=== PATIENT | female | born 1935 ===

== ENCOUNTER 2018-09-20 09:26 | Inpatient (IN) ==
[2018-09-20] MEDS ORDERED: 0.9 % Sodium Chloride 500 ML IVC ONE (09:54)
[2018-09-20 11:00] LABS: Bilirubin,Urine Moderate (Negative); Blood,Urine Large (Negative); Clarity,Urine Cloudy (Clear); Color,Urine Yellow (Yellow); Glucose,Urine (UA) Normal (Normal); Ketones,Urine 15 mg/dL (Negative); Leukocyte Esterase,Urine Large (Negative); Nitrite,Urine Negative (Negative); Protein,Urine 30 mg/dL (Neg-Trace); Specific Gravity,Urine 1.013 (1.010-1.025); Urobilinogen,Urine Normal (Normal)
[2018-09-20 11:02] LABS: Bacteria,Urine None Seen per hpf (None-Few); Squamous Epithelial Cell,Urine Many per lpf (None-Few); WBC,Urine 30-50 per hpf (0-3)
[2018-09-20 11:21] LABS: Renal Epithelial Cells,Urine Many per hpf (None-Few); Transitional Epi Cells,Urine Moderate per hpf (None-Few)
[2018-09-20 11:21] LABS: Basophils % 0.2 %; Eosinophils % 0.1 %; Hematocrit 33.8 % (35.3-44.9); Hemoglobin 10.6 g/dL (11.5-15.4); Immature Granulocytes % 2.8 % (0-4); Lymphocytes # 0.6 K/mcL (0.6-4.6); Mean Corpuscular HGB Conc 31.4 g/dL (31.6-35.5); Mean Corpuscular Hemoglobin 26.2 pg (28.0-33.3); Mean Corpuscular Volume 83.5 fL (83.0-100.0); Mean Platelet Volume 10.6 fL (9.4-12.4); Monocytes # 0.9 K/mcL (0.0-1.3); Monocytes % 4.6 %; Neutrophils # 16.7 K/mcL (1.6-8.9); Platelet Count 442 K/mcL (140-400); Red Blood Count 4.05 M/mcL (3.82-4.97); Red Cell Distribution Width 14.4 % (11.5-14.5); Segmented Neutrophils % 89.3 %
[2018-09-20 11:22] LABS: RBC,Urine TNTC per hpf (0-3)
[2018-09-20 11:34] LABS: INR 1.3; Prothrombin Time 14.3 Seconds (9.4-12.1)
[2018-09-20 11:38] LABS: Albumin 3.7 g/dL (3.5-5.7); Albumin/Globulin Ratio 0.9 (1.1-2.2); Bilirubin,Direct 0.2 mg/dL (0.0-0.2); Bilirubin,Indirect 0.4 mg/dL (0.0-1.2); Bilirubin,Total 0.6 mg/dL (0.3-1.0); Calcium 9.7 mg/dL (8.6-10.3); Globulin 4.1 g/dL (2.4-3.5); Potassium 4.3 mEq/L (3.5-5.1); Total Protein 7.8 g/dL (6.4-8.9); Troponin I 0.08 ng/mL (< 0.04)
[2018-09-20] MEDS ORDERED: cefTRIAXone 1,000 MG in 0.9 % Sodium Chloride Mini Bag 100 ML IVPB ONE (11:47)
[2018-09-20] MEDS ORDERED: *HR* Enoxaparin 60 MG/0.6 ML SYRINGE SQ STA (11:47)
--- NOTE | 2018-09-20 11:51 | Emergency Department Note ---
Disposition Clinical Impression: Atrial fibrillation with RVR UTI (urinary tract infection) Qualifiers: Urinary tract infection type: acute cystitis Hematuria presence: with hematuria Qualified Code(s): N30.01 - Acute cystitis with hematuria Disposition: Admitted As Inpatient Condition: Good Referrals: Fernando Regan DO [Primary Care Provider] - Time of Disposition: 11:49 General Adult HPI - General Chief complaint: ED Dizziness Stated complaint: "dizzy", from [facility] Time Seen by Provider: 09/20/18 09:37 Source: patient Limitations: no limitations Nursing Notes Reviewed: Yes Vital Signs Reviewed: Yes - History of Present Illness HPI Narrative: 83-year-old female with past medical history of rectal cancer presents for chief complaint of lightheadedness and palpitations over the last couple days. She denies any remitting or exacerbating factors. She denies any history of similar symptoms. No inciting event. She denies any headache, confusion, chest pain, shortness of breath, GI or symptoms, rashes or edema. She denies any melena or hematochezia. No history of bleeding ulcer. Patient is not on any anticoagulants at home. Pain Scale: 8 - Related Data Home Medications Medication Instructions Recorded Confirmed Carvedilol 12.5 mg PO BID 04/20/15 09/07/18 Ascorbic Acid [Vitamin C] 500 mg PO DAILY 07/19/18 09/07/18 Cyanocobalamin (Vitamin B-12) 1,000 mcg PO DAILY 07/19/18 09/07/18 [Vitamin B-12] Ferrous Sulfate 325 mg PO DAILY 09/07/18 09/07/18 Furosemide [Lasix] 40 mg PO BID 09/07/18 09/07/18 HYDROcodone/Acet 5/325 mg [[place] 1 tab PO BID 09/07/18 09/07/18 5-325 mg] Lisinopril [Zestril] 20 mg PO DAILY 09/07/18 09/07/18 Multivit with Calcium,Iron,Min 1 tab PO DAILY 09/07/18 09/07/18 [One Daily Women's] Previous Rx's Medication Instructions Recorded HYDROcodone/Acet 5/325 mg [[place] 1 tab PO BID 30 Days #60 tablet 09/06/18 5-325 mg] Oxybutynin [Ditropan] 5 mg PO TID PRN #20 tablet 09/07/18 Allergies Allergy/AdvReac Type Severity Reaction Status Date / Time Penicillins [PCN] Allergy Intermediate Hives Verified 09/20/18 09:35 Amoxicillin Allergy Hives Verified 09/20/18 09:35 All systems ED: reviewed and negative except as stated. Constitutional: Denies: fever, chills Eyes: Denies: eye pain, eye discharge Cardiovascular: Reports: palpitations. Denies: chest pain Respiratory: Denies: cough, dyspnea Gastrointestinal: Denies: abdominal pain, vomiting Musculoskeletal: Denies: back pain, neck pain Integumentary: Denies: rash, abrasion Neurological: Denies: headache, numbness Psychiatric: Denies: anxiety, depression Endocrine: Denies: fatigue, heat or cold intolerance Hematological/Lymphatic: Denies: easy bleeding, easy bruising Past Medical History - Past Medical History Attestation: Yes The following information was validated with the patient. Source: patient Medical history: Reports: cancer, diabetes, hyperlipidemia, hypertension, malignancy, valvular heart disease Surgical history: Reports: heart valve replacement, hysterectomy, other Psychiatric history: Reports: no psych history - Social History Smoking Status: Never smoker Smokeless Tobacco Status: No Alcohol use: Reports: none Drug use: Reports: none Physical Exam - General Limitations: no limitations General appearance: alert, in no apparent distress - Head Head exam: atraumatic, normocephalic, normal inspection - Eye Eye exam: Present: normal appearance, PERRL, EOMI - ENT ENT exam: normal exam, normal oropharynx, mucous membranes moist - Neck Neck exam: Present: normal inspection, full ROM, trachea midline - Chest Chest inspection: Present: normal inspection, symmetric chest wall rise - Respiratory Respiratory exam: Present: normal lung sounds bilaterally - Cardiovascular Cardiovascular exam: Present: tachycardia, irregular rhythm - Abdominal Exam Abdominal exam: Present: soft, Non-Tender - Extremities Exam Extremities exam: Present: normal inspection, full ROM - Neurological Exam Neurological exam: Present: alert, CN II-XII intact - Psychiatric Psychiatric exam: Present: normal affect, normal mood - Skin Skin exam: Present: warm, dry, intact, normal color Course Course Narrative: Patient noted to be in atrial fibrillation with rapid rate. This is new onset for her. She was started on diltiazem 10 mg bolus followed by a drip at 5 with resolution of the RVR. Her heart rate improved from the 120s down to the 80s. Her symptoms have resolved as well. Patient with mild troponin elevation of 0. 08. She has no history of GI bleeding. Hemoglobin is stable. I gave patient a shot of Lovenox for anticoagulation. Patient admitted to medicine for further evaluation and management. Critical care time of 30 minutes exclusive of separately billable procedures was performed. EKG interpreted by me shows atrial fibrillation at 136 with normal axis. No ST elevation or depression. Nonspecific diffuse mild T-wave changes. Septal Q waves are present. Abnormal EKG. Vital Signs Temperature 98.0 F 09/20/18 09:35 Pulse Rate 127 09/20/18 09:35 Respiratory Rate 18 09/20/18 09:35 Blood Pressure 163/139 09/20/18 09:35 O2 Sat by Pulse Oximetry 95 09/20/18 09:35 Temperature 98.0 F 09/20/18 09:35 Pulse Rate 81 09/20/18 11:36 Respiratory Rate 16 09/20/18 11:36 Blood Pressure 120/56 09/20/18 11:36 O2 Sat by Pulse Oximetry 100 09/20/18 11:36 Oxygen Delivery Oxygen Delivery Room Air Medical Decision Making - Lab Data Result diagrams: 09/20/18 10:13 09/20/18 10:13 Lab Results 09/20/18 09/20/18 09/20/18 Range/Units 10:13 10:13 10:13 WBC 18.6 H (4.3-11.1) K/mcL RBC 4.05 (3.82-4.97) M/mcL Hgb 10.6 L (11.5-15.4) g/dL Hct 33.8 L (35.3-44.9) % MCV 83.5 (83.0-100.0) fL MCH 26.2 L (28.0-33.3) pg MCHC 31.4 L (31.6-35.5) g/dL RDW 14.4 (11.5-14.5) % Plt Count 442 H (140-400) K/mcL MPV 10.6 (9.4-12.4) fL Immature Gran % 2.8 (0-4) % Seg Neutrophils % 89.3 % Lymphocytes % 3.0 % Monocytes % 4.6 % Eosinophils % 0.1 % Basophils % 0.2 % Neutrophils # 16.7 H (1.6-8.9) K/mcL Lymphocytes # 0.6 (0.6-4.6) K/mcL Monocytes # 0.9 (0.0-1.3) K/mcL Eosinophils # 0.0 (0.0-0.6) K/mcL Basophils # 0.0 (0.0-0.2) K/mcL PT 14.3 H (9.4-12.1) Seconds INR 1.3 Sodium 123 L (136-145) mEq/L Potassium 4.3 (3.5-5.1) mEq/L Chloride 80 L (98-107) mEq/L Carbon Dioxide 25 (23-29) mEq/L BUN 93 H (8-23) mg/dL Creatinine 1.64 H (0.60-1.20) mg/dL Est GFR ( Amer) 36 L (> 60) Est GFR (Non-Af Amer) 30 L (> 60) BUN/Creatinine Ratio 57 H (6-26) Glucose 256 H (70-105) mg/dL Calculated Osmolality 293 (280-300) Calcium 9.7 (8.6-10.3) mg/dL Total Bilirubin 0.6 (0.3-1.0) mg/dL Direct Bilirubin 0.2 (0.0-0.2) mg/dL Indirect Bilirubin 0.4 (0.0-1.2) mg/dL AST 26 (13-39) Units/L ALT 31 (7-52) Units/L Alkaline Phosphatase 110 H (34-104) Units/L Troponin I 0.08 H* (< 0.04) ng/mL Serum Total Protein 7.8 (6.4-8.9) g/dL Albumin 3.7 (3.5-5.7) g/dL Globulin 4.1 H (2.4-3.5) g/dL Albumin/Globulin Ratio 0.9 L (1.1-2.2) Urine Color (Yellow) Urine Clarity (Clear) Urine pH (5.0-8.0) pH Units Ur Specific [place] (1.010-1.025) Urine Protein (Neg-Trace) mg/dL Urine Glucose (UA) (Normal) mg/dL Urine Ketones (Negative) mg/dL Urine Blood (Negative) Urine Nitrite (Negative) Urine Bilirubin (Negative) Urine Urobilinogen (Normal) mg/dL Ur Leukocyte Esterase (Negative) Urine Microscopic RBC (0-3) per hpf Urine Microscopic WBC (0-3) per hpf Ur Squamous Epith Cells (None-Few) per lpf Ur Transition Epith Cell (None-Few) per hpf Ur Renal Epithelial Cell (None-Few) per hpf Urine Bacteria (None-Few) per hpf Ur Culture Indicated? (NO) 09/20/18 Range/Units 10:50 WBC (4.3-11.1) K/mcL RBC (3.82-4.97) M/mcL Hgb (11.5-15.4) g/dL Hct (35.3-44.9) % MCV (83.0-100.0) fL MCH (28.0-33.3) pg MCHC (31.6-35.5) g/dL RDW (11.5-14.5) % Plt Count (140-400) K/mcL MPV (9.4-12.4) fL Immature Gran % (0-4) % Seg Neutrophils % % Lymphocytes % % Monocytes % % Eosinophils % % Basophils % % Neutrophils # (1.6-8.9) K/mcL Lymphocytes # (0.6-4.6) K/mcL Monocytes # (0.0-1.3) K/mcL Eosinophils # (0.0-0.6) K/mcL Basophils # (0.0-0.2) K/mcL PT (9.4-12.1) Seconds INR Sodium (136-145) mEq/L Potassium (3.5-5.1) mEq/L Chloride (98-107) mEq/L Carbon Dioxide (23-29) mEq/L BUN (8-23) mg/dL Creatinine (0.60-1.20) mg/dL Est GFR ( Amer) (> 60) Est GFR (Non-Af Amer) (> 60) BUN/Creatinine Ratio (6-26) Glucose (70-105) mg/dL Calculated Osmolality (280-300) Calcium (8.6-10.3) mg/dL Total Bilirubin (0.3-1.0) mg/dL Direct Bilirubin (0.0-0.2) mg/dL Indirect Bilirubin (0.0-1.2) mg/dL AST (13-39) Units/L ALT (7-52) Units/L Alkaline Phosphatase (34-104) Units/L Troponin I (< 0.04) ng/mL Serum Total Protein (6.4-8.9) g/dL Albumin (3.5-5.7) g/dL Globulin (2.4-3.5) g/dL Albumin/Globulin Ratio (1.1-2.2) Urine Color Yellow (Yellow) Urine Clarity Cloudy A (Clear) Urine pH 5.0 (5.0-8.0) pH Units Ur Specific [place] 1.013 (1.010-1.025) Urine Protein 30 H (Neg-Trace) mg/dL Urine Glucose (UA) Normal (Normal) mg/dL Urine Ketones 15 H (Negative) mg/dL Urine Blood Large H (Negative) Urine Nitrite Negative (Negative) Urine Bilirubin Moderate H (Negative) Urine Urobilinogen Normal (Normal) mg/dL Ur Leukocyte Esterase Large H (Negative) Urine Microscopic RBC TNTC H (0-3) per hpf Urine Microscopic WBC 30-50 H (0-3) per hpf Ur Squamous Epith Cells Many H (None-Few) per lpf Ur Transition Epith Cell Moderate H (None-Few) per hpf Ur Renal Epithelial Cell Many H (None-Few) per hpf Urine Bacteria None Seen (None-Few) per hpf Ur Culture Indicated? YES A (NO)
[2018-09-20 12:03] LABS: Thyroid Stimulating Hormone 4.725 mcIU/mL (0.340-5.600)
[2018-09-20] MEDS ORDERED: Naloxone 0.4 MG/ML INJ IVP PRN (17:05)
--- NOTE | 2018-09-20 17:10 | Internal Med History&Physical ---
<Joon Garcia - Last Filed: 09/20/18 18:05> Date of Encounter: 09/20/18 Time of Encounter: 17:21 Internal Medicine - H&P: HPI Chief complaint: Palpitations History of present illness: Ms. Flanagan is a 83 year old female with a PMH of CHF, T2 DM, HLD, HTN, aortic valve placement 2012, and rectal cancer status post ostomy in May 2014 who presented to [facility] ED on 09/20/18 with chief complaint of lightheadedness and palpitations. She states that the symptoms have been going on for the last few days. Denies having any exacerbating or relieving factors. No prior episodes. Denied headache, confusion, chest pain, or shortness of breath. No history of a trial fibrillation or anticoagulation. Upon arrival to the emergency department, patients vital signs were as follows: Temperature 98.0, pulse 127, respiratory rate 18, blood pressure 163/139, O2 sa turation 95. EKG demonstrated atrial fibrillation at 136 bpm. Normal axis, no ST elevation or depression. Nonspecific diffuse mild T-wave changes, septal Q waves. Patient was admitted to the hospitalist service for further management of atrial fibrillation with rapid ventricular response. She was initially given a bolus of diltiazem, 10 mg followed by a drip at a rate of 5. Patient was given a shot of Lovenox for anticoagulation. Patient was seen and examined at bedside; states that her symptoms have improved since she arrived. Still feels an intermittent fluttering in her chest, but d enies chest pain or shortness of breath. Also states that she feels intermittently dizzy at times. States that she has a low appetite. Reports a family history of colon cancer in her sister. No further complaints. Past Med Surg Social Fam HX - Past Medical History Medical history: cancer, diabetes, hyperlipidemia, hypertension, malignancy, valvular heart disease Additional medical history: rectal cancer Psychiatric history: no psych history - Past Surgical History Surgical History: heart valve replacement, hysterectomy, other Additional surgical history: open heart surgery apr 27, 2011. aortic valve replacement - Social History Smoking Status: Never smoker Smokeless Tobacco Status: No Alcohol use: none Drug use: none Internal Medicine - H&P: Meds Carvedilol 12.5 mg PO BID 04/20/15 [History] Ascorbic Acid [Vitamin C] 500 mg PO DAILY 07/19/18 [History] Cyanocobalamin (Vitamin B-12) [Vitamin B-12] 1,000 mcg PO DAILY 07/19/18 [History] HYDROcodone/Acet 5/325 mg [[place] 5-325 mg] 1 tab PO BID 30 Days #60 tablet 09/06/18 [Rx] Ferrous Sulfate 325 mg PO DAILY 09/07/18 [History] Furosemide [Lasix] 40 mg PO BID 09/07/18 [History] HYDROcodone/Acet 5/325 mg [[place] 5-325 mg] 1 tab PO BID 09/07/18 [History] Lisinopril [Zestril] 20 mg PO DAILY 09/07/18 [History] Multivit with Calcium,Iron,Min [One Daily Women's] 1 tab PO DAILY 09/07/18 [History] Oxybutynin [Ditropan] 5 mg PO TID PRN #20 tablet 09/07/18 [Rx] Allergy/AdvReac Type Severity Reaction Status Date / Time Penicillins [PCN] Allergy Intermediate Hives Verified 09/20/18 09:35 Amoxicillin Allergy Hives Verified 09/20/18 09:35 All Systems PM: A 10-system review of systems was performed and is negative for pertinent findings except as documented above in the HPI. - Constitutional Vitals: Temp Pulse Resp BP Pulse Ox 97.5 F L 95 16 144/98 99 09/20/18 17:03 09/20/18 17:03 09/20/18 17:03 09/20/18 17:03 09/20/18 17:03 Exam: General: A&O X3, conversant, thin, no acute distress Head: atraumatic, normocephalic Eye: PERRL, EOMI, conjuntiva pink, sclera anicteric Neck: Supple, trachea midline; No lymphadenopathy Respiratory: Diminished breath sounds bilaterally; No accessory muscle use, wheezes, rales, or rhonchi Cardiovascular: Tachycardic, irregular, systolic murmur; no murmurs, rubs, gallops Abdomen: Soft, nontender Extremities: warm, radial pulses palpable and symmetrical Psychiatric: Normal affect, normal mood Skin: Dry, intact Internal Med - H&P Results - Labs CBC & Chem 7: 09/20/18 10:13 09/20/18 10:13 Labs: Short CBC 09/20/18 Range/Units 10:13 WBC 18.6 H (4.3-11.1) K/mcL Hgb 10.6 L (11.5-15.4) g/dL Hct 33.8 L (35.3-44.9) % Plt Count 442 H (140-400) K/mcL Neutrophils # 16.7 H (1.6-8.9) K/mcL BMP 09/20/18 10:13 Sodium 123 L Potassium 4.3 Chloride 80 L Carbon Dioxide 25 BUN 93 H Creatinine 1.64 H Glucose 256 H Calcium 9.7 Cardiac Enzymes 09/20/18 Range/Units 10:13 Troponin I 0.08 H* (< 0.04) ng/mL Liver Function 09/20/18 Range/Units 10:13 Total Bilirubin 0.6 (0.3-1.0) mg/dL Direct Bilirubin 0.2 (0.0-0.2) mg/dL AST 26 (13-39) Units/L ALT 31 (7-52) Units/L Alkaline Phosphatase 110 H (34-104) Units/L Albumin 3.7 (3.5-5.7) g/dL Urine 09/20/18 Range/Units 10:50 Urine Color Yellow (Yellow) Urine Clarity Cloudy A (Clear) Urine pH 5.0 (5.0-8.0) pH Units Ur Specific [place] 1.013 (1.010-1.025) Urine Protein 30 H (Neg-Trace) mg/dL Urine Glucose (UA) Normal (Normal) mg/dL - Assessment and Plan (1) Atrial fibrillation with RVR Current Visit: Yes Status: Acute Assessment and plan: - Presented with lightheadedness, palpitations - EKG performed in the ER demonstrated atrial fibrillation with rapid ventricular response; rate was 136 bpm - Patient has no known prior history of atrial fibrillation - In the emergency department, patient was given a 10 mg bolus of Cardizem, and then started on a drip Plan: - Will obtain echocardiogram - Continuous telemetry - Trend troponins 3 - Therapeutic Lovenox for anticoagulation - Obtain magnesium level with a.m. labs - Obtain chest x-ray (2) Acute kidney injury Current Visit: Yes Status: Acute Assessment and plan: - Laboratory analysis demonstrated an elevated creatinine at 1.64 - Is elevated from baseline; no documented history of chronic kidney disease - Etiology is likely prerenal due to poor oral intake Plan: - Gentle IV fluid hydration at 75 mL per hour with normal saline - Repeat a.m. labs (3) Hyponatremia Current Visit: Yes Status: Acute Assessment and plan: - Laboratory analysis demonstrated a low sodium level at 123 - Etiology is likely poor oral intake - Patient admits to some fatigue, but is alert and oriented and demonstrates no signs of confusion Plan: - Will start gentle IV fluid hydration at 75 mL per hour - Repeat sodium level in 4 hours - Nutrition consult- (4) Sepsis Current Visit: Yes Status: Acute Assessment and plan: - Met 2 out of 4 SIRS criteria on presentation with an elevated white count 18.6 and tachycardia - Possible infection source is urine; urinalysis demonstrated possible UTI - Received empiric Rocephin in the emergency department - Will order chest x-ray, blood cultures 2, and lactate Qualifiers: Qualified Code(s): A41.9 - Sepsis, unspecified organism (5) UTI (urinary tract infection) Current Visit: Yes Status: Acute Assessment and plan: - Urinalysis on arrival was suggestive of urinary tract infection - Patient received a one-time dose of Rocephin in the emergency department Plan: - Rocephin 1 g IV every 24 hours - Blood and urine cultures are pending; tailor antibiotic therapy accordingly Qualifiers: Urinary tract infection type: acute cystitis Hematuria presence: with hematuria Qualified Code(s): N30.01 - Acute cystitis with hematuria (6) Elevated troponin Current Visit: Yes Status: Acute Assessment and plan: - Labs demonstrated elevated troponin level - Likely secondary to demand ischemia - Will trend troponins 3 - Time Spent With Patient Total time spent is greater than 50% in coordination of care (as documented) at patient's floor/unit and/or counseling patient: <Pascual Ferro - Last Filed: 09/20/18 23:04> Date of Encounter: 09/20/18 Internal Medicine - H&P: HPI History of present illness: Ms. Flanagan is a 83 year old female All Systems PM: A 10-system review of systems was performed and is negative for pertinent findings except as documented above in the HPI. - Constitutional Vitals: Temp Pulse Resp BP Pulse Ox 97.8 F 81 16 131/46 97 09/20/18 19:17 09/20/18 19:17 09/20/18 19:17 09/20/18 19:17 09/20/18 19:17 Internal Med - H&P Results - Labs CBC & Chem 7: 09/20/18 10:13 09/20/18 10:13 Labs: Short CBC 09/20/18 Range/Units 10:13 WBC 18.6 H (4.3-11.1) K/mcL Hgb 10.6 L (11.5-15.4) g/dL Hct 33.8 L (35.3-44.9) % Plt Count 442 H (140-400) K/mcL Neutrophils # 16.7 H (1.6-8.9) K/mcL BMP 09/20/18 10:13 Sodium 123 L Potassium 4.3 Chloride 80 L Carbon Dioxide 25 BUN 93 H Creatinine 1.64 H Glucose 256 H Calcium 9.7 Cardiac Enzymes 09/20/18 09/20/18 Range/Units 10:13 18:58 Troponin I 0.08 H* 0.05 H* (< 0.04) ng/mL Liver Function 09/20/18 Range/Units 10:13 Total Bilirubin 0.6 (0.3-1.0) mg/dL Direct Bilirubin 0.2 (0.0-0.2) mg/dL AST 26 (13-39) Units/L ALT 31 (7-52) Units/L Alkaline Phosphatase 110 H (34-104) Units/L Albumin 3.7 (3.5-5.7) g/dL Urine 09/20/18 Range/Units 10:50 Urine Color Yellow (Yellow) Urine Clarity Cloudy A (Clear) Urine pH 5.0 (5.0-8.0) pH Units Ur Specific [place] 1.013 (1.010-1.025) Urine Protein 30 H (Neg-Trace) mg/dL Urine Glucose (UA) Normal (Normal) mg/dL - Impressions ITS Impressions Chest X-Ray 09/20/18 17:56 IMPRESSION: Minimal left basilar atelectasis versus scarring. No significant vascular congestion or edema. D/ / Brent Christian / Brent Christian Interpreting Provider: Brent Christian - Time Spent With Patient Total time spent is greater than 50% in coordination of care (as documented) at patient's floor/unit and/or counseling patient: - Attending Attestation I examined this patient and my medical decision-making was reviewed with the Resident Physician. I agree with the documented findings, disposition and treatment plan as described except to the extent set forth below.
[2018-09-20] MEDS ORDERED: 0.9 % Sodium Chloride w KCl 20 MEQ/1,000 ML MLS IVC SCH (17:15)
[2018-09-20] MEDS ORDERED: 0.9 % Sodium Chloride w KCl 20 MEQ/1,000 ML MLS IVC ONE (17:41)
[2018-09-20] MEDS: 0.9 % Sodium Chloride 1,000 ML ONE (18:56)
[2018-09-20] MEDS ORDERED: 0.9 % Sodium Chloride 1,000 ML IVC SCH ×2 (20:00→20:30)
[2018-09-20] MEDS ORDERED: Dextrose Gel 15 GM/37.5 ML TUBE PO PRN ×2 (20:15)
[2018-09-20] MEDS ORDERED: *HR* Dextrose 50 % in Water (Syg) 50 ML SYRINGE IVP PRN (20:15)
[2018-09-20] MEDS ORDERED: D5% in Water 1,000 ML IVC PRN (20:15)
[2018-09-21 02:46] LABS: Basophils % 0.1 %; Eosinophils % 0.1 %; Hematocrit 28.4 % (35.3-44.9); Immature Granulocytes % 1.3 % (0-4); Lymphocytes # 0.9 K/mcL (0.6-4.6); Lymphocytes % 6.1 %; Mean Corpuscular HGB Conc 31.7 g/dL (31.6-35.5); Mean Corpuscular Hemoglobin 26.2 pg (28.0-33.3); Mean Corpuscular Volume 82.8 fL (83.0-100.0); Mean Platelet Volume 10.4 fL (9.4-12.4); Monocytes % 7.2 %; Neutrophils # 11.9 K/mcL (1.6-8.9); Platelet Count 363 K/mcL (140-400); Red Blood Count 3.43 M/mcL (3.82-4.97); Red Cell Distribution Width 14.4 % (11.5-14.5); Segmented Neutrophils % 85.2 %
[2018-09-21 02:57] LABS: INR 1.2; Prothrombin Time 13.9 Seconds (9.4-12.1)
[2018-09-21 02:59] LABS: Albumin 3.1 g/dL (3.5-5.7); Albumin/Globulin Ratio 0.9 (1.1-2.2); Bilirubin,Total 0.4 mg/dL (0.3-1.0); Calcium 8.8 mg/dL (8.6-10.3); Globulin 3.5 g/dL (2.4-3.5); Magnesium 1.5 mg/dL (1.6-2.6); Potassium 3.6 mEq/L (3.5-5.1); Total Protein 6.6 g/dL (6.4-8.9)
[2018-09-21] MEDS ORDERED: Acetaminophen IV 1,000 MG/100 ML INFUS..BTL IVPB ONE (03:19)
[2018-09-21] MEDS: 0.9 % Sodium Chloride 1,000 ML IVC SCH ×2 (03:45→08:16)
[2018-09-21] MEDS ORDERED: *HR* Enoxaparin 60 MG/0.6 ML SYRINGE SQ SCH (06:00)
[2018-09-21] MEDS: cefTRIAXone 1,000 MG in Water for inj. (sterile) 20 ML 10 ML IVP SCH (07:58)
--- NOTE | 2018-09-21 08:05 | Electrocardiograph Report ---
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
--- NOTE | 2018-09-21 08:22 | Internal Med Progress Note ---
<Fadia Joya - Last Filed: 09/21/18 15:08> Hospitalist Progress Note - Encounter Date of Encounter: 09/21/18 - Exam Vitals: Temp Pulse Resp BP Pulse Ox 98.5 F 88 16 137/51 96 09/21/18 11:04 09/21/18 11:04 09/21/18 11:04 09/21/18 11:04 09/21/18 11:04 - Time Spent with Patient Total time spent is greater than 50% in coordination of care (as documented) at patient's floor/unit and/or counseling patient: Internal Medicine: Result - Labs CBC & Chem 7: 09/21/18 01:33 09/21/18 13:35 Labs: Short CBC 09/21/18 Range/Units 01:33 WBC 14.0 H (4.3-11.1) K/mcL Hgb 9.0 L D (11.5-15.4) g/dL Hct 28.4 L (35.3-44.9) % Plt Count 363 (140-400) K/mcL Neutrophils # 11.9 H (1.6-8.9) K/mcL BMP 09/21/18 09/21/18 09/21/18 01:33 01:33 10:32 Sodium 129 L 129 L 129 L Potassium 3.6 Chloride 88 L Carbon Dioxide 28 BUN 76 H Creatinine 1.16 Glucose 152 H Calcium 8.8 09/21/18 13:35 Sodium 131 L Potassium Chloride Carbon Dioxide BUN Creatinine Glucose Calcium Cardiac Enzymes 09/20/18 09/21/18 09/21/18 Range/Units 18:58 01:33 10:32 Troponin I 0.05 H* 0.05 H* 0.04 H* (< 0.04) ng/mL Liver Function 09/21/18 Range/Units 01:33 Total Bilirubin 0.4 (0.3-1.0) mg/dL AST 18 (13-39) Units/L ALT 20 (7-52) Units/L Alkaline Phosphatase 81 (34-104) Units/L Albumin 3.1 L (3.5-5.7) g/dL - ABG Interpretation ABG results: PT/INR, D-dimer PT 13.9 Seconds (9.4-12.1) H 09/21/18 01:33 - Impressions Impressions Chest X-Ray 09/20/18 17:56 IMPRESSION: Minimal left basilar atelectasis versus scarring. No significant vascular congestion or edema. D/ / Brent Christian / Brent Christian Interpreting Provider: Brent Christian Consult Discharge Plan - Plan Referrals: Fernando Regan DO [Primary Care Provider] - - Attending Attestation I examined this patient and my medical decision-making was reviewed with the Resident Physician Dr Garcia. I agree with the documented findings, disposition and treatment plan as described except to the extent set forth below. Ms Flanagan is admitted with afb rvr and hyponatremia awake, pleasant, overall feeling better, no further palpitations, denies any presyncope, syncope, cp or sob. She denies bladder pain, dysuria, cva pain,. + nausea, no emesis, fevers or chills. Denies any confusion, fatigue or focal weakness. gen- alert, awake,appears stated age eyes- pupils equal round cv- reg rate and irreg/irreg rhythm, normal s1,s2, no murmurs appreciated, no le edema, radial pulse 2+ and irreg lungs- ctabl, no wheezing, rhonchi or crackles, normal resp effort abd- soft, non tender, non distended, + bs neuro- AAOx3, CN grossly intact Afib with RVR, now rate controlled afib chadsvasc 7 suspect was 2/2 UTI, ischemic work up pending and thus far neg -cont cardizem gtt, replete lytes to keep at goal, treat uti, lovenox for AC and will d/w pt family plan for full aC on dc -echo pending Trop elevation, mild, downtredning, suspect demand 2/2 afib rvr- cont to monitor for sxs, echo pending Hypomagnesemia- IV mag today and repeat level in am UTI- rocephin, following ucx AUBREE resolved with ivfs Hyponatremia- suspected hypovolemic- correcting at goal rate in first 224 hrs, can stop ivfs and cont to monitor technically met sepsis criteria on admit- possible uti though ucx neg, and suspect VS changes were rlated to afib rvr- sepsis resolved -bl cxs ngtd chronic anemia- stable at baseline, fu outpt as will likely dc on AC, d/w family as above further diagnoses and plan as noted by resident <Joon Garcia - Last Filed: 09/21/18 17:09> Hospitalist Progress Note - Encounter Date of Encounter: 09/21/18 Time of Encounter: 07:44 - Subjective Interval History: Patient was seen and examined at bedside; states that she is feeling better today. She reports an improved appetite. Yesterday, and was able to eat most of her breakfast without difficulty. Her rate is currently well-controlled on Cardizem drip. She denies having palpitations, fever, chills, chest pain, diaphoresis, shortness of breath, dizziness, lightheadedness, or visual disturbances. Also denies suprapubic pain, dysuria, or flank pain. She is resting comfortably in bed and has no complaints at this time. Echocardiogram is ordered and is currently pending. We are continuing to treat for UTI. She is getting therapeutic Lovenox for anticoagulation. - Exam Vitals: Temp Pulse Resp BP Pulse Ox 97.6 F 74 15 138/52 95 09/21/18 06:43 09/21/18 06:43 09/21/18 06:43 09/21/18 06:43 09/21/18 06:43 Exam: General: A&O X3, conversant, thin, no acute distress Head: atraumatic, normocephalic Eye: PERRL, EOMI, conjuntiva pink, sclera anicteric Neck: Supple, trachea midline; No lymphadenopathy Respiratory: Diminished breath sounds bilaterally; No accessory muscle use, wheezes, rales, or rhonchi Cardiovascular: irregular rhythm, s1/s2; no murmurs, rubs, gallops Abdomen: Soft, nontender Extremities: warm, radial pulses palpable and symmetrical Psychiatric: Normal affect, normal mood Skin: Dry, intact - Assessment and Plan (1) Atrial fibrillation with RVR Current Visit: Yes Status: Acute Assessment and Plan: - Presented with lightheadedness, palpitations - EKG performed in the ER demonstrated atrial fibrillation with rapid ventricular response; rate was 136 bpm - Patient has no known prior history of atrial fibrillation - In the emergency department, patient was given a 10 mg bolus of Cardizem, and then started on a drip - Today, patient is rate controlled - [id number] score is 7 - No previous history of atrial fibrillation is documented - Ischemic workup thus far has been negative; troponins adynamic - Possibly secondary to urinary tract infection Plan: - Continue Cardizem drip - Echocardiogram pending - Therapeutic Lovenox for anticoagulation (2) Acute kidney injury Current Visit: Yes Status: Acute Assessment and Plan: - Resolved - Laboratory analysis demonstrated an elevated creatinine at 1.64 - Is elevated from baseline; no documented history of chronic kidney disease - Etiology likely prerenal due to poor oral intake - Will repeat AM labs (3) Hyponatremia Current Visit: Yes Status: Acute Assessment and Plan: - Laboratory analysis demonstrated a low sodium level at 123 - Etiology is likely poor oral intake - Patient admits to some fatigue, but is alert and oriented and demonstrates no signs of confusion - Initially started on normal saline at 75 mL per hour - Repeat sodium was 129; IV fluids have been discontinued - Repeat a.m. labs (4) Sepsis Current Visit: Yes Status: Acute Assessment and Plan: - Resolved - Met 2 out of 4 SIRS criteria on presentation with an elevated white count 18.6 and tachycardia - Possible infection source is urine; urinalysis demonstrated possible UTI - Received empiric Rocephin in the emergency department - CXR negative - White count has decreased to 14.0 Plan: - Continue Rocephin for urinary tract infection - Follow blood and urine cultures; tailor antibiotic therapy appropriately (5) UTI (urinary tract infection) Current Visit: Yes Status: Acute Assessment and Plan: - Urinalysis on arrival was suggestive of urinary tract infection - Patient received a one-time dose of Rocephin in the emergency department Plan: - Rocephin 1 g IV every 24 hours - Blood and urine cultures are pending; tailor antibiotic therapy accordingly (6) Elevated troponin Current Visit: Yes Status: Acute Assessment and Plan: - Labs demonstrated elevated troponin level - Likely secondary to demand ischemia - Troponins so far have been adynamic - Echocardiogram is pending (7) Hypomagnesemia Current Visit: Yes Status: Acute Assessment and Plan: - Replacement ordered - Time Spent with Patient Total time spent is greater than 50% in coordination of care (as documented) at patient's floor/unit and/or counseling patient: Internal Medicine: Result - Labs CBC & Chem 7: 09/21/18 01:33 09/21/18 15:58 Labs: Short CBC 09/20/18 09/21/18 Range/Units 10:13 01:33 WBC 18.6 H 14.0 H (4.3-11.1) K/mcL Hgb 10.6 L 9.0 L D (11.5-15.4) g/dL Hct 33.8 L 28.4 L (35.3-44.9) % Plt Count 442 H 363 (140-400) K/mcL Neutrophils # 16.7 H 11.9 H (1.6-8.9) K/mcL BMP 09/20/18 09/21/18 09/21/18 10:13 01:33 01:33 Sodium 123 L 129 L 129 L Potassium 4.3 3.6 Chloride 80 L 88 L Carbon Dioxide 25 28 BUN 93 H 76 H Creatinine 1.64 H 1.16 Glucose 256 H 152 H Calcium 9.7 8.8 Cardiac Enzymes 09/20/18 09/20/18 09/21/18 Range/Units 10:13 18:58 01:33 Troponin I 0.08 H* 0.05 H* 0.05 H* (< 0.04) ng/mL Liver Function 09/20/18 09/21/18 Range/Units 10:13 01:33 Total Bilirubin 0.6 0.4 (0.3-1.0) mg/dL Direct Bilirubin 0.2 (0.0-0.2) mg/dL AST 26 18 (13-39) Units/L ALT 31 20 (7-52) Units/L Alkaline Phosphatase 110 H 81 (34-104) Units/L Albumin 3.7 3.1 L (3.5-5.7) g/dL Urine 09/20/18 Range/Units 10:50 Urine Color Yellow (Yellow) Urine Clarity Cloudy A (Clear) Urine pH 5.0 (5.0-8.0) pH Units Ur Specific [place] 1.013 (1.010-1.025) Urine Protein 30 H (Neg-Trace) mg/dL Urine Glucose (UA) Normal (Normal) mg/dL - ABG Interpretation ABG results: PT/INR, D-dimer PT 13.9 Seconds (9.4-12.1) H 09/21/18 01:33 - Impressions Impressions Chest X-Ray 09/20/18 17:56 IMPRESSION: Minimal left basilar atelectasis versus scarring. No significant vascular congestion or edema. D/ / Brent Christian / Brent Christian Interpreting Provider: Brent Christian <Joon Garcia - Last Filed: 09/21/18 17:09> (4) Sepsis Qualifiers: Qualified Code(s): A41.9 - Sepsis, unspecified organism (5) UTI (urinary tract infection) Qualifiers: Urinary tract infection type: acute cystitis Hematuria presence: with hematuria Qualified Code(s): N30.01 - Acute cystitis with hematuria
[2018-09-21] MEDS ORDERED: *HR* Dextrose 50 % in Water (Syg) 50 ML SYRINGE IVP PRN (08:31)
[2018-09-21] MEDS ORDERED: D5% in Water 1,000 ML IVC PRN (08:31)
[2018-09-21] MEDS ORDERED: Dextrose Gel 15 GM/37.5 ML TUBE PO PRN ×2 (08:31)
[2018-09-21] MEDS ORDERED: Potassium Chloride Elixir 20 MEQ/15 ML UDC PO ONE (10:56)
[2018-09-21] MEDS: Insulin LISPRO 300 UNITS/3 ML VIAL SQ SCH ×2 (12:25→17:35)
[2018-09-21] MEDS: Ondansetron 4 MG/2 ML VIAL IVP PRN ×2 (13:28→17:35)
[2018-09-21] MEDS: Pantoprazole 40 MG VIAL IVP SCH (18:24)
[2018-09-21] MEDS: Acetaminophen 325 MG TABLET PO PRN (19:59)
[2018-09-21] MEDS ORDERED: Ondansetron 4 MG/2 ML VIAL IVP ONE (22:29)
[2018-09-21] MEDS: traMADol 50 MG TABLET PO PRN (22:40)
[2018-09-22 01:08] LABS: Red Blood Count 3.17 M/mcL (3.82-4.97)
[2018-09-22 01:09] LABS: Basophils % 0.2 %; Eosinophils % 0.2 %; Hematocrit 26.7 % (35.3-44.9); Hemoglobin 8.6 g/dL (11.5-15.4); Immature Granulocytes % 0.9 % (0-4); Lymphocytes # 0.9 K/mcL (0.6-4.6); Lymphocytes % 5.7 %; Mean Corpuscular HGB Conc 32.2 g/dL (31.6-35.5); Mean Corpuscular Hemoglobin 27.1 pg (28.0-33.3); Mean Corpuscular Volume 84.2 fL (83.0-100.0); Monocytes # 1.1 K/mcL (0.0-1.3); Monocytes % 6.8 %; Neutrophils # 14.1 K/mcL (1.6-8.9); Platelet Count 312 K/mcL (140-400); Red Cell Distribution Width 14.4 % (11.5-14.5); Segmented Neutrophils % 86.2 %
[2018-09-22 01:28] LABS: BUN/Creatinine Ratio 50 (6-26); Blood Urea Nitrogen 48 mg/dL (8-23); Calcium 8.8 mg/dL (8.6-10.3); Carbon Dioxide 27 mEq/L (23-29); Chloride 94 mEq/L (98-107); Glucose 110 mg/dL (70-105); Osmolality,Calculated 285 (280-300); Sodium 131 mEq/L (136-145); eGFR For Non-African Americans 56 (> 60)
[2018-09-22] MEDS ORDERED: 0.9 % Sodium Chloride 1,000 ML ONE (03:13)
[2018-09-22] MEDS: traMADol 50 MG TABLET PO PRN (03:16)
[2018-09-22] MEDS: 0.9 % Sodium Chloride 1,000 ML ONE (03:18)
[2018-09-22] MEDS: *HR* Enoxaparin 60 MG/0.6 ML SYRINGE SQ SCH (05:15)
[2018-09-22] MEDS: Pantoprazole 40 MG VIAL IVP SCH (05:15)
[2018-09-22] MEDS: Insulin LISPRO 300 UNITS/3 ML VIAL SQ SCH ×3 (08:12→18:27)
[2018-09-22] MEDS: cefTRIAXone 1,000 MG in Water for inj. (sterile) 20 ML 10 ML IVP SCH (08:12)
--- NOTE | 2018-09-22 09:28 | Electrocardiograph Report ---
[address] [place], [place] [address] Test Date: 2018-09-22 Pat Name: Patricia Flanagan Department: 112 Room: 2A14 Gender: F [employer] In[employer]: RAMESH : 1935 Requested By: Fadia Joya Order Number: [id number] Reading MD: Jeramy Gutierrez Measurements Intervals [place] Rate: 86 P: UT: 0 QRS: -9 QRSD: 86 T: 116 QT: 368 QTc: 412 Interpretive Statements Sinus rhythm with frequent PACs Septal infarction, age undetermined Electronically Signed On 09-22-2018 9:27:11 EDT by Jeramy Gutierrez
--- NOTE | 2018-09-22 13:52 | Internal Med Progress Note ---
<Fadia Joya - Last Filed: 09/22/18 14:54> Hospitalist Progress Note - Encounter Date of Encounter: 09/22/18 - Exam Vitals: Temp Pulse Resp BP Pulse Ox 97.6 F 89 16 124/41 94 09/22/18 11:09 09/22/18 11:09 09/22/18 11:09 09/22/18 11:09 09/22/18 11:09 - Time Spent with Patient Total time spent is greater than 50% in coordination of care (as documented) at patient's floor/unit and/or counseling patient: Internal Medicine: Result - Labs CBC & Chem 7: 09/22/18 00:54 09/22/18 00:54 Labs: Short CBC 09/22/18 Range/Units 00:54 WBC 16.4 H (4.3-11.1) K/mcL Hgb 8.6 L (11.5-15.4) g/dL Hct 26.7 L (35.3-44.9) % Plt Count 312 (140-400) K/mcL Neutrophils # 14.1 H (1.6-8.9) K/mcL BMP 09/21/18 09/21/18 09/22/18 15:58 19:55 00:54 Sodium 132 L 132 L 131 L Potassium 4.0 Chloride 94 L Carbon Dioxide 27 BUN 48 H Creatinine 0.96 Glucose 110 H Calcium 8.8 - ABG Interpretation ABG results: PT/INR, D-dimer PT 13.9 Seconds (9.4-12.1) H 09/21/18 01:33 Consult Discharge Plan - Plan Referrals: Fernando Regan DO [Primary Care Provider] - - Attending Attestation I examined this patient and my medical decision-making was reviewed with the Resident Physician Dr Garcia. I agree with the documented findings, disposition and treatment plan as described except to the extent set forth below. Ms Flanagan is admitted with afb rvr and hyponatremia awake,had emesis this morning, notes that this has been present for months and this is her baseline nausea and emesis in the morning. She denies abd pain, current nausea. She has small amount clear watery emesis with phlegm, parkinson colored without blood or coffee ground appearance at the bedside. She deneis cp, pressure, palpitations today. no presyncope. Discussed full AC on discharge, her history of anemia, risk of stroke, and she is feeling like she would only want aspirin at discharge. She wants to defer decision to her son Carlota and provided me with number. gen- alert, awake,appears stated age cv- reg rate and irreg/irreg rhythm, normal s1,s2, no murmurs appreciated, no le edema, radial pulse 2+ and irreg lungs- ctabl, no wheezing, rhonchi or crackles, normal resp effort abd- soft, non tender, non distended, + bs, ostomy bag with soft brown stool neuro- AAOx3, CN grossly intact Afib with RVR, now rate controlled afib chadsvasc 7 infection ruled out, ischemic cardiac work up is started and thus far suggestive of demand likely related to RVR with improved EKG and adynamic trops now rate controlled -cardizem gtt transition to oral cardizem, lovenox for AC but will discuss with her son -echo pending Trop elevation, mild, adynami, suspect demand 2/2 afib rvr EKG on admit did show ischemic changes with TWI I, II, avl and ST dep in v4-v6, some of those changes new since 2014 Repeat EKG 09/22 now rate controlled afib and ST depressions resolved and TWI improved/resolved when compared to prior and 2014 ekg - cont to monitor for sxs, echo pending Hypomagnesemia- resolved with iv repletion ruled out UTI on cx- however, given her history of urologic procedures, new onset afib- will complete abx course risk v benefit of not treating Hyponatremia- suspected hypovolemic- correcting appropriately, improved oral intake, stopped ivfs and cont to monitor technically met sepsis criteria on admit- possible uti though ucx neg, and suspect VS changes were related to afib rvr- sepsis resolved -bl cxs ngtd chronic anemia, etiology unknown- stable at baseline, fu outpt Chronic nausea/emesis- per pt this is at baseline and she has seen outpt provider further diagnoses and plan as noted by resident <Joon Garcia - Last Filed: 09/22/18 16:37> Hospitalist Progress Note - Encounter Date of Encounter: 09/22/18 Time of Encounter: 07:50 - Subjective Interval History: Patient was seen and examined at bedside. She states that she is feeling well today. She has gained a lot of her strength back, and has an improved appetite. She was able to eat most of her breakfast this morning. Her sodium has improved to 131. Overnight, her heart rate was noted to be 118-140. The Cardizem drip rate was increased to 7.5. It was later decreased back down to 5 this morning. Patients heart rate has been stable since. She will be transitioned off the Cardizem drip to oral Cardizem. The possibility of long- term anticoagulation was discussed with the patient given her [id number] score of 7. She states that she would like to discuss with her son the options available. She has no complaints at this time. - Exam Vitals: Temp Pulse Resp BP Pulse Ox 97.6 F 89 16 124/41 94 09/22/18 11:09 09/22/18 11:09 09/22/18 11:09 09/22/18 11:09 09/22/18 11:09 Exam: General: A&O X3, conversant, thin, no acute distress Head: atraumatic, normocephalic Eye: PERRL, EOMI, conjuntiva pink, sclera anicteric Neck: Supple, trachea midline; No lymphadenopathy Respiratory: Diminished breath sounds bilaterally; No accessory muscle use, wheezes, rales, or rhonchi Cardiovascular: irregular rhythm, s1/s2; no murmurs, rubs, gallops Abdomen: Soft, nontender Extremities: warm, radial pulses palpable and symmetrical Psychiatric: Normal affect, normal mood Skin: Dry, intact - Assessment and Plan (1) Atrial fibrillation with RVR Current Visit: Yes Status: Acute Assessment and Plan: - Presented with lightheadedness, palpitations - EKG performed in the ER demonstrated atrial fibrillation with rapid ventricular response; rate was 136 bpm - Patient has no known prior history of atrial fibrillation - In the emergency department, patient was given a 10 mg bolus of Cardizem, and then started on a drip - Today, patient is rate controlled - [id number] score is 7 - No previous history of atrial fibrillation is documented - Ischemic workup thus far has been negative; troponins adynamic Plan: - Cardizem drip discontinued; transitioned to oral Cardizem - Therapeutic Lovenox for anticoagulation - Patient wants to discuss with her son the options for long-term anticoagulation - Echocardiogram pending (2) Hyponatremia Current Visit: Yes Status: Acute Assessment and Plan: - Laboratory analysis demonstrated an initial low sodium level of 123 - Etiology is likely poor oral intake - Initially started on normal saline at 75 mL per hour; discontinued after sodium increased - Sodium today is 131 - Encourage PO intake, repeat AM labs (3) Sepsis Current Visit: Yes Status: Acute Assessment and Plan: - Resolved - Met 2 out of 4 SIRS criteria on presentation with an elevated white count 18.6 and tachycardia - Possible infection source is urine; urinalysis demonstrated possible UTI - Received empiric Rocephin in the emergency department - CXR and Urine CX negative Plan: - Continue Rocephin; benefits of continuation of antibiotic therapy outweighs risks, given leukocytosis and new onset A. fib with RVR in the setting of previous urologic procedures and leukocyte esterase seen on initial urinalysis (4) UTI (urinary tract infection) Current Visit: Yes Status: Acute Assessment and Plan: - Urinalysis on arrival was suggestive of urinary tract infection - Patient received a one-time dose of Rocephin in the emergency department Plan: - Continue antibiotics for full course; although urine culture negative, patient has history of urologic procedures in new-onset A. fib - Rocephin 1 g IV every 24 hours (Day 3) (5) Elevated troponin Current Visit: Yes Status: Acute Assessment and Plan: - Labs demonstrated elevated troponin level - Likely secondary to demand ischemia - Troponins so far have been adynamic - Echocardiogram is pending (6) Chronic nausea Current Visit: Yes Status: Acute Assessment and Plan: - Patient reports that she has had nausea and vomiting every morning since her urologic procedure - We will continue to monitor labs - Time Spent with Patient Total time spent is greater than 50% in coordination of care (as documented) at patient's floor/unit and/or counseling patient: Internal Medicine: Result - Labs CBC & Chem 7: 09/22/18 00:54 09/22/18 00:54 Labs: Short CBC 09/22/18 Range/Units 00:54 WBC 16.4 H (4.3-11.1) K/mcL Hgb 8.6 L (11.5-15.4) g/dL Hct 26.7 L (35.3-44.9) % Plt Count 312 (140-400) K/mcL Neutrophils # 14.1 H (1.6-8.9) K/mcL BMP 09/21/18 09/21/18 09/21/18 13:35 15:58 19:55 Sodium 131 L 132 L 132 L Potassium Chloride Carbon Dioxide BUN Creatinine Glucose Calcium 09/22/18 00:54 Sodium 131 L Potassium 4.0 Chloride 94 L Carbon Dioxide 27 BUN 48 H Creatinine 0.96 Glucose 110 H Calcium 8.8 - ABG Interpretation ABG results: PT/INR, D-dimer PT 13.9 Seconds (9.4-12.1) H 09/21/18 01:33 <Joon Garcia - Last Filed: 09/22/18 16:37> (3) Sepsis Qualifiers: Qualified Code(s): A41.9 - Sepsis, unspecified organism (4) UTI (urinary tract infection) Qualifiers: Urinary tract infection type: acute cystitis Hematuria presence: with hematuria Qualified Code(s): N30.01 - Acute cystitis with hematuria
[2018-09-22] MEDS ORDERED: Perflutren Lipid Microsphere 1.3 ML in 0.9 % Sodium Chloride 8.7 ML IVP ONE (17:14)
[2018-09-22] MEDS: Ondansetron 4 MG/2 ML VIAL IVP PRN (18:27)
[2018-09-22] MEDS ORDERED: *HR* Promethazine 25 MG/ML VIAL IVP ONE (21:49)
[2018-09-22] MEDS ORDERED: Acetaminophen IV 500 MG/50 ML INFUS..BTL IVPB ONE (21:50)
[2018-09-23] MEDS: traMADol 50 MG TABLET PO PRN ×3 (03:15→21:01)
[2018-09-23] MEDS ORDERED: OXYCODONE Oral CONC 10 MG/0.5 ML ORAL.SYG SL ONE (03:40)
[2018-09-23 04:52] LABS: Basophils % 0.1 %; Eosinophils % 0.3 %; Hematocrit 28.6 % (35.3-44.9); Hemoglobin 8.8 g/dL (11.5-15.4); Immature Granulocytes % 1.4 % (0-4); Lymphocytes # 1.1 K/mcL (0.6-4.6); Lymphocytes % 7.2 %; Mean Corpuscular HGB Conc 30.8 g/dL (31.6-35.5); Mean Corpuscular Hemoglobin 26.6 pg (28.0-33.3); Mean Corpuscular Volume 86.4 fL (83.0-100.0); Mean Platelet Volume 10.3 fL (9.4-12.4); Monocytes # 1.1 K/mcL (0.0-1.3); Monocytes % 7.1 %; Neutrophils # 12.9 K/mcL (1.6-8.9); Platelet Count 334 K/mcL (140-400); Red Blood Count 3.31 M/mcL (3.82-4.97); Red Cell Distribution Width 14.3 % (11.5-14.5); Segmented Neutrophils % 83.9 %
[2018-09-23 05:09] LABS: % Iron Saturation 9 % (15-50); BUN/Creatinine Ratio 32 (6-26); Blood Urea Nitrogen 28 mg/dL (8-23); Calcium 9.1 mg/dL (8.6-10.3); Carbon Dioxide 27 mEq/L (23-29); Chloride 95 mEq/L (98-107); Glucose 121 mg/dL (70-105); Iron 20 mcg/dL (50-170); Osmolality,Calculated 281 (280-300); Potassium 3.7 mEq/L (3.5-5.1); Sodium 132 mEq/L (136-145); Transferrin 152 mg/dL (203-362); eGFR For Non-African Americans > 60 (> 60)
[2018-09-23] MEDS: *HR* Enoxaparin 60 MG/0.6 ML SYRINGE SQ SCH (06:03)
[2018-09-23] MEDS: Acetaminophen 325 MG TABLET PO PRN ×2 (07:51→17:26)
[2018-09-23] MEDS: Insulin LISPRO 300 UNITS/3 ML VIAL SQ SCH ×3 (07:52→17:26)
--- NOTE | 2018-09-23 07:52 | Internal Med Progress Note ---
<Fadia Joya - Last Filed: 09/23/18 14:54> Hospitalist Progress Note - Encounter Date of Encounter: 09/23/18 - Exam Vitals: Temp Pulse Resp BP Pulse Ox 98.0 F 102 16 103/55 97 09/23/18 11:03 09/23/18 11:03 09/23/18 11:03 09/23/18 11:03 09/23/18 11:03 - Time Spent with Patient Total time spent is greater than 50% in coordination of care (as documented) at patient's floor/unit and/or counseling patient: Internal Medicine: Result - Labs CBC & Chem 7: 09/23/18 04:10 09/23/18 04:10 Labs: Short CBC 09/23/18 Range/Units 04:10 WBC 15.3 H (4.3-11.1) K/mcL Hgb 8.8 L (11.5-15.4) g/dL Hct 28.6 L (35.3-44.9) % Plt Count 334 (140-400) K/mcL Neutrophils # 12.9 H (1.6-8.9) K/mcL BMP 09/23/18 04:10 Sodium 132 L Potassium 3.7 Chloride 95 L Carbon Dioxide 27 BUN 28 H Creatinine 0.87 Glucose 121 H Calcium 9.1 - ABG Interpretation ABG results: PT/INR, D-dimer PT 13.9 Seconds (9.4-12.1) H 09/21/18 01:33 - Impressions Impressions Echocardiogram 09/22/18 07:44 Impressions: LVEF 45-50%. Mild global left ventricular systolic dysfunction. Mild left ventricular diastolic dysfunction. Normal right ventricular structure and function. Mildly dilated left atrium. 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 Mild mitral regurgitation. Mild tricuspid regurgitation. No pulmonary hypertension. Left Ventricular Wall Motion: Rest Echo Findings The apex, apical inferior, mid inferior, basal inferior, apical anterior, mid anterior, basal anterior, apical septal, mid inferior septal, basal inferior septal, apical lateral, mid anterior lateral, basal anterior lateral, mid anterior septal, mid inferior lateral, basal anterior septal and basal inferior lateral navarro were hypokinetic. Findings: Study Quality * Technically adequate exam. ECG Findings * Sinus rhythm with PACs. * Sinus rhythm with PVCs. Left Ventricle * LVEF 45-50%. * Normal LV chamber size and wall thickness. * Mild global left ventricular systolic dysfunction. * Mild left ventricular diastolic dysfunction. * Definity echo contrast was not used. Right Ventricle * Normal right ventricular structure and function. Left Atrium * Mildly dilated left atrium. Right Atrium * Normal right atrial size. Interatrial Septum * Interatrial septum not well evaluated. * No evidence of PFO by color Doppler. 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 Mitral Valve * Moderate mitral annular calcification * Moderately calcified mitral valve leaflets. * Mild mitral regurgitation. * No mitral stenosis. Tricuspid Valve * Normal tricuspid valve structure. * No tricuspid stenosis. * Mild tricuspid regurgitation. * Estimated RVSP is 25 mmHg. * Estimated RA pressure is 3 mmHg. * No pulmonary hypertension. Pulmonic Valve * Pulmonic valve is not well visualized. * No pulmonic stenosis. * No pulmonic regurgitation. Aorta * Aortic root not well visualized. Pericardium * The pericardium appears normal. IVC * The IVC is not dilated. * > 50% respiratory change Consult Discharge Plan - Plan Referrals: Fernando Regan DO [Primary Care Provider] - 10/06/18 9:30 am (Please arrive about 15-30mins early to update your patient profile since you have not been there in about 3 years. Thank you!) - Attending Attestation I examined this patient and my medical decision-making was reviewed with the Resident Physician Dr Garcia. I agree with the documented findings, disposition and treatment plan as described except to the extent set forth below. Ms Flanagan is admitted with afb rvr and hyponatremia awake,working with pt, pleasant. no nausea or emesis today. improved energy. no abd pain or bladder pain. no palpitations HR elevated overnight and almost required cardizem gtt to be resumed. HR normal at this time gen- alert, awake,appears stated age cv- reg rate and irreg/irreg rhythm, normal s1,s2, no murmurs appreciated, lungs- ctabl, no wheezing, rhonchi or crackles, normal resp effort on room air abd- soft, non tender, non distended neuro- AAOx3, CN grossly intact Afib with RVR, now rate controlled afib chadsvasc 7 but after discussion between team/pt/son pt has decided for only ASA due to chronic anemia and fall risk infection ruled out, ischemic cardiac work up is started and thus far suggestive of demand likely related to RVR with improved EKG and adynamic trops now rate controlled -cardizem gtt transition to oral cardizem, increase PO dose today, dc therapeutic lovenox and begin ASA daily as per family given risk v benefit of full anticoagulation -echo reviewed and no prior for comparison- EF 45-50%, mild global LV systolic dysfunction, Mild LV DD, 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 -will consult cards for further eval and treatment/work up recs -previously followed with dr Jerome in [place] but she and son requesting to transition to [place] [facility] care due to transportation constraints on travelling to [place] Trop elevation, mild, adynamic suspect demand 2/2 afib rvr EKG on admit did show ischemic changes with TWI I, II, avl and ST dep in v4-v6, some of those changes new since 2014 Repeat EKG 09/22 now rate controlled afib and ST depressions resolved and TWI improved/resolved when compared to prior and 2014 ekg -will fu cards recs ruled out UTI on cx- however, given her history of urologic procedures, new onset afib- will complete abx course (rocephin day 4) risk v benefit of not treating Acute on Chronic Hyponatremia- suspected hypovolemic- correcting appropriately, improved oral intake, stable off ivfs and near her baseline technically met sepsis criteria on admit- possible uti though ucx neg, and suspect VS changes were related to afib rvr- sepsis resolved -bl cxs ngtd chronic anemia, etiology unknown, CROW- stable at baseline, begin iron PO daily + colace to avoid constipation Chronic intermittent nausea/emesis- per pt this is at baseline and she has seen outpt provider, prn anti emetic Moderate Non Severe Protein Calorie Malnutrition related to cancer process (chronic) as evidenced by weight loss 13% over 6 months, moderate muscle and fat wasting, consuming < 75% estimated requirements. BMI 24.4 -Pt is on nutritional supplements further diagnoses and plan as noted by resident dispo plan- rec is to snf, SW working with pt and family to arrange <Joon Garcia - Last Filed: 09/23/18 16:31> Hospitalist Progress Note - Encounter Date of Encounter: 09/23/18 Time of Encounter: 07:55 - Subjective Interval History: Was seen and examined at bedside this morning. She states that she is feeling much better today than she was yesterday. She states that most of her strength has come back. She has a better appetite and was able to eat her breakfast without difficulty. Her heart rate did increase overnight despite being on oral Cardizem. Cardiology is consulted for further recommendations for rate control. She also stated that she does not want to be on long-term anticoagulation, and would prefer to just take aspirin. She has no complaints at this time. - Exam Vitals: Temp Pulse Resp BP Pulse Ox 97.8 F 105 16 125/66 97 09/23/18 07:15 09/23/18 07:15 09/23/18 07:15 09/23/18 07:15 09/23/18 07:15 Exam: General: A&O X3, conversant, thin, no acute distress Head: atraumatic, normocephalic Eye: PERRL, EOMI, conjuntiva pink, sclera anicteric Neck: Supple, trachea midline; No lymphadenopathy Respiratory: Diminished breath sounds bilaterally; No accessory muscle use, wheezes, rales, or rhonchi Cardiovascular: irregular rhythm, s1/s2; no murmurs, rubs, gallops Abdomen: Soft, nontender Extremities: warm, radial pulses palpable and symmetrical Psychiatric: Normal affect, normal mood Skin: Dry, intact - Assessment and Plan (1) Atrial fibrillation with RVR Current Visit: Yes Status: Acute Assessment and Plan: - Presented with lightheadedness, palpitations - EKG performed in the ER demonstrated atrial fibrillation with rapid ventricular response; rate was 136 bpm - Patient has no known prior history of atrial fibrillation - In the emergency department, patient was given a 10 mg bolus of Cardizem, and then started on a drip - Today, patient is rate controlled - [id number] score is 7 - No previous history of atrial fibrillation is documented - Ischemic workup thus far has been negative; troponins adynamic Plan: - Continue PO Cardizem - ASA 81 mg daily - Cardiology consulted for recommendations on rate control (2) Anemia Current Visit: Yes Status: Acute Assessment and Plan: - Chronic - Patient has low iron on laboratory analysis - Started ferrous sulfate daily, as well as Colace to avoid constipation (3) HFrEF (heart failure with reduced ejection fraction) Current Visit: Yes Status: Acute Assessment and Plan: - TTE 09/22: EF 45%, mild global systolic dysfunction, mild LV diastolic dysfunction, 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, mild regurgitation, mildly dilated left atrium (4) Hyponatremia Current Visit: Yes Status: Acute Assessment and Plan: - Laboratory analysis demonstrated an initial low sodium level of 123 - Etiology is likely poor oral intake - Initially started on normal saline at 75 mL per hour; discontinued after sodium increased - Sodium today is 132 - Encourage PO intake, repeat AM labs (5) Sepsis Current Visit: Yes Status: Acute Assessment and Plan: - Resolved - Met 2 out of 4 SIRS criteria on presentation with an elevated white count 18.6 and tachycardia - Possible infection source is urine; urinalysis demonstrated possible UTI - Received empiric Rocephin in the emergency department - CXR negative - White count today is 25.3, down from 16.1 - Urine CX negative Plan: - Continue Rocephin, day 4 (6) UTI (urinary tract infection) Current Visit: Yes Status: Acute Assessment and Plan: - Urinalysis on arrival was suggestive of urinary tract infection - Patient received a one-time dose of Rocephin in the emergency department Plan: - Continue antibiotics for full course; although urine culture negative, patient has history of urologic procedures in new-onset A. fib - Rocephin 1 g IV every 24 hours (Day 4) (7) Elevated troponin Current Visit: Yes Status: Acute Assessment and Plan: - Labs demonstrated elevated troponin level - Likely secondary to demand ischemia - Troponins so far have been adynamic - Echocardiogram is pending (8) Chronic nausea Current Visit: Yes Status: Acute Assessment and Plan: - Patient reports that she has had nausea and vomiting every morning since her urologic procedure - We will continue to monitor labs - Time Spent with Patient Total time spent is greater than 50% in coordination of care (as documented) at patient's floor/unit and/or counseling patient: Internal Medicine: Result - Labs CBC & Chem 7: 09/23/18 04:10 09/23/18 04:10 Labs: Short CBC 09/23/18 Range/Units 04:10 WBC 15.3 H (4.3-11.1) K/mcL Hgb 8.8 L (11.5-15.4) g/dL Hct 28.6 L (35.3-44.9) % Plt Count 334 (140-400) K/mcL Neutrophils # 12.9 H (1.6-8.9) K/mcL BMP 09/23/18 04:10 Sodium 132 L Potassium 3.7 Chloride 95 L Carbon Dioxide 27 BUN 28 H Creatinine 0.87 Glucose 121 H Calcium 9.1 - ABG Interpretation ABG results: PT/INR, D-dimer PT 13.9 Seconds (9.4-12.1) H 09/21/18 01:33 - Impressions Impressions Echocardiogram 09/22/18 07:44 Impressions: LVEF 45-50%. Mild global left ventricular systolic dysfunction. Mild left ventricular diastolic dysfunction. Normal right ventricular structure and function. Mildly dilated left atrium. 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 Mild mitral regurgitation. Mild tricuspid regurgitation. No pulmonary hypertension. Left Ventricular Wall Motion: Rest Echo Findings The apex, apical inferior, mid inferior, basal inferior, apical anterior, mid anterior, basal anterior, apical septal, mid inferior septal, basal inferior septal, apical lateral, mid anterior lateral, basal anterior lateral, mid anterior septal, mid inferior lateral, basal anterior septal and basal inferior lateral navarro were hypokinetic. Findings: Study Quality * Technically adequate exam. ECG Findings * Sinus rhythm with PACs. * Sinus rhythm with PVCs. Left Ventricle * LVEF 45-50%. * Normal LV chamber size and wall thickness. * Mild global left ventricular systolic dysfunction. * Mild left ventricular diastolic dysfunction. * Definity echo contrast was not used. Right Ventricle * Normal right ventricular structure and function. Left Atrium * Mildly dilated left atrium. Right Atrium * Normal right atrial size. Interatrial Septum * Interatrial septum not well evaluated. * No evidence of PFO by color Doppler. 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 Mitral Valve * Moderate mitral annular calcification * Moderately calcified mitral valve leaflets. * Mild mitral regurgitation. * No mitral stenosis. Tricuspid Valve * Normal tricuspid valve structure. * No tricuspid stenosis. * Mild tricuspid regurgitation. * Estimated RVSP is 25 mmHg. * Estimated RA pressure is 3 mmHg. * No pulmonary hypertension. Pulmonic Valve * Pulmonic valve is not well visualized. * No pulmonic stenosis. * No pulmonic regurgitation. Aorta * Aortic root not well visualized. Pericardium * The pericardium appears normal. IVC * The IVC is not dilated. * > 50% respiratory change <Joon Garcia - Last Filed: 09/23/18 16:31> (5) Sepsis Qualifiers: Qualified Code(s): A41.9 - Sepsis, unspecified organism (6) UTI (urinary tract infection) Qualifiers: Urinary tract infection type: acute cystitis Hematuria presence: with hematuria Qualified Code(s): N30.01 - Acute cystitis with hematuria
[2018-09-23] MEDS: cefTRIAXone 1,000 MG in Water for inj. (sterile) 20 ML 10 ML IVP SCH (07:54)
--- NOTE | 2018-09-23 14:51 | Cardiology Consult Note ---
Date of Encounter: 09/23/18 Time of Encounter: 14:47 Assessment and Plan (1) Atrial fibrillation with RVR Current Visit: Yes Status: Acute Presented with lightheadedness and palpitations, found to be in A-Fib RVR rate 130s, new diagnosis. Started on cardizem gtt, now on PO 60mg QID. 12 hr tele AVG HR 97. Transition to Cardizem CD 240mg daily. TTE 09/22/18: LVEF 45-50%. Mild global left ventricular systolic dysfunction. Mild LVDD. Normal RV structure and function. Mildly dilated LA. 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 Mild MR. Mild TR. No phtn. [id number] (Age, HTN, Female). High CVA risk. R/B/A to AC discussed. Pt declines AC. She is aware she is increased CVA risk. Recommend 81mg ASA daily, which she is agreeable to. Will check tele in AM to see if rate controlled. Can increase CCB as BP will tolerate for optimal HR control. (2) Aortic stenosis Current Visit: Yes Status: Acute Hx of AVR. TTE Bioprosthetic aortic valve with moderate to severe stenosis (mean gradient 31 mmHg). Pt is DNRCCA-DNI. She is not interested in further cardiac intervention or procedures. Qualifiers: Cardiac valve disease etiology: etiology unspecified Qualified Code(s): I35.0 - Nonrheumatic aortic (valve) stenosis Discussion w patient/family: The assessment and plan as outlined above was discussed with the patient and/or family members who expressed understanding and agreement. All questions were answered. Thank you for involving us in the care of your patient. Please call with any questions. I will discuss all the above with Dr. Castaneda and make changes as necessary. History of Present Illness Consult date: 09/23/18 Consult reason: A-Fib RVR Chief complaint: palpitations History of present illness: Ms. Flanagan is a 83 year old female with a PMH of CHF, T2 DM, HLD, HTN, aortic valve placement 2012, and rectal cancer status post ostomy in May 2014 who presented to [facility] ED on 09/20/18 with chief complaint of lightheadedness and palpitations. She states that the symptoms have been going on for the last few days. Denies having any exacerbating or relieving factors. No prior episodes. Denied headache, confusion, chest pain, or shortness of breath. No history of atrial fibrillation. HR was 130s on presentation, started on cardizem gtt, now on PO. HR 90s-110s. Cardiology consulted for further recs. TTE 09/22/18: LVEF 45-50%. Mild global left ventricular systolic dysfunction. Mild left ventricular diastolic dysfunction. Normal right ventricular structure and function. Mildly dilated left atrium. 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 Mild mitral regurgitation. Mild tricuspid regurgitation. No pulmonary hypertension. Past Med Surg Social Fam HX - Past Medical History Medical history: cancer, diabetes, hyperlipidemia, hypertension, malignancy, valvular heart disease Additional medical history: rectal cancer Psychiatric history: no psych history - Past Surgical History Surgical History: heart valve replacement, hysterectomy, other Additional surgical history: open heart surgery apr 27, 2011. aortic valve replacement - Social History Smoking Status: Never smoker Smokeless Tobacco Status: No Alcohol use: none Drug use: none Medications and Allergies Carvedilol 12.5 mg PO BID 04/20/15 [History] Ascorbic Acid [Vitamin C] 500 mg PO DAILY 07/19/18 [History] Cyanocobalamin (Vitamin B-12) [Vitamin B-12] 1,000 mcg PO DAILY 07/19/18 [History] HYDROcodone/Acet 5/325 mg [[place] 5-325 mg] 1 tab PO BID 30 Days #60 tablet 09/06/18 [Rx] Ferrous Sulfate 325 mg PO DAILY 09/07/18 [History] Furosemide [Lasix] 40 mg PO BID 09/07/18 [History] Lisinopril [Zestril] 20 mg PO DAILY 09/07/18 [History] Multivit with Calcium,Iron,Min [One Daily Women's] 1 tab PO DAILY 09/07/18 [History] Oxybutynin [Ditropan] 5 mg PO TID PRN #20 tablet 09/07/18 [Rx] Potassium Chloride [Klor-Con 10] 10 meq PO BID 09/21/18 [History] Allergy/AdvReac Type Severity Reaction Status Date / Time Penicillins [PCN] Allergy Intermediate Hives Verified 09/20/18 09:35 Amoxicillin Allergy Hives Verified 09/20/18 09:35 All Systems Review: The remainder of the systems were reviewed and are negative - Cardiovascular Cardiovascular: as per HPI, lightheadedness, palpitations Physical Examination Vital Signs, Last 4 Hours Temp Pulse Resp BP Pulse Ox 09/23/18 11:03 98.0 F 102 16 103/55 97 Vital Signs Temp Pulse Resp BP Pulse Ox 09/23/18 11:03 98.0 F 102 16 103/55 97 09/23/18 07:15 97.8 F 105 16 125/66 97 09/23/18 04:08 98.3 F 112 16 128/73 98 09/22/18 21:41 96 09/22/18 20:10 99.1 F 93 16 130/53 96 09/22/18 16:14 98.0 F 94 16 125/59 95 Intake and Output 09/22/18 09/23/18 09/23/18 23:59 07:59 15:59 Intake Total 170 / 1694 Balance 170 / 1694 Intake: IV Fluids 50 / 1174 Ofirmev 1,000 mg/100 ml 500 mg 50 / 50 In 50 ml @ 200 mls/hr IVPB ONCE ONE Rx#:[id number] Oral 120 / 520 Other: Meal Dinner Percent of Meal Consumed 90% # Urine Diapers 1 1 Weight 55.7 kg Blood Glucose* 122 113 125 Patient Weight 09/23/18 23:59 Weight 55.7 kg General: Conversant, No Apparent Distress HEENT: Atraumatic, Normocephaly, Mucus Membranes Moist Neck: Normal carotid pulses Cardiac: Other (irregularly irregular rhythm, 2/6 murmur) Lungs: Normal Breath Sounds, No Wheeze, Rales, Rhonchi Neuro: Alert and responsive, No focal deficits noted Abdomen: Soft, Non-Tender Skin: No rashes noted on visualized skin Musculoskeletal: No Chest Wall Tenderness Extremities: No Clubbing, No Cyanosis, No Edema, Normal Pulses Results 09/23/18 04:10 09/23/18 04:10 Lab Results 09/23/18 09/23/18 04:10 04:10 WBC 15.3 H Hgb 8.8 L Hct 28.6 L Plt Count 334 Sodium 132 L Potassium 3.7 Chloride 95 L Carbon Dioxide 27 BUN 28 H Creatinine 0.87 Glucose 121 H Calcium 9.1 Short CBC 05/31/19 Range/Units 04:10 WBC 15.3 H (4.3-11.1) K/mcL Hgb 8.8 L (11.5-15.4) g/dL Hct 28.6 L (35.3-44.9) % Plt Count 334 (140-400) K/mcL Neutrophils # 12.9 H (1.6-8.9) K/mcL BMP 09/23/18 Range/Units 04:10 Sodium 132 L (136-145) mEq/L Potassium 3.7 (3.5-5.1) mEq/L Chloride 95 L (98-107) mEq/L Carbon Dioxide 27 (23-29) mEq/L BUN 28 H (8-23) mg/dL Creatinine 0.87 (0.60-1.20) mg/dL Glucose 121 H (70-105) mg/dL Calcium 9.1 (8.6-10.3) mg/dL Impressions Echocardiogram 09/22/18 07:44 Impressions: LVEF 45-50%. Mild global left ventricular systolic dysfunction. Mild left ventricular diastolic dysfunction. Normal right ventricular structure and function. Mildly dilated left atrium. 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 Mild mitral regurgitation. Mild tricuspid regurgitation. No pulmonary hypertension. Left Ventricular Wall Motion: Rest Echo Findings The apex, apical inferior, mid inferior, basal inferior, apical anterior, mid anterior, basal anterior, apical septal, mid inferior septal, basal inferior septal, apical lateral, mid anterior lateral, basal anterior lateral, mid anterior septal, mid inferior lateral, basal anterior septal and basal inferior lateral navarro were hypokinetic. Findings: Study Quality * Technically adequate exam. ECG Findings * Sinus rhythm with PACs. * Sinus rhythm with PVCs. Left Ventricle * LVEF 45-50%. * Normal LV chamber size and wall thickness. * Mild global left ventricular systolic dysfunction. * Mild left ventricular diastolic dysfunction. * Definity echo contrast was not used. Right Ventricle * Normal right ventricular structure and function. Left Atrium * Mildly dilated left atrium. Right Atrium * Normal right atrial size. Interatrial Septum * Interatrial septum not well evaluated. * No evidence of PFO by color Doppler. 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 Mitral Valve * Moderate mitral annular calcification * Moderately calcified mitral valve leaflets. * Mild mitral regurgitation. * No mitral stenosis. Tricuspid Valve * Normal tricuspid valve structure. * No tricuspid stenosis. * Mild tricuspid regurgitation. * Estimated RVSP is 25 mmHg. * Estimated RA pressure is 3 mmHg. * No pulmonary hypertension. Pulmonic Valve * Pulmonic valve is not well visualized. * No pulmonic stenosis. * No pulmonic regurgitation. Aorta * Aortic root not well visualized. Pericardium * The pericardium appears normal. IVC * The IVC is not dilated. * > 50% respiratory change Active Medications Acetaminophen (Tylenol) 650 mg PO Q6H PRN PRN Reason: Fever Stop: 03/23/19 09:01 Last Admin: 09/23/18 07:51 Dose: 650 mg Documented by: Aspirin (Aspirin Ec) 81 mg PO DAILY [facility] Stop: 03/26/19 09:01 Dextrose/Water (Dextrose 50% (Syg)) 25 ml IVP AD PRN PRN Reason: Hypoglycemia Stop: 03/23/19 08:32 Diltiazem HCl (Cardizem) 60 mg PO QID [facility] Stop: 03/25/19 13:01 Last Admin: 09/23/18 13:28 Dose: 60 mg Documented by: Docusate Sodium (Colace) 100 mg PO BID PRN; Protocol PRN Reason: Constipation Stop: 03/23/19 09:01 Last Admin: 09/21/18 13:39 Dose: 100 mg Documented by: Enoxaparin Sodium (Lovenox) 40 mg SQ 0600 [facility]; Protocol Stop: 03/26/19 06:01 Glucagon (Glucagen) 1 mg IM ONCE PRN PRN Reason: Hypoglycemia Stop: 03/23/19 08:32 Glucose (Gluctose) 15 gm PO ONCE PRN PRN Reason: Hypoglycemia Stop: 03/23/19 08:32 Glucose (Gluctose) 30 gm PO ONCE PRN PRN Reason: Hypoglycemia Stop: 03/23/19 08:32 Ceftriaxone Sodium 1,000 mg/ (Sterile Water) 10 mls @ 600 mls/hr IVP DAILY [facility] Stop: 03/23/19 09:01 Last Admin: 09/23/18 07:54 Dose: 600 mls/hr Documented by: Dextrose (Dextrose 5%) 1,000 mls @ 100 mls/hr IVC .Q10H PRN PRN Reason: HYPOGLYCEMIA Stop: 03/23/19 08:32 Insulin Human Lispro (Humalog) 0 units SQ TIDAC [facility]; Protocol Stop: 03/23/19 11:31 Last Admin: 09/23/18 11:45 Dose: Not Given Documented by: Naloxone HCl (Narcan) 0.4 mg IVP Q2MPRN PRN PRN Reason: SEE COMMENTS Stop: 03/22/19 17:06 Omeprazole (Prilosec) 40 mg PO DAILY@0730 [facility]; Protocol Stop: 03/25/19 07:31 Last Admin: 09/23/18 07:51 Dose: 40 mg Documented by: Ondansetron HCl (Zofran) 4 mg IVP Q8HR PRN; Protocol PRN Reason: Nausea And Vomiting Stop: 03/23/19 12:55 Last Admin: 09/22/18 18:27 Dose: 4 mg Documented by: Tramadol HCl (Ultram) 50 mg PO TID PRN PRN Reason: Pain Stop: 03/23/19 22:30 Last Admin: 09/23/18 13:29 Dose: 50 mg Documented by: - Imaging and Cardiology Echo: report reviewed - EKG Interpretation EKG results cardiology: other (12 hr tele AVG HR 97, A-Fib) Consult Discharge Plan - Plan Referrals: Fernando Regan DO [Primary Care Provider] - 10/06/18 9:30 am (Please arrive about 15-30mins early to update your patient profile since you have not been there in about 3 years. Thank you!)
[2018-09-23] MEDS: Diltiazem CD (24hr) 240 MG CAPSULE PO SCH (17:26)
[2018-09-23] MEDS ORDERED: *HR* Enoxaparin 60 MG/0.6 ML SYRINGE SQ SCH (18:00)
[2018-09-23] MEDS: Ondansetron 4 MG/2 ML VIAL IVP PRN (21:01)
[2018-09-24] MEDS: Acetaminophen 325 MG TABLET PO PRN (05:37)
[2018-09-24] MEDS ORDERED: *HR* Enoxaparin 40 MG/0.4 ML SYRINGE SQ SCH (06:00)
--- NOTE | 2018-09-24 07:00 | Event Note ---
Date of Encounter: 09/24/18 Time of Encounter: 06:57 - Cardiology Event Note Cardiac telemetry reviewed. Pt has now converted to SR-sinus arrhythmia. Avg HR 89 bpm. No significant bradycardia seen. HR now 60. Continue cardizem and asa as tolerated. Out pt f/u will be coordinated with [facility]. Please call with questions or changes. Cardiology will sign off.
[2018-09-24] MEDS: Diltiazem CD (24hr) 240 MG CAPSULE PO SCH (08:10)
[2018-09-24] MEDS: traMADol 50 MG TABLET PO PRN (08:10)
[2018-09-24] MEDS: cefTRIAXone 1,000 MG in Water for inj. (sterile) 20 ML 10 ML IVP SCH (08:11)
[2018-09-24] MEDS: Ondansetron 4 MG/2 ML VIAL IVP PRN ×2 (08:11→16:57)
[2018-09-24] MEDS: Aspirin Enteric Coated 81 MG Tablet PO SCH (08:11)
[2018-09-24] MEDS: Insulin LISPRO 300 UNITS/3 ML VIAL SQ SCH ×3 (08:16→16:57)
[2018-09-24 08:58] LABS: Basophils % 0.3 %; Eosinophils % 0.1 %; Hematocrit 27.4 % (35.3-44.9); Hemoglobin 8.4 g/dL (11.5-15.4); Immature Granulocytes % 1.2 % (0-4); Mean Corpuscular HGB Conc 30.7 g/dL (31.6-35.5); Mean Corpuscular Hemoglobin 26.9 pg (28.0-33.3); Mean Corpuscular Volume 87.8 fL (83.0-100.0); Mean Platelet Volume 10.5 fL (9.4-12.4); Monocytes % 7.1 %; Neutrophils # 12.4 K/mcL (1.6-8.9); Platelet Count 312 K/mcL (140-400); Red Blood Count 3.12 M/mcL (3.82-4.97); Red Cell Distribution Width 14.8 % (11.5-14.5); Segmented Neutrophils % 84.3 %
[2018-09-24 09:01] LABS: BUN/Creatinine Ratio 31 (6-26); Blood Urea Nitrogen 30 mg/dL (8-23); Calcium 9.2 mg/dL (8.6-10.3); Carbon Dioxide 26 mEq/L (23-29); Chloride 93 mEq/L (98-107); Glucose 99 mg/dL (70-105); Osmolality,Calculated 276 (280-300); Potassium 3.8 mEq/L (3.5-5.1); Sodium 130 mEq/L (136-145); eGFR For Non-African Americans 56 (> 60)
[2018-09-24] MEDS ORDERED: 0.9 % Sodium Chloride 500 ML IVC SCH (09:15)
--- NOTE | 2018-09-24 09:55 | Oncology Inp Consult Note ---
Date of Encounter: 09/24/18 Time of Encounter: 09:00 Assessment and Plan (1) Rectal cancer Status: Chronic Assessment and plan: Status post brief course of radiation, chemotherapy with progressive metastatic disease in CT imaging and pain due to lymphadenopathy, on palliative Xeloda. She did not tolerate any aggressive treatments previously. Xeloda is on hold due to cardiac workup, atrial fibrillation rapid ventricular rate. Echocardiogram showed normal ejection fraction. She is status post while replacement in the past bioprosthetic. Since hospitalization patient has shown improvement is to be discharged with outpatient medications per cardiology recommendations. We will follow her in clinic was discharged from the hospital to decide on outpatient chemotherapy regimen. We will wait on CT scan reimaging studies due to renal insufficiency, hospitalization medications. Abdominal pain has been under control she will continue her outpatient regimen. She denies any bleeding from her fungating rectal tumor. She is status post stent placement for right hydronephrosis. Discussed care with patient yesterday and hospitalist. Outpatient follow-up to be scheduled. - Data of Consult Requesting Physician: Fadia Joya Primary Care Provider: Lars Regan, - Consult Narrative Reason for consult: colon cancer History of present illness: 83-year-old female with medical history significant for congestive heart failure, DM, hyperlipidemia, hypertension, aortic valve replacement in 2012 bioprosthetic valve, status post hysterectomy, who was diagnosed in April 2014 when she underwent a colonoscopy due to bleeding that showed ulcerated friable stenosis in the distal rectum, pathology showed adenocarcinoma staging scans showed significant lymphadenopathy. She underwent a dilution/ostomy for obstructive symptoms in May 2014. She pursued her initial chemotherapy at [facility] that FOLFOX was dose reduced underwent treatment from July 2014 to January 2015. She was then sent to [place] for chemoradiation therapy she started Xeloda with radiation therapy which was stopped after 4 weeks due to toxicity. She was then started on capecitabine in May 2015, at a later date she started receiving Avastin with Xeloda. Patient is seen 07/12 as she has difficulty traveling to [place]. She was offered Xeloda single agent, which she had taken 2 cycles, was to be seen in the clinic reported extreme weakness heart rate at 150 hypotensive was referred to the ER. White blood cell count was elevated she had stent placed recently for hydronephrosis with suspicion of infection. She was noted to be in A. fib rapid ventricular rate, stabilized and started Cardizem, cardiology consulted. Her Xeloda is on hold. Oncology is seeing patient in house due to missed appointment in the clinic. Seen in patient on 09/23/18 Past Med Surg Social Fam HX - Past Medical History Medical history: cancer, diabetes, hyperlipidemia, hypertension, malignancy, valvular heart disease Additional medical history: rectal cancer Psychiatric history: no psych history - Past Surgical History Surgical History: heart valve replacement, hysterectomy, other Additional surgical history: open heart surgery apr 27, 2011. aortic valve replacement - Social History Smoking Status: Never smoker Smokeless Tobacco Status: No Alcohol use: none Drug use: none Medications and Allergies Carvedilol 12.5 mg PO BID 04/20/15 [History] Ascorbic Acid [Vitamin C] 500 mg PO DAILY 07/19/18 [History] Cyanocobalamin (Vitamin B-12) [Vitamin B-12] 1,000 mcg PO DAILY 07/19/18 [History] HYDROcodone/Acet 5/325 mg [[place] 5-325 mg] 1 tab PO BID 30 Days #60 tablet 09/06/18 [Rx] Ferrous Sulfate 325 mg PO DAILY 09/07/18 [History] Furosemide [Lasix] 40 mg PO BID 09/07/18 [History] Lisinopril [Zestril] 20 mg PO DAILY 09/07/18 [History] Multivit with Calcium,Iron,Min [One Daily Women's] 1 tab PO DAILY 09/07/18 [History] Oxybutynin [Ditropan] 5 mg PO TID PRN #20 tablet 09/07/18 [Rx] Potassium Chloride [Klor-Con 10] 10 meq PO BID 09/21/18 [History] Allergy/AdvReac Type Severity Reaction Status Date / Time Penicillins [PCN] Allergy Intermediate Hives Verified 09/20/18 09:35 Amoxicillin Allergy Hives Verified 09/20/18 09:35 Constitutional: Present: fatigue Additional comments: now improving Additional comments: denies mucositis symptoms Additional comments: denies chest pain, palpitations Additional comments: denies SOB at rest or cough Additional comments: abd pain under control with narcotics. Additional comments: s/p stent, no bleeding Additional comments: denies heacahes or dizziness Oncology - Exam - Constitutional General appearance: no acute distress, thin - Head Head exam: Present: atraumatic, normal inspection - Eye Eye exam: Present: sclera anicteric - ENT ENT exam: Present: mucous membranes moist - Neck Neck exam: Present: full ROM Additional comments: no palpable lumps - Respiratory Respiratory exam: Present: CTAB - Cardiovascular Cardiovascular exam: Present: +S1, +S2 - GI/Abdominal GI/Abdominal exam: Present: normal bowel sounds, soft Additional comments: non tender - Extremities Exam Extremities exam: Present: normal inspection Additional comments: no edema - Neurological Exam Neurological exam: Present: alert, CN II-XII intact, oriented X3, no focal deficits - Psychiatric Psychiatric exam: Present: normal affect Consult Discharge Plan - Plan Referrals: Fernando Regan DO [Primary Care Provider] - 10/06/18 9:30 am (Please arrive about 15-30mins early to update your patient profile since you have not been there in about 3 years. Thank you!) Inpatient Charges Provider: Dr. Mara Lauren Consult - Inpatient: [id number]
--- NOTE | 2018-09-24 13:56 | Internal Med Progress Note ---
Hospitalist Progress Note - Encounter Date of Encounter: 09/24/18 Time of Encounter: 09:00 - Subjective Interval History: awake, pleasant, no abd pain, nauseated this morning so skipped breakfast but will eat lungh. no confusion or fatigue. agreeable to rehab. denes cp, pressure, palpitations or presyncope - Exam Vitals: Temp Pulse Resp BP Pulse Ox 98.1 F 88 16 126/56 98 09/24/18 11:05 09/24/18 11:05 09/24/18 11:05 09/24/18 11:05 09/24/18 11:05 Exam: gen- alert, awake,appears stated age cv- reg rate and reg rhythm, normal s1,s2, + SM (correction to prior exams) , no le edema lungs- ctabl, no wheezing, normal resp effort on room air abd- soft, non tender, non distended, no stool in ostomy as it has been changed neuro- AAOx3, CN grossly intact - Assessment and Plan (1) Atrial fibrillation with RVR Current Visit: Yes Status: Acute (2) Chronic hyponatremia Current Visit: Yes Status: Acute (3) Chronic anemia Current Visit: Yes Status: Chronic (4) Protein-calorie malnutrition, moderate Current Visit: Yes Status: Chronic (5) Chronic nausea Current Visit: Yes Status: Chronic (6) Elevated troponin Current Visit: Yes Status: Acute (7) UTI (urinary tract infection) Current Visit: No Status: Ruled-out - Summary of Assessment and Plan Summary of Assessment and Plan: Afib with RVR, now SR with sinus arrhythmia chadvasc indicating AC required but discussion between team/pt/son pt has decided for only ASA due to chronic anemia and fall risk infection ruled out, ischemic cardiac work up is started and thus far suggestive of demand likely related to RVR with improved EKG and adynamic trops -cardizem gtt transition to oral cardizem, cont 240 mg daily -ASA daily as per family given risk v benefit of full anticoagulation -echo reviewed and no prior for comparison- EF 45-50%, mild global LV systolic dysfunction, Mild LV DD, 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 -cards following-- she declined work up/intervention for stenosis of her bioprosthetic valve -previously followed with dr Jerome in [place] but she and son requesting to transition to [facility] care due to transportation constraints on travelling to [place] -cards will fu outpt and stable from cardiac standpoint at this time Trop elevation, mild, adynamic suspect demand 2/2 afib rvr EKG on admit did show ischemic changes with TWI I, II, avl and ST dep in v4-v6, some of those changes new since 2014 Repeat EKG 09/22 rate controlled afib and ST depressions resolved and TWI improved/resolved when compared to prior and 2014 ekg -fu cards outpt ruled out UTI on cx- however, given her history of urologic procedures, new onset afib- completed abx course risk v benefit of not treating Acute on Chronic Hyponatremia- suspected hypovolemic- corrected at appropriate rate, now slight down trend, gentle IVF for 500 cc today and will repeat na, currently 130 without any deficits cognitively, baseline appears 129-135 technically met sepsis criteria on admit- possible uti though ucx neg, and suspect VS changes were related to afib rvr- sepsis resolved -bl cxs ngtd chronic anemia,2/2 rectal cancer, CROW- stable at baseline, begin iron PO daily + colace to avoid constipation -oncolongy appt outpt missed, consutled to see here and give recs re her chemo--will cont to hold and hold on dc as rec by Dr Ledesma, she will see outpt Chronic intermittent nausea/emesis 2/2 rectal cancer and chemo- per pt this is at baseline , prn anti emetic Moderate Non Severe Protein Calorie Malnutrition related to cancer process ( chronic) as evidenced by weight loss 13% over 6 months, moderate muscle and fat wasting, consuming < 75% estimated requirements. BMI 24.4 -Pt is on nutritional supplements dispo will be to snf likely tomorrow pending HR controlled on oral cardizem today - Time Spent with Patient Total time spent is greater than 50% in coordination of care (as documented) at patient's floor/unit and/or counseling patient: Internal Medicine: Result - Labs CBC & Chem 7: 09/24/18 07:34 09/24/18 07:34 Labs: Short CBC 09/24/18 Range/Units 07:34 WBC 14.7 H (4.3-11.1) K/mcL Hgb 8.4 L (11.5-15.4) g/dL Hct 27.4 L (35.3-44.9) % Plt Count 312 (140-400) K/mcL Neutrophils # 12.4 H (1.6-8.9) K/mcL BMP 09/24/18 07:34 Sodium 130 L Potassium 3.8 Chloride 93 L Carbon Dioxide 26 BUN 30 H Creatinine 0.96 Glucose 99 Calcium 9.2 - ABG Interpretation ABG results: PT/INR, D-dimer PT 13.9 Seconds (9.4-12.1) H 09/21/18 01:33 Consult Discharge Plan - Plan Referrals: Feranndo Regan DO [Primary Care Provider] - 10/06/18 9:30 am (Please arrive about 15-30mins early to update your patient profile since you have not been there in about 3 years. Thank you!) (7) UTI (urinary tract infection) Qualifiers: Urinary tract infection type: acute cystitis Hematuria presence: with hematuria Qualified Code(s): N30.01 - Acute cystitis with hematuria
[2018-09-24] MEDS ORDERED: *HR* Promethazine 25 MG/ML VIAL IVP ONE (17:02)
[2018-09-25] MEDS: *HR* Enoxaparin 30 MG/0.3 ML SYRINGE SQ SCH (06:23)
[2018-09-25 07:35] LABS: BUN/Creatinine Ratio 31 (6-26); Blood Urea Nitrogen 26 mg/dL (8-23); Calcium 9.1 mg/dL (8.6-10.3); Carbon Dioxide 23 mEq/L (23-29); Chloride 94 mEq/L (98-107); Glucose 103 mg/dL (70-105); Osmolality,Calculated 279 (280-300); Potassium 3.6 mEq/L (3.5-5.1); Sodium 132 mEq/L (136-145); eGFR For Non-African Americans > 60 (> 60)
--- NOTE | 2018-09-25 08:06 | Discharge Summary ---
- NOTES TO OUTPATIENT PROVIDER Notes to Outpatient Provider: Follow-up with cardiology in the outpatient setting in 1-2 weeks. Follow-up with oncology in the outpatient setting within the next few weeks. Orders not resulted at time of discharge: Pending orders 09/20/18 17:44 Culture,Blood [BC] Stat 09/22/18 07:42 EKG [ECG 12 lead ECG] [ECG] Routine Date of Encounter: 09/25/18 Time of Encounter: 08:01 - Discharge Diagnosis (1) Atrial fibrillation with RVR Priority: Primary Status: Acute (2) Anemia Priority: Secondary Status: Acute (3) HFrEF (heart failure with reduced ejection fraction) Priority: Secondary Status: Acute (4) Hyponatremia Status: Acute (5) Sepsis Priority: Secondary Status: Acute Qualifiers: Qualified Code(s): A41.9 - Sepsis, unspecified organism (6) UTI (urinary tract infection) Priority: Secondary Status: Ruled-out Qualifiers: Urinary tract infection type: acute cystitis Hematuria presence: with hematuria Qualified Code(s): N30.01 - Acute cystitis with hematuria (7) Elevated troponin Priority: Secondary Status: Acute (8) Chronic nausea Priority: Secondary Status: Chronic Hospital course: Ms. Flanagan is a 83 year old female with a PMH of CHF, T2 DM, HLD, HTN, aortic valve placement 2012, and rectal cancer status post ostomy in May 2014 who presented to [facility] ED on 09/20/18 with chief complaint of lightheadedness and palpitations. She states that the symptoms have been going on for the last few days. Denies having any exacerbating or relieving factors. No prior episodes. Denied headache, confusion, chest pain, or shortness of breath. No history of atrial fibrillation or anticoagulation. Upon arrival to the emergency department, patients vital signs were as follows: Temperature 98.0, pulse 127, respiratory rate 18, blood pressure 163/139, O2 saturation 95. EKG demonstrated atrial fibrillation at 136 bpm. Normal axis, no ST elevation or depression. Nonspecific diffuse mild T-wave changes, septal Q waves. Patient was admitted to the hospitalist service for further management of atrial fibrillation with rapid ventricular response. She was initially given a bolus of diltiazem, 10 mg followed by a drip at a rate of 5. Patient was given a shot of Lovenox for anticoagulation. Her initial troponin was elevated at 0.08. This was trended, and was adynamic. Her urinalysis was suggestive of a UTI. Patient was admitted for atrial fibrillation with rapid ventricular response, possible UTI, and hyponatremia. She was started on Rocephin. She was on a Cardizem drip at a rate of 5, was given 75 mL per hour of normal saline to increase her sodium level. As her sodium began to improve, patients strength and appetite began to improve as well. On her first day of hospitalization, patient reported a poor appetite, but in the days after, she stated that she was feeling better and was able to eat more of her meals. Her urine culture showed no growth. Decision was made to complete antibiotic course given her history of urologic procedures. Patient was eventually weaned off the Cardizem drip and was switched to oral Cardizem. The possibility of anticoagulation was discussed at length with the patient. After speaking with her son, she stated that she only wanted aspirin for anticoagulation, given the risk versus benefit of full anticoagulation given her fall risk. 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 Cardiology was consulted for further recommendations regarding rate control, and for patient establishment with [place] [facility]. She is instructed to follow-up in the outpatient setting with cardiology. Will also follow up with oncology for her rectal cancer. She will be sent home on Cardizem CD 240 mg by mouth daily, as well as ASA 81 mg daily for anticoagulation. She has been accepted at [facility]. - Time Spent with Patient Total time spent providing and/or coordinating discharge services: - Discharge Medications Prescriptions: New Aspirin Enteric Coated [Aspirin EC] 81 mg PO DAILY #30 tablet. Diltiazeatif CD (24hr) [Cardizem CD] 240 mg PO DAILY #30 cap.er.24h Docusate [Colace] 100 mg PO DAILY #30 capsule Continued Carvedilol 12.5 mg PO BID Cyanocobalamin (Vitamin B-12) [Vitamin B-12] 1,000 mcg PO DAILY Ascorbic Acid [Vitamin C] 500 mg PO DAILY Oxybutynin [Ditropan] 5 mg PO TID PRN #20 tablet PRN Reason: bladder/stent irritation Furosemide [Lasix] 40 mg PO BID Lisinopril [Zestril] 20 mg PO DAILY Multivit with Calcium,Iron,Min [One Daily Women's] 1 tab PO DAILY Potassium Chloride [Klor-Con 10] 10 meq PO BID Ferrous Sulfate 325 mg PO DAILY #30 tablet HYDROcodone/Acet 5/325 mg [[place] 5-325 mg] 1 tab PO BID 30 Days #60 tablet Home Medications: Carvedilol 12.5 mg PO BID 04/20/15 [History] Ascorbic Acid [Vitamin C] 500 mg PO DAILY 07/19/18 [History] Cyanocobalamin (Vitamin B-12) [Vitamin B-12] 1,000 mcg PO DAILY 07/19/18 [History] Furosemide [Lasix] 40 mg PO BID 09/07/18 [History] Lisinopril [Zestril] 20 mg PO DAILY 09/07/18 [History] Multivit with Calcium,Iron,Min [One Daily Women's] 1 tab PO DAILY 09/07/18 [History] Oxybutynin [Ditropan] 5 mg PO TID PRN #20 tablet 09/07/18 [Rx] Potassium Chloride [Klor-Con 10] 10 meq PO BID 09/21/18 [History] Aspirin Enteric Coated [Aspirin EC] 81 mg PO DAILY #30 tablet. 09/25/18 [Rx] Diltiazem CD (24hr) [Cardizem CD] 240 mg PO DAILY #30 cap.er.24h 09/25/18 [Rx] Docusate [Colace] 100 mg PO DAILY #30 capsule 09/25/18 [Rx] Ferrous Sulfate 325 mg PO DAILY #30 tablet 09/25/18 [Rx] HYDROcodone/Acet 5/325 mg [[place] 5-325 mg] 1 tab PO BID 30 Days #60 tablet 09/25/18 [Rx] Allergies/Adverse Reactions: Allergy/AdvReac Type Severity Reaction Status Date / Time Penicillins [PCN] Allergy Intermediate Hives Verified 09/20/18 09:35 Amoxicillin Allergy Hives Verified 09/20/18 09:35 Date of admission: 09/20/18 17:00 Primary care physician: Lars Regan DO Consults: 09/20/18 18:11 Consult to Nutrition [CONS] Routine Comment: Consulting Provider: NUTRITION Reason for Dietary Consult: PO Supplementation 09/22/18 15:13 Consult to Occupational Therapy [CONS] Routine Comment: Evaluate, develop and implement POC Reason for Consult: assess mobility needs Does patient have active BEDREST order?: No Is patient medically & hemodynamically stable?: Yes Patient assessed for mobility or mobilized this visit?: Yes Consult to Physical Therapy [CONS] Routine Comment: Evaluate, develop and implement POC Reason for Consult: assess mobility needs Does patient have active BEDREST order?: No Is patient medically & hemodynamically stable?: Yes Patient assessed for mobility or mobilized this visit?: Yes 09/23/18 08:41 Consult to Bookstore Clerk [CONS] Routine Reason for SW Consult: dispo planning, son parker thinkning she will need rehab, pt/ot pending 09/23/18 13:56 Consult to Cardiology [CONS] Routine Comment: Consulting Provider: Cardiology [facility] Reason for Consult: Recommendations on rate control in the setting of new onset A. fib with RVR; patient wishes to establish with [facility] Call Completed: Yes 09/24/18 10:57 Consult to Oncology [CONS] Routine Consulting Provider: [facility] [place] Reason for Consult: Dr Ledesma, pt missed outpt cancer appt, recs for cont of chemo agent upon dc to snf Call Completed: Yes Discharging clinician: Joon Garcia Anticipated date of discharge: 09/25/18 - Constitutional Vitals: Temp Pulse Resp BP Pulse Ox 98.2 F 108 18 131/59 96 09/25/18 06:45 09/25/18 06:45 09/25/18 06:45 09/25/18 06:45 09/25/18 06:45 Exam: General: A&O X3, conversant, thin, no acute distress Head: atraumatic, normocephalic Eye: PERRL, EOMI, conjuntiva pink, sclera anicteric Neck: Supple, trachea midline; No lymphadenopathy Respiratory: Diminished breath sounds bilaterally; No accessory muscle use, wheezes, rales, or rhonchi Cardiovascular: irregular rhythm, s1/s2; no murmurs, rubs, gallops Abdomen: Soft, nontender Extremities: warm, radial pulses palpable and symmetrical Psychiatric: Normal affect, normal mood Skin: Dry, intact - Patient Status Disposition: Transfer Other Condition: Good Overall status at discharge: patient is progressing back to baseline - Discharge Instructions Follow Up With: Fernando Regan DO [Primary Care Provider] - 10/06/18 9:30 am (Please arrive about 15-30mins early to update your patient profile since you have not been there in about 3 years. Thank you!) - Diet and Activity Activity: increase activity as tolerated Diet: low salt diet
--- NOTE | 2018-09-25 08:09 | Physician Discharge Referral ---
ExtendedCare Referral Info Provider in Charge after Transfer: PCP Institutional Level of Care: Skilled - Diagnosis (1) Atrial fibrillation with RVR Priority: Primary Status: Acute (2) Anemia Priority: Secondary Status: Acute (3) HFrEF (heart failure with reduced ejection fraction) Priority: Secondary Status: Acute (4) Hyponatremia Priority: Secondary Status: Acute (5) Sepsis Priority: Secondary Status: Acute (6) UTI (urinary tract infection) Priority: Secondary Status: Ruled-out (7) Elevated troponin Priority: Secondary Status: Acute (8) Chronic nausea Priority: Secondary Status: Chronic - Transfer Medications Prescriptions: Aspirin Enteric Coated [Aspirin EC] 81 mg PO DAILY #30 tablet.dr Inmantiazem CD (24hr) [Cardizem CD] 240 mg PO DAILY #30 cap.er.24h Docusate [Colace] 100 mg PO DAILY #30 capsule Ferrous Sulfate 325 mg PO DAILY #30 tablet HYDROcodone/Acet 5/325 mg [[place] 5-325 mg] 1 tab PO BID 30 Days #60 tablet Home Medications: Carvedilol 12.5 mg PO BID 04/20/15 [History] Ascorbic Acid [Vitamin C] 500 mg PO DAILY 07/19/18 [History] Cyanocobalamin (Vitamin B-12) [Vitamin B-12] 1,000 mcg PO DAILY 07/19/18 [History] Furosemide [Lasix] 40 mg PO BID 09/07/18 [History] Lisinopril [Zestril] 20 mg PO DAILY 09/07/18 [History] Multivit with Calcium,Iron,Min [One Daily Women's] 1 tab PO DAILY 09/07/18 [History] Oxybutynin [Ditropan] 5 mg PO TID PRN #20 tablet 09/07/18 [Rx] Potassium Chloride [Klor-Con 10] 10 meq PO BID 09/21/18 [History] Aspirin Enteric Coated [Aspirin EC] 81 mg PO DAILY #30 tablet. 09/25/18 [Rx] Diltiazem CD (24hr) [Cardizem CD] 240 mg PO DAILY #30 cap.er.24h 09/25/18 [Rx] Docusate [Colace] 100 mg PO DAILY #30 capsule 09/25/18 [Rx] Ferrous Sulfate 325 mg PO DAILY #30 tablet 09/25/18 [Rx] HYDROcodone/Acet 5/325 mg [[place] 5-325 mg] 1 tab PO BID 30 Days #60 tablet 09/25/18 [Rx] Allergies/Adverse Reactions: Allergy/AdvReac Type Severity Reaction Status Date / Time Penicillins [PCN] Allergy Intermediate Hives Verified 09/20/18 09:35 Amoxicillin Allergy Hives Verified 09/20/18 09:35 - Respiratory Orders Smoking Cessation: Smoking cessation has been advised. For more information, call the [place] Tobacco Quit Line at 5-476-LFPHNOW. CERTIFICATION: I certify that the transfer of the above named patient to an Extended Care Facility is necessary for the continuing treatment of the diagnosis listed. The above information is true and accurate reflection of patient's current condition. Confidential - Redisclosure prohibited without a patient's written consent.
--- NOTE | 2018-09-25 08:24 | Oncology Inp Progress Note ---
Date of Encounter: 09/25/18 Time of Encounter: 08:00 (1) Rectal cancer Current Visit: No Status: Chronic Assessment and plan: Status post brief course of radiation, chemotherapy with progressive metastatic disease in CT imaging and pain due to lymphadenopathy, on palliative Xeloda. She did not tolerate any aggressive treatments previously. Xeloda is on hold due to cardiac workup, atrial fibrillation rapid ventricular rate. Echocardiogram showed normal ejection fraction. She is status post while replacement in the past bioprosthetic. VSS No labs to review Rx to resume after out patient follow up in clinic from [facility] (hold till then) Oncology: Subj Interval history: Patient is resting comfortably in bed she denies any complaints. - Constitutional General appearance: no acute distress - Head Head exam: Present: atraumatic, normal inspection - Eye Eye exam: Present: sclera anicteric - ENT ENT exam: Present: mucous membranes moist - Respiratory Respiratory exam: Present: CTAB - Cardiovascular Cardiovascular exam: Present: +S1, +S2 - GI/Abdominal GI/Abdominal exam: Present: normal bowel sounds, soft - Extremities Exam Additional comments: mild edema - Neurological Exam Neurological exam: Present: altered, CN II-XII intact, oriented X3 Oncology: Obj Data - Labs CBC & Chem 7: 09/24/18 07:34 09/25/18 07:02 Consult Discharge Plan - Plan Referrals: Fernando Regan DO [Primary Care Provider] - 10/06/18 9:30 am (Please arrive about 15-30mins early to update your patient profile since you have not been there in about 3 years. Thank you!) Prescriptions: Aspirin Enteric Coated [Aspirin EC] 81 mg PO DAILY #30 tablet.dr Jessy TOLEDO (24hr) [Cardizem CD] 240 mg PO DAILY #30 cap.er.24h Docusate [Colace] 100 mg PO DAILY #30 capsule Ferrous Sulfate 325 mg PO DAILY #30 tablet HYDROcodone/Acet 5/325 mg [[place] 5-325 mg] 1 tab PO BID 30 Days #60 tablet Inpatient Charges Provider: Dr. Mara Lauren Follow up - Inpatient: [id number]
[2018-09-25] MEDS: Ondansetron 4 MG/2 ML VIAL IVP PRN ×2 (08:46→16:26)
[2018-09-25] MEDS: traMADol 50 MG TABLET PO PRN (08:47)
[2018-09-25] MEDS: Diltiazem CD (24hr) 240 MG CAPSULE PO SCH (08:48)
[2018-09-25] MEDS: Aspirin Enteric Coated 81 MG Tablet PO SCH (08:48)
[2018-09-25] MEDS: Insulin LISPRO 300 UNITS/3 ML VIAL SQ SCH ×3 (08:48→16:01)
[2018-09-25] MEDS ORDERED: Diltiazem SR (12hr) 60 MG CAPSULE PO ONE (11:10)
--- NOTE | 2018-09-25 12:14 | Internal Med Progress Note ---
<Joon Garcia - Last Filed: 09/25/18 15:15> Hospitalist Progress Note - Encounter Date of Encounter: 09/25/18 Time of Encounter: 07:55 - Subjective Interval History: Patient seen and examined at bedside; she reports an improvement in her strength and appetite. This morning, patient developed an episode of rapid heart rate at 180 bpm, and became dizzy with palpitations upon standing up out of bed. During interview, patient denies having any shortness of breath, chest pain, or palpitations. She has been placed on 240 mg Cardizem CD. We will increase this to 300 mg. She has no complaints today. Likely discharge tomorrow to SNF if she remains rate controlled on her increased dose of oral Cardizem. - Exam Vitals: Temp Pulse Resp BP Pulse Ox 98.1 F 95 16 133/68 98 09/25/18 11:45 09/25/18 11:45 09/25/18 11:45 09/25/18 11:45 09/25/18 11:45 Exam: General: A&O X3, conversant, thin, no acute distress Head: atraumatic, normocephalic Eye: PERRL, EOMI, conjuntiva pink, sclera anicteric Neck: Supple, trachea midline; No lymphadenopathy Respiratory: Diminished breath sounds bilaterally; No accessory muscle use, wheezes, rales, or rhonchi Cardiovascular: irregular rhythm, s1/s2; no murmurs, rubs, gallops Abdomen: Soft, nontender Extremities: warm, radial pulses palpable and symmetrical Psychiatric: Normal affect, normal mood Skin: Dry, intact - Assessment and Plan (1) Atrial fibrillation with RVR Current Visit: Yes Status: Acute Assessment and Plan: - Initially presented to [facility] on 09/20 with lightheadedness, palpitations - EKG demonstrated atrial fibrillation with RVR with a rate of 136 bpm - Patient has no prior history of atrial fibrillation - Ischemic workup thus far has been negative; troponins adynamic - [id number] score is 7; anticoagulation was discussed with patient; she stated that she did not want any anticoagulation except for ASA - Was given a 10 mg bolus of Cardizem, and then started on a drip at a rate of 5 - Was successfully weaned off of Cardizem drip and transitioned to oral - Cardiology was consulted for recommendations on rate control; she was placed on Cardizem CD 240 mg PO daily - Early this morning, patient has an elevated HR around 180 bpm, and became dizzy and lightheaded upon standing Plan: - PO Cardizem increased to 300 mg PO daily due to inadequate rate control on 240mg - Continuous telemetry - Continue ASA 81 mg daily for anticoagulation - She will need close follow up with cardiology in the outpatient setting (2) Anemia Current Visit: Yes Status: Acute Assessment and Plan: - Chronic - Patient has low iron on laboratory analysis - Started ferrous sulfate daily, as well as Colace to avoid constipation (3) HFrEF (heart failure with reduced ejection fraction) Current Visit: Yes Status: Acute Assessment and Plan: - TTE 09/22: EF 45%, mild global systolic dysfunction, mild LV diastolic dysfunction, 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, mild regurgitation, mildly dilated left atrium (4) Hyponatremia Current Visit: Yes Status: Acute Assessment and Plan: - Laboratory analysis demonstrated an initial low sodium level of 123 - Etiology is likely poor oral intake - Initially started on normal saline at 75 mL per hour; discontinued after sodium increased - Encourage PO intake, repeat AM labs (5) Sepsis Current Visit: Yes Status: Acute Assessment and Plan: - Resolved - Met 2 out of 4 SIRS criteria on presentation with an elevated white count 18.6 and tachycardia - Possible infection source is urine; urinalysis demonstrated possible UTI - Received empiric Rocephin in the emergency department - CXR negative - White count today is 25.3, down from 16.1 - Urine CX negative - Completed a 5 day course of Rocephin (6) UTI (urinary tract infection) Current Visit: No Status: Ruled-out Assessment and Plan: - Urinalysis on arrival was suggestive of urinary tract infection - Patient received a one-time dose of Rocephin in the emergency department Plan: - Continue antibiotics for full course; although urine culture negative, patient has history of urologic procedures in new-onset A. fib - Completed a 5 day course of Rocephin (7) Elevated troponin Current Visit: Yes Status: Acute Assessment and Plan: - Labs demonstrated elevated troponin level - Likely secondary to demand ischemia - Troponins so far have been adynamic (8) Chronic nausea Current Visit: Yes Status: Chronic Assessment and Plan: - Patient reports that she has had nausea and vomiting every morning since her urologic procedure - We will continue to monitor labs - Time Spent with Patient Total time spent is greater than 50% in coordination of care (as documented) at patient's floor/unit and/or counseling patient: Internal Medicine: Result - Labs CBC & Chem 7: 09/24/18 07:34 09/25/18 07:02 Labs: BMP 09/24/18 09/25/18 15:11 07:02 Sodium 131 L 132 L Potassium 3.6 Chloride 94 L Carbon Dioxide 23 BUN 26 H Creatinine 0.85 Glucose 103 Calcium 9.1 - ABG Interpretation ABG results: PT/INR, D-dimer PT 13.9 Seconds (9.4-12.1) H 09/21/18 01:33 Consult Discharge Plan - Plan Referrals: Fernando Regan DO [Primary Care Provider] - 10/06/18 9:30 am (Please arrive about 15-30mins early to update your patient profile since you have not been there in about 3 years. Thank you!) Prescriptions: Aspirin Enteric Coated [Aspirin EC] 81 mg PO DAILY #30 tablet.[address] Jessy TOLEDO (24hr) [Cardizem CD] 240 mg PO DAILY #30 cap.er.24h Docusate [Colace] 100 mg PO DAILY #30 capsule Ferrous Sulfate 325 mg PO DAILY #30 tablet HYDROcodone/Acet 5/325 mg [[place] 5-325 mg] 1 tab PO BID 30 Days #60 tablet <Fadia Joya - Last Filed: 09/25/18 15:26> Hospitalist Progress Note - Encounter Date of Encounter: 09/25/18 - Exam Vitals: Temp Pulse Resp BP Pulse Ox 98.1 F 95 16 133/68 98 09/25/18 11:45 09/25/18 11:45 09/25/18 11:45 09/25/18 11:45 09/25/18 11:45 - Assessment and Plan (1) Atrial fibrillation with RVR Current Visit: Yes Status: Acute (2) Chronic hyponatremia Current Visit: Yes Status: Acute (3) Chronic anemia Current Visit: Yes Status: Chronic (4) Protein-calorie malnutrition, moderate Current Visit: Yes Status: Chronic (5) Chronic nausea Current Visit: Yes Status: Chronic (6) Elevated troponin Current Visit: Yes Status: Acute - Time Spent with Patient Total time spent is greater than 50% in coordination of care (as documented) at patient's floor/unit and/or counseling patient: Internal Medicine: Result - Labs CBC & Chem 7: 09/24/18 07:34 09/25/18 07:02 Labs: BMP 09/24/18 09/25/18 15:11 07:02 Sodium 131 L 132 L Potassium 3.6 Chloride 94 L Carbon Dioxide 23 BUN 26 H Creatinine 0.85 Glucose 103 Calcium 9.1 - ABG Interpretation ABG results: PT/INR, D-dimer PT 13.9 Seconds (9.4-12.1) H 09/21/18 01:33 - Attending Attestation I examined this patient and my medical decision-making was reviewed with the Resident Physician Dr Garcia. I agree with the documented findings, disposition and treatment plan as described except to the extent set forth below. Ms Flanagan is admitted for afib rvr and hyponatremia awake, no nausea or emsis this morning. HR increased to 130-180 with getting up to chair eating this morning and she was lightheaded and dizzy. Again back in afib rvr. AM med given. she is resting in bed currently and without sxs. gen- alert, awake,appears stated age cv- tachy rate and irreg/irrreg rhythm, normal s1,s2, + SM no le edema lungs- ctabl, no wheezing, normal resp effort on room air abd- soft, non tender, non distended neuro- AAOx3, CN grossly intact Afib with RVR chadvasc indicating AC required but discussion between team/pt/son pt has decided for only ASA due to chronic anemia and fall risk infection ruled out, ischemic cardiac work up suggestive of demand related to RVR echo EF 45-50%, mild global LV systolic dysfunction, Mild LV DD, 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 -increase PO cardizem to 300 mg CD daily -ASA -cards following-- she declined work up/intervention for stenosis of her bioprosthetic valve -previously followed with dr Jerome in [place] but she and son requesting to transition to [place] [facility] care due to transportation constraints on travelling to [place] -cards will fu outpt -holding milo ebb with initiation of CCB changes and holding home acei while monitoring BP with new med, add back as able, holding lasix for same reason + hyponatremia below with hypovolemia Trop elevation, mild, adynamic 2/2 afib rvr EKG on admit did show ischemic changes with TWI I, II, avl and ST dep in v4-v6 Repeat EKG 09/22 rate controlled afib and ST depressions resolved and TWI improved/resolved when compared to prior and 2014 ekg -fu cards outpt ruled out UTI on cx- however, given her history of urologic procedures, new onset afib completed abx course Acute on Chronic Hyponatremia- suspected hypovolemic- corrected at appropriate rate, without any deficits cognitively, baseline appears 129-135 technically met sepsis criteria on admit- possible uti though ucx neg, and suspect VS changes were related to afib rvr- sepsis resolved -bl cxs ngtd chronic anemia,2/2 rectal cancer, CROW- stable at baseline, iron PO daily + colace to avoid constipation -oncolongy appt outpt missed, consulted to see here and give recs re her chemo--will cont to hold and hold on dc as rec by Dr Ledesma, she will see outpt Chronic intermittent nausea/emesis 2/2 rectal cancer and chemo- per pt this is at baseline , prn anti emetic Moderate Non Severe Protein Calorie Malnutrition related to cancer process (chronic) as evidenced by weight loss 13% over 6 months, moderate muscle and fat wasting, consuming < 75% estimated requirements. BMI 24.4 -Pt is on nutritional supplements dispo will be to snf likely tomorrow pending HR controlled on oral cardizem today further diagnoses and plan as noted by resident <Joon Garcia - Last Filed: 09/25/18 15:15> (5) Sepsis Qualifiers: Qualified Code(s): A41.9 - Sepsis, unspecified organism (6) UTI (urinary tract infection) Qualifiers: Urinary tract infection type: acute cystitis Hematuria presence: with hematuria Qualified Code(s): N30.01 - Acute cystitis with hematuria
[2018-09-25 21:43] LABS: BUN/Creatinine Ratio 26 (6-26); Blood Urea Nitrogen 23 mg/dL (8-23); Carbon Dioxide 23 mEq/L (23-29); Chloride 94 mEq/L (98-107); Glucose 132 mg/dL (70-105); Magnesium 1.9 mg/dL (1.6-2.6); Osmolality,Calculated 276 (280-300); Potassium 4.1 mEq/L (3.5-5.1); Sodium 130 mEq/L (136-145); eGFR For Non-African Americans > 60 (> 60)
[2018-09-26] MEDS: Ondansetron 4 MG/2 ML VIAL IVP PRN ×2 (05:08→17:19)
[2018-09-26] MEDS: *HR* Enoxaparin 30 MG/0.3 ML SYRINGE SQ SCH (05:13)
[2018-09-26] MEDS: Insulin LISPRO 300 UNITS/3 ML VIAL SQ SCH ×2 (08:06→12:13)
[2018-09-26] MEDS: Ascorbic Acid 500 MG TABLET PO SCH (08:06)
[2018-09-26] MEDS: Multivit/Ca/Min/Fe/FA 1 TAB TABLET PO SCH (08:06)
[2018-09-26] MEDS: Aspirin Enteric Coated 81 MG Tablet PO SCH (08:06)
[2018-09-26] MEDS: traMADol 50 MG TABLET PO PRN (08:06)
[2018-09-26] MEDS: Diltiazem CD (24hr) 300 MG CAPSULE PO SCH (08:06)
[2018-09-26] MEDS: Cyanocobalamin (B-12) 1,000 MCG TABLET PO SCH (08:06)
--- NOTE | 2018-09-26 08:06 | Internal Med Progress Note ---
<Fadia Joya - Last Filed: 09/26/18 12:54> Hospitalist Progress Note - Encounter Date of Encounter: 09/26/18 - Exam Vitals: Temp Pulse Resp BP Pulse Ox 97.7 F 70 14 155/71 97 09/26/18 10:30 09/26/18 10:30 09/26/18 10:30 09/26/18 10:30 09/26/18 10:30 - Assessment and Plan (1) Atrial fibrillation with RVR Current Visit: Yes Status: Acute (2) Chronic hyponatremia Current Visit: Yes Status: Acute (3) Chronic anemia Current Visit: Yes Status: Chronic (4) Protein-calorie malnutrition, moderate Current Visit: Yes Status: Chronic (5) Chronic nausea Current Visit: Yes Status: Chronic (6) Elevated troponin Current Visit: Yes Status: Acute - Time Spent with Patient Total time spent is greater than 50% in coordination of care (as documented) at patient's floor/unit and/or counseling patient: Internal Medicine: Result - Labs CBC & Chem 7: 09/26/18 09:43 09/26/18 09:43 Labs: Short CBC 09/26/18 Range/Units 09:43 WBC 13.9 H (4.3-11.1) K/mcL Hgb 8.7 L (11.5-15.4) g/dL Hct 28.8 L (35.3-44.9) % Plt Count 301 (140-400) K/mcL Neutrophils # 12.1 H (1.6-8.9) K/mcL BMP 09/25/18 09/26/18 21:05 09:43 Sodium 130 L 130 L Potassium 4.1 4.3 Chloride 94 L 95 L Carbon Dioxide 23 23 BUN 23 24 H Creatinine 0.87 0.84 Glucose 132 H 146 H Calcium 9.0 9.0 - ABG Interpretation ABG results: PT/INR, D-dimer PT 13.9 Seconds (9.4-12.1) H 09/21/18 01:33 Consult Discharge Plan - Plan Referrals: Fernando Regan DO [Primary Care Provider] - 10/06/18 9:30 am (Please arrive about 15-30mins early to update your patient profile since you have not been there in about 3 years. Thank you!) Prescriptions: Aspirin Enteric Coated [Aspirin EC] 81 mg PO DAILY #30 tablet. Diltiazem CD (24hr) [Cardizem CD] 240 mg PO DAILY #30 cap.er.24h Docusate [Colace] 100 mg PO DAILY #30 capsule Ferrous Sulfate 325 mg PO DAILY #30 tablet HYDROcodone/Acet 5/325 mg [[place] 5-325 mg] 1 tab PO BID 30 Days #60 tablet - Attending Attestation I examined this patient and my medical decision-making was reviewed with the Resident Physician Dr Bellamy. I agree with the documented findings, disposition and treatment plan as described except to the extent set forth below. Ms Flanagan is admitted for afib rvr and hyponatremia awake, no palpitations, lightheadeness of dizziness. some nausea this morning and skipped breakfast last night, though not documented in her chart, she had what appeared to be possible run of VT on tele. Night [employer] checked electrolytes and ekg. Pt was asx. My team and I have discussed with cards today. 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 - PO cardizem to 300 mg CD daily, -ASA -with HR elevation with exertion will add BB BID as per Dr Vick -we also discussed with Dr Vick about ?NSVT on tele and he will review, however pt doesn't want any invasive procedures and therefore will not pursue ischemic work up if this is VT -cards following-- she declined work up/intervention for stenosis of her bioprosthetic valve -previously followed with dr Jerome in [place] but she and son requesting to transition to [facility] care due to transportation constraints on travelling to [place] -holding home acei while monitoring BP with new meds, add back as able, holding lasix for same reason + hyponatremia below with hypovolemia Trop elevation, mild, adynamic 2/2 afib rvr EKG on admit did show ischemic changes with TWI I, II, avl and ST dep in v4-v6 Repeat EKG 09/22 rate controlled afib and ST depressions resolved and TWI improved/resolved when compared to prior and 2014 ekg -fu cards outpt ruled out UTI on cx- however, given her history of urologic procedures, new onset afib completed abx course Acute on Chronic Hyponatremia- suspected hypovolemic- corrected at appropriate rate, without any deficits cognitively, baseline appears 129-135 technically met sepsis criteria on admit- possible uti though ucx neg, and suspect VS changes were related to afib rvr- sepsis resolved -bl cxs ngtd chronic anemia,2/2 rectal cancer, CROW- stable at baseline, iron PO daily + colace to avoid constipation -oncolongy appt outpt missed, consulted to see here and give recs re her chemo--will cont to hold and hold on dc as rec by Dr Ledesma, she will see outpt Chronic intermittent nausea/emesis 2/2 rectal cancer and chemo- per pt this is at baseline , prn anti emetic Moderate Non Severe Protein Calorie Malnutrition related to cancer process (chronic) as evidenced by weight loss 13% over 6 months, moderate muscle and fa t wasting, consuming < 75% estimated requirements. BMI 24.4 -Pt is on nutritional supplements dispo will be to snf hopefully tomorrow pending HR controlled on new meds today further diagnoses and plan as noted by resident <Nel Bellamy - Last Filed: 09/26/18 22:23> Hospitalist Progress Note - Encounter Date of Encounter: 09/26/18 Time of Encounter: 08:06 - Subjective Interval History: Seen and examined this morning at bedside. Pt resting in bed, appears comfortable in no acute distress. Reports slept well throughout the night. Denies fevers, chills, shortness of breath, chest pain, abdominal pain. Patient reported to have episode of ventricular tachycardia yesterday, patient states this occurred when she sat up in the bed and she felt short of breath, states she felt her heart racing. No chest pain, heart racing, shortness of breath since this episode occurred. Patient reiterated her wishes regarding CODE STATUS, would like to remain [id number]. - Exam Vitals: Temp Pulse Resp BP Pulse Ox 98.6 F 100 13 115/57 95 09/26/18 06:45 09/26/18 06:45 09/26/18 06:45 09/26/18 06:45 09/26/18 06:45 Exam: General: A&O X3, conversant, thin, no acute distress Head: atraumatic, normocephalic Eye: PERRL, EOMI, conjuntiva pink, sclera anicteric Neck: Supple, trachea midline; No lymphadenopathy Respiratory: CTAB; No accessory muscle use, wheezes, rales, or rhonchi Cardiovascular: RRR, s1/s2; no murmurs, rubs, gallops Abdomen: Soft, nontender, colostomy noted Extremities: warm, radial pulses palpable and symmetrical Psychiatric: Normal affect, normal mood Skin: warm, Dry, intact - Assessment and Plan (1) Atrial fibrillation with RVR Current Visit: Yes Status: Acute Assessment and Plan: - Initially presented to [facility] on 09/20 with lightheadedness, palpitations - EKG demonstrated atrial fibrillation with RVR with a rate of 136 bpm - Patient has no prior history of atrial fibrillation - Ischemic workup thus far has been negative; troponins adynamic - [id number] score is 7; anticoagulation was discussed with patient; she stated that she did not want any anticoagulation except for ASA - Was given a 10 mg bolus of Cardizem, and then started on a drip at a rate of 5 - Cardiology was consulted for recommendations on rate control; she was placed on Cardizem CD 240 mg PO daily - on 09/25, patient had an elevated HR around 180 bpm, and became dizzy and lightheaded upon standing - Patient reportedly went into [facility] overnight, however no EKG or documentation to confirm this. This was discussed with cardioloy, who recommends addition of metoprolol 25 mg BID Plan: - PO Cardizem increased to 300 mg PO daily, metoprolol 25 mg BID - Continuous telemetry - Continue ASA 81 mg daily for anticoagulation - She will need close follow up with cardiology in the outpatient setting (2) Elevated troponin Current Visit: Yes Status: Acute Assessment and Plan: - Likely secondary to demand ischemia - Troponins so far have been adynamic (3) Aortic stenosis Current Visit: Yes Status: Chronic Assessment and Plan: - Patient does not want any intervention - Demonstrated on echo - Cardiology following- (4) HFrEF (heart failure with reduced ejection fraction) Current Visit: Yes Status: Chronic Assessment and Plan: - TTE 09/22: EF 45%, mild global systolic dysfunction, mild LV diastolic dysfunction, 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 130 today - Encourage PO intake, repeat AM labs (6) Chronic anemia Current Visit: Yes Status: Chronic Assessment and Plan: Iron deficiency on evaluation hgb stable at 8.7 Continue iron supplementation will monitor on iron and give colace (7) UTI (urinary tract infection) Current Visit: No Status: Resolved Assessment and Plan: - Urinalysis on arrival was suggestive of urinary tract infection - Patient received a one-time dose of Rocephin in the emergency department Plan: - Continue antibiotics for full course; although urine culture negative, patient has history of urologic procedures in [facility] - Completed a 5 day course of Rocephin (8) Chronic nausea Current Visit: Yes Status: Chronic Assessment and Plan: - Patient reports that she has had nausea and vomiting every morning since her urologic procedure - We will continue to monitor labs - Time Spent with Patient Total time spent is greater than 50% in coordination of care (as documented) at patient's floor/unit and/or counseling patient: Internal Medicine: Result - Labs CBC & Chem 7: 09/26/18 09:43 09/26/18 09:43 Labs: BMP 09/25/18 21:05 Sodium 130 L Potassium 4.1 Chloride 94 L Carbon Dioxide 23 BUN 23 Creatinine 0.87 Glucose 132 H Calcium 9.0 - ABG Interpretation ABG results: PT/INR, D-dimer PT 13.9 Seconds (9.4-12.1) H 09/21/18 01:33 <Nel Bellamy - Last Filed: 09/26/18 22:23> (3) Aortic stenosis Qualifiers: Cardiac valve disease etiology: etiology unspecified Qualified Code(s): I35.0 - Nonrheumatic aortic (valve) stenosis (4) HFrEF (heart failure with reduced ejection fraction) Qualifiers: Heart failure chronicity: chronic Qualified Code(s): I50.22 - Chronic systolic (congestive) heart failure (7) UTI (urinary tract infection) Qualifiers: Urinary tract infection type: acute cystitis Hematuria presence: with hematuria Qualified Code(s): N30.01 - Acute cystitis with hematuria
--- NOTE | 2018-09-26 09:06 | Electrocardiograph Report ---
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
[2018-09-26 10:10] LABS: Basophils % 0.2 %; Eosinophils % 0.2 %; Hematocrit 28.8 % (35.3-44.9); Hemoglobin 8.7 g/dL (11.5-15.4); Immature Granulocytes % 1.4 % (0-4); Lymphocytes # 0.6 K/mcL (0.6-4.6); Lymphocytes % 4.4 %; Mean Corpuscular HGB Conc 30.2 g/dL (31.6-35.5); Mean Corpuscular Hemoglobin 26.2 pg (28.0-33.3); Mean Corpuscular Volume 86.7 fL (83.0-100.0); Mean Platelet Volume 9.5 fL (9.4-12.4); Monocytes % 7.1 %; Neutrophils # 12.1 K/mcL (1.6-8.9); Platelet Count 301 K/mcL (140-400); Red Blood Count 3.32 M/mcL (3.82-4.97); Red Cell Distribution Width 15.1 % (11.5-14.5); Segmented Neutrophils % 86.7 %
[2018-09-26 10:24] LABS: BUN/Creatinine Ratio 29 (6-26); Blood Urea Nitrogen 24 mg/dL (8-23); Carbon Dioxide 23 mEq/L (23-29); Chloride 95 mEq/L (98-107); Glucose 146 mg/dL (70-105); Magnesium 1.7 mg/dL (1.6-2.6); Osmolality,Calculated 277 (280-300); Potassium 4.3 mEq/L (3.5-5.1); Sodium 130 mEq/L (136-145); eGFR For Non-African Americans > 60 (> 60)
[2018-09-26] MEDS ORDERED: Ondansetron 4 MG/2 ML VIAL IVP ONE (20:40)
[2018-09-27] MEDS: Ondansetron 4 MG/2 ML VIAL IVP PRN (03:30)
[2018-09-27 05:40] LABS: Basophils % 0.1 %; Eosinophils % 0.1 %; Hematocrit 27.5 % (35.3-44.9); Hemoglobin 8.5 g/dL (11.5-15.4); Immature Granulocytes % 1.5 % (0-4); Lymphocytes # 0.8 K/mcL (0.6-4.6); Lymphocytes % 5.6 %; Mean Corpuscular HGB Conc 30.9 g/dL (31.6-35.5); Mean Corpuscular Hemoglobin 26.5 pg (28.0-33.3); Mean Corpuscular Volume 85.7 fL (83.0-100.0); Mean Platelet Volume 9.4 fL (9.4-12.4); Monocytes # 1.1 K/mcL (0.0-1.3); Neutrophils # 11.4 K/mcL (1.6-8.9); Platelet Count 330 K/mcL (140-400); Red Blood Count 3.21 M/mcL (3.82-4.97); Segmented Neutrophils % 84.7 %
[2018-09-27] MEDS ORDERED: *HR* Enoxaparin 40 MG/0.4 ML SYRINGE SQ SCH (06:00)
[2018-09-27 06:01] LABS: BUN/Creatinine Ratio 34 (6-26); Blood Urea Nitrogen 29 mg/dL (8-23); Calcium 8.8 mg/dL (8.6-10.3); Carbon Dioxide 26 mEq/L (23-29); Chloride 94 mEq/L (98-107); Glucose 118 mg/dL (70-105); Magnesium 2.1 mg/dL (1.6-2.6); Osmolality,Calculated 275 (280-300); Potassium 4.4 mEq/L (3.5-5.1); Sodium 129 mEq/L (136-145); eGFR For Non-African Americans > 60 (> 60)
[2018-09-27] MEDS: Insulin LISPRO 300 UNITS/3 ML VIAL SQ SCH ×2 (08:05→08:06)
[2018-09-27] MEDS: Aspirin Enteric Coated 81 MG Tablet PO SCH (08:15)
[2018-09-27] MEDS: Ascorbic Acid 500 MG TABLET PO SCH (08:15)
[2018-09-27] MEDS: Diltiazem CD (24hr) 300 MG CAPSULE PO SCH (08:15)
[2018-09-27] MEDS: Cyanocobalamin (B-12) 1,000 MCG TABLET PO SCH (08:15)
[2018-09-27] MEDS: Multivit/Ca/Min/Fe/FA 1 TAB TABLET PO SCH (08:15)
--- NOTE | 2018-09-27 08:23 | Discharge Summary ---
<Fadia Joya - Last Filed: 09/27/18 10:11> Orders not resulted at time of discharge: Pending orders 09/22/18 07:42 EKG [ECG 12 lead ECG] [ECG] Routine 09/27/18 09:22 EKG [ECG 12 lead ECG] [ECG] Stat Date of Encounter: 09/27/18 - Discharge Diagnosis (1) Atrial fibrillation with RVR Status: Resolved (2) Chronic hyponatremia Status: Chronic (3) Chronic anemia Status: Chronic (4) Protein-calorie malnutrition, moderate Status: Chronic (5) Chronic nausea Status: Chronic (6) Elevated troponin Status: Acute Hospital course: Ms. Flanagan is a 83 year old female - Time Spent with Patient Total time spent providing and/or coordinating discharge services: Time spent: Greater than 30 minutes (40 min) - Discharge Medications Prescriptions: New Aspirin Enteric Coated [Aspirin EC] 81 mg PO DAILY #30 tablet. Docusate [Colace] 100 mg PO DAILY #30 capsule Diltiazem CD (24hr) [Cardizem CD] 300 mg PO DAILY cap.er.24h Metoprolol [Lopressor] 25 mg PO BID tablet Omeprazole [PriLOSEC] 40 mg PO DAILY@0730 capsule. Acetaminophen [Tylenol] 650 mg PO Q6H PRN tablet PRN Reason: Fever Ondansetron ODT [Zofran ODT] 4 mg SL Q8HR PRN #1 tab.rapdis PRN Reason: Nausea And Vomiting Continued Cyanocobalamin (Vitamin B-12) [Vitamin B-12] 1,000 mcg PO DAILY Ascorbic Acid [Vitamin C] 500 mg PO DAILY Oxybutynin [Ditropan] 5 mg PO TID PRN #20 tablet PRN Reason: bladder/stent irritation Multivit with Calcium,Iron,Min [One Daily Women's] 1 tab PO DAILY Ferrous Sulfate 325 mg PO DAILY #30 tablet Discontinued Carvedilol 12.5 mg PO BID HYDROcodone/Acet 5/325 mg [[place] 5-325 mg] 1 tab PO BID 30 Days #60 tablet Furosemide [Lasix] 40 mg PO BID Lisinopril [Zestril] 20 mg PO DAILY Potassium Chloride [Klor-Con 10] 10 meq PO BID Home Medications: Ascorbic Acid [Vitamin C] 500 mg PO DAILY 07/19/18 [History] Cyanocobalamin (Vitamin B-12) [Vitamin B-12] 1,000 mcg PO DAILY 07/19/18 [History] Multivit with Calcium,Iron,Min [One Daily Women's] 1 tab PO DAILY 09/07/18 [History] Oxybutynin [Ditropan] 5 mg PO TID PRN #20 tablet 09/07/18 [Rx] Aspirin Enteric Coated [Aspirin EC] 81 mg PO DAILY #30 tablet. 09/25/18 [Rx] Docusate [Colace] 100 mg PO DAILY #30 capsule 09/25/18 [Rx] Ferrous Sulfate 325 mg PO DAILY #30 tablet 09/25/18 [Rx] Acetaminophen [Tylenol] 650 mg PO Q6H PRN tablet 09/27/18 [Rx] Diltiazem CD (24hr) [Cardizem CD] 300 mg PO DAILY cap.er.24h 09/27/18 [Rx] Metoprolol [Lopressor] 25 mg PO BID tablet 09/27/18 [Rx] Omeprazole [PriLOSEC] 40 mg PO DAILY@0730 capsule. 09/27/18 [Rx] Ondansetron ODT [Zofran ODT] 4 mg SL Q8HR PRN #1 tab.rapdis 09/27/18 [Rx] Allergies/Adverse Reactions: Allergy/AdvReac Type Severity Reaction Status Date / Time Penicillins [PCN] Allergy Intermediate Hives Verified 09/20/18 09:35 Amoxicillin Allergy Hives Verified 09/20/18 09:35 Date of admission: 09/20/18 17:00 Primary care physician: Lars Regan DO Consults: 09/20/18 18:11 Consult to Nutrition [CONS] Routine Comment: Consulting Provider: NUTRITION Reason for Dietary Consult: PO Supplementation 09/22/18 15:13 Consult to Occupational Therapy [CONS] Routine Comment: Evaluate, develop and implement POC Reason for Consult: assess mobility needs Does patient have active BEDREST order?: No Is patient medically & hemodynamically stable?: Yes Patient assessed for mobility or mobilized this visit?: Yes Consult to Physical Therapy [CONS] Routine Comment: Evaluate, develop and implement POC Reason for Consult: assess mobility needs Does patient have active BEDREST order?: No Is patient medically & hemodynamically stable?: Yes Patient assessed for mobility or mobilized this visit?: Yes 09/23/18 08:41 Consult to Guide Travel [CONS] Routine Reason for SW Consult: dispo planning, son parker thinkning she will need rehab, pt/ot pending 09/23/18 13:56 Consult to Cardiology [CONS] Routine Comment: Consulting Provider: Cardiology [facility] Reason for Consult: Recommendations on rate control in the setting of new onset A. fib with RVR; patient wishes to establish with [facility] Call Completed: Yes 09/24/18 10:57 Consult to Oncology [CONS] Routine Consulting Provider: [facility] Reason for Consult: Dr Ledesma, pt missed outpt cancer appt, recs for cont of chemo agent upon dc to snf Call Completed: Yes - Constitutional Vitals: Temp Pulse Resp BP Pulse Ox 97.9 F 83 16 154/66 100 09/27/18 09:45 09/27/18 09:45 09/27/18 09:45 09/27/18 09:45 09/27/18 09:45 - Patient Status Disposition: Transfer SNF Condition: Good Functional capacity at discharge: uses cane/walker Overall status at discharge: patient is progressing back to baseline - Discharge Instructions Follow Up With: Mckinley Castaneda MD [Partnered Physician] - Fernando Regan DO [Primary Care Provider] - 10/06/18 9:30 am (Please arrive about 15-30mins early to update your patient profile since you have not been there in about 3 years. Thank you!) Elmira Lauren MD [Partnered Physician] - 09/30/18 9:30 am (Please follow up as schedule...) Additional Instructions: - Continue taking Cardizem and metoprolol. Follow-up with cardiology outpatient -Follow-up with hematology/oncology outpatient -Continue with PT/OT - Diet and Activity Activity: as per physical therapy, increase activity as tolerated Diet: advance to your usual diet, low fat, low cholesterol, low salt diet - Attending Attestation I examined this patient and my medical decision-making was reviewed with the Resident Physician Dr Watkins. I agree with the documented findings, disposition and treatment plan as described except to the extent set forth below. Ms Flanagan is admitted for afib rvr and hyponatremia awake, no palpitations,presyncope or chest pain. She is tired and generally weak. no fevers, chills, abd pain. no nausea or emesis this morning discussed plan to dc to rehab and she is agreeable and eager to get started on rehab HR has been in 70s average with med adjustments yesterday gen- alert, awake,appears stated age cv- reg rate and reg hythm, normal s1,s2, + SM no le edema lungs- ctabl, normal resp effort on room air abd- soft, non tender, non distended neuro- AAOx3 Afib with RVR, now NSR chadvasc indicating AC required but discussion between team/pt/son pt has decided for only ASA due to chronic anemia and fall risk infection ruled out, ischemic cardiac work up suggestive of demand related to RVR echo EF 45-50%, mild global LV systolic dysfunction, Mild LV DD, 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 - PO cardizem to 300 mg CD daily, + BB BID +ASA -we also discussed with Dr Vick about ?NSVT on tele, however pt doesn't want any invasive procedures and therefore will not pursue ischemic work up if this is VT, meds as above - she declined work up/intervention for stenosis of her bioprosthetic valve -previously followed with dr Jerome in [place] but she and son requesting to transition to [facility] care due to transportation constraints on travelling to [place] -held home acei with med adjustments, may be added back outpt, holding lasix for same reason + hyponatremia below with hypovolemia, may be added back outpt as needed, no fluid overload this admit Trop elevation, mild, adynamic 2/2 afib rvr EKG on admit did show ischemic changes with TWI I, II, avl and ST dep in v4-v6 Repeat EKG 09/22 rate controlled afib and ST depressions resolved and TWI improved/resolved when compared to prior and 2014 ekg -fu cards outpt ruled out UTI on cx- however, given her history of urologic procedures, new onset afib completed abx course Acute on Chronic Hyponatremia- suspected hypovolemic- corrected at appropriate rate, without any deficits cognitively, baseline appears 129-135 at baseline on dc technically met sepsis criteria on admit- possible uti though ucx neg, and suspect VS changes were related to afib rvr- sepsis resolved -bl cxs neg chronic anemia,2/2 rectal cancer, CROW- stable at baseline, iron PO daily + colace to avoid constipation -oncology saw her here and will cont to hold and hold on dc as rec by Dr Ledesma, she will see outpt Chronic intermittent nausea/emesis 2/2 rectal cancer and chemo- per pt this is at baseline , prn anti emetic Moderate Non Severe Protein Calorie Malnutrition related to cancer process (chronic) as evidenced by weight loss 13% over 6 months, moderate muscle and fat wasting, consuming < 75% estimated requirements. BMI 24.4 -Pt is on nutritional supplements dispo will be to snf today time spent on dc 40 min further diagnoses and plan as noted by resident <Amy Watkins - Last Filed: 09/27/18 16:54> - NOTES TO OUTPATIENT PROVIDER Notes to Outpatient Provider: -Admitted for atrial fibrillation with RVR. Started on Cardizem 300mg and metoprolol 25 b.i.d. -TTE 09/22/18: LVEF 45-50%. Mild global left ventricular systolic dysfunction. Mild LVDD. Normal RV structure and function. Mildly dilated LA. 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 Mild MR. Mild TR. No phtn. 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 -Not on anticoagulation due to patient preference of aspirin 81 mg only. -lisinopril and Lasix were held and may be continued at your discretion outpatient. - hematology/oncology consulted due to patients rectal cancer. They are holding Xeloda until seen outpatient. -Discharged to the skilled nursing. PT/OT Orders not resulted at time of discharge: Pending orders 09/22/18 07:42 EKG [ECG 12 lead ECG] [ECG] Routine Date of Encounter: 09/27/18 Time of Encounter: 08:22 - Discharge Diagnosis (1) Atrial fibrillation with RVR Priority: Primary Status: Resolved (2) Elevated troponin Priority: Secondary Status: Acute (3) Chronic nausea Priority: Secondary Status: Chronic (4) Chronic hyponatremia Priority: Secondary Status: Chronic (5) Chronic anemia Priority: Secondary Status: Chronic (6) Protein-calorie malnutrition, moderate Priority: Secondary Status: Chronic Hospital course: Ms. Flanagan is a 83 year old female with a PMH of CHF, T2 DM, HLD, HTN, aortic valve placement 2012, and rectal cancer status post ostomy in May 2014 who presented to [facility] ED on 09/20/18 with chief complaint of lightheadedness and palpitations. Heart rate was in the 130s on initial presentation and she was started on a Cardizem drip. EKG demonstrated atrial fibrillation with RVR. TTE 09/22/18: LVEF 45-50%. Mild global left ventricular systolic dysfunction. Mild LVDD. Normal RV structure and function. Mildly dilated LA. 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 Mild MR. Mild TR. No phtn. 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 While in patient she was started on Cardizem 300mg and metoprolol 25 b.i.d and tolerated the medications well. Hematology/oncology consulted due to patients rectal cancer. They are holding Xeloda until seen outpatient. Cardiology spoke with patient and family about anticoagulation for atrial fibrillation however they declined and preferred aspirin 81 mg only. Home lisinopril and Lasix were held and are to be resumed at the discretion of the patient's primary care physician outpatient. Upon discharge the patient denied chest pain, palpitations, fever, chills. She had no side effects from the new medications were tolerating them well. She was discharged to a nursing facility for continued care. She was arranged follow-ups with cardiology, hematology/oncology, and PCP. Discharge discussed with: patient, nurse - Time Spent with Patient Total time spent providing and/or coordinating discharge services: Time spent: Greater than 30 minutes Date of admission: 09/20/18 17:00 Primary care physician: Lars Regan, Consults: 09/20/18 18:11 Consult to Nutrition [CONS] Routine Comment: Consulting Provider: NUTRITION Reason for Dietary Consult: PO Supplementation 09/22/18 15:13 Consult to Occupational Therapy [CONS] Routine Comment: Evaluate, develop and implement POC Reason for Consult: assess mobility needs Does patient have active BEDREST order?: No Is patient medically & hemodynamically stable?: Yes Patient assessed for mobility or mobilized this visit?: Yes Consult to Physical Therapy [CONS] Routine Comment: Evaluate, develop and implement POC Reason for Consult: assess mobility needs Does patient have active BEDREST order?: No Is patient medically & hemodynamically stable?: Yes Patient assessed for mobility or mobilized this visit?: Yes 09/23/18 08:41 Consult to Guide Travel [CONS] Routine Reason for SW Consult: dispo planning, son parker thinkning she will need rehab, pt/ot pending 09/23/18 13:56 Consult to Cardiology [CONS] Routine Comment: Consulting Provider: Cardiology [facility] Reason for Consult: Recommendations on rate control in the setting of new onset A. fib with RVR; patient wishes to establish with [facility] Call Completed: Yes 09/24/18 10:57 Consult to Oncology [CONS] Routine Consulting Provider: [facility] Reason for Consult: Dr Ledesma, pt missed outpt cancer appt, recs for cont of chemo agent upon dc to snf Call Completed: Yes Discharging clinician: Fadia Joya Anticipated date of discharge: 09/27/18 - Constitutional Vitals: Temp Pulse Resp BP Pulse Ox 99.0 F 93 16 148/57 97 09/27/18 06:46 09/27/18 06:46 09/27/18 06:46 09/27/18 06:46 09/27/18 06:46 Exam: Gen.: Vitals noted. No acute distress HEENT: oropharynx clear, Normocephalic, atraumatic Cardiac: RRR, systolic murmur, +S1/S2 Pulmonary: CTA bilaterally, no wheezes, rales or rhonchi, equal chest expansion Abdomen: soft, nontender, Bowel sounds noted, no guarding MSK: no joint swelling noted Extremities: no BLE edema, nontender calf Neuro: moves all extremities, no focal deficits Psych: Appropriate mood and behavior - Patient Status Functional capacity at discharge: uses cane/walker Overall status at discharge: patient is progressing back to baseline - Diet and Activity Activity: as per physical therapy, increase activity as tolerated Diet: advance to your usual diet, low fat, low cholesterol, low salt diet
--- NOTE | 2018-09-27 10:02 | Physician Discharge Referral ---
ExtendedCare Referral Info Provider in Charge after Transfer: PCP - Diagnosis (1) Atrial fibrillation with RVR Priority: Primary Status: Resolved (2) Chronic hyponatremia Priority: Secondary Status: Chronic (3) Chronic anemia Priority: Secondary Status: Chronic (4) Protein-calorie malnutrition, moderate Priority: Secondary Status: Chronic (5) Chronic nausea Priority: Secondary Status: Chronic (6) Elevated troponin Priority: Secondary Status: Acute - Transfer Medications Prescriptions: Aspirin Enteric Coated [Aspirin EC] 81 mg PO DAILY #30 tablet. Docusate [Colace] 100 mg PO DAILY #30 capsule Ferrous Sulfate 325 mg PO DAILY #30 tablet Ondansetron ODT [Zofran ODT] 4 mg SL Q8HR PRN #1 tab.rapdis PRN Reason: Nausea And Vomiting Home Medications: Ascorbic Acid [Vitamin C] 500 mg PO DAILY 07/19/18 [History] Cyanocobalamin (Vitamin B-12) [Vitamin B-12] 1,000 mcg PO DAILY 07/19/18 [History] Multivit with Calcium,Iron,Min [One Daily Women's] 1 tab PO DAILY 09/07/18 [History] Oxybutynin [Ditropan] 5 mg PO TID PRN #20 tablet 09/07/18 [Rx] Aspirin Enteric Coated [Aspirin EC] 81 mg PO DAILY #30 tablet. 09/25/18 [Rx] Docusate [Colace] 100 mg PO DAILY #30 capsule 09/25/18 [Rx] Ferrous Sulfate 325 mg PO DAILY #30 tablet 09/25/18 [Rx] Acetaminophen [Tylenol] 650 mg PO Q6H PRN tablet 09/27/18 [Rx] Diltiazem CD (24hr) [Cardizem CD] 300 mg PO DAILY cap.er.24h 09/27/18 [Rx] Metoprolol [Lopressor] 25 mg PO BID tablet 09/27/18 [Rx] Omeprazole [PriLOSEC] 40 mg PO DAILY@0730 capsule. 09/27/18 [Rx] Ondansetron ODT [Zofran ODT] 4 mg SL Q8HR PRN #1 tab.rapdis 09/27/18 [Rx] Allergies/Adverse Reactions: Allergy/AdvReac Type Severity Reaction Status Date / Time Penicillins [PCN] Allergy Intermediate Hives Verified 09/20/18 09:35 Amoxicillin Allergy Hives Verified 09/20/18 09:35 - Respiratory Orders None Smoking Cessation: Smoking cessation has been advised. For more information, call the [place] Tobacco Quit Line at 5-613-TCHW-NOW. - Ancillary Orders May use pressure relief devices daily prn - Advance Directives Code Status: DNR-Arrest/Don't Intubate - Mobility Orders Ambulate - Rehabiliation Orders Rehab Potential: Good Rehab Orders: Sternal Precautions, ROM Exercises, Evaluation for Physical Therapy, Evaluation for Occupational Therapy - Treatments Skin tear care topically daily PRN per policy - Diet Orders Regular, No Added Salt (ADARSH), Cardiac CERTIFICATION: I certify that the transfer of the above named patient to an Extended Care Facility is necessary for the continuing treatment of the diagnosis listed. The above information is true and accurate reflection of patient's current condition. Confidential - Redisclosure prohibited without a patient's written consent.
[2018-09-27 11:34] VITALS: BP 119/55
== END 2018-09-27 11:50 | DRG 872 ==
LOC: EMEROOARM 09:26 → 2ANU 09:26 → SUATTDRO 17:00
PROVIDERS: ADMIT Internal Medicine Nephrology; ATTEND Internal Medicine

== ENCOUNTER 2018-09-29 14:52 | Inpatient (IN) ==
--- NOTE | 2018-09-29 15:03 | Emergency Department Note ---
Disposition Clinical Impression: Small bowel obstruction, Chronic anemia Aortic stenosis Qualifiers: Cardiac valve disease etiology: etiology unspecified Qualified Code(s): I35.0 - Nonrheumatic aortic (valve) stenosis Disposition: Admitted As Inpatient Condition: Serious Referrals: Fernando Regan DO [Primary Care Provider] - Forms: ED Satisfaction Letter Time of Disposition: 17:55 Nausea/Vomiting/Diarrhea HPI - General Chief complaint: ED Nausea/Vomiting/Diarrhea Stated complaint: nausea, vomitting Time Seen by Provider: 09/29/18 14:58 Source: patient, EMS Mode of arrival: EMS Limitations: no limitations Nursing Notes Reviewed: Yes Vital Signs Reviewed: Yes - History of Present Illness HPI Narrative: 83-year-old female with history of CHF, atrial fibrillation on no anticoagulation arrives for a nursing facility complaining of nausea, vomiting and abdominal pain. Patient states this started a few days ago and progressively worsened today. The patient states that she has a history of colostomy and rectal cancer. She states overall she does pretty well with her colostomy. The patient states that over the past day she has been unable to keep anything down secondary to continued vomiting. She was administered 4 mg of by mouth/sublingual Zofran just prior to EMS arrival at nursing facility in which she lives. She had no further vomiting but she still feels very nauseated. The patient also states that her abdomen is distended compared to normal. She does have some distention to her abdomen on evaluation as well as palpable tenderness that is diffuse and temp any that is noted. The patient has no blood in her colostomy. There is still some stool but it is very loose appearing. Patient denies any other complaints include chest pain, difficulty breathing, focalized weakness, fevers. - Related Data Home Medications Medication Instructions Recorded Confirmed Ascorbic Acid [Vitamin C] 500 mg PO DAILY 07/19/18 09/21/18 Cyanocobalamin (Vitamin B-12) 1,000 mcg PO DAILY 07/19/18 09/21/18 [Vitamin B-12] Multivit with Calcium,Iron,Min 1 tab PO DAILY 09/07/18 09/21/18 [One Daily Women's] Previous Rx's Medication Instructions Recorded Oxybutynin [Ditropan] 5 mg PO TID PRN #20 tablet 09/07/18 Aspirin Enteric Coated [Aspirin EC] 81 mg PO DAILY #30 tablet. 09/25/18 Docusate [Colace] 100 mg PO DAILY #30 capsule 09/25/18 Ferrous Sulfate 325 mg PO DAILY #30 tablet 09/25/18 Acetaminophen [Tylenol] 650 mg PO Q6H PRN tablet 09/27/18 Diltiazem CD (24hr) [Cardizem CD] 300 mg PO DAILY cap.er.24h 09/27/18 Metoprolol [Lopressor] 25 mg PO BID tablet 09/27/18 Omeprazole [PriLOSEC] 40 mg PO DAILY@0730 capsule. 09/27/18 Ondansetron ODT [Zofran ODT] 4 mg SL Q8HR PRN #1 tab.rapdis 09/27/18 Allergies Allergy/AdvReac Type Severity Reaction Status Date / Time Penicillins [PCN] Allergy Intermediate Hives Verified 09/20/18 09:35 Amoxicillin Allergy Hives Verified 09/20/18 09:35 All systems ED: reviewed and negative except as stated. Constitutional: Denies: fever, chills, weakness ENT ED: Denies: dysphagia Cardiovascular: Denies: chest pain Respiratory: Denies: dyspnea Gastrointestinal: Reports: abdominal pain, nausea, vomiting, diarrhea. Denies: constipation, hematemesis, melena, hematochezia Genitourinary: Denies: urgency, dysuria Musculoskeletal: Denies: back pain Integumentary: Denies: rash Neurological: Denies: headache Past Medical History - Past Medical History Attestation: Yes The following information was validated with the patient. Source: patient, old records reviewed Medical history: Reports: cancer, diabetes, hyperlipidemia, hypertension, malignancy, valvular heart disease Surgical history: Reports: heart valve replacement, hysterectomy, other Psychiatric history: Reports: no psych history - Social History Smoking Status: Never smoker Smokeless Tobacco Status: No Alcohol use: Reports: none Drug use: Reports: none Physical Exam - General Limitations: no limitations General appearance: alert, in no apparent distress - Head Head exam: atraumatic, normocephalic, normal inspection - Eye Eye exam: Present: normal appearance, PERRL, EOMI - ENT ENT exam: normal exam, normal oropharynx, mucous membranes dry - Neck Neck exam: Present: normal inspection, full ROM, trachea midline - Chest Chest inspection: Present: normal inspection, symmetric chest wall rise - Respiratory Respiratory exam: Present: normal lung sounds bilaterally - Cardiovascular Cardiovascular exam: Present: regular rate, normal rhythm, normal heart sounds - Abdominal Exam Abdominal exam: Present: soft, tenderness (diffuse), distention, other (Colosto my). Absent: guarding, rebound, rigidity - Extremities Exam Extremities exam: Present: normal inspection, full ROM, normal capillary refill. Absent: tenderness, pedal edema - Neurological Exam Neurological exam: Present: alert, oriented X3 - Skin Skin exam: Present: warm, dry, intact, normal color Course Vital Signs Temperature 97.4 F L 09/29/18 14:57 Pulse Rate 94 09/29/18 14:57 Respiratory Rate 16 09/29/18 14:57 Blood Pressure 121/68 09/29/18 14:57 O2 Sat by Pulse Oximetry 100 09/29/18 14:57 Temperature 97.4 F L 09/29/18 14:57 Pulse Rate 97 09/29/18 17:24 Respiratory Rate 18 09/29/18 17:24 Blood Pressure 130/42 09/29/18 17:24 O2 Sat by Pulse Oximetry 100 09/29/18 17:24 Oxygen Delivery Oxygen Delivery Room Air Nausea/Vomiting/Diarrhea - MDM Narrative Medical decision making narrative: Patient's workup in the emergency department demonstrates findings consistent with a small bowel obstruction. Patient has a small hernia surrounding her colostomy bag as well. This appears to be stable on evaluation. The patient had an NG tube that was placed secondary to the patient's vomiting. Patient was found to have chronic anemia on lab work. Patient case was discussed with on- call surgery who will see the patient evaluation. No further recommendations noted. Patient was accepted to the hospitalist for admission by Dr. Vicente. - Lab Data Lab results reviewed: Yes I reviewed the patient's lab results. Result diagrams: 09/29/18 16:12 09/29/18 16:12 Lab Results 09/29/18 09/29/18 09/29/18 Range/Units 16:12 16:12 17:06 WBC 11.0 (4.3-11.1) K/mcL RBC 3.66 L (3.82-4.97) M/mcL Hgb 9.8 L (11.5-15.4) g/dL Hct 31.2 L (35.3-44.9) % MCV 85.2 (83.0-100.0) fL MCH 26.8 L (28.0-33.3) pg MCHC 31.4 L (31.6-35.5) g/dL RDW 15.7 H (11.5-14.5) % Plt Count 341 (140-400) K/mcL MPV 9.5 (9.4-12.4) fL Immature Gran % 0.7 (0-4) % Seg Neutrophils % 82.4 % Lymphocytes % 8.5 % Monocytes % 8.0 % Eosinophils % 0.2 % Basophils % 0.2 % Neutrophils # 9.1 H (1.6-8.9) K/mcL Lymphocytes # 0.9 (0.6-4.6) K/mcL Monocytes # 0.9 (0.0-1.3) K/mcL Eosinophils # 0.0 (0.0-0.6) K/mcL Basophils # 0.0 (0.0-0.2) K/mcL Sodium 130 L (136-145) mEq/L Potassium 4.3 (3.5-5.1) mEq/L Chloride 93 L (98-107) mEq/L Carbon Dioxide 28 (23-29) mEq/L BUN 41 H (8-23) mg/dL Creatinine 0.90 (0.60-1.20) mg/dL Est GFR ( Amer) > 60 (> 60) Est GFR (Non-Af Amer) 60 (> 60) BUN/Creatinine Ratio 46 H (6-26) Glucose 111 H (70-105) mg/dL Calculated Osmolality 281 (280-300) Lactic Acid 0.9 (0.5-2.2) mmol/L Calcium 9.3 (8.6-10.3) mg/dL Total Bilirubin 0.3 (0.3-1.0) mg/dL Direct Bilirubin 0.1 (0.0-0.2) mg/dL Indirect Bilirubin 0.2 (0.0-1.2) mg/dL AST 14 (13-39) Units/L ALT 9 (7-52) Units/L Alkaline Phosphatase 106 H (34-104) Units/L Troponin I 0.03 (< 0.04) ng/mL Serum Total Protein 6.7 (6.4-8.9) g/dL Albumin 3.1 L (3.5-5.7) g/dL Globulin 3.6 H (2.4-3.5) g/dL Albumin/Globulin Ratio 0.9 L (1.1-2.2) - Radiology Data Radiology results reviewed: Yes I reviewed the patient's radiology results. Patient's workup in the emergency department demonstrates findings consistent with a small bowel obstruction. The patient has had minimal output out of her colostomy and clinical exam is consistent with this. Given the patient's vomiting and air-fluid levels noted within the abdomen and pelvis, we started an NG tube. The patient lab work demonstrates a anemia but this appears better than previously seen. Kidney function within normal limits. Lactic acid is currently pending. I spoke with on-call surgery who agreed with evaluation and will see the patient in consultation. No further recommendations noted at this time. The patient will be admitted to the hospitalist service for further workup and care. - EKG Data EKG attestation: Yes I reviewed and interpreted this EKG. EKG results narrative: Heart rate 97 beats for minute. Normal sinus rhythm. No ST elevation but mild ST depression noted in 2, aVF, V6. EKG overall similar including the mild ST depression noted from EKG on 09/25/2018. No other acute changes noted.
[2018-09-29] MEDS ORDERED: 0.9 % Sodium Chloride 500 ML IVC ONE (15:13)
--- NOTE | 2018-09-29 15:30 | Emergency Department Note ---
Disposition Clinical Impression: Small bowel obstruction, Chronic anemia Aortic stenosis Qualifiers: Cardiac valve disease etiology: etiology unspecified Qualified Code(s): I35.0 - Nonrheumatic aortic (valve) stenosis Disposition: Admitted As Inpatient Condition: Serious Time of Disposition: 06:30 Nausea/Vomiting/Diarrhea HPI - General Chief complaint: ED Nausea/Vomiting/Diarrhea Stated complaint: nausea, vomitting Time Seen by Provider: 09/29/18 14:58 Source: patient, EMS Mode of arrival: EMS Limitations: no limitations - History of Present Illness HPI Narrative: 83 year old female reports to the ER today from her group home with complaints of abdominal pain, nausea, and vomiting for the past few days. She has a PMHx of A-fib, rectal cancer, DM, aortic stenosis, CHF, hyperlipidemia, and GERD. She has been having brown vomitus for the past few days with three episodes today. She states her pain is diffuse throughout her abdomen it has a stabbing quality to it and currently a 10/10 on the pain scale. She states nothing has really made the pain better but any movement makes it worse. She has a positive ROS for abd pain, nausea, vomiting, Gerd, Chest pain. She denies fever, chills, N[place]IL[place], hematuria, melena, hematochezia or rigors. - Related Data Home Medications Medication Instructions Recorded Confirmed Ascorbic Acid [Vitamin C] 500 mg PO DAILY 07/19/18 09/21/18 Cyanocobalamin (Vitamin B-12) 1,000 mcg PO DAILY 07/19/18 09/29/18 [Vitamin B-12] Multivit with Calcium,Iron,Min 1 tab PO DAILY 09/07/18 09/29/18 [One Daily Women's] HYDROcodone/Acet 5/325 mg 1 PO BID 09/29/18 Previous Rx's Medication Instructions Recorded Oxybutynin [Ditropan] 5 mg PO TID PRN #20 tablet 09/07/18 Aspirin Enteric Coated [Aspirin EC] 81 mg PO DAILY #30 tablet. 09/25/18 Docusate [Colace] 100 mg PO DAILY #30 capsule 09/25/18 Ferrous Sulfate 325 mg PO DAILY #30 tablet 09/25/18 Acetaminophen [Tylenol] 650 mg PO Q6H PRN tablet 09/27/18 Diltiazem CD (24hr) [Cardizem CD] 300 mg PO DAILY cap.er.24h 09/27/18 Metoprolol [Lopressor] 25 mg PO BID tablet 09/27/18 Omeprazole [PriLOSEC] 40 mg PO DAILY@0730 capsule. 09/27/18 Ondansetron ODT [Zofran ODT] 4 mg SL Q8HR PRN #1 tab.rapdis 09/27/18 Allergies Allergy/AdvReac Type Severity Reaction Status Date / Time Penicillins [PCN] Allergy Intermediate Hives Verified 09/20/18 09:35 Amoxicillin Allergy Hives Verified 09/20/18 09:35 Constitutional: Denies: fever, chills, weakness ENT ED: Denies: dysphagia Cardiovascular: Denies: chest pain Respiratory: Denies: dyspnea Gastrointestinal: Reports: abdominal pain, nausea, vomiting, diarrhea. Denies: constipation, hematemesis, melena, hematochezia Genitourinary: Denies: urgency, dysuria, hematuria Musculoskeletal: Denies: back pain Integumentary: Denies: rash Neurological: Denies: headache Past Medical History - Past Medical History Medical history: Reports: cancer, diabetes, hyperlipidemia, hypertension, malignancy, valvular heart disease Surgical history: Reports: heart valve replacement, hysterectomy, other Psychiatric history: Reports: no psych history - Social History Smoking Status: Never smoker Smokeless Tobacco Status: No Alcohol use: Reports: none Drug use: Reports: none Physical Exam - General Limitations: no limitations General appearance: alert, in no apparent distress - ENT ENT exam: mucous membranes dry - Respiratory Respiratory exam: Present: normal lung sounds bilaterally - Abdominal Exam Abdominal exam: Present: tenderness, distention, guarding, other (colostomy bag in place) Course Vital Signs Temperature 97.4 F L 09/29/18 14:57 Pulse Rate 94 09/29/18 14:57 Respiratory Rate 16 09/29/18 14:57 Blood Pressure 121/68 09/29/18 14:57 O2 Sat by Pulse Oximetry 100 09/29/18 14:57 Temperature 97.4 F L 09/29/18 14:57 Pulse Rate 97 09/29/18 17:24 Respiratory Rate 18 09/29/18 17:24 Blood Pressure 130/42 09/29/18 17:24 O2 Sat by Pulse Oximetry 100 09/29/18 17:24 Oxygen Delivery Oxygen Delivery Room Air Nausea/Vomiting/Diarrhea - Lab Data Result diagrams: 09/29/18 16:12 09/29/18 16:12 Lab Results 09/29/18 09/29/18 09/29/18 Range/Units 16:12 16:12 17:06 WBC 11.0 (4.3-11.1) K/mcL RBC 3.66 L (3.82-4.97) M/mcL Hgb 9.8 L (11.5-15.4) g/dL Hct 31.2 L (35.3-44.9) % MCV 85.2 (83.0-100.0) fL MCH 26.8 L (28.0-33.3) pg MCHC 31.4 L (31.6-35.5) g/dL RDW 15.7 H (11.5-14.5) % Plt Count 341 (140-400) K/mcL MPV 9.5 (9.4-12.4) fL Immature Gran % 0.7 (0-4) % Seg Neutrophils % 82.4 % Lymphocytes % 8.5 % Monocytes % 8.0 % Eosinophils % 0.2 % Basophils % 0.2 % Neutrophils # 9.1 H (1.6-8.9) K/mcL Lymphocytes # 0.9 (0.6-4.6) K/mcL Monocytes # 0.9 (0.0-1.3) K/mcL Eosinophils # 0.0 (0.0-0.6) K/mcL Basophils # 0.0 (0.0-0.2) K/mcL Sodium 130 L (136-145) mEq/L Potassium 4.3 (3.5-5.1) mEq/L Chloride 93 L (98-107) mEq/L Carbon Dioxide 28 (23-29) mEq/L BUN 41 H (8-23) mg/dL Creatinine 0.90 (0.60-1.20) mg/dL Est GFR ( Amer) > 60 (> 60) Est GFR (Non-Af Amer) 60 (> 60) BUN/Creatinine Ratio 46 H (6-26) Glucose 111 H (70-105) mg/dL Calculated Osmolality 281 (280-300) Lactic Acid 0.9 (0.5-2.2) mmol/L Calcium 9.3 (8.6-10.3) mg/dL Total Bilirubin 0.3 (0.3-1.0) mg/dL Direct Bilirubin 0.1 (0.0-0.2) mg/dL Indirect Bilirubin 0.2 (0.0-1.2) mg/dL AST 14 (13-39) Units/L ALT 9 (7-52) Units/L Alkaline Phosphatase 106 H (34-104) Units/L Troponin I 0.03 (< 0.04) ng/mL Serum Total Protein 6.7 (6.4-8.9) g/dL Albumin 3.1 L (3.5-5.7) g/dL Globulin 3.6 H (2.4-3.5) g/dL Albumin/Globulin Ratio 0.9 L (1.1-2.2) Attestation Statement - Attestation Attestation: The history, physical exam, and medical decision making was performed by the medical student either while I was physically present and actively involved or I personally re-performed the exam and medical decision making. I have verified the accuracy of the medical student's documentation with regards to the history, physical exam findings, and medical decision making.
--- NOTE | 2018-09-29 16:22 | Emergency Department Note ---
Disposition Clinical Impression: Small bowel obstruction, Chronic anemia Aortic stenosis Qualifiers: Cardiac valve disease etiology: etiology unspecified Qualified Code(s): I35.0 - Nonrheumatic aortic (valve) stenosis Disposition: Admitted As Inpatient Condition: Serious Referrals: Fernando Regan DO [Primary Care Provider] - Forms: ED Satisfaction Letter Time of Disposition: 18:04 General Adult HPI - General Chief complaint: ED Nausea/Vomiting/Diarrhea Stated complaint: nausea, vomitting Time Seen by Provider: 09/29/18 14:58 Source: patient, EMS Mode of arrival: EMS Limitations: no limitations - History of Present Illness Pain Scale: 10 - Related Data Home Medications Medication Instructions Recorded Confirmed Ascorbic Acid [Vitamin C] 500 mg PO DAILY 07/19/18 09/21/18 Cyanocobalamin (Vitamin B-12) 1,000 mcg PO DAILY 07/19/18 09/21/18 [Vitamin B-12] Multivit with Calcium,Iron,Min 1 tab PO DAILY 09/07/18 09/21/18 [One Daily Women's] Previous Rx's Medication Instructions Recorded Oxybutynin [Ditropan] 5 mg PO TID PRN #20 tablet 09/07/18 Aspirin Enteric Coated [Aspirin EC] 81 mg PO DAILY #30 tablet. 09/25/18 Docusate [Colace] 100 mg PO DAILY #30 capsule 09/25/18 Ferrous Sulfate 325 mg PO DAILY #30 tablet 09/25/18 Acetaminophen [Tylenol] 650 mg PO Q6H PRN tablet 09/27/18 Diltiazem CD (24hr) [Cardizem CD] 300 mg PO DAILY cap.er.24h 09/27/18 Metoprolol [Lopressor] 25 mg PO BID tablet 09/27/18 Omeprazole [PriLOSEC] 40 mg PO DAILY@0730 capsule. 09/27/18 Ondansetron ODT [Zofran ODT] 4 mg SL Q8HR PRN #1 tab.rapdis 09/27/18 Allergies Allergy/AdvReac Type Severity Reaction Status Date / Time Penicillins [PCN] Allergy Intermediate Hives Verified 09/20/18 09:35 Amoxicillin Allergy Hives Verified 09/20/18 09:35 Constitutional: Denies: fever, chills, weakness ENT ED: Denies: dysphagia Cardiovascular: Denies: chest pain Respiratory: Denies: dyspnea Gastrointestinal: Reports: abdominal pain, nausea, vomiting, diarrhea. Denies: constipation, hematemesis, melena, hematochezia Genitourinary: Denies: urgency, dysuria, hematuria Musculoskeletal: Denies: back pain Integumentary: Denies: rash Neurological: Denies: headache Past Medical History - Past Medical History Medical history: Reports: cancer, diabetes, hyperlipidemia, hypertension, malignancy, valvular heart disease Surgical history: Reports: heart valve replacement, hysterectomy, other Psychiatric history: Reports: no psych history - Social History Smoking Status: Never smoker Smokeless Tobacco Status: No Alcohol use: Reports: none Drug use: Reports: none Physical Exam - General Limitations: no limitations General appearance: alert, in no apparent distress Course Vital Signs Temperature 97.4 F L 09/29/18 14:57 Pulse Rate 94 09/29/18 14:57 Respiratory Rate 16 09/29/18 14:57 Blood Pressure 121/68 09/29/18 14:57 O2 Sat by Pulse Oximetry 100 09/29/18 14:57 Temperature 97.4 F L 09/29/18 14:57 Pulse Rate 97 09/29/18 17:24 Respiratory Rate 18 09/29/18 17:24 Blood Pressure 130/42 09/29/18 17:24 O2 Sat by Pulse Oximetry 100 09/29/18 17:24 Oxygen Delivery Oxygen Delivery Room Air Medical Decision Making - Lab Data Result diagrams: 09/29/18 16:12 09/29/18 16:12 Lab Results 09/29/18 09/29/18 09/29/18 Range/Units 16:12 16:12 17:06 WBC 11.0 (4.3-11.1) K/mcL RBC 3.66 L (3.82-4.97) M/mcL Hgb 9.8 L (11.5-15.4) g/dL Hct 31.2 L (35.3-44.9) % MCV 85.2 (83.0-100.0) fL MCH 26.8 L (28.0-33.3) pg MCHC 31.4 L (31.6-35.5) g/dL RDW 15.7 H (11.5-14.5) % Plt Count 341 (140-400) K/mcL MPV 9.5 (9.4-12.4) fL Immature Gran % 0.7 (0-4) % Seg Neutrophils % 82.4 % Lymphocytes % 8.5 % Monocytes % 8.0 % Eosinophils % 0.2 % Basophils % 0.2 % Neutrophils # 9.1 H (1.6-8.9) K/mcL Lymphocytes # 0.9 (0.6-4.6) K/mcL Monocytes # 0.9 (0.0-1.3) K/mcL Eosinophils # 0.0 (0.0-0.6) K/mcL Basophils # 0.0 (0.0-0.2) K/mcL Sodium 130 L (136-145) mEq/L Potassium 4.3 (3.5-5.1) mEq/L Chloride 93 L (98-107) mEq/L Carbon Dioxide 28 (23-29) mEq/L BUN 41 H (8-23) mg/dL Creatinine 0.90 (0.60-1.20) mg/dL Est GFR ( Amer) > 60 (> 60) Est GFR (Non-Af Amer) 60 (> 60) BUN/Creatinine Ratio 46 H (6-26) Glucose 111 H (70-105) mg/dL Calculated Osmolality 281 (280-300) Lactic Acid 0.9 (0.5-2.2) mmol/L Calcium 9.3 (8.6-10.3) mg/dL Total Bilirubin 0.3 (0.3-1.0) mg/dL Direct Bilirubin 0.1 (0.0-0.2) mg/dL Indirect Bilirubin 0.2 (0.0-1.2) mg/dL AST 14 (13-39) Units/L ALT 9 (7-52) Units/L Alkaline Phosphatase 106 H (34-104) Units/L Troponin I 0.03 (< 0.04) ng/mL Serum Total Protein 6.7 (6.4-8.9) g/dL Albumin 3.1 L (3.5-5.7) g/dL Globulin 3.6 H (2.4-3.5) g/dL Albumin/Globulin Ratio 0.9 L (1.1-2.2) Attestation Statement - Attestation Attestation: I examined this patient and my medical decision-making was reviewed with the Resident Physician. I agree with the documented findings, disposition and treatment plan as described except to the extent set forth below. Patient presents to the ED from [facility] with a chief complaint of vomiting and abdominal pain. Increasing over the past 3 days. No fever. She is now having decreased output from her colostomy. Patient has a history of a diverting colostomy secondary to rectal cancer. On examination she is in no distress but appears uncomfortable. She is a distended abdomen with high-pitched bowel sounds present in all 4 quadrants. Plan. Labs and CT. CT scan shows a bowel obstruction. Placing NG tube. Basic labs pending. Admission with surgical consultation. Labs reviewed. Admitted to medicine. EKG reviewed with the resident. Unchanged from prior.
[2018-09-29 16:28] LABS: Basophils % 0.2 %; Eosinophils % 0.2 %; Hematocrit 31.2 % (35.3-44.9); Hemoglobin 9.8 g/dL (11.5-15.4); Immature Granulocytes % 0.7 % (0-4); Lymphocytes # 0.9 K/mcL (0.6-4.6); Lymphocytes % 8.5 %; Mean Corpuscular HGB Conc 31.4 g/dL (31.6-35.5); Mean Corpuscular Hemoglobin 26.8 pg (28.0-33.3); Mean Corpuscular Volume 85.2 fL (83.0-100.0); Mean Platelet Volume 9.5 fL (9.4-12.4); Monocytes # 0.9 K/mcL (0.0-1.3); Neutrophils # 9.1 K/mcL (1.6-8.9); Platelet Count 341 K/mcL (140-400); Red Blood Count 3.66 M/mcL (3.82-4.97); Red Cell Distribution Width 15.7 % (11.5-14.5); Segmented Neutrophils % 82.4 %
[2018-09-29 16:50] LABS: Alanine Aminotransferase 9 Units/L (7-52); Albumin 3.1 g/dL (3.5-5.7); Albumin/Globulin Ratio 0.9 (1.1-2.2); Alkaline Phosphatase 106 Units/L (34-104); Aspartate Amino Transferase 14 Units/L (13-39); Bilirubin,Direct 0.1 mg/dL (0.0-0.2); Bilirubin,Indirect 0.2 mg/dL (0.0-1.2); Bilirubin,Total 0.3 mg/dL (0.3-1.0); Blood Urea Nitrogen 41 mg/dL (8-23); Calcium 9.3 mg/dL (8.6-10.3); Carbon Dioxide 28 mEq/L (23-29); Chloride 93 mEq/L (98-107); Globulin 3.6 g/dL (2.4-3.5); Glucose 111 mg/dL (70-105); Osmolality,Calculated 281 (280-300); Potassium 4.3 mEq/L (3.5-5.1); Sodium 130 mEq/L (136-145); Total Protein 6.7 g/dL (6.4-8.9); Troponin I 0.03 ng/mL (< 0.04)
[2018-09-29 16:51] LABS: BUN/Creatinine Ratio 46 (6-26); eGFR For African Americans > 60 (> 60); eGFR For Non-African Americans 60 (> 60)
[2018-09-29] MEDS ORDERED: *HR* Morphine 2 MG/ML SYRINGE IVP ONE (17:08)
[2018-09-29 18:44] LABS: Bilirubin,Urine Small (Negative); Blood,Urine Trace (Negative); Clarity,Urine Cloudy (Clear); Color,Urine Yellow (Yellow); Glucose,Urine (UA) Normal (Normal); Ketones,Urine Trace mg/dL (Negative); Leukocyte Esterase,Urine Large (Negative); Nitrite,Urine Negative (Negative); Protein,Urine 30 mg/dL (Neg-Trace); Specific Gravity,Urine 1.018 (1.010-1.025); Urobilinogen,Urine Normal (Normal)
[2018-09-29 18:46] LABS: Bacteria,Urine None Seen per hpf (None-Few); RBC,Urine 0-3 per hpf (0-3); Squamous Epithelial Cell,Urine Many per lpf (None-Few); WBC,Urine 30-50 per hpf (0-3)
[2018-09-29 18:57] LABS: Amorphous Sediment,Urine Moderate (Few); Hyaline Casts,Urine None Seen per lpf (None-Few)
[2018-09-29] MEDS ORDERED: Naloxone 0.4 MG/ML INJ IVP PRN (19:34)
--- NOTE | 2018-09-29 20:56 | Internal Med History&Physical ---
Date of Encounter: 09/29/18 Time of Encounter: 20:31 Internal Medicine - H&P: HPI Chief complaint: Nausea/vomiting History of present illness: Ms. Flanagan is a 83 year old female with a PMH of CHF, T2 DM, HLD, HTN, aortic valve placement 2012, and rectal cancer status post ostomy in May 2014 who presented to [facility] ED with a chief complaint of vomiting and abdominal pain. Patient was recently admitted and discharged 2 days ago for management of new onset atrial fibrillation with rapid ventricular response and discharged on beta neha and aspirin after declining anticoagulation. Now returns with 3 day history of nausea vomiting and abdominal pain associated with brown emesis which became progressively worse today. Abdominal pain is diffuse and characterized as stabbing, 10 out of 10 in intensity. Patient states that she was not able to keep anything down for longer than 10 minutes without vomiting it back up. On arrival patient was clinically stable from a vital standpoint. Laboratory workup was notable for chronic anemia and hyponatremia. CT scan of her abdomen shows evidence of small bowel obstruction. Patient had NG tube placed in the ED. Case was discussed with surgery who will consult. Past Med Surg Social Fam HX - Past Medical History Medical history: cancer, diabetes, hyperlipidemia, hypertension, malignancy, valvular heart disease Additional medical history: rectal cancer Psychiatric history: no psych history - Past Surgical History Surgical History: heart valve replacement, hysterectomy, other Additional surgical history: open heart surgery apr 27, 2011. aortic valve replacement. kidney stents - Social History Smoking Status: Never smoker Smokeless Tobacco Status: No Alcohol use: none Drug use: none Internal Medicine - H&P: Meds Cyanocobalamin (Vitamin B-12) [Vitamin B-12] 1,000 mcg PO DAILY 07/19/18 [History] Aspirin Enteric Coated [Aspirin EC] 81 mg PO DAILY #30 tablet. 09/25/18 [Rx] Docusate [Colace] 100 mg PO DAILY #30 capsule 09/25/18 [Rx] Ferrous Sulfate 325 mg PO DAILY #30 tablet 09/25/18 [Rx] Diltiazem CD (24hr) [Cardizem CD] 300 mg PO DAILY cap.er.24h 09/27/18 [Rx] Metoprolol [Lopressor] 25 mg PO BID tablet 09/27/18 [Rx] Ondansetron ODT [Zofran ODT] 4 mg SL Q8HR PRN #1 tab.rapdis 09/27/18 [Rx] HYDROcodone/Acet 5/325 mg [Woody 5-325 mg] 1 tab PO BID 09/29/18 [History] Acetaminophen [Tylenol] 650 mg PO Q6HR PRN 09/30/18 [History] Multivitamin [One Daily Essential] 1 tab PO DAILY 09/30/18 [History] Omeprazole [PriLOSEC] 40 mg PO DAILY 09/30/18 [History] Oxybutynin Chloride [Ditropan Xl] 5 mg PO Q8H PRN 09/30/18 [History] Allergy/AdvReac Type Severity Reaction Status Date / Time Penicillins [PCN] Allergy Intermediate Hives Verified 09/30/18 09:04 Amoxicillin Allergy Hives Verified 09/30/18 09:04 All Systems PM: A 10-system review of systems was performed and is negative for pertinent find ings except as documented above in the HPI. - Constitutional Constitutional: no chills, no fever(s), no night sweats - EENT Eyes: no change in vision, no discharge, no pain, no photophobia Ears: no ear discharge, no ear pain, no tinnitus Nose, mouth and throat: no dysphagia, no nasal discharge, no neck pain, no sore throat - Cardiovascular Cardiovascular ROS IM: no chest pain, no diaphoresis, no dyspnea, no lightheadedness, no palpitations, no syncope - Respiratory Respiratory: no cough, no dyspnea, no wheezing, no excessive phlegm production - Gastrointestinal Gastrointestinal: no abdominal pain, no diarrhea, no hematemesis, no hematochezia, no melena, no nausea, no vomiting - Genitourinary Genitourinary: no change in urinary stream, no dysuria, no flank pain, no hematuria - Musculoskeletal Musculoskeletal ROS IM: no numbness, no tingling - Integumentary Integumentary IM: no rash, no unusual bruising - Neurological Neurological ROS: no confusion, no convulsions, no focal weakness, no numbness, no tingling, no tremor(s) - Hematologic/Lymphatic Hematologic/Lymphatic: no easy bruising - Constitutional Vitals: Temp Pulse Resp BP Pulse Ox 97.8 F 100 16 136/64 98 09/29/18 20:22 09/29/18 20:22 09/29/18 20:22 09/29/18 20:22 09/29/18 20:22 Exam: General: Alert and oriented 3 lying in bed in no acute distress Skin:Normal color, no rash, no lesions. HEENT:EOM, pupils equal, round and reactive. Cardiovascular:Normal S1 & S2, 3/6 systolic murmur appreciated. Lungs:Normal breath sounds, no wheezes or crackles. Abdomen:Soft, mildly distended with hypoactive bowel sounds. No rebound or or guarding noted. Extremities:No deformity, no edema or tenderness, no joint swelling or clubbing. Neurological:Normal cognition and motor skills. Pulses:Carotid and radial pulses normal +2. Rest of the physical exam is non contributory Internal Med - H&P Results - Labs CBC & Chem 7: 09/30/18 06:01 09/30/18 06:01 Labs: Short CBC 09/29/18 Range/Units 16:12 WBC 11.0 (4.3-11.1) K/mcL Hgb 9.8 L (11.5-15.4) g/dL Hct 31.2 L (35.3-44.9) % Plt Count 341 (140-400) K/mcL Neutrophils # 9.1 H (1.6-8.9) K/mcL BMP 09/29/18 16:12 Sodium 130 L Potassium 4.3 Chloride 93 L Carbon Dioxide 28 BUN 41 H Creatinine 0.90 Glucose 111 H Calcium 9.3 Cardiac Enzymes 09/29/18 Range/Units 16:12 Troponin I 0.03 (< 0.04) ng/mL Liver Function 09/29/18 Range/Units 16:12 Total Bilirubin 0.3 (0.3-1.0) mg/dL Direct Bilirubin 0.1 (0.0-0.2) mg/dL AST 14 (13-39) Units/L ALT 9 (7-52) Units/L Alkaline Phosphatase 106 H (34-104) Units/L Albumin 3.1 L (3.5-5.7) g/dL Urine 09/29/18 Range/Units 18:05 Urine Color Yellow (Yellow) Urine Clarity Cloudy A (Clear) Urine pH 5.0 (5.0-8.0) pH Units Ur Specific [place] 1.018 (1.010-1.025) Urine Protein 30 H (Neg-Trace) mg/dL Urine Glucose (UA) Normal (Normal) mg/dL - Impressions ITS Impressions Abdomen/Pelvis CT 09/29/18 14:59 IMPRESSION: 1. New trace right and mild left pleural effusions with associated atelectasis. 2. Status post partial colonic resection. In the left paramedian upper pelvis there is a distal small bowel obstruction with no evidence of perforation or abscess. 3. Left lower quadrant ileostomy site with a small peristomal hernia containing the anterior wall of a dilated jejunal loop and mesenteric fat. 4. Significant progressive retroperitoneal abdominal and pelvic lymphadenopathy consistent with progressive metastatic disease with retroperitoneal fibrosis which may relate to post treatment changes. 5. Right ureteral stent in appropriate position with mild hydronephrosis. The left kidney demonstrates no hydronephrosis. 6. Cholelithiasis. 7. The uterus is present though the history stated a prior hysterectomy. This demonstrates heterogeneous appearance of the endometrial canal with fluid and a gas present, underlying neoplasm or possible post radiation endometritis. 8. Progressive rectal bed/presacral amorphous soft tissue density, metastatic disease cannot be excluded. D/ / 09/29/2018 16:15:51 Cristian Sommer MD / deidre Interpreting Provider: Cristian Sommer MD Chest X-Ray 09/29/18 14:59 IMPRESSION: Stable chest examination. No definite acute process. D/ / Shayna Rodriguez MD / Shayna Rodriguez MD Interpreting Provider: Shayna Rodriguez MD - Assessment and Plan (1) Small bowel obstruction Current Visit: Yes Status: Acute Assessment and plan: She presented with 2-3 day history of nausea, vomiting and abdominal pain with i nability to keep food down in the setting of metastatic rectal cancer status post ostomy currently receiving chemotherapy and radiation therapy. CT scan of the abdomen demonstrated distal small bowel obstruction in the left paramedian upper pelvis with no evidence of perforation or abscess. NG tube placed in the ED. Currently draining bilious fluid. -Continue supportive IV fluids -Continue suctioning via NG tube -Antiemetics as needed -Pain control as needed -Consult placed to surgery (2) Abdominal pain Current Visit: No Status: Acute Assessment and plan: Abdominal pain and mild distention likely secondary to SBO. -Toradol for pain as needed Qualifiers: Abdominal location: generalized Qualified Code(s): R10.84 - Generalized abdominal pain (3) Chronic anemia Current Visit: Yes Status: Chronic Assessment and plan: Chronic normocytic anemia. Hemoglobin 9.8 which appears to be at baseline. We will monitor. (4) Hyponatremia Current Visit: No Status: Acute Assessment and plan: Chronic hyponatremia. Sodium 130 which appears to be stable. We will continue IV fluids and monitor. (5) Rectal cancer Current Visit: No Status: Chronic Assessment and plan: History of rectal cancer with metastasis currently on a chemotherapy and radiation therapy. Patient's Xeloda was held during last admission the setting of patient's atrial fibrillation. Consider consulting oncology to discuss management moving forward. Consider palliative care consult. (6) Atrial fibrillation with RVR Current Visit: No Status: Resolved Assessment and plan: History of recent new onset atrial fibrillation. Patient currently on aspirin after refusing anticoagulation. EKG currently shows normal sinus rhythm. We will continue with aspirin and rate control with beta neha and Cardizem IV. (7) DVT prophylaxis Current Visit: Yes Status: Acute Assessment and plan: Subcutaneous heparin - Time Spent With Patient Total time spent is greater than 50% in coordination of care (as documented) at patient's floor/unit and/or counseling patient:
[2018-09-29] MEDS: *HR* Heparin 5,000 UNIT/ML VIAL SQ SCH (22:18)
[2018-09-29] MEDS: Ketorolac 15 MG/ML VIAL IVP PRN (22:18)
[2018-09-29] MEDS: 0.9 % Sodium Chloride 1,000 ML IVC SCH (22:18)
[2018-09-30] MEDS ORDERED: *HR* Metoprolol 5 MG/5 ML VIAL IVP ONE (04:53)
[2018-09-30] MEDS: *HR* Metoprolol 5 MG/5 ML VIAL IVP SCH ×4 (04:57→17:17)
[2018-09-30] MEDS: *HR* Heparin 5,000 UNIT/ML VIAL SQ SCH ×2 (05:55→16:24)
[2018-09-30 06:56] LABS: Basophils % 0.2 %; Eosinophils % 0.2 %; Hemoglobin 9.2 g/dL (11.5-15.4); Immature Granulocytes % 0.6 % (0-4); Lymphocytes # 0.7 K/mcL (0.6-4.6); Mean Corpuscular HGB Conc 30.7 g/dL (31.6-35.5); Mean Corpuscular Hemoglobin 26.7 pg (28.0-33.3); Mean Corpuscular Volume 87.2 fL (83.0-100.0); Mean Platelet Volume 9.6 fL (9.4-12.4); Monocytes # 0.7 K/mcL (0.0-1.3); Neutrophils # 8.2 K/mcL (1.6-8.9); Platelet Count 358 K/mcL (140-400); Red Blood Count 3.44 M/mcL (3.82-4.97); Red Cell Distribution Width 15.8 % (11.5-14.5); White Blood Count 9.6 K/mcL (4.3-11.1)
[2018-09-30 07:04] LABS: INR 1.1; Prothrombin Time 12.4 Seconds (9.4-12.1)
[2018-09-30 07:06] LABS: Activated Partial Thrombo Time 38.7 Seconds (26.0-36.0)
[2018-09-30 07:13] LABS: Alanine Aminotransferase 9 Units/L (7-52); Albumin 2.9 g/dL (3.5-5.7); Albumin/Globulin Ratio 0.8 (1.1-2.2); Alkaline Phosphatase 101 Units/L (34-104); Aspartate Amino Transferase 15 Units/L (13-39); BUN/Creatinine Ratio 47 (6-26); Bilirubin,Total 0.3 mg/dL (0.3-1.0); Blood Urea Nitrogen 41 mg/dL (8-23); Calcium 9.1 mg/dL (8.6-10.3); Carbon Dioxide 25 mEq/L (23-29); Chloride 95 mEq/L (98-107); Globulin 3.7 g/dL (2.4-3.5); Glucose 84 mg/dL (70-105); Magnesium 1.8 mg/dL (1.6-2.6); Osmolality,Calculated 283 (280-300); Potassium 4.1 mEq/L (3.5-5.1); Sodium 132 mEq/L (136-145); Total Protein 6.6 g/dL (6.4-8.9); eGFR For African Americans > 60 (> 60); eGFR For Non-African Americans > 60 (> 60)
--- NOTE | 2018-09-30 09:44 | Electrocardiograph Report ---
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
--- NOTE | 2018-09-30 11:45 | Internal Med Progress Note ---
Hospitalist Progress Note - Encounter Date of Encounter: 09/30/18 Time of Encounter: 11:45 - Subjective Interval History: Ms Flanagan is currently admitted for acute SBO. She has NG tube. She remains moderate to high risk due to potential for worsening clinical status. Ms Flanagan is unhappy about being here. She says she has been having vomiting and does not feel it was worse yesterday. She is hungry and wants to eat. She is afraid of having no nutrition. No fever or chills. No CP or SOB. - Exam Vitals: Temp Pulse Resp BP Pulse Ox 97.5 F L 101 20 151/56 97 09/30/18 08:00 09/30/18 08:00 09/30/18 08:00 09/30/18 08:00 09/30/18 08:00 Exam: General: Alert and oriented. Moderate distress. Skin: Normal color, no rash, H: Normocephalic. EENT: EOMI, Mucus membranes moist. Cardiovascular: Normal S1 & S2, no murmurs Pulse not tachy currently Lungs: Normal breath sounds, decreased Abdomen: Faint bowel sounds. No tenderness. Extremities: No deformity, no edema Neurological: Normal cognition and motor skills. Pulses: radial pulses normal +2. Rest of the physical exam is non contributory - Assessment and Plan (1) Small bowel obstruction Current Visit: Yes Status: Acute Assessment and Plan: She presented with 2-3 day history of nausea, vomiting and abdominal pain with inability to keep food down in the setting of metastatic rectal cancer status post ostomy currently receiving chemotherapy and radiation therapy. CT scan of the abdomen demonstrated distal small bowel obstruction in the left paramedian upper pelvis with no evidence of perforation or abscess. -Continue supportive IV fluids and NG tube. -Continue suctioning via NG tube -Antiemetics and pain control. - Appreciate surgical input. (2) Rectal cancer Current Visit: No Status: Chronic Assessment and Plan: History of rectal cancer with metastasis currently on a chemotherapy and radiation therapy. (3) Abdominal pain Current Visit: No Status: Acute Assessment and Plan: Abdominal pain and mild distention likely secondary to SBO. -Toradol for pain as needed (4) Hyponatremia Current Visit: No Status: Acute Assessment and Plan: Chronic hyponatremia. Slightly better today with hydration. (5) Anemia Current Visit: No Status: Chronic Assessment and Plan: Pt with hx of anemia Chronic disease/ cancer (6) Diabetes mellitus Current Visit: No Status: Chronic Assessment and Plan: Blood sugar controlled at this time. (7) HTN (hypertension) Current Visit: No Status: Chronic Assessment and Plan: Controlled at this time. (8) Atrial fibrillation Current Visit: Yes Status: Chronic Assessment and Plan: Rate controlled currently. - Time Spent with Patient Total time spent is greater than 50% in coordination of care (as documented) at patient's floor/unit and/or counseling patient: Internal Medicine: Result - Labs CBC & Chem 7: 09/30/18 06:01 09/30/18 06:01 Labs: Short CBC 09/29/18 09/30/18 Range/Units 16:12 06:01 WBC 11.0 9.6 (4.3-11.1) K/mcL Hgb 9.8 L 9.2 L (11.5-15.4) g/dL Hct 31.2 L 30.0 L (35.3-44.9) % Plt Count 341 358 (140-400) K/mcL Neutrophils # 9.1 H 8.2 (1.6-8.9) K/mcL BMP 09/29/18 09/30/18 16:12 06:01 Sodium 130 L 132 L Potassium 4.3 4.1 Chloride 93 L 95 L Carbon Dioxide 28 25 BUN 41 H 41 H Creatinine 0.90 0.87 Glucose 111 H 84 Calcium 9.3 9.1 Cardiac Enzymes 09/29/18 Range/Units 16:12 Troponin I 0.03 (< 0.04) ng/mL Liver Function 09/29/18 09/30/18 Range/Units 16:12 06:01 Total Bilirubin 0.3 0.3 (0.3-1.0) mg/dL Direct Bilirubin 0.1 (0.0-0.2) mg/dL AST 14 15 (13-39) Units/L ALT 9 9 (7-52) Units/L Alkaline Phosphatase 106 H 101 (34-104) Units/L Albumin 3.1 L 2.9 L (3.5-5.7) g/dL Urine 09/29/18 Range/Units 18:05 Urine Color Yellow (Yellow) Urine Clarity Cloudy A (Clear) Urine pH 5.0 (5.0-8.0) pH Units Ur Specific [place] 1.018 (1.010-1.025) Urine Protein 30 H (Neg-Trace) mg/dL Urine Glucose (UA) Normal (Normal) mg/dL - ABG Interpretation ABG results: PT/INR, D-dimer PT 12.4 Seconds (9.4-12.1) H 09/30/18 06:01 - Impressions Impressions Abdomen/Pelvis CT 09/29/18 14:59 IMPRESSION: 1. New trace right and mild left pleural effusions with associated atelectasis. 2. Status post partial colonic resection. In the left paramedian upper pelvis there is a distal small bowel obstruction with no evidence of perforation or abscess. 3. Left lower quadrant ileostomy site with a small peristomal hernia containing the anterior wall of a dilated jejunal loop and mesenteric fat. 4. Significant progressive retroperitoneal abdominal and pelvic lymphadenopathy consistent with progressive metastatic disease with retroperitoneal fibrosis which may relate to post treatment changes. 5. Right ureteral stent in appropriate position with mild hydronephrosis. The left kidney demonstrates no hydronephrosis. 6. Cholelithiasis. 7. The uterus is present though the history stated a prior hysterectomy. This demonstrates heterogeneous appearance of the endometrial canal with fluid and a gas present, underlying neoplasm or possible post radiation endometritis. 8. Progressive rectal bed/presacral amorphous soft tissue density, metastatic disease cannot be excluded. D/ / 09/29/2018 16:15:51 Cristian Sommer MD / deidre Interpreting Provider: Cristian Sommer MD Chest X-Ray 09/29/18 14:59 IMPRESSION: Stable chest examination. No definite acute process. 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
--- NOTE | 2018-09-30 11:47 | AcuteCare Surgery Consult Note ---
<Reina Jacobs P - Last Filed: 09/30/18 14:38> Date of Encounter: 09/30/18 Time of Encounter: 11:00 Assessment and Plan (1) Small bowel obstruction Current Visit: Yes Status: Acute * 83 year old female with medical history of CHF, afib, hyperlipidemia, aortic valve placement, rectal cancer status post ostomy in 2014 admitted for [facility] ed vomiting and abdominal pain ,Patient has had worsening abdominal pain with vomiting, so she was consulted us for suspected small bowel obstruction. * CT abdomen and pelvis showed :Status post partial colonic resection,a distal small bowel obstruction with no evidence of perforation or abscess, ileostomy site with a small peristomal hernia containing the anterior wall of a dilated jejunal loop and mesenteric fat and progressive retroperitoneal abdominal and pelvic lymphadenopathy consistent with progressive metastatic disease with retroperitoneal fibrosis . * The patient was evaluated by Dr. Harman this morning. * Patient has slightly distended abdomen, mild to moderate diffuse abdominal p ain, * Patient was hemodynamically stable. * Recent labs : White cell count 9.6, hemoglobin 9.2, hematocrit 30, sodium 132, potassium 4.1, BUN 21, creatinine 0.87 Plan : * No surgical intervention needed right now. * Continue pain management, NG tube decompression * Iv hydration * Trend labs * Management of electrolyte imbalance * We will again evaluate tomorrow History of Present Illness Consult date: 09/30/18 Reason for consult: abdominal pain History of present illness: She is 83 years old female with past surgical history of rectal cancer ( surgery 2015 ) with Left lower quadrant ileostomy and past medical history of CHF, A. fib, diabetes, hyperlipidemia, aortic valve, replacement presented to emergency for worsening abdominal pain nausea and vomiting. She was consulted surgical team for suspected small bowel obstruction. Her CT abdomen and pelvis showed: post partial colonic resection ,distal small bowel obstruction with no evidence of perforation or abscess and Left lower quadrant ileostomy site with a small peristomal hernia containing the anterior wall of a dilated jejunal loop and mesenteric fat. Patient was evaluated by Dr. Harman this morning. Patient was lying comfortably on the bed, she has had mild abdominal distention and mild diffuse abdominal pain. She was on NG tube decompression. Her vitals were stable. No acute surgical intervention needed for now. We have advised continue NG tube, IV hydration, treatment of electrolyte imbalance. We will review again tomorrow. Past Med Surg Social Fam HX - Past Medical History Medical history: cancer, diabetes, hyperlipidemia, hypertension, malignancy, valvular heart disease Additional medical history: rectal cancer Psychiatric history: no psych history - Past Surgical History Surgical History: heart valve replacement, hysterectomy, other Additional surgical history: open heart surgery apr 27, 2011. aortic valve replacement. kidney stents - Social History Smoking Status: Never smoker Smokeless Tobacco Status: No Alcohol use: none Drug use: none Medications and Allergies Cyanocobalamin (Vitamin B-12) [Vitamin B-12] 1,000 mcg PO DAILY 07/19/18 [H istory] Aspirin Enteric Coated [Aspirin EC] 81 mg PO DAILY #30 tablet.dr 09/25/18 [Rx] Docusate [Colace] 100 mg PO DAILY #30 capsule 09/25/18 [Rx] Ferrous Sulfate 325 mg PO DAILY #30 tablet 09/25/18 [Rx] Diltiazem CD (24hr) [Cardizem CD] 300 mg PO DAILY cap.er.24h 09/27/18 [Rx] Metoprolol [Lopressor] 25 mg PO BID tablet 09/27/18 [Rx] Ondansetron ODT [Zofran ODT] 4 mg SL Q8HR PRN #1 tab.rapdis 09/27/18 [Rx] HYDROcodone/Acet 5/325 mg [Dickens 5-325 mg] 1 tab PO BID 09/29/18 [History] Acetaminophen [Tylenol] 650 mg PO Q6HR PRN 09/30/18 [History] Multivitamin [One Daily Essential] 1 tab PO DAILY 09/30/18 [History] Omeprazole [PriLOSEC] 40 mg PO DAILY 09/30/18 [History] Oxybutynin Chloride [Ditropan Xl] 5 mg PO Q8H PRN 09/30/18 [History] Allergy/AdvReac Type Severity Reaction Status Date / Time Penicillins [PCN] Allergy Intermediate Hives Verified 09/30/18 09:04 Amoxicillin Allergy Hives Verified 09/30/18 09:04 Review of Systems All systems PM: The remainder of the systems were reviewed and are negative - Constitutional anorexia, malaise, weakness, weight loss - EENT Nose, mouth and throat: dry mouth, no dizziness, no lip swelling, no neck mass, no odynophagia - Cardiovascular lightheadedness, palpitations, pedal edema, no chest pain - Respiratory dyspnea - Gastrointestinal abdominal pain, cramping, nausea, vomiting - Genitourinary Genitourinary: no hematuria - Integumentary no bleeding lesions, no lesions, no swelling - Psychiatric anxiety, no depression - Hematologic/Lymphatic no easy bleeding, no lymphadenopathy - Allergic/Immunologic no tongue swelling, no uticaria, no wheezing General Surgery Exam Initial Vital Signs Temp Pulse Resp BP Pulse Ox 97.4 F L 94 16 121/68 100 09/29/18 14:57 09/29/18 14:57 09/29/18 14:57 09/29/18 14:57 09/29/18 14:57 - General physical appearance no distress, chronically ill - Eyes PERRL, normal ocular movement - ENT normal mucosa - Neck trachea midline, no lymphadectomy - Respiratory normal expansion, normal respiratory effort - Cardiovascular Cardiovascular exam: Present: RRR, regular rhythm, no murmurs/rubs/gallops - Abdomen Abdomen general surgery: Present: soft, distended, tender - Neurologic Present: CN 2-12 grossly intact, normal coordination, normal sensation - Musculoskeletal Present: normal gait - Psychiatric Psychiatric general surgery: Present: A&Ox3, oriented to person, oriented to place Exam Initial Vital Signs Temp Pulse Resp BP Pulse Ox 97.4 F L 94 16 121/68 100 09/29/18 14:57 09/29/18 14:57 09/29/18 14:57 09/29/18 14:57 09/29/18 14:57 - Neck trachea midline, no lymphadectomy - Respiratory normal respiratory effort, clear to percussion, clear to auscultation - Abdomen Abdomen: soft ( Colostomy bag , functioning ostomy.), tender - Neurologic CN 2-12 grossly intact, normal coordination, normal sensation - Musculoskeletal normal gait - Psychiatric oriented to person, oriented to place Results - Labs 09/30/18 06:01 09/30/18 06:01 Abnormal lab results RBC 3.44 M/mcL (3.82-4.97) L 09/30/18 06:01 Hgb 9.2 g/dL (11.5-15.4) L 09/30/18 06:01 Hct 30.0 % (35.3-44.9) L 09/30/18 06:01 MCH 26.7 pg (28.0-33.3) L 09/30/18 06:01 MCHC 30.7 g/dL (31.6-35.5) L 09/30/18 06:01 RDW 15.8 % (11.5-14.5) H 09/30/18 06:01 9.1 K/mcL (1.6-8.9) H 09/29/18 16:12 PT 12.4 Seconds (9.4-12.1) H 09/30/18 06:01 APTT 38.7 Seconds (26.0-36.0) H 09/30/18 06:01 Sodium 132 mEq/L (136-145) L 09/30/18 06:01 Chloride 95 mEq/L (98-107) L 09/30/18 06:01 BUN 41 mg/dL (8-23) H 09/30/18 06:01 47 (6-26) H 09/30/18 06:01 Glucose 111 mg/dL (70-105) H 09/29/18 16:12 106 Units/L (34-104) H 09/29/18 16:12 2.9 g/dL (3.5-5.7) L 09/30/18 06:01 3.7 g/dL (2.4-3.5) H 09/30/18 06:01 0.8 (1.1-2.2) L 09/30/18 06:01 Cloudy (Clear) A 09/29/18 18:05 30 mg/dL (Neg-Trace) H 09/29/18 18:05 Trace mg/dL (Negative) H 09/29/18 18:05 Trace (Negative) H 09/29/18 18:05 Small (Negative) H 09/29/18 18:05 Ur Leukocyte Esterase Large (Negative) H 09/29/18 18:05 30-50 per hpf (0-3) H 09/29/18 18:05 Ur Squamous Epith Cells Many per lpf (None-Few) H 09/29/18 18:05 Amorphous Sediment Moderate (Few) H 09/29/18 18:05 Ur Culture Indicated? YES (NO) A 09/29/18 18:05 Diabetes panel 09/29/18 09/30/18 Range/Units 16:12 06:01 Sodium 130 L 132 L (136-145) mEq/L Potassium 4.3 4.1 (3.5-5.1) mEq/L Chloride 93 L 95 L (98-107) mEq/L Carbon Dioxide 28 25 (23-29) mEq/L BUN 41 H 41 H (8-23) mg/dL Creatinine 0.90 0.87 (0.60-1.20) mg/dL Glucose 111 H 84 (70-105) mg/dL Calcium 9.3 9.1 (8.6-10.3) mg/dL AST 14 15 (13-39) Units/L ALT 9 9 (7-52) Units/L Alkaline Phosphatase 106 H 101 (34-104) Units/L Albumin 3.1 L 2.9 L (3.5-5.7) g/dL Calcium panel 09/29/18 09/30/18 Range/Units 16:12 06:01 Calcium 9.3 9.1 (8.6-10.3) mg/dL Albumin 3.1 L 2.9 L (3.5-5.7) g/dL Pituitary panel 09/29/18 09/30/18 Range/Units 16:12 06:01 Sodium 130 L 132 L (136-145) mEq/L Potassium 4.3 4.1 (3.5-5.1) mEq/L Chloride 93 L 95 L (98-107) mEq/L Carbon Dioxide 28 25 (23-29) mEq/L BUN 41 H 41 H (8-23) mg/dL Creatinine 0.90 0.87 (0.60-1.20) mg/dL Glucose 111 H 84 (70-105) mg/dL Calcium 9.3 9.1 (8.6-10.3) mg/dL Adrenal panel 09/29/18 09/30/18 Range/Units 16:12 06:01 Sodium 130 L 132 L (136-145) mEq/L Potassium 4.3 4.1 (3.5-5.1) mEq/L Chloride 93 L 95 L (98-107) mEq/L Carbon Dioxide 28 25 (23-29) mEq/L BUN 41 H 41 H (8-23) mg/dL Creatinine 0.90 0.87 (0.60-1.20) mg/dL Glucose 111 H 84 (70-105) mg/dL Calcium 9.3 9.1 (8.6-10.3) mg/dL Total Bilirubin 0.3 0.3 (0.3-1.0) mg/dL AST 14 15 (13-39) Units/L ALT 9 9 (7-52) Units/L Alkaline Phosphatase 106 H 101 (34-104) Units/L Albumin 3.1 L 2.9 L (3.5-5.7) g/dL All other labs normal. Consult Discharge Plan - Plan Referrals: Fernando Regan DO [Primary Care Provider] - <Avelino Harman - Last Filed: 09/30/18 14:53> Date of Encounter: 09/30/18 Review of Systems All systems PM: The remainder of the systems were reviewed and are negative General Surgery Exam Initial Vital Signs Temp Pulse Resp BP Pulse Ox 97.4 F L 94 16 121/68 100 09/29/18 14:57 09/29/18 14:57 09/29/18 14:57 09/29/18 14:57 09/29/18 14:57 Exam Initial Vital Signs Temp Pulse Resp BP Pulse Ox 97.4 F L 94 16 121/68 100 09/29/18 14:57 09/29/18 14:57 09/29/18 14:57 09/29/18 14:57 09/29/18 14:57 Results - Labs 09/30/18 06:01 09/30/18 06:01 Abnormal lab results RBC 3.44 M/mcL (3.82-4.97) L 09/30/18 06:01 Hgb 9.2 g/dL (11.5-15.4) L 09/30/18 06:01 Hct 30.0 % (35.3-44.9) L 09/30/18 06:01 MCH 26.7 pg (28.0-33.3) L 09/30/18 06:01 MCHC 30.7 g/dL (31.6-35.5) L 09/30/18 06:01 RDW 15.8 % (11.5-14.5) H 09/30/18 06:01 9.1 K/mcL (1.6-8.9) H 09/29/18 16:12 PT 12.4 Seconds (9.4-12.1) H 09/30/18 06:01 APTT 38.7 Seconds (26.0-36.0) H 09/30/18 06:01 Sodium 132 mEq/L (136-145) L 09/30/18 06:01 Chloride 95 mEq/L (98-107) L 09/30/18 06:01 BUN 41 mg/dL (8-23) H 09/30/18 06:01 47 (6-26) H 09/30/18 06:01 Glucose 111 mg/dL (70-105) H 09/29/18 16:12 106 Units/L (34-104) H 09/29/18 16:12 2.9 g/dL (3.5-5.7) L 09/30/18 06:01 3.7 g/dL (2.4-3.5) H 09/30/18 06:01 0.8 (1.1-2.2) L 09/30/18 06:01 Cloudy (Clear) A 09/29/18 18:05 30 mg/dL (Neg-Trace) H 09/29/18 18:05 Trace mg/dL (Negative) H 09/29/18 18:05 Trace (Negative) H 09/29/18 18:05 Small (Negative) H 09/29/18 18:05 Ur Leukocyte Esterase Large (Negative) H 09/29/18 18:05 30-50 per hpf (0-3) H 09/29/18 18:05 Ur Squamous Epith Cells Many per lpf (None-Few) H 09/29/18 18:05 Amorphous Sediment Moderate (Few) H 09/29/18 18:05 Ur Culture Indicated? YES (NO) A 09/29/18 18:05 Diabetes panel 09/29/18 09/30/18 Range/Units 16:12 06:01 Sodium 130 L 132 L (136-145) mEq/L Potassium 4.3 4.1 (3.5-5.1) mEq/L Chloride 93 L 95 L (98-107) mEq/L Carbon Dioxide 28 25 (23-29) mEq/L BUN 41 H 41 H (8-23) mg/dL Creatinine 0.90 0.87 (0.60-1.20) mg/dL Glucose 111 H 84 (70-105) mg/dL Calcium 9.3 9.1 (8.6-10.3) mg/dL AST 14 15 (13-39) Units/L ALT 9 9 (7-52) Units/L Alkaline Phosphatase 106 H 101 (34-104) Units/L Albumin 3.1 L 2.9 L (3.5-5.7) g/dL Calcium panel 09/29/18 09/30/18 Range/Units 16:12 06:01 Calcium 9.3 9.1 (8.6-10.3) mg/dL Albumin 3.1 L 2.9 L (3.5-5.7) g/dL Pituitary panel 09/29/18 09/30/18 Range/Units 16:12 06:01 Sodium 130 L 132 L (136-145) mEq/L Potassium 4.3 4.1 (3.5-5.1) mEq/L Chloride 93 L 95 L (98-107) mEq/L Carbon Dioxide 28 25 (23-29) mEq/L BUN 41 H 41 H (8-23) mg/dL Creatinine 0.90 0.87 (0.60-1.20) mg/dL Glucose 111 H 84 (70-105) mg/dL Calcium 9.3 9.1 (8.6-10.3) mg/dL Adrenal panel 09/29/18 09/30/18 Range/Units 16:12 06:01 Sodium 130 L 132 L (136-145) mEq/L Potassium 4.3 4.1 (3.5-5.1) mEq/L Chloride 93 L 95 L (98-107) mEq/L Carbon Dioxide 28 25 (23-29) mEq/L BUN 41 H 41 H (8-23) mg/dL Creatinine 0.90 0.87 (0.60-1.20) mg/dL Glucose 111 H 84 (70-105) mg/dL Calcium 9.3 9.1 (8.6-10.3) mg/dL Total Bilirubin 0.3 0.3 (0.3-1.0) mg/dL AST 14 15 (13-39) Units/L ALT 9 9 (7-52) Units/L Alkaline Phosphatase 106 H 101 (34-104) Units/L Albumin 3.1 L 2.9 L (3.5-5.7) g/dL All other labs normal. - Attending Attestation MucosaI have personally seen and examined the patient. I have reviewed pertinent labs, imaging, progress notes, including this one. I have discussed the plan in thorough detail with the resident and nurse practitioner. I agree with the above assessment and plan and wish to add the following... consider transfer to her surgeon vs palliative care consult; no acute surgery
[2018-09-30] MEDS: 0.9 % Sodium Chloride 1,000 ML IVC SCH (12:04)
[2018-09-30] MEDS: Ketorolac 15 MG/ML VIAL IVP PRN (18:24)
[2018-09-30] MEDS ORDERED: Fluconazole 200 MG/100 ML 200 MG/100 ML BAG IVPB ONE (19:04)
[2018-09-30] MEDS ORDERED: *HR* Metoprolol 5 MG/5 ML VIAL IVP SCH (21:37)
[2018-10-01] MEDS: *HR* Metoprolol 5 MG/5 ML VIAL IVP SCH ×5 (00:37→23:47)
[2018-10-01 02:20] LABS: Hematocrit 27.8 % (35.3-44.9); Hemoglobin 8.5 g/dL (11.5-15.4); Mean Corpuscular HGB Conc 30.6 g/dL (31.6-35.5); Mean Corpuscular Hemoglobin 26.7 pg (28.0-33.3); Mean Corpuscular Volume 87.4 fL (83.0-100.0); Mean Platelet Volume 9.3 fL (9.4-12.4); Platelet Count 342 K/mcL (140-400); Red Blood Count 3.18 M/mcL (3.82-4.97); Red Cell Distribution Width 15.8 % (11.5-14.5); White Blood Count 10.3 K/mcL (4.3-11.1)
[2018-10-01 02:39] LABS: BUN/Creatinine Ratio 42 (6-26); Blood Urea Nitrogen 32 mg/dL (8-23); Calcium 8.7 mg/dL (8.6-10.3); Carbon Dioxide 18 mEq/L (23-29); Chloride 102 mEq/L (98-107); Glucose 69 mg/dL (70-105); Magnesium 1.8 mg/dL (1.6-2.6); Osmolality,Calculated 285 (280-300); Potassium 4.2 mEq/L (3.5-5.1); Sodium 135 mEq/L (136-145); eGFR For African Americans > 60 (> 60); eGFR For Non-African Americans > 60 (> 60)
[2018-10-01] MEDS: *HR* Heparin 5,000 UNIT/ML VIAL SQ SCH ×3 (06:27→21:43)
--- NOTE | 2018-10-01 09:49 | Internal Med Progress Note ---
Hospitalist Progress Note - Encounter Date of Encounter: 10/01/18 Time of Encounter: 09:49 - Subjective Interval History: Ms Flanagan is currently admitted for acute SBO. She remains moderate to high risk due to potential for worsening clinical status. Ms Flanagan is still having NG output. No fever or chills. Has some output in her ostomy. Feels her abdomen is "less hard." No CP or SOB. Has been up some in room. - Exam Vitals: Temp Pulse Resp BP Pulse Ox 97.6 F 103 14 116/53 98 10/01/18 06:33 10/01/18 06:33 10/01/18 06:33 10/01/18 06:33 10/01/18 06:33 Exam: General: Alert and oriented. Comfortable at this time. Lying flat in bed. Skin: Normal color, H: Normocephalic. EENT: EOMI, Mucus membranes moist. Cardiovascular: Normal S1 & S2, irregular. Not tachycardic at this time. Lungs: Normal breath sounds, no wheezes or crackles. Abdomen: Soft, Did not hear bowel sounds. Nontender. Some liquid stool in ostomy bag. Continued NG drainage. Extremities: No deformity, no edema or tenderness, no joint swelling or clubbing. Neurological: Normal cognition and motor skills. Pulses: radial pulses normal +2. Rest of the physical exam is non contributory - Assessment and Plan (1) SBO (small bowel obstruction) Current Visit: Yes Status: Acute Assessment and Plan: NG in place. Appreciate surgery input. (2) Rectal cancer Current Visit: No Status: Chronic Assessment and Plan: Rectal cancer s/p resection. No acute issues. (3) Abdominal pain Current Visit: No Status: Acute Assessment and Plan: Overall seems to be improving. Following. (4) Hyponatremia Current Visit: No Status: Acute (5) Small bowel obstruction Current Visit: Yes Status: Acute (6) Atrial fibrillation Current Visit: Yes Status: Chronic Assessment and Plan: Rate controlled currently. On IV Metoprolol scheduled. (7) Anemia Current Visit: No Status: Chronic Assessment and Plan: H/H lower today. Recheck tomorrow. May need further work up if lower. (8) Diabetes mellitus Current Visit: No Status: Chronic Assessment and Plan: Monitoring blood sugars. (9) Protein-calorie malnutrition, moderate Current Visit: No Status: Suspected Assessment and Plan: Chronic issue (10) HTN (hypertension) Current Visit: No Status: Chronic Assessment and Plan: Controlled at this time. (11) HFrEF (heart failure with reduced ejection fraction) Current Visit: No Status: Chronic Assessment and Plan: Not in acute exacerbation at this time. - Time Spent with Patient Total time spent is greater than 50% in coordination of care (as documented) at patient's floor/unit and/or counseling patient: Internal Medicine: Result - Labs CBC & Chem 7: 10/01/18 01:53 10/01/18 01:53 Labs: Short CBC 10/01/18 Range/Units 01:53 WBC 10.3 (4.3-11.1) K/mcL Hgb 8.5 L (11.5-15.4) g/dL Hct 27.8 L (35.3-44.9) % Plt Count 342 (140-400) K/mcL BMP 10/01/18 01:53 Sodium 135 L Potassium 4.2 Chloride 102 Carbon Dioxide 18 L BUN 32 H Creatinine 0.76 Glucose 69 L Calcium 8.7 - ABG Interpretation ABG results: PT/INR, D-dimer PT 12.4 Seconds (9.4-12.1) H 09/30/18 06:01 Consult Discharge Plan - Plan Referrals: Fernando Regan DO [Primary Care Provider] - (3) Abdominal pain Qualifiers: Abdominal location: generalized Qualified Code(s): R10.84 - Generalized abdominal pain (6) Atrial fibrillation Qualifiers: Atrial fibrillation type: persistent Qualified Code(s): I48.1 - Persistent atrial fibrillation (7) Anemia Qualifiers: Anemia type: other cause Other causes of anemia: chronic disease, other Qualified Code(s): D63.8 - Anemia in other chronic diseases classified elsewhere (8) Diabetes mellitus Qualifiers: Diabetes mellitus type: type 2 Diabetes mellitus terminal makeup operator insulin use: without terminal makeup operator use Diabetes mellitus complication status: without complication Qualified Code(s): E11.9 - Type 2 diabetes mellitus without complications (10) HTN (hypertension) Qualifiers: Hypertension type: essential hypertension Qualified Code(s): I10 - Essential (primary) hypertension (11) HFrEF (heart failure with reduced ejection fraction) Qualifiers: Heart failure chronicity: chronic Qualified Code(s): I50.22 - Chronic systolic (congestive) heart failure
[2018-10-01] MEDS: D5% in Lactated Ringers 1,000 ML IVC SCH (10:31)
[2018-10-01] MEDS: Pantoprazole 40 MG VIAL IVP SCH ×2 (10:32→18:30)
--- NOTE | 2018-10-01 17:46 | Event Note ---
Date of Encounter: 10/01/18 Time of Encounter: 17:45 patient seen and examined; no obstruction on exam; having bowel function; recommend outpt follow up with oncology; general surgery will sign off; please call with new questions or concerns
[2018-10-01] MEDS: Ondansetron 4 MG/2 ML VIAL IVP PRN (21:43)
[2018-10-02] MEDS ORDERED: Dextrose Gel 15 GM/37.5 ML TUBE PO PRN ×2 (05:13)
[2018-10-02] MEDS ORDERED: *HR* Dextrose 50 % in Water (Syg) 50 ML SYRINGE IVP PRN (05:13)
[2018-10-02] MEDS ORDERED: D5% in Water 1,000 ML IVC PRN (05:13)
[2018-10-02] MEDS: D5% in Lactated Ringers 1,000 ML IVC SCH (05:25)
[2018-10-02 05:32] LABS: Hematocrit 27.6 % (35.3-44.9); Hemoglobin 8.4 g/dL (11.5-15.4); Mean Corpuscular HGB Conc 30.4 g/dL (31.6-35.5); Mean Corpuscular Hemoglobin 26.6 pg (28.0-33.3); Mean Corpuscular Volume 87.3 fL (83.0-100.0); Mean Platelet Volume 9.7 fL (9.4-12.4); Platelet Count 336 K/mcL (140-400); Red Blood Count 3.16 M/mcL (3.82-4.97); Red Cell Distribution Width 16.1 % (11.5-14.5); White Blood Count 10.5 K/mcL (4.3-11.1)
[2018-10-02] MEDS: Pantoprazole 40 MG VIAL IVP SCH ×2 (05:32→17:28)
[2018-10-02] MEDS: *HR* Heparin 5,000 UNIT/ML VIAL SQ SCH ×3 (05:33→20:40)
[2018-10-02] MEDS: 0.9 % Sodium Chloride 1,000 ML IVC SCH ×2 (05:33→20:39)
[2018-10-02] MEDS: *HR* Metoprolol 5 MG/5 ML VIAL IVP SCH ×4 (05:33→23:27)
[2018-10-02] MEDS ORDERED: Insulin LISPRO 300 UNITS/3 ML VIAL SQ SCH (06:00)
[2018-10-02 06:20] LABS: BUN/Creatinine Ratio 34 (6-26); Blood Urea Nitrogen 26 mg/dL (8-23); Calcium 9.1 mg/dL (8.6-10.3); Carbon Dioxide 22 mEq/L (23-29); Chloride 106 mEq/L (98-107); Glucose 213 mg/dL (70-105); Osmolality,Calculated 301 (280-300); Potassium 3.8 mEq/L (3.5-5.1); Sodium 140 mEq/L (136-145); eGFR For African Americans > 60 (> 60); eGFR For Non-African Americans > 60 (> 60)
[2018-10-02] MEDS: Ketorolac 15 MG/ML VIAL IVP PRN ×2 (08:29→20:39)
--- NOTE | 2018-10-02 11:22 | Internal Med Progress Note ---
Hospitalist Progress Note - Encounter Date of Encounter: 10/02/18 Time of Encounter: 11:21 - Subjective Interval History: Ms Flanagan is currently admitted for acute SBO. She remains moderate to high risk due to potential for worsening clinical status. Ms Flanagan is feeling OK. She is hungry. Surgery signed off yesterday. She denies pain at this time. She is having ostomy output. No fever or chills. - Exam Vitals: Temp Pulse Resp BP Pulse Ox 97.5 F L 115 14 144/65 99 10/02/18 10:53 10/02/18 10:53 10/02/18 10:53 10/02/18 10:53 10/02/18 10:53 Exam: General: Alert and oriented. Comfortable at this time. Skin: Normal color, No rash H: Normocephalic. EENT: EOMI, Mucus membranes moist. Cardiovascular: Normal S1 & S2, irregular. Not tachycardic Lungs: Normal breath sounds, no wheezes or crackles. Abdomen: Soft, bowel sounds present. Liquid stool in bag. Extremities: No deformity, Neurological: Normal cognition and motor skills. Pulses: radial pulses normal +2. Rest of the physical exam is non contributory - Assessment and Plan (1) SBO (small bowel obstruction) Current Visit: Yes Status: Acute Assessment and Plan: No obstruction per surgery. Liquid in ostomy bag. Will clamp NG and try clear liquids. If tolerate will remove NG tube. (2) Rectal cancer Current Visit: No Status: Chronic Assessment and Plan: Rectal cancer s/p resection. No acute issues. (3) Abdominal pain Current Visit: No Status: Acute Assessment and Plan: Overall seems to be improving. Following. (4) Hyponatremia Current Visit: No Status: Acute Assessment and Plan: Improved today. Recheck in AM. (5) Atrial fibrillation Current Visit: Yes Status: Chronic Assessment and Plan: Rate controlled currently. On IV Metoprolol scheduled. She is having no acute issues at this time. (6) Anemia Current Visit: No Status: Chronic Assessment and Plan: H/H lower stable at this time. Recheck in AM. (7) Diabetes mellitus Current Visit: No Status: Chronic Assessment and Plan: Monitoring blood sugars. Appears controlled. (8) Protein-calorie malnutrition, moderate Current Visit: No Status: Suspected Assessment and Plan: Chronic issue (9) HTN (hypertension) Current Visit: No Status: Chronic Assessment and Plan: Controlled at this time. (10) HFrEF (heart failure with reduced ejection fraction) Current Visit: No Status: Chronic Assessment and Plan: Not in acute exacerbation at this time. - Time Spent with Patient Total time spent is greater than 50% in coordination of care (as documented) at patient's floor/unit and/or counseling patient: Internal Medicine: Result - Labs CBC & Chem 7: 10/02/18 04:27 10/02/18 04:27 Labs: Short CBC 10/02/18 Range/Units 04:27 WBC 10.5 (4.3-11.1) K/mcL Hgb 8.4 L (11.5-15.4) g/dL Hct 27.6 L (35.3-44.9) % Plt Count 336 (140-400) K/mcL BMP 10/02/18 04:27 Sodium 140 Potassium 3.8 Chloride 106 Carbon Dioxide 22 L BUN 26 H Creatinine 0.77 Glucose 213 H Calcium 9.1 - ABG Interpretation ABG results: PT/INR, D-dimer PT 12.4 Seconds (9.4-12.1) H 09/30/18 06:01 Consult Discharge Plan - Plan Referrals: Fernando Regan DO [Primary Care Provider] - (3) Abdominal pain Qualifiers: Abdominal location: generalized Qualified Code(s): R10.84 - Generalized abdominal pain (5) Atrial fibrillation Qualifiers: Atrial fibrillation type: persistent Qualified Code(s): I48.1 - Persistent atrial fibrillation (6) Anemia Qualifiers: Anemia type: other cause Other causes of anemia: chronic disease, other Qualified Code(s): D63.8 - Anemia in other chronic diseases classified elsewhere (7) Diabetes mellitus Qualifiers: Diabetes mellitus type: type 2 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
[2018-10-02] MEDS: Insulin LISPRO 300 UNITS/3 ML VIAL SQ SCH ×2 (16:49→20:43)
[2018-10-02] MEDS: Ondansetron 4 MG/2 ML VIAL IVP PRN (23:30)
[2018-10-03] MEDS: Ketorolac 15 MG/ML VIAL IVP PRN (02:56)
[2018-10-03] MEDS: *HR* Promethazine 25 MG/ML VIAL IVP PRN ×2 (03:18→21:46)
[2018-10-03 04:08] LABS: Hematocrit 28.7 % (35.3-44.9); Hemoglobin 8.8 g/dL (11.5-15.4); Mean Corpuscular HGB Conc 30.7 g/dL (31.6-35.5); Mean Corpuscular Hemoglobin 26.7 pg (28.0-33.3); Mean Corpuscular Volume 87.2 fL (83.0-100.0); Mean Platelet Volume 9.4 fL (9.4-12.4); Platelet Count 298 K/mcL (140-400); Red Blood Count 3.29 M/mcL (3.82-4.97); Red Cell Distribution Width 15.9 % (11.5-14.5); White Blood Count 11.5 K/mcL (4.3-11.1)
[2018-10-03 04:29] LABS: BUN/Creatinine Ratio 25 (6-26); Blood Urea Nitrogen 23 mg/dL (8-23); Calcium 8.5 mg/dL (8.6-10.3); Carbon Dioxide 22 mEq/L (23-29); Chloride 105 mEq/L (98-107); Glucose 174 mg/dL (70-105); Osmolality,Calculated 292 (280-300); Potassium 3.8 mEq/L (3.5-5.1); Sodium 137 mEq/L (136-145); eGFR For African Americans > 60 (> 60); eGFR For Non-African Americans 59 (> 60)
[2018-10-03] MEDS: *HR* Heparin 5,000 UNIT/ML VIAL SQ SCH ×3 (05:57→21:46)
[2018-10-03] MEDS: *HR* Metoprolol 5 MG/5 ML VIAL IVP SCH (05:58)
[2018-10-03] MEDS: Pantoprazole 40 MG VIAL IVP SCH (05:58)
[2018-10-03] MEDS: Insulin LISPRO 300 UNITS/3 ML VIAL SQ SCH ×4 (08:44→21:46)
[2018-10-03] MEDS: 0.9 % Sodium Chloride 1,000 ML IVC SCH (10:22)
--- NOTE | 2018-10-03 10:46 | Internal Med Progress Note ---
Hospitalist Progress Note - Encounter Date of Encounter: 10/03/18 Time of Encounter: 10:20 - Subjective Interval History: Ms Flanagan is currently admitted for acute SBO. She remains moderate to high risk due to potential for worsening clinical status. Ms Flanagan is tolerating clear liquid diet. No fever or chills. No CP or SOB. Has output in ostomy. - Exam Vitals: Temp Pulse Resp BP Pulse Ox 97.9 F 100 18 104/61 100 10/03/18 07:47 10/03/18 07:47 10/03/18 07:47 10/03/18 09:30 10/03/18 07:47 Exam: General: Alert and oriented. Comfortable at this time. Interactive. Skin: Normal color, No rash H: Normocephalic. EENT: EOMI, Mucus membranes moist. Cardiovascular: Normal S1 & S2, irregular. Not tachycardic now. Lungs: Normal breath sounds, no wheezes or crackles. Abdomen: Soft, bowel sounds present. Liquid stool in bag. Nontender. Extremities: No deformity, No edema Neurological: Normal cognition and motor skills. Pulses: radial pulses normal +2. Rest of the physical exam is non contributory - Assessment and Plan (1) SBO (small bowel obstruction) Current Visit: Yes Status: Acute Assessment and Plan: No obstruction per surgery. Liquid in ostomy bag. Has tolerated clear liquid diet with NG out. Will advance diet to full liquid and then to soft. If tolerates anticipate d/c tomorrow. (2) Rectal cancer Current Visit: No Status: Chronic Assessment and Plan: Rectal cancer s/p resection. No acute issues. (3) Abdominal pain Current Visit: No Status: Acute Assessment and Plan: Resolving. (4) Hyponatremia Current Visit: No Status: Resolved Assessment and Plan: Resolved. (5) Atrial fibrillation Current Visit: Yes Status: Chronic Assessment and Plan: Became more tachycardic last night and cardizem drip started. Will start PO med and stop drip today. (6) Anemia Current Visit: No Status: Chronic Assessment and Plan: H/H stable (7) Diabetes mellitus Current Visit: No Status: Chronic Assessment and Plan: Monitoring blood sugars. Appears controlled. (8) Protein-calorie malnutrition, moderate Current Visit: No Status: Suspected Assessment and Plan: Chronic issue (9) HTN (hypertension) Current Visit: No Status: Chronic Assessment and Plan: BP controlled (10) HFrEF (heart failure with reduced ejection fraction) Current Visit: No Status: Chronic Assessment and Plan: Not in acute exacerbation at this time. - Time Spent with Patient Total time spent is greater than 50% in coordination of care (as documented) at patient's floor/unit and/or counseling patient: Internal Medicine: Result - Labs CBC & Chem 7: 10/03/18 03:17 10/03/18 03:17 Labs: Short CBC 10/03/18 Range/Units 03:17 WBC 11.5 H (4.3-11.1) K/mcL Hgb 8.8 L (11.5-15.4) g/dL Hct 28.7 L (35.3-44.9) % Plt Count 298 (140-400) K/mcL BMP 10/03/18 03:17 Sodium 137 Potassium 3.8 Chloride 105 Carbon Dioxide 22 L BUN 23 Creatinine 0.91 Glucose 174 H Calcium 8.5 L - ABG Interpretation ABG results: PT/INR, D-dimer PT 12.4 Seconds (9.4-12.1) H 09/30/18 06:01 Consult Discharge Plan - Plan Referrals: Fernando Regan DO [Primary Care Provider] - (3) Abdominal pain Qualifiers: Abdominal location: generalized Qualified Code(s): R10.84 - Generalized abdominal pain (5) Atrial fibrillation Qualifiers: Atrial fibrillation type: persistent Qualified Code(s): I48.1 - Persistent atrial fibrillation (6) Anemia Qualifiers: Anemia type: other cause Other causes of anemia: chronic disease, other Qualified Code(s): D63.8 - Anemia in other chronic diseases classified elsewhere (7) Diabetes mellitus Qualifiers: Diabetes mellitus type: type 2 Diabetes mellitus correction insulin use: without terminal worker use Diabetes mellitus complication status: without complication Qualified Code(s): E11.9 - Type 2 diabetes mellitus without complications (9) HTN (hypertension) Qualifiers: Hypertension type: essential hypertension Qualified Code(s): I10 - Essential (primary) hypertension (10) HFrEF (heart failure with reduced ejection fraction) Qualifiers: Heart failure chronicity: chronic Qualified Code(s): I50.22 - Chronic systolic (congestive) heart failure
[2018-10-03] MEDS: Diltiazem CD (24hr) 300 MG CAPSULE PO SCH (12:27)
[2018-10-03] MEDS: Aspirin Enteric Coated 81 MG Tablet PO SCH (12:27)
--- NOTE | 2018-10-03 20:48 | Electrocardiograph Report ---
[address] [place] [address] Test Date: 2018-10-01 Pat Name: Patricia Acety Department: 115 Room: 3A Gender: F C Consultant: : 1935 Requested By: Tien Crockett Order Number: [id number] Reading MD: Danielle Foster Measurements Intervals [place] Rate: 129 P: KS: 0 QRS: 5 QRSD: 89 T: 98 QT: 298 QTc: 374 Interpretive Statements ATRIAL FIBRILLATION WITH RAPID VENTRICULAR RESPONSE SEPTAL MYOCARDIAL INFARCTION, OF INDETERMINATE AGE Electronically Signed On 10-03-2018 20:47:16 EDT by Danielle Foster
--- NOTE | 2018-10-03 21:53 | Electrocardiograph Report ---
[address] [place], [place] [address] Test Date: 2018-10-03 Pat Name: Patricia Detty Department: 115 Room: 3A62 Gender: F Prepress Supervisor: : 1935 Requested By: Scar Ling Order Number: [id number] Reading MD: Danielle Foster Measurements Intervals [place] Rate: 144 P: -27 NV: 142 QRS: 11 QRSD: 84 T: 179 QT: 286 QTc: 369 Interpretive Statements Probable atrial flutter with mostly 2:1 AV block ANTEROSEPTAL MYOCARDIAL INFARCTION, PROBABLY OLD Electronically Signed On 10-03-2018 21:51:41 EDT by Danielle Foster
[2018-10-04] MEDS: *HR* Heparin 5,000 UNIT/ML VIAL SQ SCH ×3 (06:06→22:43)
[2018-10-04 08:00] LABS: Hematocrit 26.4 % (35.3-44.9); Hemoglobin 8.3 g/dL (11.5-15.4); Mean Corpuscular HGB Conc 31.4 g/dL (31.6-35.5); Mean Corpuscular Hemoglobin 26.9 pg (28.0-33.3); Mean Corpuscular Volume 85.7 fL (83.0-100.0); Mean Platelet Volume 10.1 fL (9.4-12.4); Platelet Count 245 K/mcL (140-400); Red Blood Count 3.08 M/mcL (3.82-4.97); Red Cell Distribution Width 16.3 % (11.5-14.5); White Blood Count 15.9 K/mcL (4.3-11.1)
[2018-10-04 08:13] LABS: BUN/Creatinine Ratio 28 (6-26); Blood Urea Nitrogen 21 mg/dL (8-23); Calcium 8.2 mg/dL (8.6-10.3); Carbon Dioxide 21 mEq/L (23-29); Chloride 106 mEq/L (98-107); Glucose 140 mg/dL (70-105); Osmolality,Calculated 285 (280-300); Potassium 4.3 mEq/L (3.5-5.1); Sodium 135 mEq/L (136-145); eGFR For African Americans > 60 (> 60); eGFR For Non-African Americans > 60 (> 60)
[2018-10-04] MEDS: Insulin LISPRO 300 UNITS/3 ML VIAL SQ SCH ×4 (08:48→22:43)
[2018-10-04] MEDS: Diltiazem CD (24hr) 300 MG CAPSULE PO SCH (08:49)
[2018-10-04] MEDS: Aspirin Enteric Coated 81 MG Tablet PO SCH (08:49)
[2018-10-04] MEDS ORDERED: Isovue-370 500 ML BOTTLE IVP ONE (08:56)
--- NOTE | 2018-10-04 08:58 | Internal Med Progress Note ---
Hospitalist Progress Note - Encounter Date of Encounter: 10/04/18 Time of Encounter: 10:00 - Subjective Interval History: Ms Flanagan is currently admitted for SBO. She remains moderate to high risk due to potential for worsening clinical status. Ms Flanagan had a lot of nausea and emesis last evening. Denies pain. Still with some output in ostomy. Repeat CT shows continued obstruction. - Exam Vitals: Temp Pulse Resp BP Pulse Ox 98.6 F 102 14 131/54 97 10/04/18 07:47 10/04/18 07:47 10/04/18 07:47 10/04/18 07:47 10/04/18 08:00 Exam: General: Alert and oriented. Comfortable at this time. Skin: Normal color, No rash H: Normocephalic. EENT: EOMI, Mucus membranes moist. Cardiovascular: Normal S1 & S2, irregular. Not tachy now. Lungs: Normal breath sounds, no wheezes or crackles. Abdomen: Soft, More distended. Diffuse tenderness without rebound. Extremities: No deformity, No edema Neurological: Normal cognition and motor skills. Pulses: radial pulses normal +2. Rest of the physical exam is non contributory - Assessment and Plan (1) SBO (small bowel obstruction) Current Visit: Yes Status: Acute Assessment and Plan: Pt had recurrent symptoms last night. Repeat CT today shows partial SBO. Discussed with surgery - will eval again but doubt there is anything to be done. Palliative care consulted as well. Tolerates clear liquids. Pain control. (2) Rectal cancer Current Visit: No Status: Chronic Assessment and Plan: Rectal cancer s/p resection. (3) Abdominal pain Current Visit: No Status: Acute Assessment and Plan: At this time her pain appears controlled. (4) Atrial fibrillation Current Visit: Yes Status: Chronic (5) Anemia Current Visit: No Status: Chronic Assessment and Plan: H/H decreased but stable. (6) Diabetes mellitus Current Visit: No Status: Chronic Assessment and Plan: BS controlled at this time. (7) Protein-calorie malnutrition, moderate Current Visit: No Status: Suspected Assessment and Plan: Chronic issue (8) HTN (hypertension) Current Visit: No Status: Chronic Assessment and Plan: BP controlled (9) HFrEF (heart failure with reduced ejection fraction) Current Visit: No Status: Chronic Assessment and Plan: Not in acute exacerbation at this time. - Time Spent with Patient Total time spent is greater than 50% in coordination of care (as documented) at patient's floor/unit and/or counseling patient: Internal Medicine: Result - Labs CBC & Chem 7: 10/04/18 07:45 10/04/18 07:45 Labs: Short CBC 10/04/18 Range/Units 07:45 WBC 15.9 H (4.3-11.1) K/mcL Hgb 8.3 L (11.5-15.4) g/dL Hct 26.4 L (35.3-44.9) % Plt Count 245 (140-400) K/mcL BMP 10/04/18 07:45 Sodium 135 L Potassium 4.3 Chloride 106 Carbon Dioxide 21 L BUN 21 Creatinine 0.74 Glucose 140 H Calcium 8.2 L - ABG Interpretation ABG results: PT/INR, D-dimer PT 12.4 Seconds (9.4-12.1) H 09/30/18 06:01 Consult Discharge Plan - Plan Referrals: Fernando Regan DO [Primary Care Provider] - (3) Abdominal pain Qualifiers: Abdominal location: generalized Qualified Code(s): R10.84 - Generalized abdominal pain (4) Atrial fibrillation Qualifiers: Atrial fibrillation type: persistent Qualified Code(s): I48.1 - Persistent atrial fibrillation (5) Anemia Qualifiers: Anemia type: other cause Other causes of anemia: chronic disease, neoplastic Qualified Code(s): D63.0 - Anemia in neoplastic disease (6) Diabetes mellitus Qualifiers: Diabetes mellitus type: type 2 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
--- NOTE | 2018-10-04 17:00 | Palliative - Consult Note ---
Date of Encounter: 10/04/18 Time of Encounter: 03:00 - Assessment and Plan (1) Goals of care, counseling/discussion Current Visit: Yes Status: Acute Assessment and plan: 40 minutes conversation wit patient, discussed current medical condition in details, trajectory of illness, overall poor prognosis and goals of care. Patient had many questions about disease progression and possible further treatment. All questions were answered. However she remains aware that she is physically very debilitated, and does not want any further oncology treatment. Patient stated that she was living alone before this episode, but had noticed that she was becoming too weak to take care of herself. There is no medicaid in place. Patient has one son Bharathi Jerome that helps with all decisions. Patient attempted to call Bharathi jannette I was at the bedside, no answers. Patient was leaning toward comfort measures and hospice, however would like Bharathi to weight in the decision. 15 additional minutes for code satus discussion, patient stated "I want no one pouncing on my chest and no breathing machines. Patient has an appropriate state form scanned in the chart. Order placed for DNRCCA and DNI. Palliative care will continue to follow tomorrow for further goals of care discussion and plan of care. (2) Palliative care encounter Current Visit: Yes Status: Acute (3) SBO (small bowel obstruction) Current Visit: Yes Status: Acute Assessment and plan: surgery reconsulted. Patient tolerating clear liquids. (4) Abdominal pain Current Visit: No Status: Acute Assessment and plan: Patient was on [place] at home for pain. Now receiving Ketorolac prn. will start Oxycodone 5 mg SL q4hr prn for severe pain. Qualifiers: Abdominal location: generalized Qualified Code(s): R10.84 - Generalized abdominal pain Palliative-CN HPI - Data of Consult Patient: new to practice Consult date: 10/04/18 Requesting Physician: Tien Crockett DO Primary Care Provider: Lars Regan DO - Consult Narrative Palliative Care/Comfort Measures: Palliative care Reason for consult: goals of care History of present illness: Ms. Flanagan is a 83 year old female who presented on 09/29/18 with complaint of nausea, vomiting, abdominal pain. She has a past medical history of rectal cancer status post left lower quadrant ileostomy, status post chemotherapy and radiation, atrial fibrillation, CHF, diabetes, hyperlipidemia, aortic valve replacement in 2012. In the ER, CT scan was performed which showed distal small bowel obstruction, retro-peritoneal abdominal and pelvic lymphadenopathy, cholelithiasis, heterogeneous appearance of the endometrial canal and a progressive rectal bed, presacral amorphous soft tissue density. The patient was evaluated by surgical team by Dr. Harman who recommended conservative management with continuation of NG tube, IV hydration and electrolyte imbalance repletion. Patient was able to tolerate liquids, ng tube was removed, and patient was having output to colostomy. The patient states that she ate a regular diet last night and became nauseous and had vomiting. CT scan was repeated this morning which revealed a high-grade partial small bowel obstruction, and mild to moderate right hydronephrosis despite presence of the right ureteral stent. Met with patient at the bedside, she was feeling sore, but somewhat better if she lays still. She was AAO x3, able to comprehend her medical condition and provide insight. Se is tolerating clear liquid po, denies nausea at tis time. denies chest pain, SOB. CC: Tien Crockett, DO - Time Spent with Patient Time: Total time spent is greater than 50% in coordination of care (as documented) at patient's floor/unit and/or counseling patient: Time with patient: 60 minutes Past Med Surg Social Fam HX - Past Medical History Medical history: cancer, diabetes, hyperlipidemia, hypertension, malignancy, valvular heart disease Additional medical history: rectal cancer Psychiatric history: no psych history - Past Surgical History Surgical History: heart valve replacement, hysterectomy, other Additional surgical history: open heart surgery apr 27, 2011. aortic valve re placement. kidney stents - Social History Smoking Status: Never smoker Smokeless Tobacco Status: No Alcohol use: none Drug use: none Medications and Allergies Cyanocobalamin (Vitamin B-12) [Vitamin B-12] 1,000 mcg PO DAILY 07/19/18 [History] Aspirin Enteric Coated [Aspirin EC] 81 mg PO DAILY #30 tablet. 09/25/18 [Rx] Docusate [Colace] 100 mg PO DAILY #30 capsule 09/25/18 [Rx] Ferrous Sulfate 325 mg PO DAILY #30 tablet 09/25/18 [Rx] Diltiazem CD (24hr) [Cardizem CD] 300 mg PO DAILY cap.er.24h 09/27/18 [Rx] Metoprolol [Lopressor] 25 mg PO BID tablet 09/27/18 [Rx] Ondansetron ODT [Zofran ODT] 4 mg SL Q8HR PRN #1 tab.rapdis 09/27/18 [Rx] HYDROcodone/Acet 5/325 mg [[place] 5-325 mg] 1 tab PO BID 09/29/18 [History] Acetaminophen [Tylenol] 650 mg PO Q6HR PRN 09/30/18 [History] Multivitamin [One Daily Essential] 1 tab PO DAILY 09/30/18 [History] Omeprazole [PriLOSEC] 40 mg PO DAILY 09/30/18 [History] Oxybutynin Chloride [Ditropan Xl] 5 mg PO Q8H PRN 09/30/18 [History] Allergy/AdvReac Type Severity Reaction Status Date / Time Penicillins [PCN] Allergy Intermediate Hives Verified 09/30/18 09:04 Amoxicillin Allergy Hives Verified 09/30/18 09:04 - Constitutional Constitutional ROS PAL: decreased appetite, malaise - EENT Ears, nose, mouth, throat: dry mouth Additional comments: negative - Cardiovascular Cardiovascular ROS: no chest pain, no edema, no leg edema - Respiratory Respiratory: no cough, no dyspnea - Gastrointestinal Gastrointestinal: abdominal pain, bloating, change in bowel habits - Genitourinary Palliative ROS female: no dysuria - Musculoskeletal Musculoskeletal ROS IM: arthralgias, muscle weakness - Integumentary ROS Integumentary: dry skin - Neurological Neurological ROS: weakness Palliative Care-Exam - Constitutional Vitals: Temp Pulse Resp BP Pulse Ox 98.3 F 88 14 149/68 95 10/04/18 14:43 10/04/18 14:43 10/04/18 14:43 10/04/18 14:43 10/04/18 14:43 Exam: General: Alert and oriented. Comfortable at this time. Skin: Normal color, No rash H: Normocephalic. EENT: EOMI, Mucus membranes moist. Cardiovascular: Normal S1 & S2, irregular. Not tachy now. Lungs: Normal breath sounds, no wheezes or crackles. Abdomen: Soft, More distended. Diffuse tenderness without rebound. Extremities: No deformity, No edema Neurological: Normal cognition and motor skills. Pulses: radial pulses normal +2. Internal Medicine - CN: Reslt - Labs CBC & Chem 7: 10/04/18 07:45 10/04/18 07:45 Labs: Short CBC 10/04/18 Range/Units 07:45 WBC 15.9 H (4.3-11.1) K/mcL Hgb 8.3 L (11.5-15.4) g/dL Hct 26.4 L (35.3-44.9) % Plt Count 245 (140-400) K/mcL BMP 10/04/18 07:45 Sodium 135 L Potassium 4.3 Chloride 106 Carbon Dioxide 21 L BUN 21 Creatinine 0.74 Glucose 140 H Calcium 8.2 L - ABG Interpretation ABG results: PT/INR, D-dimer PT 12.4 Seconds (9.4-12.1) H 09/30/18 06:01 - Impressions Impressions Abdomen/Pelvis CT 10/04/18 08:56 IMPRESSION: 1. High-grade partial small bowel obstruction with the transition in the deep pelvis. 2. Heterogeneous necrotic mass in the central pelvis in the typical location of the uterus. The differential diagnosis includes post radiation treatment changes to the uterus versus is malignancy; correlate with surgical history. 3. New and worsening retrocrural and retroperitoneal adenopathy concerning for eliot metastases. 4. New [id number] right hydronephrosis despite the presence of a right ureteral stent. 5. Small bilateral pleural effusions. D/ / Bon Long MD / Bon Long MD Interpreting Provider: Bon Long MD Consult Discharge Plan - Plan Referrals: Fernando Regan DO [Primary Care Provider] - Palliative Quality Palliative Quality: Screen for Code Status: Yes, Screen for Goals of Care: Yes, Screen for Pain: Yes, Screen for Nausea/Vomitting: Yes Code Status: 09/29/18 19:34 Resuscitation Status: Active [RES] Routine Comment: Resuscitation Status: Full Code
--- NOTE | 2018-10-04 17:10 | AcuteCare Surgery Consult Note ---
<Barbie Peterson - Last Filed: 10/04/18 17:40> Date of Encounter: 10/04/18 Time of Encounter: 17:00 Assessment and Plan (1) SBO (small bowel obstruction) Current Visit: Yes Status: Acute Patient presented with nausea, vomiting, abdominal pain Found to have small bowel obstruction, status post NG tube decompression, IV fluids - CT abdomen and pelvis 09/29/18-status post partial colonic resection, left paramedian upper pelvis there is a distal small bowel obstruction with no evidence of perforation or abscess, small peristomal hernia containing anterior wall of dilated jejunal loop and mesenteric fat, progressive retroperitoneal abd ominal and pelvic lymphadenopathy, right ureteral stent, cholelithiasis, heterogeneous appearance of endometrial canal, progressive rectal bed/presacral amorphous soft tissue density - CT abdomen and pelvis 10/04/18- continued small bowel obstruction, high-grade partial small bowel obstruction with transition in the deep pelvis, heterogeneous necrotic mass in the central pelvis, new and worsening retrocrural and retroperitoneal adenopathy, mild to moderate right hydronephrosis despite presence of right ureteral stent Patient had nausea, vomiting after meal last night, CT scan was repeated and f ound continued small bowel obstruction Labs reveal increasing leukocytosis, currently 15.9, chronic anemia with hemoglobin currently 8.3 Patient has minimal distention on exam, some left lower quadrant tenderness to palpation Continues to have liquid output from ostomy Continue to trend labs, monitor electrolytes Clear liquid diet Recommend conservative management, palliative care versus oncology consult depending on patient wishes. Possible to do a temporary bypass however this treatment would be invasive, temporary, and not recommended at this time. (2) Rectal cancer Current Visit: No Status: Chronic Patient has a history of rectal cancer She is status post chemotherapy, radiation, and partial colonic resection and os david which is placed in 2014 up in [place] States that she is interested in hospice care History of Present Illness Consult date: 10/04/18 Reason for consult: abdominal pain History of present illness: Patricia Flanagan is an 83 y/o female who presented on 09/29/18 with complaint of nausea, vomiting, abdominal pain. She has a past medical history of rectal cancer status post left lower quadrant ileostomy done 2014 in [place], as well as status post chemotherapy and radiation, atrial fibrillation, CHF, diabetes, hyperlipidemia, aortic valve replacement in 2012. On presentation, CT scan was performed which showed distal small bowel obstruction, left lower quadrant ileostomy site with small parastomal hernia containing the anterior wall of a dilated jejunal loop, retro-peritoneal abdominal and pelvic lymphadenopathy, cholelithiasis, heterogeneous appearance of the endometrial canal and a progressive rectal bed, presacral amorphous soft tissue density. The patient was evaluated by surgical team by Dr. Robison who recommended continuation of NG tube, IV hydration and electrolyte imbalance repletion. He stated there was no need for surgical intervention at that time. Patient able to tolerate liquids, ng tube was removed, and patient was having output to colostomy. The patient states that she ate a regular diet last night and became nauseous and had vomiting. CT scan was performed this morning which revealed a high-grade partial small bowel obstruction with transition in the deep pelvis, h eterogeneous necrotic mass in the central pelvis that the location of uterus, new and worsening retrocrural and retroperitoneal adenopathy and mild to moderate right hydronephrosis due to presence of the right ureteral stent. The patient states that she is interested in going into hospice care. Patient states that she feels weak, no longer feels nauseous and last episode of vomiting was last night. She states that her abdominal pain has continued and been consistent over stay at the hospital. She states that her abdominal distention has significantly improved. She denies fever, chills, vision changes, hearing changes, dysphagia, headache, chest pain, palpitations, shortness of breath, syncope, dysuria, hematuria, calf pain, skin rash, bedsores. Past Med Surg Social Fam HX - Past Medical History Medical history: cancer, diabetes, hyperlipidemia, hypertension, malignancy, valvular heart disease Additional medical history: rectal cancer Psychiatric history: no psych history - Past Surgical History Surgical History: heart valve replacement, hysterectomy, other Additional surgical history: open heart surgery apr 27, 2011. aortic valve replacement. kidney stents - Social History Smoking Status: Never smoker Smokeless Tobacco Status: No Alcohol use: none Drug use: none Medications and Allergies Cyanocobalamin (Vitamin B-12) [Vitamin B-12] 1,000 mcg PO DAILY 07/19/18 [History] Aspirin Enteric Coated [Aspirin EC] 81 mg PO DAILY #30 tablet. 09/25/18 [Rx] Docusate [Colace] 100 mg PO DAILY #30 capsule 09/25/18 [Rx] Ferrous Sulfate 325 mg PO DAILY #30 tablet 09/25/18 [Rx] Diltiazem CD (24hr) [Cardizem CD] 300 mg PO DAILY cap.er.24h 09/27/18 [Rx] Metoprolol [Lopressor] 25 mg PO BID tablet 09/27/18 [Rx] Ondansetron ODT [Zofran ODT] 4 mg SL Q8HR PRN #1 tab.rapdis 09/27/18 [Rx] HYDROcodone/Acet 5/325 mg [[place] 5-325 mg] 1 tab PO BID 09/29/18 [History] Acetaminophen [Tylenol] 650 mg PO Q6HR PRN 09/30/18 [History] Multivitamin [One Daily Essential] 1 tab PO DAILY 09/30/18 [History] Omeprazole [PriLOSEC] 40 mg PO DAILY 09/30/18 [History] Oxybutynin Chloride [Ditropan Xl] 5 mg PO Q8H PRN 09/30/18 [History] Allergy/AdvReac Type Severity Reaction Status Date / Time Penicillins [PCN] Allergy Intermediate Hives Verified 09/30/18 09:04 Amoxicillin Allergy Hives Verified 09/30/18 09:04 Review of Systems All systems PM: The remainder of the systems were reviewed and are negative - Constitutional no chills, no fever(s), no headache(s) - EENT Nose, mouth and throat: no abnormal hearing, no dizziness, no dysphagia, no headache(s) - Cardiovascular irregular heart rhythm, no chest pain, no dyspnea, no edema, no orthopnea, no palpitations, no pedal edema, no syncope - Respiratory no cough, no dyspnea - Gastrointestinal abdominal pain, constipation, no dysphagia, no hematochezia, no melena, no nause a, no vomiting - Genitourinary Genitourinary: urinary incontinence, no dysuria, no hematuria - Musculoskeletal arthralgias, numbness, no myalgias - Integumentary no rash - Neurological paresthesias, no focal weakness, no headache(s), no syncope - Psychiatric no anxiety, no depression - Endocrine cold intolerance - Hematologic/Lymphatic no easy bleeding, no easy bruising General Surgery Exam Initial Vital Signs Temp Pulse Resp BP Pulse Ox 97.4 F L 94 16 121/68 100 09/29/18 14:57 09/29/18 14:57 09/29/18 14:57 09/29/18 14:57 09/29/18 14:57 - General physical appearance well developed, no distress - Eyes PERRL, normal ocular movement - ENT normal pinna, normal nares, normal mucosa, no hearing loss, no congestion - Neck trachea midline, no lymphadectomy, no venous distension - Respiratory normal expansion, normal respiratory effort, clear to percussion, clear to auscultation - Cardiovascular Cardiovascular exam: Present: RRR. Absent: no murmurs/rubs/gallops - Abdomen Abdomen general surgery: Present: bowel sounds present, soft, distended (mildly distended, liquid output in colostomy) Abdominal Tenderness: Present: LUQ - Integumentary Integumentary general surgery: Present: warm and dry, no abnormal pigmentation - Neurologic Present: CN 2-12 grossly intact, normal coordination, normal sensation - Musculoskeletal Present: normal posture - Psychiatric Psychiatric general surgery: Present: appropriate, oriented to person, oriented to place, oriented to time, speech is normal, memory intact Exam Initial Vital Signs Temp Pulse Resp BP Pulse Ox 97.4 F L 94 16 121/68 100 09/29/18 14:57 09/29/18 14:57 09/29/18 14:57 09/29/18 14:57 09/29/18 14:57 Results - Labs 10/04/18 07:45 10/04/18 07:45 Abnormal lab results WBC 15.9 K/mcL (4.3-11.1) H 10/04/18 07:45 RBC 3.08 M/mcL (3.82-4.97) L 10/04/18 07:45 Hgb 8.3 g/dL (11.5-15.4) L 10/04/18 07:45 Hct 26.4 % (35.3-44.9) L 10/04/18 07:45 MCH 26.9 pg (28.0-33.3) L 10/04/18 07:45 MCHC 31.4 g/dL (31.6-35.5) L 10/04/18 07:45 RDW 16.3 % (11.5-14.5) H 10/04/18 07:45 MPV 9.3 fL (9.4-12.4) L 10/01/18 01:53 9.1 K/mcL (1.6-8.9) H 09/29/18 16:12 PT 12.4 Seconds (9.4-12.1) H 09/30/18 06:01 APTT 38.7 Seconds (26.0-36.0) H 09/30/18 06:01 Sodium 135 mEq/L (136-145) L 10/04/18 07:45 Chloride 95 mEq/L (98-107) L 09/30/18 06:01 Carbon Dioxide 21 mEq/L (23-29) L 10/04/18 07:45 BUN 26 mg/dL (8-23) H 10/02/18 04:27 Est GFR (Non-Af Amer) 59 (> 60) L 10/03/18 03:17 28 (6-26) H 10/04/18 07:45 Glucose 140 mg/dL (70-105) H 10/04/18 07:45 POC Glucose 159 mg/dL (70-99) H 10/03/18 20:44 301 (280-300) H 10/02/18 04:27 Calcium 8.2 mg/dL (8.6-10.3) L 10/04/18 07:45 106 Units/L (34-104) H 09/29/18 16:12 2.9 g/dL (3.5-5.7) L 09/30/18 06:01 3.7 g/dL (2.4-3.5) H 09/30/18 06:01 0.8 (1.1-2.2) L 09/30/18 06:01 Cloudy (Clear) A 09/29/18 18:05 30 mg/dL (Neg-Trace) H 09/29/18 18:05 Trace mg/dL (Negative) H 09/29/18 18:05 Trace (Negative) H 09/29/18 18:05 Small (Negative) H 09/29/18 18:05 Ur Leukocyte Esterase Large (Negative) H 09/29/18 18:05 30-50 per hpf (0-3) H 09/29/18 18:05 Ur Squamous Epith Cells Many per lpf (None-Few) H 09/29/18 18:05 Amorphous Sediment Moderate (Few) H 09/29/18 18:05 Ur Culture Indicated? YES (NO) A 09/29/18 18:05 Diabetes panel 10/04/18 Range/Units 07:45 Sodium 135 L (136-145) mEq/L Potassium 4.3 (3.5-5.1) mEq/L Chloride 106 (98-107) mEq/L Carbon Dioxide 21 L (23-29) mEq/L BUN 21 (8-23) mg/dL Creatinine 0.74 (0.60-1.20) mg/dL Glucose 140 H (70-105) mg/dL Calcium 8.2 L (8.6-10.3) mg/dL Calcium panel 10/04/18 Range/Units 07:45 Calcium 8.2 L (8.6-10.3) mg/dL Pituitary panel 10/04/18 Range/Units 07:45 Sodium 135 L (136-145) mEq/L Potassium 4.3 (3.5-5.1) mEq/L Chloride 106 (98-107) mEq/L Carbon Dioxide 21 L (23-29) mEq/L BUN 21 (8-23) mg/dL Creatinine 0.74 (0.60-1.20) mg/dL Glucose 140 H (70-105) mg/dL Calcium 8.2 L (8.6-10.3) mg/dL Adrenal panel 10/04/18 Range/Units 07:45 Sodium 135 L (136-145) mEq/L Potassium 4.3 (3.5-5.1) mEq/L Chloride 106 (98-107) mEq/L Carbon Dioxide 21 L (23-29) mEq/L BUN 21 (8-23) mg/dL Creatinine 0.74 (0.60-1.20) mg/dL Glucose 140 H (70-105) mg/dL Calcium 8.2 L (8.6-10.3) mg/dL All other labs normal. Consult Discharge Plan - Plan Referrals: Fernando Regan, [Primary Care Provider] - <Maurizio Youssef - Last Filed: 10/04/18 23:54> Date of Encounter: 10/04/18 Review of Systems All systems PM: The remainder of the systems were reviewed and are negative General Surgery Exam Initial Vital Signs Temp Pulse Resp BP Pulse Ox 97.4 F L 94 16 121/68 100 09/29/18 14:57 09/29/18 14:57 09/29/18 14:57 09/29/18 14:57 09/29/18 14:57 Exam Initial Vital Signs Temp Pulse Resp BP Pulse Ox 97.4 F L 94 16 121/68 100 09/29/18 14:57 09/29/18 14:57 09/29/18 14:57 09/29/18 14:57 09/29/18 14:57 Results - Labs 10/04/18 07:45 10/04/18 07:45 Abnormal lab results WBC 15.9 K/mcL (4.3-11.1) H 10/04/18 07:45 RBC 3.08 M/mcL (3.82-4.97) L 10/04/18 07:45 Hgb 8.3 g/dL (11.5-15.4) L 10/04/18 07:45 Hct 26.4 % (35.3-44.9) L 10/04/18 07:45 MCH 26.9 pg (28.0-33.3) L 10/04/18 07:45 MCHC 31.4 g/dL (31.6-35.5) L 10/04/18 07:45 RDW 16.3 % (11.5-14.5) H 10/04/18 07:45 MPV 9.3 fL (9.4-12.4) L 10/01/18 01:53 9.1 K/mcL (1.6-8.9) H 09/29/18 16:12 PT 12.4 Seconds (9.4-12.1) H 09/30/18 06:01 APTT 38.7 Seconds (26.0-36.0) H 09/30/18 06:01 Sodium 135 mEq/L (136-145) L 10/04/18 07:45 Chloride 95 mEq/L (98-107) L 09/30/18 06:01 Carbon Dioxide 21 mEq/L (23-29) L 10/04/18 07:45 BUN 26 mg/dL (8-23) H 10/02/18 04:27 Est GFR (Non-Af Amer) 59 (> 60) L 10/03/18 03:17 28 (6-26) H 10/04/18 07:45 Glucose 140 mg/dL (70-105) H 10/04/18 07:45 POC Glucose 159 mg/dL (70-99) H 10/03/18 20:44 301 (280-300) H 10/02/18 04:27 Calcium 8.2 mg/dL (8.6-10.3) L 10/04/18 07:45 106 Units/L (34-104) H 09/29/18 16:12 2.9 g/dL (3.5-5.7) L 09/30/18 06:01 3.7 g/dL (2.4-3.5) H 09/30/18 06:01 0.8 (1.1-2.2) L 09/30/18 06:01 Cloudy (Clear) A 09/29/18 18:05 30 mg/dL (Neg-Trace) H 09/29/18 18:05 Trace mg/dL (Negative) H 09/29/18 18:05 Trace (Negative) H 09/29/18 18:05 Small (Negative) H 09/29/18 18:05 Ur Leukocyte Esterase Large (Negative) H 09/29/18 18:05 30-50 per hpf (0-3) H 09/29/18 18:05 Ur Squamous Epith Cells Many per lpf (None-Few) H 09/29/18 18:05 Amorphous Sediment Moderate (Few) H 09/29/18 18:05 Ur Culture Indicated? YES (NO) A 09/29/18 18:05 Diabetes panel 10/04/18 Range/Units 07:45 Sodium 135 L (136-145) mEq/L Potassium 4.3 (3.5-5.1) mEq/L Chloride 106 (98-107) mEq/L Carbon Dioxide 21 L (23-29) mEq/L BUN 21 (8-23) mg/dL Creatinine 0.74 (0.60-1.20) mg/dL Glucose 140 H (70-105) mg/dL Calcium 8.2 L (8.6-10.3) mg/dL Calcium panel 10/04/18 Range/Units 07:45 Calcium 8.2 L (8.6-10.3) mg/dL Pituitary panel 10/04/18 Range/Units 07:45 Sodium 135 L (136-145) mEq/L Potassium 4.3 (3.5-5.1) mEq/L Chloride 106 (98-107) mEq/L Carbon Dioxide 21 L (23-29) mEq/L BUN 21 (8-23) mg/dL Creatinine 0.74 (0.60-1.20) mg/dL Glucose 140 H (70-105) mg/dL Calcium 8.2 L (8.6-10.3) mg/dL Adrenal panel 10/04/18 Range/Units 07:45 Sodium 135 L (136-145) mEq/L Potassium 4.3 (3.5-5.1) mEq/L Chloride 106 (98-107) mEq/L Carbon Dioxide 21 L (23-29) mEq/L BUN 21 (8-23) mg/dL Creatinine 0.74 (0.60-1.20) mg/dL Glucose 140 H (70-105) mg/dL Calcium 8.2 L (8.6-10.3) mg/dL All other labs normal. - Attending Attestation I examined this patient and my medical decision-making was reviewed with the Resident Physician. I agree with the documented findings, disposition and mary lou tment plan as described except to the extent set forth below. The patient is seen and evaluated with rest and care is discussed. The patient has high-grade recurrent partial bowel obstruction related this likely secondary to malignant process in the pelvis. Surgical options would provide only short- term palliative care. Care will be coordinated with oncology and palliative care team as well as the family to manage expectations for outcome and performance Maurizio Youssef MD FACS
[2018-10-04] MEDS: *HR* Promethazine 25 MG/ML VIAL IVP PRN (19:41)
[2018-10-04] MEDS: Ketorolac 15 MG/ML VIAL IVP PRN (20:55)
[2018-10-04] MEDS ORDERED: Acetaminophen IV 500 MG/50 ML INFUS..BTL IVPB ONE (21:34)
[2018-10-05] MEDS: Ondansetron 4 MG/2 ML VIAL IVP PRN ×2 (00:12→14:12)
[2018-10-05] MEDS: *HR* Heparin 5,000 UNIT/ML VIAL SQ SCH ×3 (06:01→19:55)
[2018-10-05 06:18] LABS: Hematocrit 24.3 % (35.3-44.9); Hemoglobin 7.6 g/dL (11.5-15.4); Mean Corpuscular HGB Conc 31.3 g/dL (31.6-35.5); Mean Corpuscular Hemoglobin 27.3 pg (28.0-33.3); Mean Corpuscular Volume 87.4 fL (83.0-100.0); Mean Platelet Volume 9.4 fL (9.4-12.4); Platelet Count 223 K/mcL (140-400); Red Blood Count 2.78 M/mcL (3.82-4.97); Red Cell Distribution Width 16.2 % (11.5-14.5); White Blood Count 10.5 K/mcL (4.3-11.1)
[2018-10-05 06:37] LABS: BUN/Creatinine Ratio 31 (6-26); Blood Urea Nitrogen 23 mg/dL (8-23); Calcium 8.2 mg/dL (8.6-10.3); Carbon Dioxide 22 mEq/L (23-29); Chloride 102 mEq/L (98-107); Glucose 114 mg/dL (70-105); Osmolality,Calculated 283 (280-300); Potassium 3.5 mEq/L (3.5-5.1); Sodium 134 mEq/L (136-145); eGFR For African Americans > 60 (> 60); eGFR For Non-African Americans > 60 (> 60)
[2018-10-05] MEDS: Insulin LISPRO 300 UNITS/3 ML VIAL SQ SCH ×4 (08:31→20:58)
[2018-10-05] MEDS: Aspirin Enteric Coated 81 MG Tablet PO SCH (08:38)
[2018-10-05] MEDS: Diltiazem CD (24hr) 300 MG CAPSULE PO SCH (08:38)
--- NOTE | 2018-10-05 08:48 | AcuteCareSurgery Progress Note ---
<Barbie Peterson - Last Filed: 10/05/18 11:25> Date of Encounter: 10/05/18 Time of Encounter: 08:48 - Assessment and Plan (1) SBO (small bowel obstruction) Current Visit: Yes Status: Acute Patient presented with nausea, vomiting, abdominal pain Found to have small bowel obstruction, status post NG tube decompression, IV fluids - CT abdomen and pelvis 09/29/18-status post partial colonic resection, left paramedian upper pelvis there is a distal small bowel obstruction with no evidence of perforation or abscess, small peristomal hernia containing anterior wall of dilated jejunal loop and mesenteric fat, progressive retroperitoneal ab dominal and pelvic lymphadenopathy, right ureteral stent, cholelithiasis, heterogeneous appearance of endometrial canal, progressive rectal bed/presacral amorphous soft tissue density - CT abdomen and pelvis 10/04/18- continued small bowel obstruction, high-grade partial small bowel obstruction with transition in the deep pelvis, heterogeneous necrotic mass in the central pelvis, new and worsening retrocrural and retroperitoneal adenopathy, mild to moderate right hydronephrosis despite presence of right ureteral stent Patient is tolerating liquid diet Continues to have output colostomy States that where surgical treatment a possibility, she would decline and plans to begin hospice care No acute surgical management at this time Continue conservative management, palliative versus oncology management Surgery will continue following (2) Rectal cancer Current Visit: No Status: Chronic Patient has a history of rectal cancer She is status post chemotherapy, radiation, and partial colonic resection and ostomy which is placed in 2014 up in [place] States that she is interested in hospice care Subjective Narrative: Patient seen and examined at bedside today. She states that she is doing well and that pain is controlled. She has some small colostomy output, liquid stool. She states that her surgical treatment available, she would decline. She states that she plans on transitioning to hospice care. She denies fever, chills, chest pain, shortness of breath, dysuria, hematuria calf pain. Objective Vital Signs - Last 8 Hours Temp Pulse Resp BP Pulse Ox 10/05/18 06:36 97.9 F 92 14 149/61 10/05/18 04:13 97.9 F 92 15 140/50 97 Intake and Output 10/04/18 10/05/18 10/05/18 23:59 07:59 15:59 Intake Total 0 / 0 0 / 0 Output Total 675 / 675 0 / 0 Balance -675 / -675 0 / 0 Intake: Oral 0 / 0 0 / 0 Output: Urine 0 / 0 Stool 375 / 375 Emesis 300 / 300 Other: Percent of Meal Consumed 0% # Urine Diapers 1 Weight 51.9 kg Blood Glucose* 126 122 Patient Weight 10/05/18 23:59 Weight 51.9 kg - General physical appearance well developed, well nourished, no distress - Eyes PERRL, normal ocular movement - ENT normal mucosa, no hearing loss, no congestion - Neck Neck exam: no masses, trachea midline - Respiratory normal expansion, normal respiratory effort, clear to percussion, clear to auscultation - Cardiovascular Cardiovascular exam: Present: RRR, no murmurs/rubs/gallops. Absent: JVD - Abdomen Abdomen: Present: bowel sounds present, soft, distended (Very mild distention, no tenderness to palpation, small liquid stool noted colostomy bag). Absent: tender - Integumentary no rash, no growths, no abnormal pigmentation - Neurologic normal coordination, normal sensation - Musculoskeletal normal posture - Psychiatric oriented to time, oriented to person, oriented to place, speech is normal, memory intact - Labs 10/05/18 05:51 10/05/18 05:51 Diabetes panel 10/05/18 Range/Units 05:51 Sodium 134 L (136-145) mEq/L Potassium 3.5 (3.5-5.1) mEq/L Chloride 102 (98-107) mEq/L Carbon Dioxide 22 L (23-29) mEq/L BUN 23 (8-23) mg/dL Creatinine 0.74 (0.60-1.20) mg/dL Glucose 114 H (70-105) mg/dL Calcium 8.2 L (8.6-10.3) mg/dL Calcium panel 10/05/18 Range/Units 05:51 Calcium 8.2 L (8.6-10.3) mg/dL Pituitary panel 10/05/18 Range/Units 05:51 Sodium 134 L (136-145) mEq/L Potassium 3.5 (3.5-5.1) mEq/L Chloride 102 (98-107) mEq/L Carbon Dioxide 22 L (23-29) mEq/L BUN 23 (8-23) mg/dL Creatinine 0.74 (0.60-1.20) mg/dL Glucose 114 H (70-105) mg/dL Calcium 8.2 L (8.6-10.3) mg/dL Adrenal panel 10/05/18 Range/Units 05:51 Sodium 134 L (136-145) mEq/L Potassium 3.5 (3.5-5.1) mEq/L Chloride 102 (98-107) mEq/L Carbon Dioxide 22 L (23-29) mEq/L BUN 23 (8-23) mg/dL Creatinine 0.74 (0.60-1.20) mg/dL Glucose 114 H (70-105) mg/dL Calcium 8.2 L (8.6-10.3) mg/dL Consult Discharge Plan - Plan Referrals: Fernando Regan DO [Primary Care Provider] - <Avelino Harman - Last Filed: 10/06/18 02:09> Date of Encounter: 10/06/18 Objective Vital Signs - Last 8 Hours Temp Pulse Resp BP Pulse Ox 10/05/18 20:39 97.9 F 103 14 136/61 97 Intake and Output 10/05/18 10/05/18 10/06/18 15:59 23:59 07:59 Intake Total 0 / 0 Output Total 600 / 1500 900 / 1500 Balance -600 / -1500 -900 / -1500 Intake: Oral 0 / 0 Output: Stool 200 / 400 200 / 400 Emesis 400 / 1100 700 / 1100 Other: Stool Consistency liquid loose Stool Characteristics Normal for Patient Stool Color Brown Brown # Urine Diapers 1 # Bowel Movement Diapers 1 Blood Glucose* 123 108 - Labs 10/05/18 05:51 10/05/18 05:51 Diabetes panel 10/05/18 Range/Units 05:51 Sodium 134 L (136-145) mEq/L Potassium 3.5 (3.5-5.1) mEq/L Chloride 102 (98-107) mEq/L Carbon Dioxide 22 L (23-29) mEq/L BUN 23 (8-23) mg/dL Creatinine 0.74 (0.60-1.20) mg/dL Glucose 114 H (70-105) mg/dL Calcium 8.2 L (8.6-10.3) mg/dL Calcium panel 10/05/18 Range/Units 05:51 Calcium 8.2 L (8.6-10.3) mg/dL Pituitary panel 10/05/18 Range/Units 05:51 Sodium 134 L (136-145) mEq/L Potassium 3.5 (3.5-5.1) mEq/L Chloride 102 (98-107) mEq/L Carbon Dioxide 22 L (23-29) mEq/L BUN 23 (8-23) mg/dL Creatinine 0.74 (0.60-1.20) mg/dL Glucose 114 H (70-105) mg/dL Calcium 8.2 L (8.6-10.3) mg/dL Adrenal panel 10/05/18 Range/Units 05:51 Sodium 134 L (136-145) mEq/L Potassium 3.5 (3.5-5.1) mEq/L Chloride 102 (98-107) mEq/L Carbon Dioxide 22 L (23-29) mEq/L BUN 23 (8-23) mg/dL Creatinine 0.74 (0.60-1.20) mg/dL Glucose 114 H (70-105) mg/dL Calcium 8.2 L (8.6-10.3) mg/dL - Attending Attestation patient seen and examined. i have reviewed all labs, imaging, and notes. i have reviewed the case in detail with the resident. i agree with the above assessment and plan.
--- NOTE | 2018-10-05 11:50 | Palliative Progress Note ---
Date of Encounter: 10/05/18 Time of Encounter: 10:30 - Assessment and plan (1) Goals of care, counseling/discussion Current Visit: Yes Status: Acute Assessment and plan: I called and reached pt's son Bharathi. He lives in [place]. Discussed current medical condition, CT scan findings of disease progression, likely causing current SBO. Discussed prognosis and treatment options. Surgery evaluated the patient and recommended conservative management, as no good surgical options available. Bharathi demonstrated understanding. Discussed that patient was considering hospice care as she is no longer willing to pursue further cancer treatment, Bharathi agreeable. However patient does not have medicaid, so financial considerations need to be made. Patient was evaluated by PT/OT and recommended rehab, patient may be discharged to rehab while applying for Medicaid and later on enroll in hospice. Discussed of above conversation with patient, she was grateful that her son was updated. She stated Bharathi will be flying in this week-end and would be available for meetings Wednesday if patient still admitted. (2) Palliative care encounter Current Visit: Yes Status: Acute (3) SBO (small bowel obstruction) Current Visit: Yes Status: Acute Assessment and plan: Surgery recommends conservative management. no good surgical options. (4) Abdominal pain Current Visit: No Status: Acute Assessment and plan: Patient on ketorolac IVP q6hrs, 1 dose in 24hrs Takes [place] once daily at home for chronic pain, will restart home dose. Qualifiers: Abdominal location: generalized Qualified Code(s): R10.84 - Generalized abdominal pain - Time Spent With Patient Total time spent is greater than 50% in coordination of care (as documented) at patient's floor/unit and/or counseling patient: Greater than 35 minutes - Subjective Interval history: Patient is AAO x3, she states she has no pain as long as she does not move. There is a good amount of soft stool from the colostomy. On Toradol for pain, received no doses today. Patient is on [place] for chronic leg pains. Patient was encouraged to drink her breakfast and tolerated it. She would like to try some soft food, but is worried about nausea and pain. - Constitutional Vitals: Abnormal lab results WBC 15.9 K/mcL (4.3-11.1) H 10/04/18 07:45 RBC 2.78 M/mcL (3.82-4.97) L 10/05/18 05:51 Hgb 7.6 g/dL (11.5-15.4) L 10/05/18 05:51 Hct 24.3 % (35.3-44.9) L 10/05/18 05:51 MCH 27.3 pg (28.0-33.3) L 10/05/18 05:51 MCHC 31.3 g/dL (31.6-35.5) L 10/05/18 05:51 RDW 16.2 % (11.5-14.5) H 10/05/18 05:51 MPV 9.3 fL (9.4-12.4) L 10/01/18 01:53 9.1 K/mcL (1.6-8.9) H 09/29/18 16:12 PT 12.4 Seconds (9.4-12.1) H 09/30/18 06:01 APTT 38.7 Seconds (26.0-36.0) H 09/30/18 06:01 Sodium 134 mEq/L (136-145) L 10/05/18 05:51 Chloride 95 mEq/L (98-107) L 09/30/18 06:01 Carbon Dioxide 22 mEq/L (23-29) L 10/05/18 05:51 BUN 26 mg/dL (8-23) H 10/02/18 04:27 Est GFR (Non-Af Amer) 59 (> 60) L 10/03/18 03:17 31 (6-26) H 10/05/18 05:51 Glucose 114 mg/dL (70-105) H 10/05/18 05:51 POC Glucose 122 mg/dL (70-99) H 10/05/18 07:34 301 (280-300) H 10/02/18 04:27 Calcium 8.2 mg/dL (8.6-10.3) L 10/05/18 05:51 106 Units/L (34-104) H 09/29/18 16:12 2.9 g/dL (3.5-5.7) L 09/30/18 06:01 3.7 g/dL (2.4-3.5) H 09/30/18 06:01 0.8 (1.1-2.2) L 09/30/18 06:01 6.2 mg/dL (17.0-34.0) L 10/05/18 05:51 Cloudy (Clear) A 09/29/18 18:05 30 mg/dL (Neg-Trace) H 09/29/18 18:05 Trace mg/dL (Negative) H 09/29/18 18:05 Trace (Negative) H 09/29/18 18:05 Small (Negative) H 09/29/18 18:05 Ur Leukocyte Esterase Large (Negative) H 09/29/18 18:05 30-50 per hpf (0-3) H 09/29/18 18:05 Ur Squamous Epith Cells Many per lpf (None-Few) H 09/29/18 18:05 Amorphous Sediment Moderate (Few) H 09/29/18 18:05 Ur Culture Indicated? YES (NO) A 09/29/18 18:05 Exam: General: Alert and oriented. Comfortable at this time. Skin: Normal color, No rash Head: Normocephalic. EENT: EOMI, Mucus membranes moist. Cardiovascular: Normal S1 & S2, irregular. Not tachy now. Lungs: Normal breath sounds, no wheezes or crackles. Abdomen: Soft, less distended. Diffuse tenderness without rebound. Extremities: No deformity, No edema Neurological: Normal cognition and motor skills. Pulses: radial pulses normal +2. Palliative Quality Palliative Quality: Screen for Code Status: Yes, Screen for Goals of Care: Yes, Screen for Pain: Yes, Screen for Nausea/Vomitting: Yes Code Status: 09/29/18 19:34 Resuscitation Status: Active [RES] Routine Comment: Resuscitation Status: Full Code 10/04/18 16:59 Resuscitation Status: Active [RES] Routine Comment: Resuscitation Status: [id number] - Labs CBC & Chem 7: 10/05/18 05:51 10/05/18 05:51 Labs: Laboratory Results - last 24 hr 10/04/18 10/04/18 10/04/18 07:55 12:39 16:17 WBC RBC Hgb Hct MCV MCH MCHC RDW Plt Count MPV Sodium Potassium Chloride Carbon Dioxide BUN Creatinine Est GFR ( Amer) Est GFR (Non-Af Amer) BUN/Creatinine Ratio Glucose POC Glucose 149 H 73 107 H Calculated Osmolality Calcium Prealbumin Blood Type Antibody Screen 10/05/18 10/05/18 10/05/18 05:51 05:51 05:51 WBC 10.5 RBC 2.78 L Hgb 7.6 L Hct 24.3 L MCV 87.4 MCH 27.3 L MCHC 31.3 L RDW 16.2 H Plt Count 223 MPV 9.4 Sodium 134 L Potassium 3.5 Chloride 102 Carbon Dioxide 22 L BUN 23 Creatinine 0.74 Est GFR ( Amer) > 60 Est GFR (Non-Af Amer) > 60 BUN/Creatinine Ratio 31 H Glucose 114 H POC Glucose Calculated Osmolality 283 Calcium 8.2 L Prealbumin 6.2 L Blood Type Antibody Screen 10/05/18 10/05/18 07:34 09:47 WBC RBC Hgb Hct MCV MCH MCHC RDW Plt Count MPV Sodium Potassium Chloride Carbon Dioxide BUN Creatinine Est GFR ( Amer) Est GFR (Non-Af Amer) BUN/Creatinine Ratio Glucose POC Glucose 122 H Calculated Osmolality Calcium Prealbumin Blood Type O POSITIVE Antibody Screen NEGATIVE - Impressions Impressions Abdomen/Pelvis CT 10/04/18 08:56 IMPRESSION: 1. High-grade partial small bowel obstruction with the transition in the deep pelvis. 2. Heterogeneous necrotic mass in the central pelvis in the typical location of the uterus. The differential diagnosis includes post radiation treatment changes to the uterus versus is malignancy; correlate with surgical history. 3. New and worsening retrocrural and retroperitoneal adenopathy concerning for eliot metastases. 4. New [id number] right hydronephrosis despite the presence of a right ureteral stent. 5. Small bilateral pleural effusions. D/ / Bon Long MD / Bon Long MD Interpreting Provider: Bon Long MD - ABG Interpretation ABG results: PT/INR, D-dimer PT 12.4 Seconds (9.4-12.1) H 09/30/18 06:01 Palliative Scale - Palliative Performance Scale How ambulatory is this patient?: Mainly sit / lie What is patient's level of activity and evidence of disease?: Unable to do most activity, Extensive disease How much self-care assistance does patient require?: Considerable assistance required How much oral intake does the patient have?: Minimal to sips What is this patient's level of consciousness?: Full Palliative Performance Score: 40 % Consult Discharge Plan - Plan Referrals: Fernando Regan DO [Primary Care Provider] -
--- NOTE | 2018-10-05 14:15 | Internal Med Progress Note ---
Hospitalist Progress Note - Encounter Date of Encounter: 10/05/18 Time of Encounter: 09:30 - Subjective Interval History: Pt states that she feels "rotten" but is able to take a few swigs of water. Her abd pain is stable. No N/V. No CP or SOB. States she would like to enroll in hospice. - Exam Vitals: Temp Pulse Resp BP Pulse Ox 98.2 F 70 16 122/54 95 10/05/18 12:05 10/05/18 12:05 10/05/18 12:05 10/05/18 12:05 10/05/18 12:05 Exam: General: Alert and oriented. Comfortable at this time. Skin: Normal color, No rash H: Normocephalic. EENT: EOMI, Mucus membranes moist. Cardiovascular: Normal S1 & S2, irregular rhythm, regular rate. Lungs: Normal breath sounds, no wheezes or crackles. Abdomen: Soft, mild distention. Diffuse tenderness without rebound. Extremities: No deformity, No edema Neurological: Normal cognition and motor skills. Pulses: radial pulses normal +2. - Assessment and Plan (1) SBO (small bowel obstruction) Current Visit: Yes Status: Acute Assessment and Plan: Pt had recurrent symptoms on 10/03. Repeat CT shows partial SBO. Per GenSurg, no permanent surgical solutions for patient. Tolerates clear liquids. Pain control. (2) Rectal cancer Current Visit: No Status: Chronic Assessment and Plan: Rectal cancer s/p resection now w recurrent SBO. Currently awaiting placement to rehab, where patient will subsequently get qualified for medicaid to allow for hospice services. (3) Anemia Current Visit: No Status: Chronic Assessment and Plan: H/H decreased again, will T&C and recheck Hb in AM (4) HTN (hypertension) Current Visit: No Status: Chronic (5) Diabetes mellitus Current Visit: No Status: Chronic (6) HFrEF (heart failure with reduced ejection fraction) Current Visit: No Status: Chronic (7) Protein-calorie malnutrition, moderate Current Visit: No Status: Suspected (8) Atrial fibrillation Current Visit: Yes Status: Chronic - Summary of Assessment and Plan Summary of Assessment and Plan: PPx: sqh FEN: liquids, no MIVF Lines: PIV Consults: GenSurg, Palliative Code: DNRCC-A / DNI Dispo: patient requires inpatient eval and management at this time. Anticipate 1-2 days. Will need SNF Internal Medicine: Result - Labs CBC & Chem 7: 10/05/18 05:51 10/05/18 05:51 Labs: Short CBC 10/05/18 Range/Units 05:51 WBC 10.5 (4.3-11.1) K/mcL Hgb 7.6 L (11.5-15.4) g/dL Hct 24.3 L (35.3-44.9) % Plt Count 223 (140-400) K/mcL BMP 10/05/18 05:51 Sodium 134 L Potassium 3.5 Chloride 102 Carbon Dioxide 22 L BUN 23 Creatinine 0.74 Glucose 114 H Calcium 8.2 L - ABG Interpretation ABG results: PT/INR, D-dimer PT 12.4 Seconds (9.4-12.1) H 09/30/18 06:01 Consult Discharge Plan - Plan Referrals: Fernando Regan DO [Primary Care Provider] - (3) Anemia Qualifiers: Anemia type: other cause Other causes of anemia: chronic disease, neoplastic Qualified Code(s): D63.0 - Anemia in neoplastic disease (4) HTN (hypertension) Qualifiers: Hypertension type: essential hypertension Qualified Code(s): I10 - Essential (primary) hypertension (5) Diabetes mellitus Qualifiers: Diabetes mellitus type: type 2 Diabetes mellitus manager long term care insulin use: without fci use Diabetes mellitus complication status: without complication Qualified Code(s): E11.9 - Type 2 diabetes mellitus without complications (6) HFrEF (heart failure with reduced ejection fraction) Qualifiers: Heart failure chronicity: chronic Qualified Code(s): I50.22 - Chronic systolic (congestive) heart failure (8) Atrial fibrillation Qualifiers: Atrial fibrillation type: persistent Qualified Code(s): I48.1 - Persistent atrial fibrillation
[2018-10-05] MEDS: *HR* Promethazine 25 MG/ML VIAL IVP PRN (19:55)
[2018-10-05] MEDS: Ketorolac 15 MG/ML VIAL IVP PRN (21:23)
[2018-10-06] MEDS: *HR* Heparin 5,000 UNIT/ML VIAL SQ SCH ×2 (05:34→21:57)
[2018-10-06 06:19] LABS: Hematocrit 27.8 % (35.3-44.9); Hemoglobin 8.5 g/dL (11.5-15.4); Mean Corpuscular HGB Conc 30.6 g/dL (31.6-35.5); Mean Corpuscular Hemoglobin 26.9 pg (28.0-33.3); Mean Platelet Volume 9.4 fL (9.4-12.4); Platelet Count 243 K/mcL (140-400); Red Blood Count 3.16 M/mcL (3.82-4.97); Red Cell Distribution Width 16.7 % (11.5-14.5); White Blood Count 9.7 K/mcL (4.3-11.1)
[2018-10-06 06:34] LABS: BUN/Creatinine Ratio 28 (6-26); Blood Urea Nitrogen 21 mg/dL (8-23); Calcium 8.4 mg/dL (8.6-10.3); Carbon Dioxide 23 mEq/L (23-29); Chloride 102 mEq/L (98-107); Glucose 99 mg/dL (70-105); Magnesium 1.1 mg/dL (1.6-2.6); Osmolality,Calculated 283 (280-300); Potassium 3.4 mEq/L (3.5-5.1); Sodium 135 mEq/L (136-145); eGFR For African Americans > 60 (> 60); eGFR For Non-African Americans > 60 (> 60)
[2018-10-06] MEDS: Diltiazem CD (24hr) 300 MG CAPSULE PO SCH (08:00)
[2018-10-06] MEDS: Aspirin Enteric Coated 81 MG Tablet PO SCH (08:00)
[2018-10-06] MEDS: Insulin LISPRO 300 UNITS/3 ML VIAL SQ SCH ×2 (08:00→21:03)
[2018-10-06] MEDS: Ketorolac 15 MG/ML VIAL IVP PRN (08:14)
[2018-10-06] MEDS: Ondansetron 4 MG/2 ML VIAL IVP PRN ×2 (08:14→16:40)
[2018-10-06] MEDS ORDERED: Potassium Chloride Elixir 20 MEQ/15 ML UDC PO ONE (09:18)
--- NOTE | 2018-10-06 09:21 | Discharge Summary ---
- NOTES TO OUTPATIENT PROVIDER Notes to Outpatient Provider: To SNF awaiting Medicaid then will pursue hospice Date of Encounter: 10/06/18 Time of Encounter: 09:19 - Discharge Diagnosis (1) Rectal cancer Status: Chronic Hospital course: Dear Doctors, I recently had the opportunity to care for this patient during their recent hospital stay at [facility]. (name and PMH). The patient presented at the time of admission with (brief presentation) hospital course Dx: Pertinent tests/consults: Follow up: Tests pending: Med changes: Mental status: awake, fully oriented Code status: Time spent on discharge: 35 minutes It has been my pleasure participating in this patient's care. Please contact me with any questions or concerns regarding their hospital stay. Sincerely, - Discharge Medications Prescriptions: Continued Docusate [Colace] 100 mg PO DAILY #30 capsule Diltiazem CD (24hr) [Cardizem CD] 300 mg PO DAILY cap.er.24h Metoprolol [Lopressor] 25 mg PO BID tablet Ondansetron ODT [Zofran ODT] 4 mg SL Q8HR PRN #1 tab.rapdis PRN Reason: Nausea And Vomiting Acetaminophen [Tylenol] 650 mg PO Q6HR PRN PRN Reason: Pain Oxybutynin Chloride [Ditropan Xl] 5 mg PO Q8H PRN PRN Reason: BLADDER SPASMS HYDROcodone/Acet 5/325 mg [[place] 5-325 mg] 1 tab PO BID 3 Days #6 tablet Discontinued Cyanocobalamin (Vitamin B-12) [Vitamin B-12] 1,000 mcg PO DAILY Aspirin Enteric Coated [Aspirin EC] 81 mg PO DAILY #30 tablet Ferrous Sulfate 325 mg PO DAILY #30 tablet Multivitamin [One Daily Essential] 1 tab PO DAILY Omeprazole [PriLOSEC] 40 mg PO DAILY Home Medications: Docusate [Colace] 100 mg PO DAILY #30 capsule 09/25/18 [Rx] Diltiazem CD (24hr) [Cardizem CD] 300 mg PO DAILY cap.er.24h 09/27/18 [Rx] Metoprolol [Lopressor] 25 mg PO BID tablet 09/27/18 [Rx] Ondansetron ODT [Zofran ODT] 4 mg SL Q8HR PRN #1 tab.rapdis 09/27/18 [Rx] Acetaminophen [Tylenol] 650 mg PO Q6HR PRN 09/30/18 [History] Oxybutynin Chloride [Ditropan Xl] 5 mg PO Q8H PRN 09/30/18 [History] HYDROcodone/Acet 5/325 mg [[place] 5-325 mg] 1 tab PO BID 3 Days #6 tablet 10/06/18 [Rx] Allergies/Adverse Reactions: Allergy/AdvReac Type Severity Reaction Status Date / Time Penicillins [PCN] Allergy Intermediate Hives Verified 09/30/18 09:04 Amoxicillin Allergy Hives Verified 09/30/18 09:04 Date of admission: 09/30/18 18:59 Primary care physician: Lars Regan DO Consults: 09/29/18 19:36 Consult to Surgery [CONS] Routine Consulting Provider: [facility] Reason for Consult: SBO Call Completed: No 09/30/18 10:18 Consult to Physical Therapy [CONS] Routine Comment: Evaluate, develop and implement POC Reason for Consult: weakness, from short term rehab and needs new eval to return Does patient have active BEDREST order?: No Is patient medically & hemodynamically stable?: Yes Patient assessed for mobility or mobilized this visit?: No 09/30/18 10:19 Consult to Occupational Therapy [CONS] Routine Comment: Evaluate, develop and implement POC Reason for Consult: weakness, from short term rehab and needs new eval to return Does patient have active BEDREST order?: No Is patient medically & hemodynamically stable?: Yes Patient assessed for mobility or mobilized this visit?: No 10/04/18 14:43 Consult to Palliative Care [CONS] Routine Comment: Consulting Provider: [facility] [place] Reason for Consult: Rectal cancer. SBO symptomatic. Goals of care, etc. Thanks. Call Completed: Yes - Constitutional Vitals: Temp Pulse Resp BP Pulse Ox 98.3 F 95 19 153/71 98 10/06/18 07:45 10/06/18 07:45 10/06/18 07:45 10/06/18 07:45 10/06/18 07:45 - Patient Status Disposition: Transfer SNF Condition: Serious Functional capacity at discharge: uses cane/walker Overall status at discharge: patient is not back to baseline - Discharge Instructions Follow Up With: Fernando Regan DO [Primary Care Provider] - - Diet and Activity Activity: increase activity as tolerated, resume usual activities as tolerated Diet: advance to your usual diet (currently only tolerating liquid diet)
--- NOTE | 2018-10-06 09:23 | Physician Discharge Referral ---
ExtendedCare Referral Info Transfer To: SNF Provider in Charge after Transfer: PCP Institutional Level of Care: Skilled - Diagnosis (1) Rectal cancer Priority: Primary Status: Chronic - Transfer Medications Prescriptions: HYDROcodone/Acet 5/325 mg [[place] 5-325 mg] 1 tab PO BID 3 Days #6 tablet Home Medications: Docusate [Colace] 100 mg PO DAILY #30 capsule 09/25/18 [Rx] Diltiazem CD (24hr) [Cardizem CD] 300 mg PO DAILY cap.er.24h 09/27/18 [Rx] Metoprolol [Lopressor] 25 mg PO BID tablet 09/27/18 [Rx] Ondansetron ODT [Zofran ODT] 4 mg SL Q8HR PRN #1 tab.rapdis 09/27/18 [Rx] Acetaminophen [Tylenol] 650 mg PO Q6HR PRN 09/30/18 [History] Oxybutynin Chloride [Ditropan Xl] 5 mg PO Q8H PRN 09/30/18 [History] HYDROcodone/Acet 5/325 mg [[place] 5-325 mg] 1 tab PO BID 3 Days #6 tablet 10/06/18 [Rx] Allergies/Adverse Reactions: Allergy/AdvReac Type Severity Reaction Status Date / Time Penicillins [PCN] Allergy Intermediate Hives Verified 09/30/18 09:04 Amoxicillin Allergy Hives Verified 09/30/18 09:04 - Respiratory Orders Smoking Cessation: Smoking cessation has been advised. For more information, call the [employer] Tobacco Quit Line at 6-488-KGSR-NOW. - Advance Directives Code Status: DNR-Arrest/Don't Intubate - Rehabiliation Orders Rehab Potential: Fair Rehab Orders: Evaluation for Physical Therapy, Evaluation for Occupational Therapy - Diet Orders Regular (diabetic, liquid) House Supplement per Dietary: yes CERTIFICATION: I certify that the transfer of the above named patient to an Extended Care Facility is necessary for the continuing treatment of the diagnosis listed. The above information is true and accurate reflection of patient's current condition. Confidential - Redisclosure prohibited without a patient's written consent.
--- NOTE | 2018-10-06 12:53 | Event Note ---
Date of Encounter: 10/06/18 Time of Encounter: 07:50 The patient was seen and evaluated on morning rounds with the acute care surgery team. The patient states that she has had continuous vomiting overnight. The patient is quite miserable and this condition is unsustainable. I reviewed her CAT scan and radiologic testing and I believe that a palliative bypass may alleviate her vomiting. I discussed this with the patient and with the patient's son at length. I believe that she would benefit from palliative bypass of the pelvic level obstruction. And we will proceed later today in the operating room.
--- NOTE | 2018-10-06 15:44 | Internal Med Progress Note ---
Hospitalist Progress Note - Encounter Date of Encounter: 10/06/18 Time of Encounter: 15:42 - Subjective Interval History: Pt denies abd pain, but does endorse inability to PO due to significant recurrent nausea and vomiting. Pt had multiple episodes overnight. She has poor PO intake. Discussed case with GenSurg, who feels patient will likely soon if does not attempt palliative surgery for her current SBO. Pt hesitant but after explanation, pt's son/POA agreeable and pt therefore also agreeable. - Exam Vitals: Temp Pulse Resp BP Pulse Ox 98.1 F 96 16 153/72 100 10/06/18 12:04 10/06/18 12:04 10/06/18 12:04 10/06/18 12:04 10/06/18 12:04 Exam: General: NAD, good eye contact, chronically ill appearing and elderly, uncomfortable today Thoracic: Normal breath sounds b/l, no wheezing or crackles Cardio: Normal S1 and S2, irregularly irregular rhythm, regular rate Abdomen: firm but not tense, tender, distended, high pitched hyperactive bowel sounds Extremities: Warm, well perfused. DP pulses 2+ b/l. No edema. Skin: Intact. No rashes, bruises, or ulcers Neuro: awake, fully oriented. Speech fluent - Summary of Assessment and Plan Summary of Assessment and Plan: Patricia Flanagan is an 83 F w hx stage IV rectal cancer s/p ostomy '15 c/b recurrent SBOs, HFrEF 45%, A-Fib, HTN, HLD, DM2, bpAVR '13, who p/w abd pain and vomiting, found on CT to have dilated loops of small bowel with compressed colon and ostomy, suggestive of complete SBO likely at site of rectal mass and lymphadenopathy. SBO: worsening/persistent, pt unable to PO and miserable - Christie following, appreciate case review as well as discussion w pt/family about palliative surgery, will plan to proceed later today to OR - NPO - Pain and nausea control - PT/OT after surgery Rectal cancer: now w recurrent SBO, pt to undergo palliative surgery above to relieve obstruction but would like to be hospice afterward. Current plan is to d/c to skilled care initially where patient will subsequently get qualified for medicaid to allow for hospice services. Anemia of chronic disease: keep Hb >7, monitor Hypokalemia: replace and monitor Hypomagnesemia: replace and monitor Severe protein calorie malnutrition: poor PO intake, wt loss, cancer HFrEF 45%: euvolemic, monitor volume status post-op A-Fib: rate controlled on lopressor 25 bid and cardizem 300, AC on ASA HTN: BB and CCB as above HLD: statin DM2: w hyperglycemia, SSI s/p bpAVR: noted PPx: sqh FEN: liquids, no MIVF Lines: PIV Consults: GenSurg, Palliative Code: DNRCC-A / DNI Dispo: patient requires inpatient eval and management at this time. Anticipate 3-4 days. Will need SNF Internal Medicine: Result - Labs CBC & Chem 7: 10/06/18 05:11 10/06/18 05:11 Labs: Short CBC 10/06/18 Range/Units 05:11 WBC 9.7 (4.3-11.1) K/mcL Hgb 8.5 L (11.5-15.4) g/dL Hct 27.8 L (35.3-44.9) % Plt Count 243 (140-400) K/mcL BMP 10/06/18 05:11 Sodium 135 L Potassium 3.4 L Chloride 102 Carbon Dioxide 23 BUN 21 Creatinine 0.74 Glucose 99 Calcium 8.4 L - ABG Interpretation ABG results: PT/INR, D-dimer PT 12.4 Seconds (9.4-12.1) H 09/30/18 06:01 Consult Discharge Plan - Plan Referrals: Fernando Regan DO [Primary Care Provider] - Prescriptions: HYDROcodone/Acet 5/325 mg [[place] 5-325 mg] 1 tab PO BID 3 Days #6 tablet
[2018-10-06] MEDS ORDERED: *HR* Propofol 200 MG/20 ML VIAL IVP ONE (16:52)
[2018-10-06] MEDS ORDERED: *HR* FentaNYL (PF) 100 MCG/2 ML VIAL ONE (16:52)
[2018-10-06] MEDS ORDERED: Lidocaine -MPF 2% 2 ML VIAL ONE (16:53)
[2018-10-06] MEDS ORDERED: Dexamethasone 4 MG/ML VIAL ONE (16:53)
[2018-10-06] MEDS ORDERED: Ondansetron 4 MG/2 ML VIAL ONE (16:53)
[2018-10-06] MEDS ORDERED: *HR* Rocuronium Bromide 50 MG/5 ML VIAL ONE (16:53)
[2018-10-06] MEDS ORDERED: *HR* Succinylcholine 200 MG/10 ML VIAL IVP ONE (16:53)
[2018-10-06] MEDS ORDERED: CefOXitin 1,000 MG VIAL ONE (16:57)
[2018-10-06] MEDS ORDERED: *HR* Etomidate 40 MG/20 ML VIAL IVP ONE (17:00)
[2018-10-06] MEDS ORDERED: Water for inj. (sterile) 10 ML ONE (17:01)
[2018-10-06] MEDS ORDERED: EPHEDrine 50 MG/ML VIAL ONE (17:01)
[2018-10-06] MEDS ORDERED: *HR* Phenylephrine 10 MG/ML VIAL ONE (17:02)
--- NOTE | 2018-10-06 17:03 | Anesthesia Evaluation PreOp ---
Date of Encounter: 10/06/18 Time of Encounter: 17:01 - Past History Planned Operation: Bowel resection Cardiac History: CHF (EF 45-50%), HTN, Hyperlipidemia, Arrhythmia (jses b/aflutter), Cardiac Surgery (Aortic stenosis s/p AVR) Pulmonary History: Denies Any Significant HX SUIT MAKER History: Denies Any Significant HX Other Medical History: Other (colon ca s/p low anterior resection) Anesthesia History: No Prior Anesthetic Complications, Past Anesthesia (low anterior resection, s/p AVR) Alcohol Use: none Drug use: none Medications and Allergies Docusate [Colace] 100 mg PO DAILY #30 capsule 09/25/18 [Rx] Diltiazem CD (24hr) [Cardizem CD] 300 mg PO DAILY cap.er.24h 09/27/18 [Rx] Metoprolol [Lopressor] 25 mg PO BID tablet 09/27/18 [Rx] Ondansetron ODT [Zofran ODT] 4 mg SL Q8HR PRN #1 tab.rapdis 09/27/18 [Rx] Acetaminophen [Tylenol] 650 mg PO Q6HR PRN 09/30/18 [History] Oxybutynin Chloride [Ditropan Xl] 5 mg PO Q8H PRN 09/30/18 [History] HYDROcodone/Acet 5/325 mg [[place] 5-325 mg] 1 tab PO BID 3 Days #6 tablet 10/06/18 [Rx] Allergy/AdvReac Type Severity Reaction Status Date / Time Penicillins [PCN] Allergy Intermediate Hives Verified 09/30/18 09:04 Amoxicillin Allergy Hives Verified 09/30/18 09:04 - Meds/Allergy Pre-op Review Medications Reviewed: Yes Allergies Reviewed: Yes Beta Blockers on Current Med List: No Anesthesia Results - Labs 10/06/18 05:11 10/06/18 05:11 - Imaging EKG: report reviewed ( Interpretive Statements Probable atrial flutter with mostly 2:1 AV block ANTEROSEPTAL MYOCARDIAL INFARCTION, PROBABLY OLD Electronically Signed On 10-03-2018 21:51:41 EDT by Danielle Foster) Additional studies: Impressions: LVEF 45-50%. Mild global left ventricular systolic dysfunction. Mild left ventricular diastolic dysfunction. Normal right ventricular structure and function. Mildly dilated left atrium. 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 Mild mitral regurgitation. Mild tricuspid regurgitation. No pulmonary hypertension. Anesthesia Exam Vital Signs/O2 Sat, Most Current Temp Pulse Resp BP Pulse Ox 98.1 F 96 16 153/72 100 10/06/18 12:04 10/06/18 12:04 10/06/18 12:04 10/06/18 12:04 10/06/18 12:04 Weight: 51kg NPO (# of Hours): MN - HEENT Pupil (Motor): Pupils equal, EOMI Teeth: Edentulous Oral Opening: Less than or equal to 3 - SUIT MAKER LOC: Oriented SUIT MAKER Motor: Normal RUE, Normal LUE, Normal RLE, Normal LLE, Normal Face SUIT MAKER Sensory: Normal: RUE, LUE, RLE, LLE, Face - Cardiac Rhythm: Irregular - Pulmonary Breath Sounds: bilateral Clear Respiratory Effort: Symmetrical Anesthesia Assess/Plan ASA Score: 3 Level of consciousness: Cooperative Anesthetic Plan: General Monitoring Plan: Standard Monitors Recovery Plan: PACU
[2018-10-06] MEDS ORDERED: cefOXitin 2,000 MG in Water for inj. (sterile) 20 ML IVP ONE (17:18)
[2018-10-06] MEDS ORDERED: Ondansetron 4 MG/2 ML VIAL IVP ONE (17:21)
[2018-10-06] MEDS ORDERED: *HR* FentaNYL (PF) 100 MCG/2 ML VIAL IVP PRN (17:21)
[2018-10-06] MEDS ORDERED: Ringers Solution, Lactated 1,000 ML IVC SCH (17:30)
[2018-10-06] MEDS ORDERED: CefOXitin 2,000 MG VIAL ONE (17:34)
[2018-10-06] MEDS ORDERED: Neostigmine Methylsulfate 3 MG/3 ML SYRINGE ONE (18:36)
--- NOTE | 2018-10-06 18:49 | Operative Note ---
Date of procedure: 10/06/18 Pre-op diagnosis: Bowel obstruction from recurrent rectal cancer Post-op diagnosis: same Procedure: (entero-colonic anastamosis) Palliative bypass Anesthesia: CATHI Surgeon: Maurizio Youssef Was there an senior underwriting assistant present: No Estimated blood loss (cc): 10 Specimen: None Condition: stable Disposition: PACU Procedure in Detail: After informed consent the patients taking major operating suite placed supine position given adequate general endotracheal anesthesia. The abdomen was prepped and draped in sterile fashion utilizing Betadine solution and standard draping techniques. Timeout was taken and the patient was identified. I made a midline incision and entered the abdomen. It was immediately apparent that there were multiple dilated small bowel loops. The nasogastric tube was placed and immediately removed 900 mL of gastric contents. I explored the abdomen. There was a flaccid double barrel colostomy in the left midabdomen. The transverse colon was full of gas but no stool. Right colon was full of gas but no stool. There is no obstruction between the right colon and transverse colon and the colostomy. I ran the small bowel. There were 2 points of obstruction one was at the junction between the jejunum and ileum moments in the mid ileum area both obstructions were in the pelvis both at the points of recurrent rectal tumor in the apex of the pelvis. I did not address these loops of bowel. I planned a small bowel to colon [id number] anastomosis to provide palliative bypass to alleviate nausea and vomiting. I selected an area on the distal jejunum just proximal to the first point of obstruction. I selected an area on the proximal transverse colon. These 2 were brought into [id number] orientation. I performed a handsewn 2 layer anastomosis between the small bowel and the colon. 2-0 silk was used on the seromuscular layer and 3-0 chromic was used on the mucosal layer. This gave an excellent technical result. There was immediate decompression of the small bowel. I irrigated with copious amounts of antibiotic containing solution. Midline was closed with looped 0 PDS. The skin was closed skin clips. She tolerated the procedure well.
[2018-10-06] MEDS: OXYCODONE Oral CONC 10 MG/0.5 ML ORAL.SYG SL PRN (19:58)
[2018-10-06] MEDS ORDERED: Acetaminophen IV 1,000 MG/100 ML INFUS..BTL IVPB ONE (21:25)
--- NOTE | 2018-10-06 21:38 | Anesthesia Evaluation Post Op ---
Date of Encounter: 10/06/18 Time of Encounter: 21:00 - Vital Signs Vital Signs: Vital Signs/O2 Sat/Glucose, Most Current Temp Pulse Resp BP Pulse Ox 10/06/18 20:45 97.6 F 79 16 148/75 98 10/06/18 20:15 97.6 F 79 16 141/56 98 10/06/18 19:45 97.7 F 79 15 135/52 97 10/06/18 19:30 97.9 F 80 18 140/41 97 10/06/18 19:20 75 16 139/45 98 10/06/18 19:10 81 16 147/48 99 10/06/18 19:00 97.8 F 84 16 137/53 98 - Lungs Lungs: Clear Ascult./Percussion - Airway Airway: Non-obstructed - Cardiovascular Regular Rate - Mental Status Mental Status: Alert & Oriented, Answers Appropriately - Pain Pain Scale: 1 - Nausea Vomiting Nausea Vomiting: Not Present - Hydration Hydration: Ice chips - Discharge PostOp Status: Transfer Patient to floor
[2018-10-07] MEDS: OXYCODONE Oral CONC 10 MG/0.5 ML ORAL.SYG SL PRN ×5 (00:08→23:26)
[2018-10-07] MEDS: cefOXitin 2,000 MG in Water for inj. (sterile) 20 ML IVP SCH ×2 (00:09→08:35)
[2018-10-07] MEDS: *HR* Metoprolol 5 MG/5 ML VIAL IVP SCH ×4 (00:10→16:59)
[2018-10-07 05:27] LABS: Hematocrit 29.9 % (35.3-44.9); Hemoglobin 8.8 g/dL (11.5-15.4); Mean Corpuscular HGB Conc 29.4 g/dL (31.6-35.5); Mean Corpuscular Hemoglobin 26.7 pg (28.0-33.3); Mean Corpuscular Volume 90.6 fL (83.0-100.0); Mean Platelet Volume 10.1 fL (9.4-12.4); Platelet Count 244 K/mcL (140-400); Red Cell Distribution Width 17.4 % (11.5-14.5)
[2018-10-07 05:30] LABS: White Blood Count 16.2 K/mcL (4.3-11.1)
[2018-10-07] MEDS: *HR* Heparin 5,000 UNIT/ML VIAL SQ SCH ×3 (05:34→21:42)
[2018-10-07 05:46] LABS: BUN/Creatinine Ratio 24 (6-26); Blood Urea Nitrogen 23 mg/dL (8-23); Calcium 8.4 mg/dL (8.6-10.3); Carbon Dioxide 17 mEq/L (23-29); Chloride 102 mEq/L (98-107); Glucose 206 mg/dL (70-105); Magnesium 1.9 mg/dL (1.6-2.6); Osmolality,Calculated 292 (280-300); Potassium 3.7 mEq/L (3.5-5.1); Sodium 136 mEq/L (136-145); eGFR For African Americans > 60 (> 60); eGFR For Non-African Americans 56 (> 60)
[2018-10-07] MEDS ORDERED: *HR* Dextrose 50 % in Water (Syg) 50 ML SYRINGE IVP PRN (07:47)
[2018-10-07] MEDS ORDERED: D5% in Water 1,000 ML IVC PRN (07:47)
[2018-10-07] MEDS ORDERED: Dextrose Gel 15 GM/37.5 ML TUBE PO PRN ×2 (07:47)
--- NOTE | 2018-10-07 07:49 | Internal Med Progress Note ---
Hospitalist Progress Note - Encounter Date of Encounter: 10/07/18 Time of Encounter: 07:44 - Subjective Interval History: Pt states she feels much better today. Still having continuous pain but it is very manageable with pain meds and she is no longer vomiting. Overall in very good spirits today. - Exam Vitals: Temp Pulse Resp BP Pulse Ox 97.9 F 92 16 123/49 99 10/07/18 02:57 10/07/18 02:57 10/07/18 02:57 10/07/18 05:33 10/07/18 02:57 Exam: General: NAD, good eye contact, chronically ill appearing and elderly, much ore comfortable appearing today Thoracic: Normal breath sounds b/l, no wheezing or crackles Cardio: Normal S1 and S2, irregularly irregular rhythm, regular rate Abdomen: soft, nondistended, only mildly tender, has midline vertical incision c/d/i Extremities: Warm, well perfused. DP pulses 2+ b/l. No edema. Skin: Intact. No rashes, bruises, or ulcers Neuro: awake, fully oriented. 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 SBO: resolved s/p enterocolonic anastomosis on 10/06 by Christie Youssef - Christie following, appreciate co-management - NPO currently, Diet per Christie - start MIVF NS@100 - Pain and nausea control - PT/OT Anion gap metabolic acidosis: pressures good, check lactate and vbg Rectal cancer: Current plan is to d/c to skilled care initially where patient will subsequently get qualified for medicaid to allow for hospice services. Anemia of chronic disease: keep Hb >7, monitor Severe protein calorie malnutrition: poor PO intake, wt loss, cancer HFrEF 45%: appears dry today, monitor volume status daily while on MIVF A-Fib: rate controlled on lopressor 25 bid and cardizem 300, AC on ASA HTN: BB and CCB as above HLD: statin DM2: w hyperglycemia, SSI s/p bpAVR: noted PPx: sqh FEN: NPO, start MIVF NS@100 Lines: PIV, ostomy, mao Consults: GenSurg, Palliative Code: DNRCC-A / DNI Dispo: patient requires inpatient eval and management at this time. Anticipate 2-3 days. Will need SNF Internal Medicine: Result - Labs CBC & Chem 7: 10/07/18 04:49 10/07/18 04:49 Labs: Short CBC 10/07/18 Range/Units 04:49 WBC 16.2 H D (4.3-11.1) K/mcL Hgb 8.8 L (11.5-15.4) g/dL Hct 29.9 L (35.3-44.9) % Plt Count 244 (140-400) K/mcL BMP 10/07/18 04:49 Sodium 136 Potassium 3.7 Chloride 102 Carbon Dioxide 17 L BUN 23 Creatinine 0.95 Glucose 206 H Calcium 8.4 L - ABG Interpretation ABG results: PT/INR, D-dimer PT 12.4 Seconds (9.4-12.1) H 09/30/18 06:01 Consult Discharge Plan - Plan Referrals: Fernando Regan DO [Primary Care Provider] - Prescriptions: HYDROcodone/Acet 5/325 mg [[place] 5-325 mg] 1 tab PO BID 3 Days #6 tablet
[2018-10-07] MEDS: Insulin LISPRO 300 UNITS/3 ML VIAL SQ SCH ×4 (08:37→22:38)
[2018-10-07 08:47] LABS: VBG HCO3 16 mEq/L (21-27); VBG PCO2 23 mmHg (41-51); VBG PH 7.46 pH Units (7.32-7.42); VBG PO2 209 mmHg (25-50)
[2018-10-07] MEDS: 0.9 % Sodium Chloride 1,000 ML IVC SCH ×3 (09:46→20:11)
--- NOTE | 2018-10-07 11:24 | AcuteCareSurgery Progress Note ---
<Barbie Peterson - Last Filed: 10/07/18 11:21> Date of Encounter: 10/07/18 Time of Encounter: 11:21 - Assessment and Plan (1) SBO (small bowel obstruction) Current Visit: Yes Status: Acute Patient presented with nausea, vomiting, abdominal pain - CT abdomen and pelvis 09/29/18-status post partial colonic resection, left paramedian upper pelvis there is a distal small bowel obstruction with no evidence of perforation or abscess, small peristomal hernia containing anterior wall of dilated jejunal loop and mesenteric fat, progressive retroperitoneal abdominal and pelvic lymphadenopathy, right ureteral stent, cholelithiasis, heterogeneous appearance of endometrial canal, progressive rectal bed/presacral amorphous soft tissue density - CT abdomen and pelvis 10/04/18- continued small bowel obstruction, high-grade partial small bowel obstruction with transition in the deep pelvis, heterogeneous necrotic mass in the central pelvis, new and worsening retrocrural and retroperitoneal adenopathy, mild to moderate right hydronephrosis despite presence of right ureteral stent Status post day 1 palliative bypass Incision clean, dry, intact NG tube in place. NG tube to be removed once patient resumes bowel function and has output into ostomy Remain nothing by mouth Antibiotic coverage-status post 2 doses Mefoxin Pain control-oxycodone DVT prophylaxis-subcutaneous heparin Continue to monitor electrolytes (2) Rectal cancer Current Visit: No Status: Chronic Patient has a history of rectal cancer She is status post chemotherapy, radiation, and partial colonic resection and ostomy which is placed in 2014 up in [place] (3) DVT prophylaxis Current Visit: Yes Status: Acute Subcutaneous heparin Subjective Narrative: Patient seen and examined at bedside today. She is status post palliative bypass day 1. She states she continues to have moderate abdominal pain however she denies vomiting. Her distension has decreased. Patient remains on NG tube, she is to remain nothing by mouth, currently awaiting bowel activity and ostomy output prior to removing NG tube. She denies nausea, vomiting, fever, chills, chest pain, shortness of breath, dysuria, hematuria, calf pain. Objective Vital Signs - Last 8 Hours Temp Pulse Resp BP Pulse Ox 10/07/18 07:42 97.9 F 99 16 150/64 97 10/07/18 05:33 123/49 Intake and Output 10/06/18 10/07/18 10/07/18 23:59 07:59 15:59 Intake Total 100 / 560 Output Total 1130 / 1130 0 / 0 Balance -1030 / -570 Intake: IV Fluids 100 / 100 / Mefoxin 2,000 MG In Water for inj. (sterile) 20 ML @ 300 mls/ hr IVP Q8HR [facility] Rx#:[id number] Ofirmev 1,000 mg/100 ml 1,000 100 / 100 mg In 100 ml @ 400 mls/hr IVPB ONCE ONE Rx#:[id number] Oral 0 / 0 Output: Stool 0 / 0 Estimated Blood Loss 30 / 30 Urine Amount (Catheter) 300 / 300 Catheter 0 / 0 Gastric Drainage 800 / 800 0 / 0 Other: Meal NPO # Urine Diapers 1 Blood Glucose* 195 204 - General physical appearance well developed, no distress - Eyes PERRL, normal ocular movement - ENT normal nares (NG tube in place), normal mucosa - Neck Neck exam: no masses, trachea midline - Respiratory normal expansion, normal respiratory effort, clear to percussion, clear to auscultation - Cardiovascular Cardiovascular exam: Present: RRR, no murmurs/rubs/gallops. Absent: JVD - Abdomen Abdomen: Present: bowel sounds present, soft, tender (Appropriately tender to palpation around incision) - Incision Incision: Present: clean and dry, intact. Absent: erythema - Integumentary no rash, no growths, no abnormal pigmentation - Neurologic normal coordination, normal sensation - Musculoskeletal normal posture - Psychiatric oriented to time, oriented to person, oriented to place, speech is normal, memory intact - Labs 10/07/18 04:49 10/07/18 04:49 Diabetes panel 10/07/18 Range/Units 04:49 Sodium 136 (136-145) mEq/L Potassium 3.7 (3.5-5.1) mEq/L Chloride 102 (98-107) mEq/L Carbon Dioxide 17 L (23-29) mEq/L BUN 23 (8-23) mg/dL Creatinine 0.95 (0.60-1.20) mg/dL Glucose 206 H (70-105) mg/dL Calcium 8.4 L (8.6-10.3) mg/dL Calcium panel 10/07/18 Range/Units 04:49 Calcium 8.4 L (8.6-10.3) mg/dL Pituitary panel 10/07/18 Range/Units 04:49 Sodium 136 (136-145) mEq/L Potassium 3.7 (3.5-5.1) mEq/L Chloride 102 (98-107) mEq/L Carbon Dioxide 17 L (23-29) mEq/L BUN 23 (8-23) mg/dL Creatinine 0.95 (0.60-1.20) mg/dL Glucose 206 H (70-105) mg/dL Calcium 8.4 L (8.6-10.3) mg/dL Adrenal panel 10/07/18 Range/Units 04:49 Sodium 136 (136-145) mEq/L Potassium 3.7 (3.5-5.1) mEq/L Chloride 102 (98-107) mEq/L Carbon Dioxide 17 L (23-29) mEq/L BUN 23 (8-23) mg/dL Creatinine 0.95 (0.60-1.20) mg/dL Glucose 206 H (70-105) mg/dL Calcium 8.4 L (8.6-10.3) mg/dL Consult Discharge Plan - Plan Referrals: Fernando Regan DO [Primary Care Provider] - Prescriptions: HYDROcodone/Acet 5/325 mg [[place] 5-325 mg] 1 tab PO BID 3 Days #6 tablet <Sander Doan - Last Filed: 10/07/18 16:05> Date of Encounter: 10/07/18 Objective Vital Signs - Last 8 Hours Temp Pulse Resp BP Pulse Ox 10/07/18 11:51 98.0 F 101 16 101/62 96 Intake and Output 10/07/18 10/07/18 10/07/18 07:59 15:59 23:59 Intake Total 20 / 20 Output Total 0 / 0 Balance / 20 Intake: IV Fluids 20 / 20 Mefoxin 2,000 MG In Water for 20 / 20 inj. (sterile) 20 ML @ 300 mls/ hr IVP Q8HR [facility] Rx#:[id number] Oral 0 / 0 Output: Stool 0 / 0 Catheter 0 / 0 Gastric Drainage 0 / 0 Other: Meal NPO Percent of Meal Consumed 0% Blood Glucose* 204 150 - Labs 10/07/18 04:49 10/07/18 04:49 Diabetes panel 10/07/18 Range/Units 04:49 Sodium 136 (136-145) mEq/L Potassium 3.7 (3.5-5.1) mEq/L Chloride 102 (98-107) mEq/L Carbon Dioxide 17 L (23-29) mEq/L BUN 23 (8-23) mg/dL Creatinine 0.95 (0.60-1.20) mg/dL Glucose 206 H (70-105) mg/dL Calcium 8.4 L (8.6-10.3) mg/dL Calcium panel 10/07/18 Range/Units 04:49 Calcium 8.4 L (8.6-10.3) mg/dL Pituitary panel 10/07/18 Range/Units 04:49 Sodium 136 (136-145) mEq/L Potassium 3.7 (3.5-5.1) mEq/L Chloride 102 (98-107) mEq/L Carbon Dioxide 17 L (23-29) mEq/L BUN 23 (8-23) mg/dL Creatinine 0.95 (0.60-1.20) mg/dL Glucose 206 H (70-105) mg/dL Calcium 8.4 L (8.6-10.3) mg/dL Adrenal panel 10/07/18 Range/Units 04:49 Sodium 136 (136-145) mEq/L Potassium 3.7 (3.5-5.1) mEq/L Chloride 102 (98-107) mEq/L Carbon Dioxide 17 L (23-29) mEq/L BUN 23 (8-23) mg/dL Creatinine 0.95 (0.60-1.20) mg/dL Glucose 206 H (70-105) mg/dL Calcium 8.4 L (8.6-10.3) mg/dL - Attending Attestation I examined this patient and my medical decision-making was reviewed with the Resident Physician. I agree with the documented findings, disposition and treatment plan as described except to the extent set forth below. I reviewed the above assessment and evaluation and agree with the above plan. Essentially we are awaiting return of bowel function. Continue current management.
--- NOTE | 2018-10-07 12:03 | Palliative Progress Note ---
Date of Encounter: 10/07/18 Time of Encounter: 11:00 - Assessment and plan (1) SBO (small bowel obstruction) Current Visit: Yes Status: Acute Assessment and plan: Patient had Palliative Surgical intervention and Colostomy completed yesterday. Tolerated procedure well. (2) Goals of care, counseling/discussion Current Visit: Yes Status: Acute Assessment and plan: Discharge plan established to discharge to rehab at [place] when medically cleared by primary team. Patient reports pain is at a stable level with current regimen. Reports she wants hospice care, but understands rehab will be necessary to pay for SNF until Medicaid in place. (3) Palliative care encounter Current Visit: Yes Status: Acute (4) Weakness Current Visit: No Status: Acute Assessment and plan: PT/OT recommend SNF. Concern presented at patient has not completed PT/OT since Wednesday/Wednesday. Will need to participate at rehab, patient verbalized understanding. (5) Abdominal pain Current Visit: No Status: Acute Assessment and plan: Patient reports pain 4/10 at this time. Reports current regimen is keeping pain controlled. Continue Oxycodone PRN. Qualifiers: Abdominal location: generalized Qualified Code(s): R10.84 - Generalized abdominal pain (6) Nausea Current Visit: Yes Status: Acute Assessment and plan: Patient reports increased nausea. Added Low dose Zofran PRN for control of nausea, please use sparingly. - Time Spent With Patient Total time spent is greater than 50% in coordination of care (as documented) at patient's floor/unit and/or counseling patient: - Subjective Interval history: Patient resting in bed on arrival. Alert and oriented times 3. In good spirits, reports her son is coming to town on Wednesday with her two grandchildren, one of which she has yet to meet. C/o abdominal pain, described as dull and rated 4/10 on pain scale. Reports chronic anxiety, uncontrolled. Reports continued nausea, denies vomiting. Denies dyspnea. Patient has taken 3 doses of Oxycodone in the last 24 hours. Denies taking anything for anxiety at home. - Constitutional Vitals: Abnormal lab results WBC 16.2 K/mcL (4.3-11.1) H D 10/07/18 04:49 RBC 3.30 M/mcL (3.82-4.97) L 10/07/18 04:49 Hgb 8.8 g/dL (11.5-15.4) L 10/07/18 04:49 Hct 29.9 % (35.3-44.9) L 10/07/18 04:49 MCH 26.7 pg (28.0-33.3) L 10/07/18 04:49 MCHC 29.4 g/dL (31.6-35.5) L 10/07/18 04:49 RDW 17.4 % (11.5-14.5) H 10/07/18 04:49 MPV 9.3 fL (9.4-12.4) L 10/01/18 01:53 9.1 K/mcL (1.6-8.9) H 09/29/18 16:12 PT 12.4 Seconds (9.4-12.1) H 09/30/18 06:01 APTT 38.7 Seconds (26.0-36.0) H 09/30/18 06:01 VBG pH 7.46 pH Units (7.32-7.42) H 10/07/18 08:44 VBG pCO2 23 mmHg (41-51) L 10/07/18 08:44 VBG pO2 209 mmHg (25-50) H 10/07/18 08:44 VBG HCO3 16 mEq/L (21-27) L 10/07/18 08:44 Sodium 135 mEq/L (136-145) L 10/06/18 05:11 Potassium 3.4 mEq/L (3.5-5.1) L 10/06/18 05:11 Chloride 95 mEq/L (98-107) L 09/30/18 06:01 Carbon Dioxide 17 mEq/L (23-29) L 10/07/18 04:49 BUN 26 mg/dL (8-23) H 10/02/18 04:27 Est GFR (Non-Af Amer) 56 (> 60) L 10/07/18 04:49 28 (6-26) H 10/06/18 05:11 Glucose 206 mg/dL (70-105) H 10/07/18 04:49 POC Glucose 138 mg/dL (70-99) H 10/06/18 12:03 301 (280-300) H 10/02/18 04:27 Calcium 8.4 mg/dL (8.6-10.3) L 10/07/18 04:49 Magnesium 1.1 mg/dL (1.6-2.6) L 10/06/18 05:11 106 Units/L (34-104) H 09/29/18 16:12 2.9 g/dL (3.5-5.7) L 09/30/18 06:01 3.7 g/dL (2.4-3.5) H 09/30/18 06:01 0.8 (1.1-2.2) L 09/30/18 06:01 6.2 mg/dL (17.0-34.0) L 10/05/18 05:51 Cloudy (Clear) A 09/29/18 18:05 30 mg/dL (Neg-Trace) H 09/29/18 18:05 Trace mg/dL (Negative) H 09/29/18 18:05 Trace (Negative) H 09/29/18 18:05 Small (Negative) H 09/29/18 18:05 Ur Leukocyte Esterase Large (Negative) H 09/29/18 18:05 30-50 per hpf (0-3) H 09/29/18 18:05 Ur Squamous Epith Cells Many per lpf (None-Few) H 09/29/18 18:05 Amorphous Sediment Moderate (Few) H 09/29/18 18:05 Ur Culture Indicated? YES (NO) A 09/29/18 18:05 Crossmatch See Detail 10/05/18 09:47 General appearance: Present: cooperative, no acute distress - Head Head exam: Present: atraumatic, normal inspection - Eye Eye exam: Present: normal appearance Pupils: Present: normal accommodation - ENT ENT exam: Present: mucous membranes dry, normal external ear exam - Neck Neck exam: Present: full ROM, normal inspection - Respiratory Respiratory exam: Present: CTAB. Absent: accessory muscle use - Cardiovascular Cardiovascular exam: Present: +S1, +S2 - GI/Abdominal GI/Abdominal exam: Present: diminished bowel sounds, soft, tenderness. Absent: guarding - Rectal Rectal exam: Present: deferred - Extremities Exam Extremities exam: Present: normal inspection. Absent: pedal edema - Neurological Exam Neurological exam: Present: alert, oriented X3, strengths equal and symetr throughout. Absent: altered - Psychiatric Psychiatric exam: Present: anxious - Skin Skin exam: Present: dry, intact, warm Palliative Quality Palliative Quality: Screen for Code Status: Yes, Screen for Goals of Care: Yes, Screen for Pain: Yes, If Pain Regimen Started, Initiate Bowel Regimen: NA, Screen for Nausea/Vomitting: Yes Code Status: 09/29/18 19:34 Resuscitation Status: Active [RES] Routine Comment: Resuscitation Status: Full Code 10/04/18 16:59 Resuscitation Status: Active [RES] Routine Comment: Resuscitation Status: [id number] - Labs CBC & Chem 7: 10/07/18 04:49 10/07/18 04:49 Labs: Laboratory Results - last 24 hr 10/05/18 10/06/18 10/07/18 09:47 12:03 04:49 WBC 16.2 H D RBC 3.30 L Hgb 8.8 L Hct 29.9 L MCV 90.6 MCH 26.7 L MCHC 29.4 L RDW 17.4 H Plt Count 244 MPV 10.1 VBG pH VBG pCO2 VBG pO2 VBG HCO3 Sodium Potassium Chloride Carbon Dioxide BUN Creatinine Est GFR ( Amer) Est GFR (Non-Af Amer) BUN/Creatinine Ratio Glucose POC Glucose 138 H Calculated Osmolality Lactic Acid Calcium Magnesium Blood Type O POSITIVE Antibody Screen NEGATIVE Crossmatch See Detail 10/07/18 10/07/18 10/07/18 04:49 08:31 08:44 WBC RBC Hgb Hct MCV MCH MCHC RDW Plt Count MPV VBG pH 7.46 H VBG pCO2 23 L VBG pO2 209 H VBG HCO3 16 L Sodium 136 Potassium 3.7 Chloride 102 Carbon Dioxide 17 L BUN 23 Creatinine 0.95 Est GFR ( Amer) > 60 Est GFR (Non-Af Amer) 56 L BUN/Creatinine Ratio 24 Glucose 206 H POC Glucose Calculated Osmolality 292 Lactic Acid 0.9 Calcium 8.4 L Magnesium 1.9 Blood Type Antibody Screen Crossmatch - ABG Interpretation ABG results: PT/INR, D-dimer PT 12.4 Seconds (9.4-12.1) H 09/30/18 06:01 Palliative Scale - Palliative Performance Scale How ambulatory is this patient?: Mainly sit / lie What is patient's level of activity and evidence of disease?: Unable to do most activity, Extensive disease How much self-care assistance does patient require?: Considerable assistance required How much oral intake does the patient have?: Minimal to sips What is this patient's level of consciousness?: Full Palliative Performance Score: 40 % Consult Discharge Plan - Plan Referrals: Fernando Regan DO [Primary Care Provider] - Prescriptions: HYDROcodone/Acet 5/325 mg [[place] 5-325 mg] 1 tab PO BID 3 Days #6 tablet
[2018-10-07] MEDS: Ondansetron 4 MG/2 ML VIAL IVP PRN ×2 (12:19→23:26)
[2018-10-08] MEDS: *HR* Metoprolol 5 MG/5 ML VIAL IVP SCH ×4 (01:10→19:23)
[2018-10-08 03:19] LABS: Hemoglobin 7.4 g/dL (11.5-15.4); Mean Corpuscular HGB Conc 30.8 g/dL (31.6-35.5); Mean Corpuscular Hemoglobin 27.2 pg (28.0-33.3); Mean Corpuscular Volume 88.2 fL (83.0-100.0); Mean Platelet Volume 9.3 fL (9.4-12.4); Platelet Count 274 K/mcL (140-400); Red Blood Count 2.72 M/mcL (3.82-4.97); Red Cell Distribution Width 17.6 % (11.5-14.5); White Blood Count 14.9 K/mcL (4.3-11.1)
[2018-10-08 03:37] LABS: Magnesium 1.8 mg/dL (1.6-2.6); Phosphorous 3.6 mg/dL (2.7-4.5)
[2018-10-08 03:39] LABS: BUN/Creatinine Ratio 35 (6-26); Blood Urea Nitrogen 29 mg/dL (8-23); Calcium 8.2 mg/dL (8.6-10.3); Carbon Dioxide 21 mEq/L (23-29); Chloride 106 mEq/L (98-107); Glucose 126 mg/dL (70-105); Osmolality,Calculated 295 (280-300); Potassium 3.6 mEq/L (3.5-5.1); Sodium 139 mEq/L (136-145); eGFR For African Americans > 60 (> 60); eGFR For Non-African Americans > 60 (> 60)
[2018-10-08] MEDS: *HR* Heparin 5,000 UNIT/ML VIAL SQ SCH ×3 (05:16→22:38)
[2018-10-08] MEDS: Insulin LISPRO 300 UNITS/3 ML VIAL SQ SCH ×4 (07:55→23:50)
[2018-10-08] MEDS: Ondansetron 4 MG/2 ML VIAL IVP PRN (08:00)
[2018-10-08] MEDS: OXYCODONE Oral CONC 10 MG/0.5 ML ORAL.SYG SL PRN ×3 (08:01→19:32)
[2018-10-08] MEDS ORDERED: *HR* Metoprolol 5 MG/5 ML VIAL IVP ONE (08:50)
--- NOTE | 2018-10-08 11:46 | Palliative Progress Note ---
Date of Encounter: 10/08/18 Time of Encounter: 11:15 - Assessment and plan (1) SBO (small bowel obstruction) Current Visit: Yes Status: Acute Assessment and plan: Patient had Palliative Surgical intervention and Colostomy completed. Tolerated procedure well. Now have brown liquid output. (2) Goals of care, counseling/discussion Current Visit: Yes Status: Acute Assessment and plan: Discharge plan established to discharge to rehab at [facility] when medically cleared by primary team. Patient reports pain is at a stable level with current regimen. Reports she wants hospice care, but understands rehab will be necessary to pay f or SNF until Medicaid in place. Patient has not been participating with therapy, reports she will when she gets to rehab. Encouraged patient to perform therapy while here, then continue it at rehab. Patient agreeable. (3) Palliative care encounter Current Visit: Yes Status: Acute (4) Weakness Current Visit: No Status: Acute Assessment and plan: PT/OT recommend SNF. (5) Abdominal pain Current Visit: No Status: Acute Assessment and plan: Patient reports pain 10/10 at this time. Continue Oxycodone PRN and add Oxycodone 15 mg PRN for severe pain. Qualifiers: Abdominal location: generalized Qualified Code(s): R10.84 - Generalized abdominal pain (6) Nausea Current Visit: Yes Status: Acute Assessment and plan: Patient denies nausea. Continue sparing use of Zofran. - Time Spent With Patient Total time spent is greater than 50% in coordination of care (as documented) at patient's floor/unit and/or counseling patient: - Subjective Interval history: Patient sitting up in bed upon arrival for assessment. Patient's Primary RN present at bedside. Patient is alert and oriented times 3. No family present at bedside; reports son and grand daughter will be present tomorrow. Patient denies anxiety, nausea, and vomiting at this time. Patient reports current pain regimen is making pain bearable, but currently pain is described as a sharp "20/10." - Constitutional Vitals: Abnormal lab results WBC 14.9 K/mcL (4.3-11.1) H 10/08/18 02:37 RBC 2.72 M/mcL (3.82-4.97) L 10/08/18 02:37 Hgb 7.4 g/dL (11.5-15.4) L 10/08/18 02:37 Hct 24.0 % (35.3-44.9) L 10/08/18 02:37 MCH 27.2 pg (28.0-33.3) L 10/08/18 02:37 MCHC 30.8 g/dL (31.6-35.5) L 10/08/18 02:37 RDW 17.6 % (11.5-14.5) H 10/08/18 02:37 MPV 9.3 fL (9.4-12.4) L 10/08/18 02:37 9.1 K/mcL (1.6-8.9) H 09/29/18 16:12 PT 12.4 Seconds (9.4-12.1) H 09/30/18 06:01 APTT 38.7 Seconds (26.0-36.0) H 09/30/18 06:01 VBG pH 7.46 pH Units (7.32-7.42) H 10/07/18 08:44 VBG pCO2 23 mmHg (41-51) L 10/07/18 08:44 VBG pO2 209 mmHg (25-50) H 10/07/18 08:44 VBG HCO3 16 mEq/L (21-27) L 10/07/18 08:44 Sodium 135 mEq/L (136-145) L 10/06/18 05:11 Potassium 3.4 mEq/L (3.5-5.1) L 10/06/18 05:11 Chloride 95 mEq/L (98-107) L 09/30/18 06:01 Carbon Dioxide 21 mEq/L (23-29) L 10/08/18 02:37 BUN 29 mg/dL (8-23) H 10/08/18 02:37 Est GFR (Non-Af Amer) 56 (> 60) L 10/07/18 04:49 35 (6-26) H 10/08/18 02:37 Glucose 126 mg/dL (70-105) H 10/08/18 02:37 POC Glucose 108 mg/dL (70-99) H 10/08/18 07:55 301 (280-300) H 10/02/18 04:27 Calcium 8.2 mg/dL (8.6-10.3) L 10/08/18 02:37 Magnesium 1.1 mg/dL (1.6-2.6) L 10/06/18 05:11 106 Units/L (34-104) H 09/29/18 16:12 2.9 g/dL (3.5-5.7) L 09/30/18 06:01 3.7 g/dL (2.4-3.5) H 09/30/18 06:01 0.8 (1.1-2.2) L 09/30/18 06:01 6.2 mg/dL (17.0-34.0) L 10/05/18 05:51 Cloudy (Clear) A 09/29/18 18:05 30 mg/dL (Neg-Trace) H 09/29/18 18:05 Trace mg/dL (Negative) H 09/29/18 18:05 Trace (Negative) H 09/29/18 18:05 Small (Negative) H 09/29/18 18:05 Ur Leukocyte Esterase Large (Negative) H 09/29/18 18:05 30-50 per hpf (0-3) H 09/29/18 18:05 Ur Squamous Epith Cells Many per lpf (None-Few) H 09/29/18 18:05 Amorphous Sediment Moderate (Few) H 09/29/18 18:05 Ur Culture Indicated? YES (NO) A 09/29/18 18:05 Crossmatch See Detail 10/05/18 09:47 General appearance: Present: cooperative, no acute distress - Head Head exam: Present: atraumatic, normal inspection - Eye Eye exam: Present: normal appearance. Absent: periorbital swelling, periorbital tenderness Pupils: Present: normal accommodation - ENT ENT exam: Present: mucous membranes dry, normal external ear exam - Neck Neck exam: Present: full ROM, normal inspection - Respiratory Respiratory exam: Present: CTAB. Absent: accessory muscle use, decreased breath sounds - Cardiovascular Cardiovascular exam: Present: +S1, +S2 - GI/Abdominal GI/Abdominal exam: Present: distended, hypoactive bowel sounds, soft, tenderness - Rectal Rectal exam: Present: deferred - Expanded Exam Female exam: Present: deferred - Extremities Exam Extremities exam: Present: normal inspection. Absent: calf tenderness, pedal edema - Back Exam Back exam: Present: normal inspection - Neurological Exam Neurological exam: Present: alert, oriented X3, strengths equal and symetr throughout. Absent: altered - Psychiatric Psychiatric exam: Present: normal affect, normal mood - Skin Skin exam: Present: dry, intact, normal color, warm Palliative Quality Palliative Quality: Screen for Code Status: Yes, Screen for Goals of Care: Yes, Screen for Pain: Yes, If Pain Regimen Started, Initiate Bowel Regimen: NA, Screen for Nausea/Vomitting: Yes Code Status: 09/29/18 19:34 Resuscitation Status: Active [RES] Routine Comment: Resuscitation Status: Full Code 10/04/18 16:59 Resuscitation Status: Active [RES] Routine Comment: Resuscitation Status: [id number] - Labs CBC & Chem 7: 10/08/18 02:37 10/08/18 02:37 Labs: Laboratory Results - last 24 hr 10/06/18 10/07/18 10/07/18 20:47 07:45 11:54 WBC RBC Hgb Hct MCV MCH MCHC RDW Plt Count MPV Sodium Potassium Chloride Carbon Dioxide BUN Creatinine Est GFR ( Amer) Est GFR (Non-Af Amer) BUN/Creatinine Ratio Glucose POC Glucose 195 H 204 H 150 H Calculated Osmolality Calcium Phosphorus Magnesium 10/07/18 10/08/18 10/08/18 19:56 02:37 02:37 WBC 14.9 H RBC 2.72 L Hgb 7.4 L Hct 24.0 L MCV 88.2 MCH 27.2 L MCHC 30.8 L RDW 17.6 H Plt Count 274 MPV 9.3 L Sodium 139 Potassium 3.6 Chloride 106 Carbon Dioxide 21 L BUN 29 H Creatinine 0.83 Est GFR ( Amer) > 60 Est GFR (Non-Af Amer) > 60 BUN/Creatinine Ratio 35 H Glucose 126 H POC Glucose 148 H Calculated Osmolality 295 Calcium 8.2 L Phosphorus Magnesium 10/08/18 10/08/18 02:37 07:55 WBC RBC Hgb Hct MCV MCH MCHC RDW Plt Count MPV Sodium Potassium Chloride Carbon Dioxide BUN Creatinine Est GFR ( Amer) Est GFR (Non-Af Amer) BUN/Creatinine Ratio Glucose POC Glucose 108 H Calculated Osmolality Calcium Phosphorus 3.6 Magnesium 1.8 - ABG Interpretation ABG results: PT/INR, D-dimer PT 12.4 Seconds (9.4-12.1) H 09/30/18 06:01 Palliative Scale - Palliative Performance Scale How ambulatory is this patient?: Mainly sit / lie What is patient's level of activity and evidence of disease?: Unable to do most activity, Extensive disease How much self-care assistance does patient require?: Considerable assistance required How much oral intake does the patient have?: Minimal to sips What is this patient's level of consciousness?: Full Palliative Performance Score: 40 % Consult Discharge Plan - Plan Referrals: Fernando Regan DO [Primary Care Provider] - Prescriptions: HYDROcodone/Acet 5/325 mg [[place] 5-325 mg] 1 tab PO BID 3 Days #6 tablet
--- NOTE | 2018-10-08 14:26 | Internal Med Progress Note ---
Hospitalist Progress Note - Encounter Date of Encounter: 10/08/18 Time of Encounter: 11:50 - Subjective Interval History: Patient is a 53-year-old female with metastatic rectal cancer admitted for complete small bowel obstruction due to rectal mass. Status post enterocolonic anastomosis on 10/06 Seen and evaluated at the bedside. Patient requesting for ice chips. Her colostomy bag now has brownish liquid. Bowel sounds remain hypoactive. She still has an NG tube in situ. Surgery is following She reports her pain is controlled and denies any new complaints. - Exam Vitals: Temp Pulse Resp BP Pulse Ox 97.9 F 90 16 131/71 98 10/08/18 12:03 10/08/18 12:03 10/08/18 12:03 10/08/18 12:03 10/08/18 12:03 Exam: General: Elderly, not in any form of distress, sitting up in chair, speaks full sentences HEENT: Moist oral mucosa, not cyanotic, not pale, NG tube in situ Chest: Diminished air entry bilaterally. No added sounds Cardio: Normal S1 and S2, regular rate and rhythm Abdomen: Soft, non-tender, no palpably enlarged organs. Colostomy noted on LUQ. Bag filled with brownish liquid. Wound dressing clean and dry Extremities: Warm, well perfused. DP pulses 2+ bilaterally. No pedal edema Neuro: Awake and alert, oriented 3, moves all extremities equally Skin: No rash/ulcers Psych: Mood and affect appropriate - Assessment and Plan (1) SBO (small bowel obstruction) Current Visit: Yes Status: Acute Assessment and Plan: resolved s/p enterocolonic anastomosis on 10/06 by Christie Youssef - Christie following, appreciate co-management - NPO currently, Diet per Christie - continue IVF hydration - monitor resp status - Pain and nausea control - PT/OT recommends SNF placement - Patient is not surgically ready for discharge (2) DVT prophylaxis Current Visit: Yes Status: Acute Assessment and Plan: Subcutaneous heparin (3) Aortic stenosis Current Visit: Yes Status: Chronic Assessment and Plan: s/p BAVR Chronic and stable Continue to monitor (4) Atrial fibrillation Current Visit: Yes Status: Chronic Assessment and Plan: rate controlled on lopressor 25 bid and cardizem 300, AC on ASA (5) Anemia Current Visit: Yes Status: Chronic Assessment and Plan: Hb stable Continue to monitor Transfuse for Hb <7 (6) Chronic hyponatremia Current Visit: Yes Status: Chronic Assessment and Plan: Na on the upward trend, continue to monitor (7) Diabetes mellitus Current Visit: Yes Status: Chronic Assessment and Plan: BS controlled at this time. Continue to monitor Q6h SSI prn (8) HFrEF (heart failure with reduced ejection fraction) Current Visit: Yes Status: Chronic Assessment and Plan: Not in acute exacerbation at this time. Monitor closely as patient is on IVF hydration (9) HTN (hypertension) Current Visit: Yes Status: Chronic Assessment and Plan: Controlled on home meds at this time (10) Rectal cancer Current Visit: Yes Status: Chronic Assessment and Plan: as in SBO She is status post chemotherapy, radiation, and partial colonic resection and ostomy which is placed in 2014 up in [place] (11) Protein-calorie malnutrition, moderate Current Visit: Yes Status: Chronic Assessment and Plan: Chronic issue When able to take po, resume diet and po supplements (12) Palliative care encounter Current Visit: Yes Status: Acute Assessment and Plan: Patient is a DNR CCA/DNI Plan is to discharge to SNF where she can transition to hospice DVT Prophylaxis: SQ heparin - Time Spent with Patient Total time spent is greater than 50% in coordination of care (as documented) at patient's floor/unit and/or counseling patient: Plan of Care Discussed with: patient Internal Medicine: Result - Labs CBC & Chem 7: 10/08/18 02:37 10/08/18 02:37 Labs: Short CBC 10/08/18 Range/Units 02:37 WBC 14.9 H (4.3-11.1) K/mcL Hgb 7.4 L (11.5-15.4) g/dL Hct 24.0 L (35.3-44.9) % Plt Count 274 (140-400) K/mcL BMP 10/08/18 02:37 Sodium 139 Potassium 3.6 Chloride 106 Carbon Dioxide 21 L BUN 29 H Creatinine 0.83 Glucose 126 H Calcium 8.2 L - ABG Interpretation ABG results: PT/INR, D-dimer PT 12.4 Seconds (9.4-12.1) H 09/30/18 06:01 Consult Discharge Plan - Plan Referrals: Fernando Regan DO [Primary Care Provider] - Prescriptions: HYDROcodone/Acet 5/325 mg [[place] 5-325 mg] 1 tab PO BID 3 Days #6 tablet (3) Aortic stenosis Qualifiers: Cardiac valve disease etiology: etiology unspecified Qualified Code(s): I35.0 - Nonrheumatic aortic (valve) stenosis (4) Atrial fibrillation Qualifiers: Atrial fibrillation type: persistent Qualified Code(s): I48.1 - Persistent atrial fibrillation (5) Anemia Qualifiers: Anemia type: other cause Other causes of anemia: chronic disease, neoplastic Qualified Code(s): D63.0 - Anemia in neoplastic disease (7) Diabetes mellitus Qualifiers: Diabetes mellitus type: type 2 Diabetes mellitus prison insulin use: without terminal computer operator use Diabetes mellitus complication status: without complication Qualified Code(s): E11.9 - Type 2 diabetes mellitus without complications (8) HFrEF (heart failure with reduced ejection fraction) Qualifiers: Heart failure chronicity: chronic Qualified Code(s): I50.22 - Chronic systolic (congestive) heart failure (9) HTN (hypertension) Qualifiers: Hypertension type: essential hypertension Qualified Code(s): I10 - Essential (primary) hypertension
--- NOTE | 2018-10-08 17:26 | AcuteCareSurgery Progress Note ---
<Barbie Peterson - Last Filed: 10/08/18 17:52> Date of Encounter: 10/08/18 Time of Encounter: 11:30 - Assessment and Plan (1) SBO (small bowel obstruction) Current Visit: Yes Status: Acute Patient presented with nausea, vomiting, abdominal pain - CT abdomen and pelvis 09/29/18-status post partial colonic resection, left paramedian upper pelvis there is a distal small bowel obstruction with no evidence of perforation or abscess, small peristomal hernia containing anterior wall of dilated jejunal loop and mesenteric fat, progressive retroperitoneal abdominal and pelvic lymphadenopathy, right ureteral stent, cholelithiasis, heterogeneous appearance of endometrial canal, progressive rectal bed/presacral amorphous soft tissue density - CT abdomen and pelvis 10/04/18- continued small bowel obstruction, high-grade partial small bowel obstruction with transition in the deep pelvis, heterogeneous necrotic mass in the central pelvis, new and worsening retrocrural and retroperitoneal adenopathy, mild to moderate right hydronephrosis despite presence of right ureteral stent Status post day 2 palliative bypass Incision clean, dry, intact NG tube in place, clamped Patient has begun to have output into colostomy Remain nothing by mouth except for ice chips Pain control-oxycodone DVT prophylaxis-subcutaneous heparin Continue to monitor electrolytes (2) Rectal cancer Current Visit: Yes Status: Chronic Patient has a history of rectal cancer She is status post chemotherapy, radiation, and partial colonic resection and ostomy which is placed in 2014 up in [place] (3) DVT prophylaxis Current Visit: Yes Status: Acute Subcutaneous heparin Subjective Narrative: Patient seen and examined at bedside today. She experienced no problems overnight. She continues to admit to some abdominal pain and states that it is unchanged from yesterday. She denies nausea, vomiting, fever, chills, chest pain, shortness breath,, dysuria, calf pain. Objective Vital Signs - Last 8 Hours Temp Pulse Resp BP Pulse Ox 10/08/18 16:23 97.8 F 91 18 145/68 97 10/08/18 12:03 97.9 F 90 16 131/71 98 Intake and Output 10/08/18 10/08/18 10/08/18 07:59 15:59 23:59 Intake Total 0 / 60 60 / 60 Output Total 225 / 550 325 / 550 Balance -225 / -490 -265 / -490 Intake: Oral 0 / 60 60 / 60 Output: Stool 50 / 50 Gastric Tube Lavage Amount 75 / 75 Left Nare 75 / 75 Catheter 225 / 425 200 / 425 Other: Meal npo Percent of Meal Consumed 0% Stool Consistency liquid Stool Characteristics Normal for Patient Stool Color Brown Weight 51.4 kg Blood Glucose* 127 128 Patient Weight 10/08/18 23:59 Weight 51.4 kg - General physical appearance well developed, no distress - Eyes PERRL, normal ocular movement - ENT normal mucosa, no congestion - Neck Neck exam: trachea midline, no venous distension - Respiratory normal expansion, normal respiratory effort, clear to percussion, clear to auscultation - Cardiovascular Cardiovascular exam: Present: RRR, no murmurs/rubs/gallops. Absent: JVD - Abdomen Abdomen: Present: bowel sounds present (Colostomy in place, liquid output noted in bag.), soft, tender Abdominal Tenderness: diffusely - Incision Incision: Present: clean and dry, intact. Absent: erythema - Integumentary no rash, no growths, no abnormal pigmentation - Musculoskeletal normal posture - Psychiatric oriented to time, oriented to person, oriented to place, speech is normal, memory intact - Labs 10/08/18 02:37 10/08/18 02:37 Diabetes panel 10/08/18 Range/Units 02:37 Sodium 139 (136-145) mEq/L Potassium 3.6 (3.5-5.1) mEq/L Chloride 106 (98-107) mEq/L Carbon Dioxide 21 L (23-29) mEq/L BUN 29 H (8-23) mg/dL Creatinine 0.83 (0.60-1.20) mg/dL Glucose 126 H (70-105) mg/dL Calcium 8.2 L (8.6-10.3) mg/dL Calcium panel 10/08/18 10/08/18 Range/Units 02:37 02:37 Calcium 8.2 L (8.6-10.3) mg/dL Phosphorus 3.6 (2.7-4.5) mg/dL Pituitary panel 10/08/18 Range/Units 02:37 Sodium 139 (136-145) mEq/L Potassium 3.6 (3.5-5.1) mEq/L Chloride 106 (98-107) mEq/L Carbon Dioxide 21 L (23-29) mEq/L BUN 29 H (8-23) mg/dL Creatinine 0.83 (0.60-1.20) mg/dL Glucose 126 H (70-105) mg/dL Calcium 8.2 L (8.6-10.3) mg/dL Adrenal panel 10/08/18 Range/Units 02:37 Sodium 139 (136-145) mEq/L Potassium 3.6 (3.5-5.1) mEq/L Chloride 106 (98-107) mEq/L Carbon Dioxide 21 L (23-29) mEq/L BUN 29 H (8-23) mg/dL Creatinine 0.83 (0.60-1.20) mg/dL Glucose 126 H (70-105) mg/dL Calcium 8.2 L (8.6-10.3) mg/dL Consult Discharge Plan - Plan Referrals: Fernando Regan DO [Primary Care Provider] - <Sander Doan - Last Filed: 10/09/18 06:57> Date of Encounter: 10/08/18 Objective Vital Signs - Last 8 Hours Temp Pulse Resp BP Pulse Ox 10/09/18 03:52 97.8 F 93 15 146/56 96 10/08/18 23:40 98.2 F 91 14 144/67 97 Intake and Output 10/08/18 10/08/18 10/09/18 15:59 23:59 07:59 Intake Total 60 / 1060 0 / 1060 1000 / 1000 Output Total 325 / 550 0 / 550 200 / 200 Balance -265 / 510 0 / 510 800 / 800 Intake: IV Fluids 1000 / 1000 0.9 % Sodium Chloride 1,000 ML 1000 / 1000 @ 100 mls/hr IVC .Q10H [facility] Rx#: [id number] Oral 60 / 60 0 / 60 Output: Urine 0 / 0 Stool 50 / 50 Gastric Tube Lavage Amount 75 / 75 Left Nare 75 / 75 Catheter 200 / 425 200 / 200 Urethral (Antony) 200 / 200 Other: Meal npo Percent of Meal Consumed 0% Stool Consistency liquid Stool Characteristics Normal for Patient Stool Color Brown Weight 51.1 kg Blood Glucose* 127 96 76 Patient Weight 10/09/18 23:59 Weight 51.1 kg - Labs 10/09/18 05:07 10/09/18 05:07 Diabetes panel 10/09/18 Range/Units 05:07 Sodium 143 (136-145) mEq/L Potassium 4.0 (3.5-5.1) mEq/L Chloride 111 H (98-107) mEq/L Carbon Dioxide 21 L (23-29) mEq/L BUN 26 H (8-23) mg/dL Creatinine 0.75 (0.60-1.20) mg/dL Glucose 80 (70-105) mg/dL Calcium 8.1 L (8.6-10.3) mg/dL Calcium panel 10/09/18 Range/Units 05:07 Calcium 8.1 L (8.6-10.3) mg/dL Pituitary panel 10/09/18 Range/Units 05:07 Sodium 143 (136-145) mEq/L Potassium 4.0 (3.5-5.1) mEq/L Chloride 111 H (98-107) mEq/L Carbon Dioxide 21 L (23-29) mEq/L BUN 26 H (8-23) mg/dL Creatinine 0.75 (0.60-1.20) mg/dL Glucose 80 (70-105) mg/dL Calcium 8.1 L (8.6-10.3) mg/dL Adrenal panel 10/09/18 Range/Units 05:07 Sodium 143 (136-145) mEq/L Potassium 4.0 (3.5-5.1) mEq/L Chloride 111 H (98-107) mEq/L Carbon Dioxide 21 L (23-29) mEq/L BUN 26 H (8-23) mg/dL Creatinine 0.75 (0.60-1.20) mg/dL Glucose 80 (70-105) mg/dL Calcium 8.1 L (8.6-10.3) mg/dL - Attending Attestation I examined this patient and my medical decision-making was reviewed with the Resident Physician. I agree with the documented findings, disposition and treatment plan as described except to the extent set forth below. Review the above assessment and evaluation with the resident and agree with the above plan. Our plan is to clamp the NG tube today and see if she tolerates ice. Will recheck residuals in the morning. If she tolerates them will consider either removing the NG tube or performing a small bowel follow-through study.
[2018-10-08] MEDS: 0.9 % Sodium Chloride 1,000 ML IVC SCH (19:23)
[2018-10-09] MEDS: *HR* Metoprolol 5 MG/5 ML VIAL IVP SCH ×3 (00:13→12:44)
[2018-10-09 05:56] LABS: Hematocrit 24.6 % (35.3-44.9); Hemoglobin 7.2 g/dL (11.5-15.4); Mean Corpuscular HGB Conc 29.3 g/dL (31.6-35.5); Mean Corpuscular Hemoglobin 26.5 pg (28.0-33.3); Mean Corpuscular Volume 90.4 fL (83.0-100.0); Mean Platelet Volume 9.6 fL (9.4-12.4); Platelet Count 282 K/mcL (140-400); Red Blood Count 2.72 M/mcL (3.82-4.97); Red Cell Distribution Width 17.9 % (11.5-14.5); White Blood Count 13.4 K/mcL (4.3-11.1)
[2018-10-09 06:14] LABS: BUN/Creatinine Ratio 35 (6-26); Blood Urea Nitrogen 26 mg/dL (8-23); Calcium 8.1 mg/dL (8.6-10.3); Carbon Dioxide 21 mEq/L (23-29); Chloride 111 mEq/L (98-107); Glucose 80 mg/dL (70-105); Osmolality,Calculated 300 (280-300); Sodium 143 mEq/L (136-145); eGFR For African Americans > 60 (> 60); eGFR For Non-African Americans > 60 (> 60)
[2018-10-09] MEDS: Insulin LISPRO 300 UNITS/3 ML VIAL SQ SCH ×3 (06:28→18:07)
[2018-10-09] MEDS: 0.9 % Sodium Chloride 1,000 ML IVC SCH ×3 (06:35→19:18)
[2018-10-09] MEDS: *HR* Heparin 5,000 UNIT/ML VIAL SQ SCH ×3 (06:35→22:16)
[2018-10-09] MEDS: Ondansetron 4 MG/2 ML VIAL IVP PRN ×2 (10:33→22:15)
[2018-10-09] MEDS: OXYCODONE Oral CONC 10 MG/0.5 ML ORAL.SYG SL PRN (10:34)
--- NOTE | 2018-10-09 11:52 | AcuteCareSurgery Progress Note ---
<Barbie Peterson - Last Filed: 10/09/18 14:57> Date of Encounter: 10/09/18 Time of Encounter: 11:52 - Assessment and Plan (1) SBO (small bowel obstruction) Current Visit: Yes Status: Acute Patient presented with nausea, vomiting, abdominal pain - CT abdomen and pelvis 09/29/18-status post partial colonic resection, left paramedian upper pelvis there is a distal small bowel obstruction with no evidence of perforation or abscess, small peristomal hernia containing anterior wall of dilated jejunal loop and mesenteric fat, progressive retroperitoneal abdominal and pelvic lymphadenopathy, right ureteral stent, cholelithiasis, heterogeneous appearance of endometrial canal, progressive rectal bed/presacral amorphous soft tissue density - CT abdomen and pelvis 10/04/18- continued small bowel obstruction, high-grade partial small bowel obstruction with transition in the deep pelvis, heterogeneous necrotic mass in the central pelvis, new and worsening retrocrural and retroperitoneal adenopathy, mild to moderate right hydronephrosis despite presence of right ureteral stent Status post day 3 palliative bypass Leukocytosis continues to improve Incision clean, dry, intact NG tube removed Continues to have output in colostomy bag Advance to clear liquid diet Pain control-oxycodone Continue to monitor I's and O's, colostomy output Continue to trend labs, monitor electrolytes and replete if necessary (2) Rectal cancer Current Visit: Yes Status: Chronic Patient has a history of rectal cancer She is status post chemotherapy, radiation, and partial colonic resection and ostomy which is placed in 2014 up in [place] (3) DVT prophylaxis Current Visit: Yes Status: Acute Subcutaneous heparin Subjective Narrative: Patient seen and examined at bedside today. She states that she is doing well, continues to have pain however it is controlled with medication. She has continued to have output into colostomy. She denies nausea, vomiting, fever, chills, chest pain, shortness breath, dysuria, calf pain. Objective Vital Signs - Last 8 Hours Temp Pulse Resp BP Pulse Ox 10/09/18 08:14 97.9 F 90 19 155/64 96 Intake and Output 10/08/18 10/09/18 10/09/18 23:59 07:59 15:59 Intake Total 0 / 1060 1000 / 1400 400 / 1400 Output Total 0 / 550 200 / 200 0 / 200 Balance 0 / 510 800 / 1200 400 / 1200 Intake: IV Fluids 1000 / 1400 400 / 1400 0.9 % Sodium Chloride 1,000 ML 1000 / 1400 400 / 1400 @ 100 mls/hr IVC .Q10H [facility] Rx#: [id number] Oral 0 / 60 Output: Urine 0 / 0 Gastric Tube Lavage Amount 0 / 0 Left Nare 0 / 0 Catheter 200 / 200 Urethral (Antony) 200 / 200 Other: Meal npo Percent of Meal Consumed 0% Weight 51.1 kg Blood Glucose* 96 76 Patient Weight 10/09/18 23:59 Weight 51.1 kg - General physical appearance well developed, well nourished, no distress - Eyes PERRL, normal ocular movement - ENT normal nares, normal mucosa, no hearing loss, no congestion - Neck Neck exam: no masses, trachea midline, no venous distension - Respiratory normal expansion, normal respiratory effort, clear to percussion, clear to auscultation - Cardiovascular Cardiovascular exam: Present: RRR, no murmurs/rubs/gallops. Absent: JVD - Abdomen Abdomen: Present: bowel sounds present, soft, tender (Mildly tender to palpation around incision.) - Incision Incision: Present: clean and dry, intact. Absent: erythema, indurated - Integumentary no rash, no growths, no abnormal pigmentation - Neurologic normal coordination, normal sensation - Musculoskeletal normal posture - Psychiatric oriented to time, oriented to person, oriented to place, speech is normal, memory intact - Labs 10/09/18 05:07 10/09/18 05:07 Diabetes panel 10/09/18 Range/Units 05:07 Sodium 143 (136-145) mEq/L Potassium 4.0 (3.5-5.1) mEq/L Chloride 111 H (98-107) mEq/L Carbon Dioxide 21 L (23-29) mEq/L BUN 26 H (8-23) mg/dL Creatinine 0.75 (0.60-1.20) mg/dL Glucose 80 (70-105) mg/dL Calcium 8.1 L (8.6-10.3) mg/dL Calcium panel 10/09/18 Range/Units 05:07 Calcium 8.1 L (8.6-10.3) mg/dL Pituitary panel 10/09/18 Range/Units 05:07 Sodium 143 (136-145) mEq/L Potassium 4.0 (3.5-5.1) mEq/L Chloride 111 H (98-107) mEq/L Carbon Dioxide 21 L (23-29) mEq/L BUN 26 H (8-23) mg/dL Creatinine 0.75 (0.60-1.20) mg/dL Glucose 80 (70-105) mg/dL Calcium 8.1 L (8.6-10.3) mg/dL Adrenal panel 10/09/18 Range/Units 05:07 Sodium 143 (136-145) mEq/L Potassium 4.0 (3.5-5.1) mEq/L Chloride 111 H (98-107) mEq/L Carbon Dioxide 21 L (23-29) mEq/L BUN 26 H (8-23) mg/dL Creatinine 0.75 (0.60-1.20) mg/dL Glucose 80 (70-105) mg/dL Calcium 8.1 L (8.6-10.3) mg/dL Consult Discharge Plan - Plan Referrals: Fernando Regan DO [Primary Care Provider] - <Sander Doan - Last Filed: 10/10/18 05:17> Date of Encounter: 10/09/18 Objective Vital Signs - Last 8 Hours Temp Pulse Resp BP Pulse Ox 10/10/18 04:09 98.2 F 114 17 135/66 97 10/10/18 00:27 97.7 F 124 18 128/82 96 Intake and Output 10/09/18 10/09/18 10/10/18 15:59 23:59 07:59 Intake Total 1060 / 2660 600 / 2660 0 / 0 Output Total 175 / 675 300 / 675 350 / 350 Balance 1984 300 / 1985 -350 / -350 Intake: IV Fluids 400 / 2000 600 / 2000 0.9 % Sodium Chloride 1,000 ML 400 / 2000 600 / 2000 @ 100 mls/hr IVC .Q10H [facility] Rx#: [id number] Oral 660 / 660 0 / 0 Output: Urine 0 / 0 Emesis 300 / 300 350 / 350 Gastric Tube Lavage Amount 0 / 0 Left Nare 0 / 0 Catheter 175 / 375 Urethral (Antony) 175 / 375 Other: Meal clears Percent of Meal Consumed 0% Blood Glucose* 88 169 162 - Labs 10/09/18 05:07 10/09/18 05:07 Diabetes panel 10/09/18 Range/Units 05:07 Sodium 143 (136-145) mEq/L Potassium 4.0 (3.5-5.1) mEq/L Chloride 111 H (98-107) mEq/L Carbon Dioxide 21 L (23-29) mEq/L BUN 26 H (8-23) mg/dL Creatinine 0.75 (0.60-1.20) mg/dL Glucose 80 (70-105) mg/dL Calcium 8.1 L (8.6-10.3) mg/dL Calcium panel 10/09/18 Range/Units 05:07 Calcium 8.1 L (8.6-10.3) mg/dL Pituitary panel 10/09/18 Range/Units 05:07 Sodium 143 (136-145) mEq/L Potassium 4.0 (3.5-5.1) mEq/L Chloride 111 H (98-107) mEq/L Carbon Dioxide 21 L (23-29) mEq/L BUN 26 H (8-23) mg/dL Creatinine 0.75 (0.60-1.20) mg/dL Glucose 80 (70-105) mg/dL Calcium 8.1 L (8.6-10.3) mg/dL Adrenal panel 10/09/18 Range/Units 05:07 Sodium 143 (136-145) mEq/L Potassium 4.0 (3.5-5.1) mEq/L Chloride 111 H (98-107) mEq/L Carbon Dioxide 21 L (23-29) mEq/L BUN 26 H (8-23) mg/dL Creatinine 0.75 (0.60-1.20) mg/dL Glucose 80 (70-105) mg/dL Calcium 8.1 L (8.6-10.3) mg/dL - Attending Attestation I examined this patient and my medical decision-making was reviewed with the Re sident Physician. I agree with the documented findings, disposition and treatment plan as described except to the extent set forth below. I personally reviewed the above assessment and evaluation with the resident and agree with the above plan. Patient is unsure whether or not the ostomy was recently empty. She denies any nausea or vomiting. She has positive bowel sounds and minimal pain to palpation. Her incision is healing well. We would remove her NG tube and allow her to have clears. Further advancement as tolerated.
--- NOTE | 2018-10-09 12:50 | Internal Med Progress Note ---
Hospitalist Progress Note - Encounter Date of Encounter: 10/09/18 Time of Encounter: 10:40 - Subjective Interval History: Seen and examined at the bedside Patient is very excited her NG tube has been removed She denies new complains Pain is controlled on current regimen - Exam Vitals: Temp Pulse Resp BP Pulse Ox 98.0 F 129 12 119/70 96 10/09/18 11:58 10/09/18 11:58 10/09/18 11:58 10/09/18 11:58 10/09/18 11:58 Exam: General: Elderly, not in any form of distress, laying in bed, speaks full sentences HEENT: Moist oral mucosa, not cyanotic, not pale, NG tube out Chest: Diminished air entry bilaterally. No added sounds Cardio: Normal S1 and S2, regular rate and rhythm Abdomen: Soft, non-tender, no palpably enlarged organs. Colostomy noted on LUQ. Bag filled with brownish liquid. Wound dressing clean and dry Extremities: Warm, well perfused. DP pulses 2+ bilaterally. No pedal edema Neuro: Awake and alert, oriented 3, moves all extremities equally Skin: No rash/ulcers Psych: Mood and affect appropriate - Assessment and Plan (1) SBO (small bowel obstruction) Current Visit: Yes Status: Acute Assessment and Plan: resolved s/p enterocolonic anastomosis on 10/06 by Christie Youssef - Christie following, appreciate co-management - CLD per surgery - Decrease IVF to 50cc/hr - monitor resp status - Pain and nausea control - PT/OT recommends SNF placement - Patient is not surgically ready for discharge (2) DVT prophylaxis Current Visit: Yes Status: Acute Assessment and Plan: Subcutaneous heparin (3) Aortic stenosis Current Visit: Yes Status: Chronic Assessment and Plan: s/p BAVR Chronic and stable Continue to monitor (4) Atrial fibrillation Current Visit: Yes Status: Chronic Assessment and Plan: rate controlled on IV lopressor Resume po meds as patient is now taking po Start metoprolol at 12.5mg BID REsume po cardizem D/C IV lopressor, continue po meds (5) Anemia Current Visit: Yes Status: Chronic Assessment and Plan: Hb stable Continue to monitor Transfuse for Hb <7 (6) Chronic hyponatremia Current Visit: Yes Status: Chronic Assessment and Plan: Na on the upward trend, continue to monitor Patient is going on CLD Encourage water intake Continue to monitor Chem (7) Diabetes mellitus Current Visit: Yes Status: Chronic Assessment and Plan: BS controlled at this time. Continue to monitor Q6h SSI prn (8) HFrEF (heart failure with reduced ejection fraction) Current Visit: Yes Status: Chronic Assessment and Plan: Not in acute exacerbation at this time. Monitor closely as patient is on IVF hydration D/C IVF as soon as patient tolerating po Strict I and Os Net +3L at this time (9) HTN (hypertension) Current Visit: Yes Status: Chronic Assessment and Plan: Controlled on home meds at this time (10) Rectal cancer Current Visit: Yes Status: Chronic Assessment and Plan: as in SBO She is status post chemotherapy, radiation, and partial colonic resection and ostomy which is placed in 2014 up in [place] (11) Protein-calorie malnutrition, moderate Current Visit: Yes Status: Chronic Assessment and Plan: Chronic issue When able to take po, resume diet and po supplements (12) Palliative care encounter Current Visit: Yes Status: Acute Assessment and Plan: Patient is a DNR CCA/DNI Plan is to discharge to SNF where she can transition to hospice DVT Prophylaxis: SQ heparin - Time Spent with Patient Total time spent is greater than 50% in coordination of care (as documented) at patient's floor/unit and/or counseling patient: Plan of Care Discussed with: patient Internal Medicine: Result - Labs CBC & Chem 7: 10/09/18 05:07 10/09/18 05:07 Labs: Short CBC 10/09/18 Range/Units 05:07 WBC 13.4 H (4.3-11.1) K/mcL Hgb 7.2 L (11.5-15.4) g/dL Hct 24.6 L (35.3-44.9) % Plt Count 282 (140-400) K/mcL BMP 10/09/18 05:07 Sodium 143 Potassium 4.0 Chloride 111 H Carbon Dioxide 21 L BUN 26 H Creatinine 0.75 Glucose 80 Calcium 8.1 L - ABG Interpretation ABG results: PT/INR, D-dimer PT 12.4 Seconds (9.4-12.1) H 09/30/18 06:01 Consult Discharge Plan - Plan Referrals: Fernando Regan DO [Primary Care Provider] - (3) Aortic stenosis Qualifiers: Cardiac valve disease etiology: etiology unspecified Qualified Code(s): I35.0 - Nonrheumatic aortic (valve) stenosis (4) Atrial fibrillation Qualifiers: Atrial fibrillation type: persistent Qualified Code(s): I48.1 - Persistent atrial fibrillation (5) Anemia Qualifiers: Anemia type: other cause Other causes of anemia: chronic disease, neoplastic Qualified Code(s): D63.0 - Anemia in neoplastic disease (7) Diabetes mellitus Qualifiers: Diabetes mellitus type: type 2 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
--- NOTE | 2018-10-09 12:58 | Palliative Progress Note ---
Date of Encounter: 10/09/18 Time of Encounter: 12:30 - Assessment and plan (1) SBO (small bowel obstruction) Current Visit: Yes Status: Acute Assessment and plan: Patient had Palliative Surgical intervention and Colostomy completed. Tolerated procedure well. (2) Goals of care, counseling/discussion Current Visit: Yes Status: Acute Assessment and plan: Discharge plan established to discharge to rehab at [facility] when medically cleared by primary team. Patient reports pain is at a stable level with current regimen. Reports she wants hospice care, but understands rehab will be necessary to pay for SNF until Medicaid in place. Patient participated with therapy yesterday and reports she is hopeful for a discharge tomorrow. Palliative care will follow at a distance. (3) Palliative care encounter Current Visit: Yes Status: Acute (4) Weakness Current Visit: No Status: Acute Assessment and plan: PT/OT recommend SNF. (5) Abdominal pain Current Visit: No Status: Acute Assessment and plan: Patient reports pain 3/10 at this time. Continue current pain regimen. Qualifiers: Qualified Code(s): R10.84 - Generalized abdominal pain (6) Nausea Current Visit: Yes Status: Acute Assessment and plan: Patient denies nausea. Continue sparing use of Zofran. - Time Spent With Patient Total time spent is greater than 50% in coordination of care (as documented) at patient's floor/unit and/or counseling patient: - Subjective Interval history: Patient sitting up in bed upon arrival for assessment. Patient is alert and oriented times 3. No family present at bedside; reports son and grand daughter will be present later today. Patient denies anxiety, nausea, and vomiting at this time. Patient reports current pain regimen is making pain bearable, but currently pain 3/10. Patient has required 1 dose Oxycodone 15 mg, 1 dose Oxycodone 10 mg, and 0 doses Zofran in the last 24 hours. - Constitutional Vitals: Abnormal lab results WBC 13.4 K/mcL (4.3-11.1) H 10/09/18 05:07 RBC 2.72 M/mcL (3.82-4.97) L 10/09/18 05:07 Hgb 7.2 g/dL (11.5-15.4) L 10/09/18 05:07 Hct 24.6 % (35.3-44.9) L 10/09/18 05:07 MCH 26.5 pg (28.0-33.3) L 10/09/18 05:07 MCHC 29.3 g/dL (31.6-35.5) L 10/09/18 05:07 RDW 17.9 % (11.5-14.5) H 10/09/18 05:07 MPV 9.3 fL (9.4-12.4) L 10/08/18 02:37 9.1 K/mcL (1.6-8.9) H 09/29/18 16:12 PT 12.4 Seconds (9.4-12.1) H 09/30/18 06:01 APTT 38.7 Seconds (26.0-36.0) H 09/30/18 06:01 VBG pH 7.46 pH Units (7.32-7.42) H 10/07/18 08:44 VBG pCO2 23 mmHg (41-51) L 10/07/18 08:44 VBG pO2 209 mmHg (25-50) H 10/07/18 08:44 VBG HCO3 16 mEq/L (21-27) L 10/07/18 08:44 Sodium 135 mEq/L (136-145) L 10/06/18 05:11 Potassium 3.4 mEq/L (3.5-5.1) L 10/06/18 05:11 Chloride 111 mEq/L (98-107) H 10/09/18 05:07 Carbon Dioxide 21 mEq/L (23-29) L 10/09/18 05:07 BUN 26 mg/dL (8-23) H 10/09/18 05:07 Est GFR (Non-Af Amer) 56 (> 60) L 10/07/18 04:49 35 (6-26) H 10/09/18 05:07 Glucose 126 mg/dL (70-105) H 10/08/18 02:37 POC Glucose 128 mg/dL (70-99) H 10/08/18 16:25 301 (280-300) H 10/02/18 04:27 Calcium 8.1 mg/dL (8.6-10.3) L 10/09/18 05:07 Magnesium 1.1 mg/dL (1.6-2.6) L 10/06/18 05:11 106 Units/L (34-104) H 09/29/18 16:12 2.9 g/dL (3.5-5.7) L 09/30/18 06:01 3.7 g/dL (2.4-3.5) H 09/30/18 06:01 0.8 (1.1-2.2) L 09/30/18 06:01 6.2 mg/dL (17.0-34.0) L 10/05/18 05:51 Cloudy (Clear) A 09/29/18 18:05 30 mg/dL (Neg-Trace) H 09/29/18 18:05 Trace mg/dL (Negative) H 09/29/18 18:05 Trace (Negative) H 09/29/18 18:05 Small (Negative) H 09/29/18 18:05 Ur Leukocyte Esterase Large (Negative) H 09/29/18 18:05 30-50 per hpf (0-3) H 09/29/18 18:05 Ur Squamous Epith Cells Many per lpf (None-Few) H 09/29/18 18:05 Amorphous Sediment Moderate (Few) H 09/29/18 18:05 Ur Culture Indicated? YES (NO) A 09/29/18 18:05 Crossmatch See Detail 10/05/18 09:47 General appearance: Present: cooperative, no acute distress - Head Head exam: Present: normal inspection - Eye Eye exam: Present: normal appearance. Absent: periorbital swelling, periorbital tenderness - ENT ENT exam: Present: normal external ear exam - Neck Neck exam: Present: full ROM, normal inspection - Respiratory Respiratory exam: Present: CTAB. Absent: respiratory distress - Cardiovascular Cardiovascular exam: Present: +S1, +S2 - GI/Abdominal GI/Abdominal exam: Present: normal bowel sounds, soft. Absent: tenderness - Rectal Rectal exam: Present: deferred - Expanded Exam Female exam: Present: deferred - Extremities Exam Extremities exam: Present: normal inspection. Absent: pedal edema - Back Exam Back exam: Present: normal inspection - Neurological Exam Neurological exam: Present: alert, oriented X3, strengths equal and symetr throughout. Absent: altered - Psychiatric Psychiatric exam: Present: normal affect, normal mood - Skin Skin exam: Present: dry, intact, pallor, warm Palliative Quality Palliative Quality: Screen for Code Status: Yes, Screen for Goals of Care: Yes, Screen for Pain: Yes, If Pain Regimen Started, Initiate Bowel Regimen: NA, Screen for Nausea/Vomitting: Yes Code Status: 09/29/18 19:34 Resuscitation Status: Active [RES] Routine Comment: Resuscitation Status: Full Code 10/04/18 16:59 Resuscitation Status: Active [RES] Routine Comment: Resuscitation Status: [id number] - Labs CBC & Chem 7: 10/09/18 05:07 10/09/18 05:07 Labs: Laboratory Results - last 24 hr 10/07/18 10/08/18 10/08/18 16:11 12:05 16:25 WBC RBC Hgb Hct MCV MCH MCHC RDW Plt Count MPV Sodium Potassium Chloride Carbon Dioxide BUN Creatinine Est GFR ( Amer) Est GFR (Non-Af Amer) BUN/Creatinine Ratio Glucose POC Glucose 162 H 127 H 128 H Calculated Osmolality Calcium 10/09/18 10/09/18 05:07 05:07 WBC 13.4 H RBC 2.72 L Hgb 7.2 L Hct 24.6 L MCV 90.4 MCH 26.5 L MCHC 29.3 L RDW 17.9 H Plt Count 282 MPV 9.6 Sodium 143 Potassium 4.0 Chloride 111 H Carbon Dioxide 21 L BUN 26 H Creatinine 0.75 Est GFR ( Amer) > 60 Est GFR (Non-Af Amer) > 60 BUN/Creatinine Ratio 35 H Glucose 80 POC Glucose Calculated Osmolality 300 Calcium 8.1 L - ABG Interpretation ABG results: PT/INR, D-dimer PT 12.4 Seconds (9.4-12.1) H 09/30/18 06:01 Palliative Scale - Palliative Performance Scale How ambulatory is this patient?: Mainly sit / lie What is patient's level of activity and evidence of disease?: Unable to do most activity, Extensive disease How much self-care assistance does patient require?: Considerable assistance required How much oral intake does the patient have?: Minimal to sips What is this patient's level of consciousness?: Full Palliative Performance Score: 40 % Consult Discharge Plan - Plan Referrals: Fernando Regan DO [Primary Care Provider] -
[2018-10-09] MEDS ORDERED: Diltiazem SR (12hr) 90 MG CAPSULE PO ONE (14:00)
[2018-10-10] MEDS: Insulin LISPRO 300 UNITS/3 ML VIAL SQ SCH ×4 (00:41→18:35)
[2018-10-10] MEDS ORDERED: *HR* Promethazine 25 MG/ML VIAL IVP ONE (04:02)
[2018-10-10] MEDS ORDERED: traMADol 50 MG TABLET PO ONE (04:12)
[2018-10-10] MEDS: *HR* Heparin 5,000 UNIT/ML VIAL SQ SCH ×3 (06:27→21:16)
[2018-10-10] MEDS: Diltiazem CD (24hr) 180 MG CAPSULE PO SCH (09:20)
[2018-10-10] MEDS: OXYCODONE Oral CONC 10 MG/0.5 ML ORAL.SYG SL PRN ×2 (09:30→14:18)
--- NOTE | 2018-10-10 11:44 | AcuteCareSurgery Progress Note ---
Date of Encounter: 10/10/18 Time of Encounter: 08:00 - Assessment and Plan (1) Rectal cancer Current Visit: Yes Status: Chronic Metastatic with SBO on presentation that has resolved with surgery. POD#4 palliative bypass with enterocolic anastomosis for bowel obstruction. Colostomy in place remotely and functioning with stool and gas in bag. Recommend maintain clears until nausea resolved. Check EKG to evaluate afib. Optimize pain control. (2) Atrial fibrillation with RVR Current Visit: No Status: Acute Home meds restarted PO (3) Small bowel obstruction Current Visit: Yes Status: Acute Due to metastatic rectal cancer and resolved with surgery. POD#4 palliative bypass with enterocolic anastomosis for bowel obstruction. Colostomy in place remotely and functioning with stool and gas in bag. Recommend maintain clears until nausea resolved. Check EKG to evaluate afib. Optimize pain control. Subjective Patient reports: feels better, still having pain, pain is less, flatus, no bowel movement, nausea Objective Vital Signs - Last 8 Hours Temp Pulse Resp BP Pulse Ox 10/10/18 11:09 97.6 F 102 17 116/67 97 10/10/18 06:27 97.5 F L 131 17 130/64 94 10/10/18 04:09 98.2 F 114 17 135/66 97 Intake and Output 10/09/18 10/10/18 10/10/18 23:59 07:59 15:59 Intake Total 600 / 2660 0 / 180 180 / 180 Output Total 300 / 675 350 / 350 Balance 300 / 1985 -350 / -170 180 / -170 Intake: IV Fluids 600 / 2000 0.9 % Sodium Chloride 1,000 ML 600 / 2000 @ 100 mls/hr IVC .Q10H [facility] Rx#: [id number] Oral 0 / 180 180 / 180 Output: Urine 0 / 0 Emesis 300 / 300 350 / 350 Other: # Urine Diapers 1 1 Blood Glucose* 169 156 131 - General physical appearance no distress, moderate pain - Eyes PERRL, normal ocular movement - ENT normal mucosa, no congestion - Neck Neck exam: no bruits, no venous distension ( ) - Respiratory normal respiratory effort, clear to auscultation - Cardiovascular Cardiovascular exam: Present: tachycardia, irregular rhythm - Abdomen Abdomen: Present: bowel sounds present (hypoactive), tender. Absent: distended Abdominal Tenderness: diffusely Additional Comments: Colostomy functioning well - Incision Incision: Present: clean and dry, intact - Neurologic CN 2-12 grossly intact - Musculoskeletal normal posture - Psychiatric oriented to time, oriented to person, oriented to place - Labs 10/09/18 05:07 10/09/18 05:07 Consult Discharge Plan - Plan Referrals: Fernando Regan DO [Primary Care Provider] -
--- NOTE | 2018-10-10 13:05 | Internal Med Progress Note ---
Hospitalist Progress Note - Encounter Date of Encounter: 10/10/18 Time of Encounter: 13:02 - Subjective Interval History: Seen and examined at the bedside Reported multiple episodes of n/v on 10/09, did not tolerate CLD She is weak but denies new complains HR fluctuating but mostly uncontrolled, home Afib meds have been resumed Will check CBC for anemia Surgery, palliative care is following - Exam Vitals: Temp Pulse Resp BP Pulse Ox 97.6 F 102 17 116/67 97 10/10/18 11:09 10/10/18 11:09 10/10/18 11:10/10/18 11:10/10/18 11:09 Exam: General: Sleeping but rousable, more lethargic than prior evals HEENT: Moist oral mucosa, not cyanotic, not pale, NG tube out Chest: Diminished air entry bilaterally. No added sounds Cardio: Normal S1 and S2, regular rate and rhythm Abdomen: Soft, non-tender, no palpably enlarged organs. Colostomy noted on LUQ. Bag with minimal brownish liquid. Wound dressing clean and dry Extremities: Warm, well perfused. DP pulses 2+ bilaterally. No pedal edema Neuro: Awake and alert, oriented 3, moves all extremities equally Skin: No rash/ulcers Psych: Mood and affect appropriate - Assessment and Plan (1) SBO (small bowel obstruction) Current Visit: Yes Status: Acute Assessment and Plan: resolved s/p enterocolonic anastomosis on 10/06 by Christie Youssef - Christie following, appreciate co-management - CLD per surgery, POD 4 - Continue IVF to 50cc/hr - monitor resp status - Pain and nausea control - PT/OT recommends SNF placement - Patient is not surgically ready for discharge (2) DVT prophylaxis Current Visit: Yes Status: Acute Assessment and Plan: Subcutaneous heparin (3) Aortic stenosis Current Visit: Yes Status: Chronic Assessment and Plan: s/p BAVR Chronic and stable Continue to monitor (4) Atrial fibrillation Current Visit: Yes Status: Chronic Assessment and Plan: rate uncontrolled Uncrease metoprolol to home dose Continue cardizem Not on AC (5) Anemia Current Visit: Yes Status: Chronic Assessment and Plan: Acute on chronic anemia, likely due to hemodilution, blood loss post-op Type and screen done, will transfuse for Hb <7 (6) Chronic hyponatremia Current Visit: Yes Status: Chronic Assessment and Plan: Na on the upward trend, continue to monitor Patient is going on CLD Encourage water intake Continue to monitor Chem (7) Diabetes mellitus Current Visit: Yes Status: Chronic Assessment and Plan: BS controlled at this time. Continue to monitor Q6h SSI prn (8) HFrEF (heart failure with reduced ejection fraction) Current Visit: Yes Status: Chronic Assessment and Plan: Not in acute exacerbation at this time. Monitor closely as patient is on IVF hydration D/C IVF as soon as patient tolerating po Strict I and Os Net ++ at this time (9) HTN (hypertension) Current Visit: Yes Status: Chronic Assessment and Plan: Controlled on home meds at this time (10) Rectal cancer Current Visit: Yes Status: Chronic Assessment and Plan: as in SBO She is status post chemotherapy, radiation, and partial colonic resection and ostomy which is placed in 2014 up in [place] (11) Protein-calorie malnutrition, moderate Current Visit: Yes Status: Chronic Assessment and Plan: Chronic issue When able to take po, resume diet and po supplements (12) Palliative care encounter Current Visit: Yes Status: Acute Assessment and Plan: Patient is a DNR CCA/DNI Plan is to discharge to SNF where she can transition to hospice DVT Prophylaxis: SQ heparin - Time Spent with Patient Total time spent is greater than 50% in coordination of care (as documented) at patient's floor/unit and/or counseling patient: Plan of Care Discussed with: nurse Internal Medicine: Result - Labs CBC & Chem 7: 10/09/18 05:07 10/09/18 05:07 - ABG Interpretation ABG results: PT/INR, D-dimer PT 12.4 Seconds (9.4-12.1) H 09/30/18 06:01 Consult Discharge Plan - Plan Referrals: Fernando Regan DO [Primary Care Provider] - ____ (3) Aortic stenosis Qualifiers: Cardiac valve disease etiology: etiology unspecified Qualified Code(s): I35.0 - Nonrheumatic aortic (valve) stenosis (4) Atrial fibrillation Qualifiers: Atrial fibrillation type: persistent Qualified Code(s): I48.1 - Persistent atrial fibrillation (5) Anemia Qualifiers: Anemia type: other cause Other causes of anemia: chronic disease, neoplastic Qualified Code(s): D63.0 - Anemia in neoplastic disease (7) Diabetes mellitus Qualifiers: Diabetes mellitus type: type 2 Diabetes mellitus skilled nursing insulin use: without skilled nursing use Diabetes mellitus complication status: without complication Qualified Code(s): E11.9 - Type 2 diabetes mellitus without complications (8) HFrEF (heart failure with reduced ejection fraction) Qualifiers: Heart failure chronicity: chronic Qualified Code(s): I50.22 - Chronic systolic (congestive) heart failure (9) HTN (hypertension) Qualifiers: Hypertension type: essential hypertension Qualified Code(s): I10 - Essential (primary) hypertension
[2018-10-10 13:25] LABS: Basophils % 0.2 %; Eosinophils % 0.3 %; Hematocrit 23.5 % (35.3-44.9); Immature Granulocytes % 0.9 % (0-4); Lymphocytes # 0.9 K/mcL (0.6-4.6); Lymphocytes % 7.2 %; Mean Corpuscular HGB Conc 29.8 g/dL (31.6-35.5); Mean Corpuscular Hemoglobin 26.1 pg (28.0-33.3); Mean Corpuscular Volume 87.7 fL (83.0-100.0); Mean Platelet Volume 9.3 fL (9.4-12.4); Monocytes # 0.6 K/mcL (0.0-1.3); Monocytes % 5.4 %; Neutrophils # 10.1 K/mcL (1.6-8.9); Platelet Count 288 K/mcL (140-400); Red Blood Count 2.68 M/mcL (3.82-4.97); Red Cell Distribution Width 17.7 % (11.5-14.5); White Blood Count 11.8 K/mcL (4.3-11.1)
[2018-10-10] MEDS: 0.9 % Sodium Chloride 1,000 ML IVC SCH (14:09)
[2018-10-10] MEDS ORDERED: 0.9 % Sodium Chloride 500 ML ONE (17:27)
--- NOTE | 2018-10-10 17:29 | Electrocardiograph Report ---
[address] [place], [place] [address] Test Date: 2018-10-10 Pat Name: Patricia Detty Department: 115 Room: 3A Gender: F Watch Assembler: PAULINA : 1935 Requested By: Lida Byers Order Number: [id number] Reading MD: Siria Weston Measurements Intervals [place] Rate: 103 P: OK: 0 QRS: 2 QRSD: 92 T: 79 QT: 311 QTc: 371 Interpretive Statements SINUS TACHYCARDIA PREMATURE ATRIAL COMPLEXES ANTEROSEPTAL MYOCARDIAL INFARCTION, OF INDETERMINATE AGE Electronically Signed On 10-10-2018 17:27:22 EDT by Siria Weston
[2018-10-11] MEDS: Insulin LISPRO 300 UNITS/3 ML VIAL SQ SCH ×5 (00:45→20:14)
[2018-10-11] MEDS: 0.9 % Sodium Chloride 1,000 ML IVC SCH (05:06)
[2018-10-11] MEDS: *HR* Heparin 5,000 UNIT/ML VIAL SQ SCH ×3 (06:02→22:57)
[2018-10-11 07:42] LABS: Basophils % 0.2 %; Eosinophils # 0.1 K/mcL (0.0-0.6); Eosinophils % 0.6 %; Hematocrit 29.4 % (35.3-44.9); Immature Granulocytes % 0.8 % (0-4); Lymphocytes # 1.3 K/mcL (0.6-4.6); Lymphocytes % 10.9 %; Mean Corpuscular HGB Conc 31.3 g/dL (31.6-35.5); Mean Corpuscular Hemoglobin 27.3 pg (28.0-33.3); Mean Corpuscular Volume 87.2 fL (83.0-100.0); Mean Platelet Volume 9.7 fL (9.4-12.4); Monocytes # 0.9 K/mcL (0.0-1.3); Monocytes % 7.2 %; Neutrophils # 9.5 K/mcL (1.6-8.9); Platelet Count 316 K/mcL (140-400); Red Blood Count 3.37 M/mcL (3.82-4.97); Red Cell Distribution Width 17.2 % (11.5-14.5); Segmented Neutrophils % 80.3 %; White Blood Count 11.8 K/mcL (4.3-11.1)
[2018-10-11 07:43] LABS: BUN/Creatinine Ratio 20 (6-26); Blood Urea Nitrogen 16 mg/dL (8-23); Carbon Dioxide 22 mEq/L (23-29); Chloride 111 mEq/L (98-107); Glucose 139 mg/dL (70-105); Osmolality,Calculated 299 (280-300); Potassium 3.1 mEq/L (3.5-5.1); Sodium 143 mEq/L (136-145); eGFR For African Americans > 60 (> 60); eGFR For Non-African Americans > 60 (> 60)
[2018-10-11] MEDS: Ondansetron 4 MG/2 ML VIAL IVP PRN (07:43)
[2018-10-11] MEDS: Diltiazem CD (24hr) 180 MG CAPSULE PO SCH (07:45)
[2018-10-11] MEDS: OXYCODONE Oral CONC 10 MG/0.5 ML ORAL.SYG SL PRN ×3 (07:45→16:59)
[2018-10-11 07:49] LABS: Hemoglobin 9.2 g/dL (11.5-15.4)
[2018-10-11] MEDS ORDERED: Ondansetron ODT 4 MG TAB.RAPDIS SL PRN (08:18)
--- NOTE | 2018-10-11 08:19 | Internal Med Progress Note ---
Hospitalist Progress Note - Encounter Date of Encounter: 10/11/18 Time of Encounter: 08:19 - Subjective Interval History: Patient seen this AM accompanied by son. She is lying in bed vomiting. Emesis bag containing ~200-300ml dark brown liquid contents. Pt states she had one or two episodes of vomiting overnight. Her abd does still hurt although it is not severe and she is tolerating it well. Does wince to RLQ palpation. Ostomy has lots of gas and some liquid brown stool. No fever, SOB, CP. - Exam Vitals: Temp Pulse Resp BP Pulse Ox 98.5 F 94 15 154/65 96 10/11/18 03:31 10/11/18 03:31 10/11/18 03:31 10/11/18 03:31 10/11/18 03:31 Exam: General: NAD, good eye contact, pleasant, chronically ill appearing and elderly, appears uncomfortable due to vomiting today Thoracic: Normal breath sounds b/l, no wheezing or crackles Cardio: Normal S1 and S2, irregularly irregular rhythm, regular rate Abdomen: soft, nondistended, does have tenderness to palpation, ostomy bag in place with gas and some liquid brown stool Extremities: Warm, well perfused. DP pulses 2+ b/l. Does have some mild pedal edema Skin: Intact. No rashes, bruises, or ulcers Neuro: awake, fully oriented. Speech fluent - Summary of Assessment and Plan Summary of Assessment and Plan: Patricia Flanagan is an 83 F w hx stage IV rectal cancer s/p ostomy ' c/b recurrent SBOs, HFrEF 45%, A-Fib, HTN, HLD, DM2, bpAVR ', who p/w abd pain and vomiting, found on CT to have dilated loops of small bowel with compressed colon and ostomy, suggestive of complete SBO likely at site of rectal mass and lymphadenopathy, who underwent palliative bypass on 10/06. SBO: improving s/p enterocolonic anastomosis on 10/[address] Youssef, and ostomy now functioning, however continues to have N/V and poor PO - GenSurg following, appreciate co-management - Diet per GenSurg, not tolerating full liquids at present - MIVF LR@50 - Pain and nausea control - PT/OT Rectal cancer: plan remains to d/c to skilled care when patient medically able where patient will subsequently get qualified for medicaid to allow for hospice services. However, pt's son is here today and will have SW meet with him to begin medicaid application. Acute blood loss on anemia of chronic disease: keep Hb >7, s/p 1u prbc on 10/10 with good recovery, monitor Severe protein calorie malnutrition: poor PO intake, wt loss, cancer HFrEF 45%: not overloaded but is net positive thus far w mild pedal swelling, monitor volume status daily while on MIVF and d/c when able A-Fib: rate controlled on lopressor 25 bid and cardizem 300, AC on ASA HTN: BB and CCB as above HLD: statin DM2: w hyperglycemia, SSI s/p bpAVR: noted PPx: sqh FEN: return to clears, change to MIVF LR@50 Lines: PIV, ostomy Consults: GenSurg, Palliative Code: DNRCC-A / DNI Dispo: patient requires inpatient eval and management at this time. Anticipate 2-3 days. Will need SNF Internal Medicine: Result - Labs CBC & Chem 7: 10/11/18 06:51 10/11/18 06:51 Labs: Short CBC 10/10/18 10/11/18 Range/Units 13:04 06:51 WBC 11.8 H 11.8 H (4.3-11.1) K/mcL Hgb 7.0 L 9.2 L D (11.5-15.4) g/dL Hct 23.5 L 29.4 L (35.3-44.9) % Plt Count 288 316 (140-400) K/mcL Neutrophils # 10.1 H 9.5 H (1.6-8.9) K/mcL BMP 10/11/18 06:51 Sodium 143 Potassium 3.1 L Chloride 111 H Carbon Dioxide 22 L BUN 16 Creatinine 0.81 Glucose 139 H Calcium 8.0 L - ABG Interpretation ABG results: PT/INR, D-dimer PT 12.4 Seconds (9.4-12.1) H 09/30/18 06:01 Consult Discharge Plan - Plan Referrals: Maurizio Youssef MD [Partnered Physician] - 10/25/18 8:40 am Fernando Regna DO [Primary Care Provider] -
[2018-10-11] MEDS: Ringers Solution, Lactated 1,000 ML IVC SCH (08:51)
[2018-10-11] MEDS: Potassium Chloride Elixir 20 MEQ/15 ML UDC PO SCH ×2 (08:52→11:56)
--- NOTE | 2018-10-11 11:03 | AcuteCareSurgery Progress Note ---
<Barbie Peterson - Last Filed: 10/11/18 11:10> Date of Encounter: 10/11/18 Time of Encounter: 11:03 - Assessment and Plan (1) SBO (small bowel obstruction) Current Visit: Yes Status: Acute Patient presented with nausea, vomiting, abdominal pain - CT abdomen and pelvis 09/29/18-status post partial colonic resection, left paramedian upper pelvis there is a distal small bowel obstruction with no evidence of perforation or abscess, small peristomal hernia containing anterior wall of dilated jejunal loop and mesenteric fat, progressive retroperitoneal abdominal and pelvic lymphadenopathy, right ureteral stent, cholelithiasis, heterogeneous appearance of endometrial canal, progressive rectal bed/presacral amorphous soft tissue density - CT abdomen and pelvis 10/04/18- continued small bowel obstruction, high-grade partial small bowel obstruction with transition in the deep pelvis, heterogeneous necrotic mass in the central pelvis, new and worsening retrocrural and retroperitoneal adenopathy, mild to moderate right hydronephrosis despite presence of right ureteral stent Status post day 5 palliative bypass Incision clean, dry, intact Continues to have output in colostomy bag Pain control-oxycodone. Continue to monitor I's and O's, colostomy output Continue to trend labs, monitor electrolytes and replete if necessary Patient states she had one episode of emesis yesterday, she states she did do well overnight. She continues to have output and colostomy. Will advance diet to soft today and continue to advance as she tolerates. Surgery to sign off. Please call or reconsult for further recommendations. Patient follow-up with acute surgery service, this visit has been arranged. (2) Rectal cancer Current Visit: Yes Status: Chronic Patient has a history of rectal cancer She is status post chemotherapy, radiation, and partial colonic resection and o stomy which is placed in 2014 up in [place] (3) DVT prophylaxis Current Visit: Yes Status: Acute Subcutaneous heparin Subjective Narrative: Patient seen and examined at bedside today. She continues to have some abdominal. She continues to have output into colostomy bag. She did have an episode of emesis last night. She was advised to take it slow with eating. Diet will be advanced to soft today. Will defer further pain management to palliative care team. Objective Vital Signs - Last 8 Hours Temp Pulse Resp BP Pulse Ox 10/11/18 08:22 94 10/11/18 08:18 98.1 F 90 18 166/66 94 10/11/18 03:31 98.5 F 94 15 154/65 96 Intake and Output 10/10/18 10/11/18 10/11/18 23:59 07:59 15:59 Intake Total 564 / 1744 840 / 915 75 / 915 Balance 564 / 1394 840 / 915 75 / 915 Intake: IV Fluids 250 / 1250 840 / 915 75 / 915 0.9 % Sodium Chloride 500 ML @ 250 / 250 0 mls/hr .ROUTE .[facility] Rx #:[id number] 0.9 % Sodium Chloride 1,000 ML 840 / 915 75 / 915 @ 50 mls/hr IVC .Q20H [facility] Rx#: [id number] Oral 0 / 0 Blood Product 314 / 314 Rbcs Leuko Poor As-1 Unit 314 / 314 [id number] Other: # Urine Diapers 1 Weight 51.3 kg Blood Glucose* 162 146 158 Patient Weight 10/11/18 23:59 Weight 51.3 kg - General physical appearance well developed, no distress - Eyes PERRL, normal ocular movement - ENT normal mucosa, no congestion - Neck Neck exam: no masses, trachea midline - Respiratory normal expansion, normal respiratory effort, clear to auscultation - Cardiovascular Cardiovascular exam: Present: irregular rhythm, no murmurs/rubs/gallops - Abdomen Abdomen: Present: bowel sounds present, soft, tender (Appropriately tender to palpation around incision.) - Incision Incision: Present: clean and dry (Colostomy bag has some liquid output.), intact - Integumentary no rash, no abnormal pigmentation - Neurologic CN 2-12 grossly intact, normal coordination, normal sensation - Musculoskeletal normal posture - Psychiatric oriented to time, oriented to person, oriented to place, speech is normal, mem ory intact - Labs 10/11/18 06:51 10/11/18 06:51 Diabetes panel 10/11/18 Range/Units 06:51 Sodium 143 (136-145) mEq/L Potassium 3.1 L (3.5-5.1) mEq/L Chloride 111 H (98-107) mEq/L Carbon Dioxide 22 L (23-29) mEq/L BUN 16 (8-23) mg/dL Creatinine 0.81 (0.60-1.20) mg/dL Glucose 139 H (70-105) mg/dL Calcium 8.0 L (8.6-10.3) mg/dL Calcium panel 10/11/18 Range/Units 06:51 Calcium 8.0 L (8.6-10.3) mg/dL Pituitary panel 10/11/18 Range/Units 06:51 Sodium 143 (136-145) mEq/L Potassium 3.1 L (3.5-5.1) mEq/L Chloride 111 H (98-107) mEq/L Carbon Dioxide 22 L (23-29) mEq/L BUN 16 (8-23) mg/dL Creatinine 0.81 (0.60-1.20) mg/dL Glucose 139 H (70-105) mg/dL Calcium 8.0 L (8.6-10.3) mg/dL Adrenal panel 10/11/18 Range/Units 06:51 Sodium 143 (136-145) mEq/L Potassium 3.1 L (3.5-5.1) mEq/L Chloride 111 H (98-107) mEq/L Carbon Dioxide 22 L (23-29) mEq/L BUN 16 (8-23) mg/dL Creatinine 0.81 (0.60-1.20) mg/dL Glucose 139 H (70-105) mg/dL Calcium 8.0 L (8.6-10.3) mg/dL Consult Discharge Plan - Plan Referrals: Maurizio Youssef MD [Partnered Physician] - 10/25/18 8:40 am Fernando Regan DO [Primary Care Provider] - <[employer] - Last Filed: 10/11/18 12:36> Date of Encounter: 10/11/18 - Assessment and Plan (1) Rectal cancer Current Visit: Yes Status: Chronic (2) Atrial fibrillation with RVR Current Visit: No Status: Acute (3) Small bowel obstruction Current Visit: Yes Status: Acute Objective Vital Signs - Last 8 Hours Temp Pulse Resp BP Pulse Ox 10/11/18 08:22 94 10/11/18 08:18 98.1 F 90 18 166/66 94 Intake and Output 10/10/18 10/11/18 10/11/18 23:59 07:59 15:59 Intake Total 564 / 1744 840 / 1067 227 / 1067 Balance 564 / 1394 840 / 1067 227 / 1067 Intake: IV Fluids 250 / 1250 840 / 1067 227 / 1067 0.9 % Sodium Chloride 500 ML @ 250 / 250 0 mls/hr .ROUTE [email or web address] Rx #:[id number] 0.9 % Sodium Chloride 1,000 ML 840 / 915 75 / 915 @ 50 mls/hr IVC .Q20H [facility] Rx#: [id number] Lactated Ringers 1,000 ML @ 50 152 / 152 mls/hr IVC .Q20H [facility] Rx#: [id number] Oral 0 / 0 Blood Product 314 / 314 Rbcs Leuko Poor As-1 Unit 314 / 314 [id number] Other: # Urine Diapers 1 Weight 51.3 kg Blood Glucose* 162 146 158 Patient Weight 10/11/18 23:59 Weight 51.3 kg - Labs 10/11/18 06:51 10/11/18 06:51 Diabetes panel 10/11/18 Range/Units 06:51 Sodium 143 (136-145) mEq/L Potassium 3.1 L (3.5-5.1) mEq/L Chloride 111 H (98-107) mEq/L Carbon Dioxide 22 L (23-29) mEq/L BUN 16 (8-23) mg/dL Creatinine 0.81 (0.60-1.20) mg/dL Glucose 139 H (70-105) mg/dL Calcium 8.0 L (8.6-10.3) mg/dL Calcium panel 10/11/18 Range/Units 06:51 Calcium 8.0 L (8.6-10.3) mg/dL Pituitary panel 10/11/18 Range/Units 06:51 Sodium 143 (136-145) mEq/L Potassium 3.1 L (3.5-5.1) mEq/L Chloride 111 H (98-107) mEq/L Carbon Dioxide 22 L (23-29) mEq/L BUN 16 (8-23) mg/dL Creatinine 0.81 (0.60-1.20) mg/dL Glucose 139 H (70-105) mg/dL Calcium 8.0 L (8.6-10.3) mg/dL Adrenal panel 10/11/18 Range/Units 06:51 Sodium 143 (136-145) mEq/L Potassium 3.1 L (3.5-5.1) mEq/L Chloride 111 H (98-107) mEq/L Carbon Dioxide 22 L (23-29) mEq/L BUN 16 (8-23) mg/dL Creatinine 0.81 (0.60-1.20) mg/dL Glucose 139 H (70-105) mg/dL Calcium 8.0 L (8.6-10.3) mg/dL - Attending Attestation I examined this patient and my medical decision-making was reviewed with the Resident Physician. I agree with the documented findings, disposition and treatment plan as described except to the extent set forth below.
--- NOTE | 2018-10-11 13:52 | Event Note ---
Date of Encounter: 10/11/18 Time of Encounter: 13:30 Patient has had nausea again today - did have emesis yesterday. She has been medicated and is currently sleeping soundly. I did not awaken her for assessment today. Surgery has started Reglan and clear liquids. Does not seem to be correlation with nausea and her pain medication, but did speak with primary nurse that if nausea appears to worsen after Oxycodone to let our team know and we will transition to something else for pain. Has utilized Oxycodone x3 last 24 hours. Continue to monitor.
[2018-10-11] MEDS ORDERED: Scopolamine Patch 1.5 MG PATCH.TD72 TD SCH (16:00)
[2018-10-11] MEDS: Ondansetron 4 MG/2 ML VIAL IVP SCH ×3 (16:00→23:56)
[2018-10-11] MEDS: Metoclopramide 10 MG/2 ML VIAL IVP SCH ×2 (17:32→23:56)
[2018-10-12] MEDS: Ringers Solution, Lactated 1,000 ML IVC SCH (04:27)
[2018-10-12] MEDS: Ondansetron 4 MG/2 ML VIAL IVP SCH ×5 (04:27→20:53)
[2018-10-12] MEDS: *HR* Heparin 5,000 UNIT/ML VIAL SQ SCH ×3 (05:17→20:55)
[2018-10-12] MEDS: Metoclopramide 10 MG/2 ML VIAL IVP SCH ×3 (05:17→17:50)
[2018-10-12 05:57] LABS: Hematocrit 31.4 % (35.3-44.9); Hemoglobin 9.8 g/dL (11.5-15.4); Mean Corpuscular HGB Conc 31.2 g/dL (31.6-35.5); Mean Corpuscular Hemoglobin 27.4 pg (28.0-33.3); Mean Corpuscular Volume 87.7 fL (83.0-100.0); Mean Platelet Volume 9.8 fL (9.4-12.4); Platelet Count 286 K/mcL (140-400); Red Blood Count 3.58 M/mcL (3.82-4.97); Red Cell Distribution Width 17.4 % (11.5-14.5); White Blood Count 9.7 K/mcL (4.3-11.1)
[2018-10-12 06:19] LABS: Alanine Aminotransferase 8 Units/L (7-52); Albumin 2.2 g/dL (3.5-5.7); Albumin/Globulin Ratio 0.8 (1.1-2.2); Alkaline Phosphatase 89 Units/L (34-104); Aspartate Amino Transferase 10 Units/L (13-39); BUN/Creatinine Ratio 21 (6-26); Bilirubin,Direct 0.1 mg/dL (0.0-0.2); Bilirubin,Indirect 0.2 mg/dL (0.0-1.2); Bilirubin,Total 0.3 mg/dL (0.3-1.0); Blood Urea Nitrogen 19 mg/dL (8-23); Calcium 7.7 mg/dL (8.6-10.3); Carbon Dioxide 22 mEq/L (23-29); Chloride 113 mEq/L (98-107); Globulin 2.8 g/dL (2.4-3.5); Glucose 210 mg/dL (70-105); Magnesium 1.2 mg/dL (1.6-2.6); Osmolality,Calculated 302 (280-300); Sodium 142 mEq/L (136-145); eGFR For African Americans > 60 (> 60); eGFR For Non-African Americans 60 (> 60)
[2018-10-12] MEDS: Diltiazem CD (24hr) 180 MG CAPSULE PO SCH (07:10)
[2018-10-12] MEDS: Insulin LISPRO 300 UNITS/3 ML VIAL SQ SCH ×4 (07:26→21:10)
--- NOTE | 2018-10-12 07:56 | Internal Med Progress Note ---
Hospitalist Progress Note - Encounter Date of Encounter: 10/12/18 Time of Encounter: 07:56 - Subjective Interval History: Pt did not have any further N/V overnight or this AM, although at time of my interview the patient was drowsy from having just received pain meds. She has yet to eat any of her clear liquid breakfast. Pt's son says she looks and feels a bit better today. - Exam Vitals: Temp Pulse Resp BP Pulse Ox 98.2 F 87 16 148/64 94 10/12/18 06:32 10/12/18 06:32 10/12/18 06:32 10/12/18 06:32 10/12/18 06:32 Exam: General: NAD, good eye contact, pleasant, chronically ill appearing and elderly, appears more comfortable today Thoracic: Normal breath sounds b/l, no wheezing or crackles Cardio: Normal S1 and S2, irregularly irregular rhythm, regular rate Abdomen: soft, nondistended, much less tenderness to palpation today, ostomy bag in place with minimal liquid brown stool Extremities: Warm, well perfused. DP pulses 2+ b/l. Does have some mild pedal edema Skin: Intact. No rashes, bruises, or ulcers Neuro: awake, fully oriented. Speech fluent - Summary of Assessment and Plan Summary of Assessment and Plan: Patricia Flanagan is an 83 F w hx stage IV rectal cancer s/p ostomy ' c/b recurrent SBOs, HFrEF 45%, A-Fib, HTN, HLD, DM2, bpAVR '13, who p/w abd pain and vomiting, found on CT to have dilated loops of small bowel with compressed colon and ostomy, suggestive of complete SBO likely at site of rectal mass and lymphadenopathy, who underwent palliative bypass on 10/06. SBO: improving s/p enterocolonic anastomosis on 10/[address] Youssef, and ostomy now functioning, N/V improved although poor PO today, pt and family still hopeful for continued improvements - GenSurg following, appreciate co-management - Diet per GenSurg, clears today - MIVF LR@50 - Pain and nausea control - PT/OT Rectal cancer: plan remains to d/c to skilled care when patient medically able where patient will subsequently get qualified for medicaid to allow for hospice services. Pt's son in agreement with this. Acute blood loss on anemia of chronic disease: keep Hb >7, s/p 1u prbc on 10/10 with good recovery, monitor Severe protein calorie malnutrition: poor PO intake, wt loss, cancer HFrEF 45%: not overloaded but is net positive thus far w mild pedal swelling, monitor volume status daily while on MIVF and d/c MIVF when PO improves A-Fib: rate controlled on lopressor 25 bid and cardizem 300, AC on ASA HTN: BB and CCB as above HLD: statin DM2: w hyperglycemia, SSI s/p bpAVR: noted PPx: sqh FEN: clears, MIVF LR@50 Lines: PIV, ostomy Consults: GenSurg, Palliative Code: DNRCC-A / DNI Dispo: patient requires inpatient eval and management at this time. Anticipate 2-3 days. Will need SNF Internal Medicine: Result - Labs CBC & Chem 7: 10/12/18 05:15 10/12/18 05:15 Labs: Short CBC 10/12/18 Range/Units 05:15 WBC 9.7 (4.3-11.1) K/mcL Hgb 9.8 L (11.5-15.4) g/dL Hct 31.4 L (35.3-44.9) % Plt Count 286 (140-400) K/mcL BMP 10/12/18 05:15 Sodium 142 Potassium 4.0 D Chloride 113 H Carbon Dioxide 22 L BUN 19 Creatinine 0.90 Glucose 210 H Calcium 7.7 L Liver Function 10/12/18 Range/Units 05:15 Total Bilirubin 0.3 (0.3-1.0) mg/dL Direct Bilirubin 0.1 (0.0-0.2) mg/dL AST 10 L (13-39) Units/L ALT 8 (7-52) Units/L Alkaline Phosphatase 89 (34-104) Units/L Albumin 2.2 L (3.5-5.7) g/dL - ABG Interpretation ABG results: PT/INR, D-dimer PT 12.4 Seconds (9.4-12.1) H 09/30/18 06:01 Consult Discharge Plan - Plan Referrals: Maurizio Youssef MD [Partnered Physician] - 10/25/18 8:40 am Fernando Regan DO [Primary Care Provider] -
--- NOTE | 2018-10-12 11:03 | AcuteCareSurgery Progress Note ---
<Barbie Peterson - Last Filed: 10/12/18 10:58> Date of Encounter: 10/12/18 Time of Encounter: 10:58 - Assessment and Plan (1) SBO (small bowel obstruction) Current Visit: Yes Status: Acute Patient presented with nausea, vomiting, abdominal pain - CT abdomen and pelvis 09/29/18-status post partial colonic resection, left paramedian upper pelvis there is a distal small bowel obstruction with no evidence of perforation or abscess, small peristomal hernia containing anterior wall of dilated jejunal loop and mesenteric fat, progressive retroperitoneal abdominal and pelvic lymphadenopathy, right ureteral stent, cholelithiasis, heterogeneous appearance of endometrial canal, progressive rectal bed/presacral amorphous soft tissue density - CT abdomen and pelvis 10/04/18- continued small bowel obstruction, high-grade partial small bowel obstruction with transition in the deep pelvis, heterogeneous necrotic mass in the central pelvis, new and worsening retrocrural and retroperitoneal adenopathy, mild to moderate right hydronephrosis despite presence of right ureteral stent Status post day 6 palliative bypass Incision clean, dry, intact Continues to have output in colostomy bag Pain control-oxycodone. Suspect that her continued abdominal pain is related to her intra-abdominal cancer as opposed to postsurgical pain. Continue to trend labs, monitor electrolytes and replete if necessary Patient denies episodes of emesis overnight, admits to anorexia. Will try to advance to soft diet today. We will continue Reglan and nausea co ntrol. We will continue to follow from a distance. (2) Rectal cancer Current Visit: Yes Status: Chronic Patient has a history of rectal cancer She is status post chemotherapy, radiation, and partial colonic resection and ostomy which is placed in 2014 up in [place] (3) DVT prophylaxis Current Visit: Yes Status: Acute Subcutaneous heparin Subjective Narrative: Patient seen and examined at bedside today. She denies any vomiting overnight, she has anorexia. She continues to have good output into colostomy bag. She continues to have abdominal pain, suspect this is most likely related to her cancer as opposed to surgical. Objective Vital Signs - Last 8 Hours Temp Pulse Resp BP Pulse Ox 10/12/18 06:32 98.2 F 87 16 148/64 94 10/12/18 03:40 98.2 F 102 16 136/71 96 Intake and Output 10/11/18 10/12/18 10/12/18 23:59 07:59 15:59 Intake Total 252 / 1319 732 / 1060 328 / 1060 Balance 252 / 1319 732 / 1060 328 / 1060 Intake: IV Fluids 252 / 1319 732 / 940 208 / 940 Lactated Ringers 1,000 ML @ 50 252 / 404 732 / 732 mls/hr IVC .Q20H ROSIE Rx#: [id number] Magnesium Sulfate 2 GM In 0.9 % / Sodium Chloride 100 ML @ 104 mls/hr IVPB Q1H ROSIE Rx#: [id number] Oral 0 / 120 120 / 120 Other: # Urine Diapers 2 1 Weight 59.2 kg Blood Glucose* 206 203 Patient Weight 10/12/18 23:59 Weight 59.2 kg - General physical appearance well nourished, moderate distress - Eyes PERRL, normal ocular movement - ENT normal mucosa, no congestion - Neck Neck exam: no masses, trachea midline - Respiratory normal expansion, normal respiratory effort, clear to auscultation - Cardiovascular Cardiovascular exam: Present: irregular rhythm, no murmurs/rubs/gallops. Absent: JVD - Abdomen Abdomen: Present: bowel sounds present (Liquid stool output into colostomy), soft, tender (mild). Absent: distended - Incision Incision: Present: clean and dry, intact. Absent: erythema - Integumentary no rash, no abnormal pigmentation - Neurologic normal coordination, normal sensation - Psychiatric oriented to time, oriented to person, oriented to place, speech is normal, memory intact - Labs 10/12/18 05:15 10/12/18 05:15 Diabetes panel 10/12/18 Range/Units 05:15 Sodium 142 (136-145) mEq/L Potassium 4.0 D (3.5-5.1) mEq/L Chloride 113 H (98-107) mEq/L Carbon Dioxide 22 L (23-29) mEq/L BUN 19 (8-23) mg/dL Creatinine 0.90 (0.60-1.20) mg/dL Glucose 210 H (70-105) mg/dL Calcium 7.7 L (8.6-10.3) mg/dL AST 10 L (13-39) Units/L ALT 8 (7-52) Units/L Alkaline Phosphatase 89 (34-104) Units/L Albumin 2.2 L (3.5-5.7) g/dL Calcium panel 10/12/18 Range/Units 05:15 Calcium 7.7 L (8.6-10.3) mg/dL Albumin 2.2 L (3.5-5.7) g/dL Pituitary panel 10/12/18 Range/Units 05:15 Sodium 142 (136-145) mEq/L Potassium 4.0 D (3.5-5.1) mEq/L Chloride 113 H (98-107) mEq/L Carbon Dioxide 22 L (23-29) mEq/L BUN 19 (8-23) mg/dL Creatinine 0.90 (0.60-1.20) mg/dL Glucose 210 H (70-105) mg/dL Calcium 7.7 L (8.6-10.3) mg/dL Adrenal panel 10/12/18 Range/Units 05:15 Sodium 142 (136-145) mEq/L Potassium 4.0 D (3.5-5.1) mEq/L Chloride 113 H (98-107) mEq/L Carbon Dioxide 22 L (23-29) mEq/L BUN 19 (8-23) mg/dL Creatinine 0.90 (0.60-1.20) mg/dL Glucose 210 H (70-105) mg/dL Calcium 7.7 L (8.6-10.3) mg/dL Total Bilirubin 0.3 (0.3-1.0) mg/dL AST 10 L (13-39) Units/L ALT 8 (7-52) Units/L Alkaline Phosphatase 89 (34-104) Units/L Albumin 2.2 L (3.5-5.7) g/dL Consult Discharge Plan - Plan Referrals: Maurizio Youssef MD [Partnered Physician] - 10/25/18 8:40 am Fernando Regan DO [Primary Care Provider] - <Sander Doan - Last Filed: 10/12/18 16:29> Date of Encounter: 10/12/18 Objective Vital Signs - Last 8 Hours Temp Pulse Resp BP Pulse Ox 10/12/18 15:25 99.0 F 100 16 156/71 95 10/12/18 10:00 98.0 F 84 16 135/67 93 Intake and Output 10/12/18 10/12/18 10/12/18 07:59 15:59 23:59 Intake Total 732 / 1416 472 / 1416 212 / 1416 Balance 732 / 1416 472 / 1416 212 / 1416 Intake: IV Fluids 732 / 1296 352 / 1296 212 / 1296 Lactated Ringers 1,000 ML @ 50 732 / 1088 144 / 1088 212 / 1088 mls/hr IVC .Q20H ROSIE Rx#: [id number] Magnesium Sulfate 2 GM In 0.9 % 208 / 208 Sodium Chloride 100 ML @ 104 mls/hr IVPB Q1H ROSIE Rx#: [id number] Oral 0 / 120 120 / 120 Other: Percent of Meal Consumed 10% # Urine Diapers 2 1 Weight 59.2 kg Blood Glucose* 203 118 Patient Weight 10/12/18 23:59 Weight 59.2 kg - Labs 10/12/18 05:15 10/12/18 05:15 Diabetes panel 10/12/18 Range/Units 05:15 Sodium 142 (136-145) mEq/L Potassium 4.0 D (3.5-5.1) mEq/L Chloride 113 H (98-107) mEq/L Carbon Dioxide 22 L (23-29) mEq/L BUN 19 (8-23) mg/dL Creatinine 0.90 (0.60-1.20) mg/dL Glucose 210 H (70-105) mg/dL Calcium 7.7 L (8.6-10.3) mg/dL AST 10 L (13-39) Units/L ALT 8 (7-52) Units/L Alkaline Phosphatase 89 (34-104) Units/L Albumin 2.2 L (3.5-5.7) g/dL Calcium panel 10/12/18 Range/Units 05:15 Calcium 7.7 L (8.6-10.3) mg/dL Albumin 2.2 L (3.5-5.7) g/dL Pituitary panel 10/12/18 Range/Units 05:15 Sodium 142 (136-145) mEq/L Potassium 4.0 D (3.5-5.1) mEq/L Chloride 113 H (98-107) mEq/L Carbon Dioxide 22 L (23-29) mEq/L BUN 19 (8-23) mg/dL Creatinine 0.90 (0.60-1.20) mg/dL Glucose 210 H (70-105) mg/dL Calcium 7.7 L (8.6-10.3) mg/dL Adrenal panel 10/12/18 Range/Units 05:15 Sodium 142 (136-145) mEq/L Potassium 4.0 D (3.5-5.1) mEq/L Chloride 113 H (98-107) mEq/L Carbon Dioxide 22 L (23-29) mEq/L BUN 19 (8-23) mg/dL Creatinine 0.90 (0.60-1.20) mg/dL Glucose 210 H (70-105) mg/dL Calcium 7.7 L (8.6-10.3) mg/dL Total Bilirubin 0.3 (0.3-1.0) mg/dL AST 10 L (13-39) Units/L ALT 8 (7-52) Units/L Alkaline Phosphatase 89 (34-104) Units/L Albumin 2.2 L (3.5-5.7) g/dL - Attending Attestation I examined this patient and my medical decision-making was reviewed with the Resident Physician. I agree with the documented findings, disposition and treatment plan as described except to the extent set forth below. I reviewed the above assessment and evaluation and agree with the above plan. Will go ahead and advance diet to soft foods. We will also follow from a avinash hou.
--- NOTE | 2018-10-12 11:14 | Palliative Progress Note ---
Date of Encounter: 10/12/18 Time of Encounter: 11:10 - Assessment and plan (1) Abdominal pain Current Visit: No Status: Acute Assessment and plan: Continue Oxycodone. Has utilized x 4 last 24 hours. She has been using the 10mg. Will d/c 15 off med profile, as she has seemed pretty drowsy yesterday and today. Reglan may be added to this as well. Will add Oxycodone 5mg for mod pain and leave the 10mg for severe pain. Qualifiers: Abdominal location: generalized Qualified Code(s): R10.84 - Generalized abdominal pain (2) Nausea Current Visit: Yes Status: Acute Assessment and plan: Improved today after initiation of scheduled Zofran/Reglan. Monitor. (3) Decreased oral intake Current Visit: Yes Status: Acute Assessment and plan: Will begin low dose Remeron to hopefully stimulate appetite and assist with her depression as well. However, pt seems to have lost her will and has been telling son "she is ready to go to [facility]", so she may not benefit from this. (4) Small bowel obstruction Current Visit: Yes Status: Acute Assessment and plan: S/p palliative resection. POD #7. (5) Goals of care, counseling/discussion Current Visit: Yes Status: Acute Assessment and plan: Spoke with son Yung via telephone. He will be starting back to [place] today. He states that he has had conversation with the pt the last 2 days, and believes that she has lost the will to live. He is aware that she is sleeping majority of the time, and not taking po. Discussed that we can start agent to try and stimulate appetite, but if she has "given up", this is not likely to make a difference. He verbalized understanding. She has made statements to him that she is "ready to go to [facility]". He is at peace with this. Financial assistance here trying to get in touch with him to go ahead and start the Medicaid process, as they will likely not be able to skill her long (or maybe at all) at [facility]. Once this is in place, he is very open to transition to hospice care at that time. D/W MILKA Neal for 3A as well. Will continue to follow. (6) Palliative care encounter Current Visit: Yes Status: Acute (7) Rectal cancer Current Visit: Yes Status: Chronic - Time Spent With Patient Total time spent is greater than 50% in coordination of care (as documented) at patient's floor/unit and/or counseling patient: - Subjective Interval history: Patient sleeping on arrival - awakens easily. Does drift back to sleep with conversation. Nausea improved today, no emesis since yesterday, however, still not taking oral feeding. No visitors present. - Constitutional Vitals: Abnormal lab results WBC 11.8 K/mcL (4.3-11.1) H 10/11/18 06:51 RBC 3.58 M/mcL (3.82-4.97) L 10/12/18 05:15 Hgb 9.8 g/dL (11.5-15.4) L 10/12/18 05:15 Hct 31.4 % (35.3-44.9) 10/12/18 05:15 MCH 27.4 pg (28.0-33.3) L 10/12/18 05:15 MCHC 31.2 g/dL (31.6-35.5) 10/12/18 05:15 RDW 17.4 % (11.5-14.5) H 10/12/18 05:15 MPV 9.3 fL (9.4-12.4) L 10/10/18 13:04 9.5 K/mcL (1.6-8.9) H 10/11/18 06:51 PT 12.4 Seconds (9.4-12.1) H 09/30/18 06:01 APTT 38.7 Seconds (26.0-36.0) H 09/30/18 06:01 VBG pH 7.46 pH Units (7.32-7.42) H 10/07/18 08:44 VBG pCO2 23 mmHg (41-51) L 10/07/18 08:44 VBG pO2 209 mmHg (25-50) H 10/07/18 08:44 VBG HCO3 16 mEq/L (21-27) L 10/07/18 08:44 Sodium 135 mEq/L (136-145) L 10/06/18 05:11 Potassium 3.1 mEq/L (3.5-5.1) L 10/11/18 06:51 Chloride 113 mEq/L (98-107) H 10/12/18 05:15 Carbon Dioxide 22 mEq/L (23-29) L 10/12/18 05:15 BUN 26 mg/dL (8-23) H 10/09/18 05:07 Est GFR (Non-Af Amer) 56 (> 60) L 10/07/18 04:49 35 (6-26) H 10/09/18 05:07 Glucose 210 mg/dL (70-105) H 10/12/18 05:15 POC Glucose 206 mg/dL (70-99) H 10/11/18 20:12 302 (280-300) H 10/12/18 05:15 Calcium 7.7 mg/dL (8.6-10.3) L 10/12/18 05:15 Magnesium 1.2 mg/dL (1.6-2.6) L 10/12/18 05:15 AST 10 Units/L (13-39) L 10/12/18 05:15 106 Units/L (34-104) H 09/29/18 16:12 5.0 g/dL (6.4-8.9) L 10/12/18 05:15 2.2 g/dL (3.5-5.7) L 10/12/18 05:15 3.7 g/dL (2.4-3.5) H 09/30/18 06:01 0.8 (1.1-2.2) L 10/12/18 05:15 6.2 mg/dL (17.0-34.0) L 10/05/18 05:51 Cloudy (Clear) A 09/29/18 18:05 30 mg/dL (Neg-Trace) H 09/29/18 18:05 Trace mg/dL (Negative) H 09/29/18 18:05 Trace (Negative) H 09/29/18 18:05 Small (Negative) H 09/29/18 18:05 Ur Leukocyte Esterase Large (Negative) H 09/29/18 18:05 30-50 per hpf (0-3) H 09/29/18 18:05 Ur Squamous Epith Cells Many per lpf (None-Few) H 09/29/18 18:05 Amorphous Sediment Moderate (Few) H 09/29/18 18:05 Ur Culture Indicated? YES (NO) A 09/29/18 18:05 Crossmatch See Detail 10/10/18 14:45 General appearance: Present: no acute distress - Respiratory Respiratory exam: Present: decreased breath sounds, CTAB - Cardiovascular Cardiovascular exam: Present: +S1, +S2 - GI/Abdominal GI/Abdominal exam: Present: distended, normal bowel sounds, soft Additional comments: Curtis to midline incision intact. Ostomy pink - some solid stool noted in pouch. - Extremities Exam Extremities exam: Present: normal capillary refill, normal inspection - Neurological Exam Neurological exam: Present: alert, oriented X3, strengths equal and symetr throughout - Skin Skin exam: Present: dry, pallor, warm Palliative Quality Palliative Quality: Screen for Code Status: Yes, Screen for Goals of Care: Yes, Screen for Pain: Yes, If Pain Regimen Started, Initiate Bowel Regimen: NA, Screen for Nausea/Vomitting: Yes Code Status: 09/29/18 19:34 Resuscitation Status: Active [RES] Routine Comment: Resuscitation Status: Full Code 10/04/18 16:59 Resuscitation Status: Active [RES] Routine Comment: Resuscitation Status: [id number] - Labs CBC & Chem 7: 10/12/18 05:15 10/12/18 05:15 Labs: Laboratory Results - last 24 hr 10/11/18 10/11/18 10/11/18 00:19 08:22 12:41 WBC RBC Hgb Hct MCV MCH MCHC RDW Plt Count MPV Sodium Potassium Chloride Carbon Dioxide BUN Creatinine Est GFR ( Amer) Est GFR (Non-Af Amer) BUN/Creatinine Ratio Glucose POC Glucose 146 H 158 H 231 H Calculated Osmolality Calcium Magnesium Total Bilirubin Direct Bilirubin Indirect Bilirubin AST ALT Alkaline Phosphatase Serum Total Protein Albumin Globulin Albumin/Globulin Ratio 10/11/18 10/11/18 10/12/18 16:54 20:12 05:15 WBC 9.7 RBC 3.58 L Hgb 9.8 L Hct 31.4 L MCV 87.7 MCH 27.4 L MCHC 31.2 L RDW 17.4 H Plt Count 286 MPV 9.8 Sodium Potassium Chloride Carbon Dioxide BUN Creatinine Est GFR ( Amer) Est GFR (Non-Af Amer) BUN/Creatinine Ratio Glucose POC Glucose 125 H 206 H Calculated Osmolality Calcium Magnesium Total Bilirubin Direct Bilirubin Indirect Bilirubin AST ALT Alkaline Phosphatase Serum Total Protein Albumin Globulin Albumin/Globulin Ratio 10/12/18 05:15 WBC RBC Hgb Hct MCV MCH MCHC RDW Plt Count MPV Sodium 142 Potassium 4.0 D Chloride 113 H Carbon Dioxide 22 L BUN 19 Creatinine 0.90 Est GFR ( Amer) > 60 Est GFR (Non-Af Amer) 60 BUN/Creatinine Ratio 21 Glucose 210 H POC Glucose Calculated Osmolality 302 H Calcium 7.7 L Magnesium 1.2 L Total Bilirubin 0.3 Direct Bilirubin 0.1 Indirect Bilirubin 0.2 AST 10 L ALT 8 Alkaline Phosphatase 89 Serum Total Protein 5.0 L Albumin 2.2 L Globulin 2.8 Albumin/Globulin Ratio 0.8 L - ABG Interpretation ABG results: PT/INR, D-dimer PT 12.4 Seconds (9.4-12.1) H 09/30/18 06:01 Palliative Scale - Palliative Performance Scale How ambulatory is this patient?: Mainly sit / lie What is patient's level of activity and evidence of disease?: Unable to do most activity, Extensive disease How much self-care assistance does patient require?: Considerable assistance required How much oral intake does the patient have?: Minimal to sips What is this patient's level of consciousness?: Full Palliative Performance Score: 40 % Consult Discharge Plan - Plan Referrals: Maurizio Youssef MD [Partnered Physician] - 10/25/18 8:40 am Fernando Regan DO [Primary Care Provider] -
[2018-10-12] MEDS ORDERED: OXYCODONE Oral CONC 10 MG/0.5 ML ORAL.SYG SL PRN (11:28)
[2018-10-12] MEDS ORDERED: Acetaminophen 325 MG TABLET PO PRN (11:29)
[2018-10-12] MEDS: OXYCODONE Oral CONC 10 MG/0.5 ML ORAL.SYG SL PRN ×2 (11:54→20:54)
[2018-10-12] MEDS ORDERED: Mirtazapine 15 MG TABLET PO SCH (21:00)
[2018-10-13] MEDS: Metoclopramide 10 MG/2 ML VIAL IVP SCH ×4 (00:55→19:02)
[2018-10-13] MEDS: Ondansetron 4 MG/2 ML VIAL IVP SCH ×6 (00:55→20:04)
[2018-10-13] MEDS: OXYCODONE Oral CONC 10 MG/0.5 ML ORAL.SYG SL PRN (00:55)
[2018-10-13] MEDS: Ringers Solution, Lactated 1,000 ML IVC SCH (03:11)
[2018-10-13] MEDS: *HR* Heparin 5,000 UNIT/ML VIAL SQ SCH ×3 (04:49→21:28)
[2018-10-13 05:56] LABS: Hematocrit 28.6 % (35.3-44.9); Hemoglobin 8.9 g/dL (11.5-15.4); Mean Corpuscular HGB Conc 31.1 g/dL (31.6-35.5); Mean Corpuscular Hemoglobin 27.8 pg (28.0-33.3); Mean Corpuscular Volume 89.4 fL (83.0-100.0); Mean Platelet Volume 9.5 fL (9.4-12.4); Platelet Count 247 K/mcL (140-400); Red Cell Distribution Width 18.1 % (11.5-14.5); White Blood Count 7.4 K/mcL (4.3-11.1)
[2018-10-13 06:23] LABS: BUN/Creatinine Ratio 21 (6-26); Blood Urea Nitrogen 22 mg/dL (8-23); Calcium 7.8 mg/dL (8.6-10.3); Carbon Dioxide 21 mEq/L (23-29); Chloride 110 mEq/L (98-107); Glucose 153 mg/dL (70-105); Osmolality,Calculated 302 (280-300); Potassium 3.8 mEq/L (3.5-5.1); Sodium 143 mEq/L (136-145); eGFR For African Americans > 60 (> 60); eGFR For Non-African Americans 51 (> 60)
--- NOTE | 2018-10-13 07:57 | Internal Med Progress Note ---
Hospitalist Progress Note - Encounter Date of Encounter: 10/13/18 Time of Encounter: 07:57 - Subjective Interval History: Pt sleepy this AM, seems less awake today than yesterday and did not get a pain med prior to my visit today. Was able to wake up and eat some soft foods today, and is tolerating PO well yesterday and today. The amount is not enough, but no N/V. - Exam Vitals: Temp Pulse Resp BP Pulse Ox 99.5 F 100 16 136/72 93 10/13/18 07:11 10/13/18 07:11 10/13/18 07:11 10/13/18 07:11 10/13/18 07:11 Exam: General: NAD, good eye contact, pleasant, chronically ill appearing and elderly, appears more comfortable today Thoracic: Normal breath sounds b/l, no wheezing or crackles Cardio: Normal S1 and S2, irregularly irregular rhythm, regular rate Abdomen: soft, nondistended, much less tenderness to palpation today, ostomy bag in place with minimal liquid brown stool Extremities: Warm, well perfused. DP pulses 2+ b/l. Minimal pedal edema Skin: Intact. No rashes, bruises, or ulcers Neuro: awake, fully oriented. 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 SBO: improved s/p enterocolonic anastomosis on 10/06 by GenSurjossy Youssef. Ostomy functioning, no further N/V or distention. Pt tolerating softs. - Christie following, appreciate co-management - d/c MIVF - Pain and nausea control - PT/OT Somnolence: per palliative, will start methylphenidate Rectal cancer: plan remains to d/c to skilled care when patient medically able where patient will subsequently get qualified for medicaid to allow for hospice services. Pt's son in agreement with this. Continue pain control as needed. Acute blood loss on anemia of chronic disease: keep Hb >7, s/p 1u prbc on 10/10 with good recovery, monitor Severe protein calorie malnutrition: poor PO intake, wt loss, cancer. Nutrition following, started on ensures HFrEF 45%: not overloaded but is net positive thus far w mild pedal swelling, monitor volume status daily while on MIVF and d/c MIVF when PO improves A-Fib: rate controlled on lopressor 25 bid and cardizem 300, AC on ASA HTN: BB and CCB as above HLD: statin DM2: w hyperglycemia, SSI s/p bpAVR: noted PPx: sqh FEN: softs, d/c MIVF Lines: PIV, ostomy Consults: GenSurg, Palliative Code: DNRCC-A / DNI Dispo: patient requires inpatient eval and management at this time. Anticipate 1-2 days. Will need SNF Internal Medicine: Result - Labs CBC & Chem 7: 10/13/18 05:40 10/13/18 05:40 Labs: Short CBC 10/13/18 Range/Units 05:40 WBC 7.4 (4.3-11.1) K/mcL Hgb 8.9 L (11.5-15.4) g/dL Hct 28.6 L (35.3-44.9) % Plt Count 247 (140-400) K/mcL BMP 10/13/18 05:40 Sodium 143 Potassium 3.8 Chloride 110 H Carbon Dioxide 21 L BUN 22 Creatinine 1.04 Glucose 153 H Calcium 7.8 L - ABG Interpretation ABG results: PT/INR, D-dimer PT 12.4 Seconds (9.4-12.1) H 09/30/18 06:01 Consult Discharge Plan - Plan Referrals: Maurizio Youssef MD [Partnered Physician] - 10/25/18 8:40 am Fernando Regan DO [Primary Care Provider] -
[2018-10-13] MEDS: Insulin LISPRO 300 UNITS/3 ML VIAL SQ SCH ×4 (08:33→21:12)
[2018-10-13] MEDS: Diltiazem CD (24hr) 180 MG CAPSULE PO SCH (08:34)
--- NOTE | 2018-10-13 10:07 | Palliative Progress Note ---
Date of Encounter: 10/13/18 Time of Encounter: 10:03 - Assessment and plan (1) Depression Current Visit: Yes Status: Acute Assessment and plan: Patient appears depressed, with low energy, lack of appetite and excessive sleepiness, lack of will to improve and participate in PT. Sleepiness can be also explained by multiple [employer] depressing medication: opiates, antiemetic, scopolamine, remeron. Plan: -d/c scopolamine, d/c remeron -Patient needs antiemetic and pain medication for comfort, will be continued. -opiate need reducing, oxycodone 5mg in place for moderate pain -will start Methylphenidate 2.5 mg morning and noon for treatment of depression, with the added benefit to counteract side effects of sedation and improve appetite. Case discussed with Dr. Garcia, PC will continue to follow closely. (2) Abdominal pain Current Visit: No Status: Acute Assessment and plan: Continue Oxycodone. Has utilized x 2 Oxy 10mg last 24 hours. Oxycodone 5mg for mod pain in place. Is more comfortable. Qualifiers: Abdominal location: generalized Qualified Code(s): R10.84 - Generalized abdominal pain (3) SBO (small bowel obstruction) Current Visit: Yes Status: Acute Assessment and plan: S/p palliative surgery. POD #8 (4) Goals of care, counseling/discussion Current Visit: Yes Status: Acute Assessment and plan: Per yesterday's conversation between KENIA Silvina and son Bharathi, plan remains to go ahead and start the Medicaid process, as they will likely not be able to skill her long (or maybe at all) at [facility]. Once this is in place, [facility] is very open to transition to hospice care at that time. Patient has not been participating in PT since surgery. (5) Palliative care encounter Current Visit: Yes Status: Acute (6) Nausea Current Visit: Yes Status: Acute Assessment and plan: Improving, pt had some oral intake, mostly liquids. Zofran and reglan scheduled. - Time Spent With Patient Total time spent is greater than 50% in coordination of care (as documented) at patient's floor/unit and/or counseling patient: - Subjective Interval history: Patient was very drowsy today, states to be feeling very sleepy, she is falling asleep in he middle of sentence. She was less tender on abdominal exam and received less pain medication 2 doses of oxycodone 10 mg in 24hrs. She states nausea is better. Colostomy had liquid stool and gas. - Constitutional Vitals: Abnormal lab results WBC 11.8 K/mcL (4.3-11.1) H 10/11/18 06:51 RBC 3.20 M/mcL (3.82-4.97) L 10/13/18 05:40 Hgb 8.9 g/dL (11.5-15.4) L 10/13/18 05:40 Hct 28.6 % (35.3-44.9) L 10/13/18 05:40 MCH 27.8 pg (28.0-33.3) L 10/13/18 05:40 MCHC 31.1 g/dL (31.6-35.5) L 10/13/18 05:40 RDW 18.1 % (11.5-14.5) H 10/13/18 05:40 MPV 9.3 fL (9.4-12.4) L 10/10/18 13:04 9.5 K/mcL (1.6-8.9) H 10/11/18 06:51 PT 12.4 Seconds (9.4-12.1) H 09/30/18 06:01 APTT 38.7 Seconds (26.0-36.0) H 09/30/18 06:01 VBG pH 7.46 pH Units (7.32-7.42) H 10/07/18 08:44 VBG pCO2 23 mmHg (41-51) L 10/07/18 08:44 VBG pO2 209 mmHg (25-50) H 10/07/18 08:44 VBG HCO3 16 mEq/L (21-27) L 10/07/18 08:44 Sodium 135 mEq/L (136-145) L 10/06/18 05:11 Potassium 3.1 mEq/L (3.5-5.1) L 10/11/18 06:51 Chloride 110 mEq/L (98-107) H 10/13/18 05:40 Carbon Dioxide 21 mEq/L (23-29) L 10/13/18 05:40 BUN 26 mg/dL (8-23) H 10/09/18 05:07 Est GFR (Non-Af Amer) 51 (> 60) L 10/13/18 05:40 35 (6-26) H 10/09/18 05:07 Glucose 153 mg/dL (70-105) H 10/13/18 05:40 POC Glucose 114 mg/dL (70-99) H 10/12/18 21:10 302 (280-300) H 10/13/18 05:40 Calcium 7.8 mg/dL (8.6-10.3) L 10/13/18 05:40 Magnesium 1.2 mg/dL (1.6-2.6) L 10/12/18 05:15 AST 10 Units/L (13-39) L 10/12/18 05:15 106 Units/L (34-104) H 09/29/18 16:12 5.0 g/dL (6.4-8.9) L 10/12/18 05:15 2.2 g/dL (3.5-5.7) L 10/12/18 05:15 3.7 g/dL (2.4-3.5) H 09/30/18 06:01 0.8 (1.1-2.2) L 10/12/18 05:15 6.2 mg/dL (17.0-34.0) L 10/05/18 05:51 Cloudy (Clear) A 09/29/18 18:05 30 mg/dL (Neg-Trace) H 09/29/18 18:05 Trace mg/dL (Negative) H 09/29/18 18:05 Trace (Negative) H 09/29/18 18:05 Small (Negative) H 09/29/18 18:05 Ur Leukocyte Esterase Large (Negative) H 09/29/18 18:05 30-50 per hpf (0-3) H 09/29/18 18:05 Ur Squamous Epith Cells Many per lpf (None-Few) H 09/29/18 18:05 Amorphous Sediment Moderate (Few) H 09/29/18 18:05 Ur Culture Indicated? YES (NO) A 09/29/18 18:05 Crossmatch See Detail 10/10/18 14:45 Palliative Quality Palliative Quality: Screen for Code Status: Yes, Screen for Goals of Care: Yes, Screen for Pain: Yes, If Pain Regimen Started, Initiate Bowel Regimen: NA, Screen for Nausea/Vomitting: Yes Code Status: 09/29/18 19:34 Resuscitation Status: Active [RES] Routine Comment: Resuscitation Status: Full Code 10/04/18 16:59 Resuscitation Status: Active [RES] Routine Comment: Resuscitation Status: [id number] - Labs CBC & Chem 7: 10/13/18 05:40 10/13/18 05:40 Labs: Laboratory Results - last 24 hr 10/12/18 10/12/18 10/12/18 07:24 11:20 16:58 WBC RBC Hgb Hct MCV MCH MCHC RDW Plt Count MPV Sodium Potassium Chloride Carbon Dioxide BUN Creatinine Est GFR ( Amer) Est GFR (Non-Af Amer) BUN/Creatinine Ratio Glucose POC Glucose 203 H 118 H 151 H Calculated Osmolality Calcium Magnesium 10/12/18 10/13/18 10/13/18 21:10 05:40 05:40 WBC 7.4 RBC 3.20 L Hgb 8.9 L Hct 28.6 L MCV 89.4 MCH 27.8 L MCHC 31.1 L RDW 18.1 H Plt Count 247 MPV 9.5 Sodium 143 Potassium 3.8 Chloride 110 H Carbon Dioxide 21 L BUN 22 Creatinine 1.04 Est GFR ( Amer) > 60 Est GFR (Non-Af Amer) 51 L BUN/Creatinine Ratio 21 Glucose 153 H POC Glucose 114 H Calculated Osmolality 302 H Calcium 7.8 L Magnesium 2.0 - ABG Interpretation ABG results: PT/INR, D-dimer PT 12.4 Seconds (9.4-12.1) H 09/30/18 06:01 Palliative Scale - Palliative Performance Scale How ambulatory is this patient?: Mainly sit / lie What is patient's level of activity and evidence of disease?: Unable to do most activity, Extensive disease How much self-care assistance does patient require?: Considerable assistance required How much oral intake does the patient have?: Minimal to sips What is this patient's level of consciousness?: Full Palliative Performance Score: 40 % Consult Discharge Plan - Plan Referrals: Maurizio Youssef MD [Partnered Physician] - 10/25/18 8:40 am Fernando Regan DO [Primary Care Provider] -
[2018-10-13] MEDS: Methylphenidate HCl 5 MG TABLET PO SCH (11:33)
[2018-10-13] MEDS: Acetaminophen 325 MG TABLET PO PRN (21:28)
[2018-10-14] MEDS ORDERED: Ibuprofen 600 MG TABLET PO ONE (00:32)
[2018-10-14] MEDS: Metoclopramide 10 MG/2 ML VIAL IVP SCH ×5 (00:33→23:53)
[2018-10-14] MEDS: Ondansetron 4 MG/2 ML VIAL IVP SCH ×3 (00:34→09:32)
[2018-10-14 05:31] LABS: Hemoglobin 9.7 g/dL (11.5-15.4); Mean Corpuscular HGB Conc 30.3 g/dL (31.6-35.5); Mean Corpuscular Hemoglobin 27.6 pg (28.0-33.3); Mean Corpuscular Volume 91.2 fL (83.0-100.0); Mean Platelet Volume 9.7 fL (9.4-12.4); Platelet Count 280 K/mcL (140-400); Red Blood Count 3.51 M/mcL (3.82-4.97); Red Cell Distribution Width 18.6 % (11.5-14.5); White Blood Count 7.7 K/mcL (4.3-11.1)
[2018-10-14] MEDS: *HR* Heparin 5,000 UNIT/ML VIAL SQ SCH ×3 (05:38→21:01)
[2018-10-14 05:43] LABS: Potassium 3.7 mEq/L (3.5-5.1)
[2018-10-14] MEDS: Diltiazem CD (24hr) 180 MG CAPSULE PO SCH (09:31)
[2018-10-14] MEDS: Methylphenidate HCl 5 MG TABLET PO SCH ×2 (09:31→11:47)
[2018-10-14] MEDS: Insulin LISPRO 300 UNITS/3 ML VIAL SQ SCH ×4 (09:32→21:01)
[2018-10-14] MEDS ORDERED: levoFLOXacin 750 MG/150 ML 750 MG/150 ML BAG IVPB ONE (09:53)
--- NOTE | 2018-10-14 10:39 | Palliative Progress Note ---
Date of Encounter: 10/14/18 Time of Encounter: 09:30 - Assessment and plan (1) Depression Current Visit: Yes Status: Acute Assessment and plan: Today patient was awake today, sitting on chair. Plan: -continue current treatment. -opiate need reducing, oxycodone 5mg in place for moderate pain -continue Methylphenidate 5 mg morning and noon for treatment of depression, with the added benefit to counteract side effects of sedation and improve appetite. (2) Abdominal pain Current Visit: No Status: Acute Assessment and plan: Patient was in pain this morning, did not receive any pain medication in the last 24hr. Pain management is important for patient comfort and mood, and to improve her compliance with physical therapy and treatment. Oxycodone 5mg for mod pain and Oxycodone 10mg for severe pain in place. Qualifiers: Abdominal location: generalized Qualified Code(s): R10.84 - Generalized abdominal pain (3) SBO (small bowel obstruction) Current Visit: Yes Status: Acute Assessment and plan: S/p palliative surgery. POD #9 (4) Nausea Current Visit: Yes Status: Acute Assessment and plan: Improving, pt had some oral intake, mostly liquids. Will discontinue Zofran, continue Reglan scheduled. (5) Goals of care, counseling/discussion Current Visit: Yes Status: Acute Assessment and plan: Called shane Garvin and updated on patient's clinical condition and plan of care. Goal remains to discharge to [facility] for PT and ultimately Yung is very open to transition to hospice care at that time. Patient may be able to participate with PT today if pain is better controlled. (6) Palliative care encounter Current Visit: Yes Status: Acute - Time Spent With Patient Total time spent is greater than 50% in coordination of care (as documented) at patient's floor/unit and/or counseling patient: 25 - 35 minutes - Subjective Interval history: Patient today was awake and sitting on the chair. She as feeling very weak, and complaining of pain. She had no pain medication for the last 24 hrs. Patient had some of her breakfast, mostly liquids, denies nausea. She has been refusing the Zofran, will d/c. - Constitutional Vitals: Abnormal lab results WBC 11.8 K/mcL (4.3-11.1) H 10/11/18 06:51 RBC 3.51 M/mcL (3.82-4.97) L 10/14/18 04:43 Hgb 9.7 g/dL (11.5-15.4) L 10/14/18 04:43 Hct 32.0 % (35.3-44.9) L 10/14/18 04:43 MCH 27.6 pg (28.0-33.3) L 10/14/18 04:43 MCHC 30.3 g/dL (31.6-35.5) L 10/14/18 04:43 RDW 18.6 % (11.5-14.5) H 10/14/18 04:43 MPV 9.3 fL (9.4-12.4) L 10/10/18 13:04 9.5 K/mcL (1.6-8.9) H 10/11/18 06:51 PT 12.4 Seconds (9.4-12.1) H 09/30/18 06:01 APTT 38.7 Seconds (26.0-36.0) H 09/30/18 06:01 VBG pH 7.46 pH Units (7.32-7.42) H 10/07/18 08:44 VBG pCO2 23 mmHg (41-51) L 10/07/18 08:44 VBG pO2 209 mmHg (25-50) H 10/07/18 08:44 VBG HCO3 16 mEq/L (21-27) L 10/07/18 08:44 Sodium 135 mEq/L (136-145) L 10/06/18 05:11 Potassium 3.1 mEq/L (3.5-5.1) L 10/11/18 06:51 Chloride 109 mEq/L (98-107) H 10/14/18 04:43 Carbon Dioxide 20 mEq/L (23-29) L 10/14/18 04:43 BUN 25 mg/dL (8-23) H 10/14/18 04:43 Est GFR ( Amer) 57 (> 60) L 10/14/18 04:43 Est GFR (Non-Af Amer) 47 (> 60) L 10/14/18 04:43 35 (6-26) H 10/09/18 05:07 Glucose 146 mg/dL (70-105) H 10/14/18 04:43 POC Glucose 151 mg/dL (70-99) H 10/14/18 07:25 303 (280-300) H 10/14/18 04:43 Calcium 8.0 mg/dL (8.6-10.3) L 10/14/18 04:43 Magnesium 1.2 mg/dL (1.6-2.6) L 10/12/18 05:15 AST 10 Units/L (13-39) L 10/12/18 05:15 106 Units/L (34-104) H 09/29/18 16:12 5.0 g/dL (6.4-8.9) L 10/12/18 05:15 2.2 g/dL (3.5-5.7) L 10/12/18 05:15 3.7 g/dL (2.4-3.5) H 09/30/18 06:01 0.8 (1.1-2.2) L 10/12/18 05:15 6.2 mg/dL (17.0-34.0) L 10/05/18 05:51 Cloudy (Clear) A 09/29/18 18:05 30 mg/dL (Neg-Trace) H 09/29/18 18:05 Trace mg/dL (Negative) H 09/29/18 18:05 Trace (Negative) H 09/29/18 18:05 Small (Negative) H 09/29/18 18:05 Ur Leukocyte Esterase Large (Negative) H 09/29/18 18:05 30-50 per hpf (0-3) H 09/29/18 18:05 Ur Squamous Epith Cells Many per lpf (None-Few) H 09/29/18 18:05 Amorphous Sediment Moderate (Few) H 09/29/18 18:05 Ur Culture Indicated? YES (NO) A 09/29/18 18:05 Crossmatch See Detail 10/10/18 14:45 Exam: General appearance: Present: no acute distress - Respiratory Respiratory exam: Present: decreased breath sounds, CTAB - Cardiovascular Cardiovascular exam: Present: +S1, +S2 - GI/Abdominal GI/Abdominal exam: Present: distended, normal bowel sounds, soft Additional comments: Happy to midline incision intact. Ostomy pink - some solid stool noted in pouch. - Extremities Exam Extremities exam: Present: normal capillary refill, normal inspection - Neurological Exam Neurological exam: Present: alert, oriented X3, strengths equal and symetr throughout - Skin Skin exam: Present: dry, pallor, warm Palliative Quality Palliative Quality: Screen for Code Status: Yes, Screen for Goals of Care: Yes, Screen for Pain: Yes, If Pain Regimen Started, Initiate Bowel Regimen: NA, Screen for Nausea/Vomitting: Yes Code Status: 09/29/18 19:34 Resuscitation Status: Active [RES] Routine Comment: Resuscitation Status: Full Code 10/04/18 16:59 Resuscitation Status: Active [RES] Routine Comment: Resuscitation Status: [id number] - Labs CBC & Chem 7: 10/14/18 04:43 10/14/18 04:43 Labs: Laboratory Results - last 24 hr 10/13/18 10/14/18 10/14/18 08:05 04:43 04:43 WBC 7.7 RBC 3.51 L Hgb 9.7 L Hct 32.0 L MCV 91.2 MCH 27.6 L MCHC 30.3 L RDW 18.6 H Plt Count 280 MPV 9.7 Sodium 143 Potassium 3.7 Chloride 109 H Carbon Dioxide 20 L BUN 25 H Creatinine 1.11 Est GFR ( Amer) 57 L Est GFR (Non-Af Amer) 47 L BUN/Creatinine Ratio 23 Glucose 146 H POC Glucose 146 H Calculated Osmolality 303 H Calcium 8.0 L Magnesium 2.0 10/14/18 07:25 WBC RBC Hgb Hct MCV MCH MCHC RDW Plt Count MPV Sodium Potassium Chloride Carbon Dioxide BUN Creatinine Est GFR ( Amer) Est GFR (Non-Af Amer) BUN/Creatinine Ratio Glucose POC Glucose 151 H Calculated Osmolality Calcium Magnesium - ABG Interpretation ABG results: PT/INR, D-dimer PT 12.4 Seconds (9.4-12.1) H 09/30/18 06:01 Palliative Scale - Palliative Performance Scale How ambulatory is this patient?: Mainly sit / lie What is patient's level of activity and evidence of disease?: Unable to do most activity, Extensive disease How much self-care assistance does patient require?: Considerable assistance required How much oral intake does the patient have?: Minimal to sips What is this patient's level of consciousness?: Full Palliative Performance Score: 40 % Consult Discharge Plan - Plan Referrals: Maurizio Youssef MD [Partnered Physician] - 10/25/18 8:40 am Fernando Regan DO [Primary Care Provider] -
[2018-10-14] MEDS: OXYCODONE Oral CONC 10 MG/0.5 ML ORAL.SYG SL PRN ×2 (11:47→23:57)
[2018-10-14 14:04] LABS: Bacteria,Urine Many per hpf (None-Few); Bilirubin,Urine Small (Negative); Blood,Urine Large (Negative); Clarity,Urine Turbid (Clear); Color,Urine Dark Yellow (Yellow); Glucose,Urine (UA) Normal (Normal); Ketones,Urine Trace mg/dL (Negative); Leukocyte Esterase,Urine Large (Negative); Nitrite,Urine Negative (Negative); Protein,Urine 30 mg/dL (Neg-Trace); RBC,Urine 30-50 per hpf (0-3); Specific Gravity,Urine 1.014 (1.010-1.025); Squamous Epithelial Cell,Urine Moderate per lpf (None-Few); Urobilinogen,Urine Normal (Normal); WBC,Urine TNTC per hpf (0-3)
[2018-10-14] MEDS: Ondansetron 4 MG/2 ML VIAL IVP PRN (14:22)
[2018-10-14] MEDS: Acetaminophen 325 MG TABLET PO PRN (14:22)
--- NOTE | 2018-10-14 15:45 | Internal Med Progress Note ---
Hospitalist Progress Note - Encounter Date of Encounter: 10/14/18 Time of Encounter: 10:30 - Subjective Interval History: Febrile overnight, pt has been sleepier the last few days despite no pain meds, concerning for infection. Today she is awake and sitting in chair, complaining of abd pain as well as bottom pain feeling very raw. She is uncomfortable and is does not feel she is doing well. Poor PO intake. - Exam Vitals: Temp Pulse Resp BP Pulse Ox 97.5 F L 89 17 117/74 94 10/14/18 14:35 10/14/18 14:35 10/14/18 14:35 10/14/18 14:35 10/14/18 14:35 Exam: General: NAD, good eye contact, pleasant, chronically ill appearing and elderly, uncomfortable today Thoracic: Normal breath sounds b/l, no wheezing or crackles Cardio: Normal S1 and S2, irregularly irregular rhythm, regular rate Abdomen: more TTP today and feels more distended, ostomy bag in place with liquid brown stool Extremities: Warm, well perfused. DP pulses 2+ b/l. Minimal pedal edema Skin: Intact. No rashes, bruises, or ulcers Neuro: awake, fully oriented. 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 Hospital course c/b post- op ileus, and subsequently fevers. Sepsis: HR 100, T 100.9, multiple possible sources including GI (recent surgery, rectal carcinoma), urinary (incontinent), pulmonary (prolonged hosp), skin (breakdown on bottom) - BCx x2 - UA - CXR - empiric levaquin 750 daily SBO: improved s/p enterocolonic anastomosis on 10/06 by GenSurjossy Youssef. Ostomy functioning, no further N/V or distention. Pt tolerating softs. - GenSurg following, appreciate co-management - Pain and nausea control - PT/OT Somnolence: per palliative is on methylphenidate and today is more awake Skin breakdown: on bottom, woundRN consult, purewick catheter Rectal cancer: plan remains to d/c to skilled care when patient medically able where patient will subsequently get qualified for medicaid to allow for hospice services. Pt's son in agreement with this. Continue pain control as needed. Acute blood loss on anemia of chronic disease: keep Hb >7, s/p 1u prbc on 10/10 with good recovery, monitor Severe protein calorie malnutrition: poor PO intake, wt loss, cancer. Nutrition following, started on ensures HFrEF 45%: not overloaded but is net positive thus far w mild pedal swelling, monitor volume status daily while on MIVF and d/c MIVF when PO improves A-Fib: rate controlled on lopressor 25 bid and cardizem 300, AC on ASA HTN: BB and CCB as above HLD: statin DM2: w hyperglycemia, SSI s/p bpAVR: noted PPx: sqh FEN: softs, no MIVF Lines: PIV, ostomy Consults: GenSurg, Palliative Code: DNRCC-A / DNI Dispo: patient requires inpatient eval and management at this time. Anticipate 2-3 days. Will need SNF Internal Medicine: Result - Labs CBC & Chem 7: 10/14/18 04:43 10/14/18 04:43 Labs: Short CBC 10/14/18 Range/Units 04:43 WBC 7.7 (4.3-11.1) K/mcL Hgb 9.7 L (11.5-15.4) g/dL Hct 32.0 L (35.3-44.9) % Plt Count 280 (140-400) K/mcL BMP 10/14/18 04:43 Sodium 143 Potassium 3.7 Chloride 109 H Carbon Dioxide 20 L BUN 25 H Creatinine 1.11 Glucose 146 H Calcium 8.0 L Urine 10/14/18 Range/Units 12:23 Urine Color Dark Yellow (Yellow) Urine Clarity Turbid A (Clear) Urine pH 5.0 (5.0-8.0) pH Units Ur Specific [place] 1.014 (1.010-1.025) Urine Protein 30 H (Neg-Trace) mg/dL Urine Glucose (UA) Normal (Normal) mg/dL - ABG Interpretation ABG results: PT/INR, D-dimer PT 12.4 Seconds (9.4-12.1) H 09/30/18 06:01 - Impressions Impressions Chest X-Ray 10/14/18 09:54 IMPRESSION: No acute cardiopulmonary disease. Stable chest. D/ / Dereck Liao MD / Dereck Liao MD Interpreting Provider: Dereck Liao MD Consult Discharge Plan - Plan Referrals: Maurizio Youssef MD [Partnered Physician] - 10/25/18 8:40 am Fernando Regan DO [Primary Care Provider] -
[2018-10-14] MEDS: *HR* Promethazine 25 MG/ML VIAL IVP PRN (17:50)
[2018-10-15] MEDS: Simethicone 80 MG TAB.CHEW PO PRN ×2 (02:46→17:30)
[2018-10-15] MEDS: *HR* Heparin 5,000 UNIT/ML VIAL SQ SCH ×3 (05:20→21:01)
[2018-10-15] MEDS: Metoclopramide 10 MG/2 ML VIAL IVP SCH ×4 (05:20→23:32)
[2018-10-15] MEDS ORDERED: Ringers Solution, Lactated 500 ML IVC ONE (07:32)
[2018-10-15] MEDS: Ringers Solution, Lactated 1,000 ML IVC SCH ×2 (07:45→23:32)
[2018-10-15] MEDS ORDERED: Ringers Solution, Lactated 1,000 ML ONE (07:57)
[2018-10-15] MEDS: Diltiazem CD (24hr) 180 MG CAPSULE PO SCH (08:03)
[2018-10-15] MEDS: Ondansetron 4 MG/2 ML VIAL IVP PRN (08:03)
[2018-10-15] MEDS: OXYCODONE Oral CONC 10 MG/0.5 ML ORAL.SYG SL PRN (08:04)
[2018-10-15] MEDS: Insulin LISPRO 300 UNITS/3 ML VIAL SQ SCH ×4 (08:04→21:03)
[2018-10-15] MEDS: Methylphenidate HCl 5 MG TABLET PO SCH ×2 (08:04→12:26)
[2018-10-15] MEDS: *HR* Promethazine 25 MG/ML VIAL IVP PRN ×2 (08:25→17:30)
--- NOTE | 2018-10-15 08:34 | Internal Med Progress Note ---
Hospitalist Progress Note - Encounter Date of Encounter: 10/15/18 Time of Encounter: 08:34 - Subjective Interval History: Patient today is awake but sluggish/withdrawn, barely looks at / acknowledges me, does nod when asked if she's had N/V and abd pain. She currently has a fever, has no PO intake for last day. Son is coming in tomorrow; might consider hospice sooner rather than later as pt not doing well despite attempted palliative bypass. - Exam Vitals: Temp Pulse Resp BP Pulse Ox 99.3 F 126 26 121/59 93 10/15/18 07:23 10/15/18 07:24 10/15/18 07:24 10/15/18 07:23 10/15/18 07:24 Exam: General: NAD, poor eye contact, chronically ill appearing and elderly, uncomfortable today, withdrawn Thoracic: Normal breath sounds b/l, no wheezing or crackles, breaths diminished Cardio: Normal S1 and S2, irregularly irregular rhythm, tachycardic Abdomen: mild TTP today but softer than yesterday, ostomy bag in place with liquid brown stool Extremities: Warm, well perfused. DP pulses 2+ b/l. Minimal pedal edema Skin: Intact. No rashes, bruises, or ulcers Neuro: awake, fully oriented. Speech fluent. 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 Hospital course c/b post-op ileus, and subsequently fevers. Sepsis: HR 100s, T 102. UA dirty suggestive of possible UTI. Is high risk for GI translocation or abscess. CXR wnl. - f/u BCx - f/u UCx - CT abd - LR 500cc bolus - continue levaquin 750 daily SBO: improved s/p enterocolonic anastomosis on 10/06 by Christie Youssef. Ostomy functioning, no further N/V or distention. For last day is now not tolerating PO, previously was just poor PO. - GenSurg signed off - Pain and nausea control - Fluids as below - PT/OT Somnolence: not improved w methylphenidate although pt vomiting so unsure if even getting doses, will d/c given tachycardia Skin breakdown: on bottom, woundRN consult, purewick catheter Rectal cancer: plan remains to d/c to skilled care when patient medically able where patient will subsequently get qualified for medicaid to allow for hospice services. Pt's son in agreement with this. Continue pain control as needed. Acute blood loss on anemia of chronic disease: keep Hb >7, s/p 1u prbc on 10/10 with good recovery, monitor Severe protein calorie malnutrition: poor PO intake, wt loss, cancer. Nutrition following, started on ensures HFrEF 45%: not overloaded but is net positive thus far w mild pedal swelling, monitor volume status daily while on MIVF and d/c MIVF when PO improves A-Fib: rate controlled on lopressor 25 bid and cardizem 300, AC on ASA HTN: BB and CCB as above HLD: statin DM2: w hyperglycemia, SSI s/p bpAVR: noted PPx: sqh FEN: softs, restart MIVF LR@50 Lines: Tunneled CVC, PIV, ostomy Consults: Christie, Palliative Code: DNRCC-A / DNI Dispo: patient requires inpatient eval and management at this time. Anticipate 2-3 days. Will need SNF. Prognosis very guarded Internal Medicine: Result - Labs CBC & Chem 7: 10/14/18 04:43 10/14/18 04:43 Labs: Urine 10/14/18 Range/Units 12:23 Urine Color Dark Yellow (Yellow) Urine Clarity Turbid A (Clear) Urine pH 5.0 (5.0-8.0) pH Units Ur Specific [place] 1.014 (1.010-1.025) Urine Protein 30 H (Neg-Trace) mg/dL Urine Glucose (UA) Normal (Normal) mg/dL - ABG Interpretation ABG results: PT/INR, D-dimer PT 12.4 Seconds (9.4-12.1) H 09/30/18 06:01 - Impressions Impressions Chest X-Ray 10/14/18 09:54 IMPRESSION: No acute cardiopulmonary disease. Stable chest. D/ / Derekc Liao MD / Dereck Liao MD Interpreting Provider: Dereck Liao MD Consult Discharge Plan - Plan Referrals: Maurizio Youssef MD [Partnered Physician] - 10/25/18 8:40 am Fernando Regan DO [Primary Care Provider] -
--- NOTE | 2018-10-15 11:56 | Event Note ---
Date of Encounter: 10/15/18 Time of Encounter: 09:30 Patient has recently had pain and nausea medication and is sleeping soundly. Did not awaken. Patient had cultures drawn yesterday, still pending. Tachycardic and currently getting IV bolus. Will continue to follow.
[2018-10-15] MEDS: Acetaminophen 325 MG TABLET PO PRN (12:26)
[2018-10-15] MEDS: Acetaminophen IV 1,000 MG/100 ML INFUS..BTL IVPB PRN (18:10)
[2018-10-15] MEDS ORDERED: Ondansetron 4 MG/2 ML VIAL IVP PRN (18:23)
[2018-10-15] MEDS ORDERED: *HR* Promethazine 25 MG/ML VIAL IVP PRN (18:23)
--- NOTE | 2018-10-15 19:24 | Acute Care Surgery Event Note ---
Date of Encounter: 10/15/18 Time of Encounter: 19:20 The patient is seen and evaluated. She has developed nausea and vomiting again. The patient has recurrent rectal cancer. She has a double barrel colostomy on the left side of the abdomen. This was nonfunctional prior to palliative bypass and has been putting out stool for the last several days. She has now developed nausea and vomiting. She has pneumatosis of the distal colon which I believe is benign. This may be secondary to the side to side anastomosis. The patient is decompressing flatus and stool into her ostomy bag this point does not appear to be obstructed. However, there is another loop of bowel that could not be decompressed that is also obstructed in the pelvis. This was not addressed with palliative bypass. I believe that this loop of bowel was still obstructed and likely causing the patient's symptoms. Agree with nasogastric tube decompression. There are no further surgical options for this patient with recurrent rectal cancer causing multiple points of obstruction the bowel. I will be glad to discuss these findings with the patient and her family as well as the palliative care team. If the patient continues to require nasogastric tube we can always place a PEG tube to vent the stomach when she becomes symptomatic. This would lead to rapid dehydration and likely the patient would succumb to her recurrent rectal cancer in palliative care. Maurizio Youssef MD FACS
[2018-10-15] MEDS ORDERED: Cefepime HCl 2,000 MG in Water for inj. (sterile) 20 ML IVP SCH (20:00)
[2018-10-15] MEDS: MetroNIDAZOLE 500 MG/100 ML 500 MG/100 ML BAG IVPB SCH (21:02)
[2018-10-16] MEDS: OXYCODONE Oral CONC 10 MG/0.5 ML ORAL.SYG SL PRN ×3 (01:11→17:53)
[2018-10-16] MEDS: *HR* FentaNYL (PF) 100 MCG/2 ML VIAL IVP PRN ×2 (02:36→16:16)
[2018-10-16] MEDS: Metoclopramide 10 MG/2 ML VIAL IVP SCH ×3 (05:08→17:41)
[2018-10-16] MEDS: *HR* Heparin 5,000 UNIT/ML VIAL SQ SCH ×3 (05:08→21:49)
[2018-10-16] MEDS: MetroNIDAZOLE 500 MG/100 ML 500 MG/100 ML BAG IVPB SCH ×3 (05:08→20:13)
[2018-10-16 06:32] LABS: Hematocrit 24.9 % (35.3-44.9); Mean Corpuscular HGB Conc 30.9 g/dL (31.6-35.5); Mean Corpuscular Hemoglobin 27.1 pg (28.0-33.3); Mean Corpuscular Volume 87.7 fL (83.0-100.0); Mean Platelet Volume 10.4 fL (9.4-12.4); Platelet Count 260 K/mcL (140-400); Red Blood Count 2.84 M/mcL (3.82-4.97); Red Cell Distribution Width 18.3 % (11.5-14.5); White Blood Count 10.8 K/mcL (4.3-11.1)
[2018-10-16 06:33] LABS: Hemoglobin 7.7 g/dL (11.5-15.4)
[2018-10-16 06:53] LABS: Calcium 7.6 mg/dL (8.6-10.3); Magnesium 1.6 mg/dL (1.6-2.6); Potassium 3.7 mEq/L (3.5-5.1)
[2018-10-16] MEDS: Insulin LISPRO 300 UNITS/3 ML VIAL SQ SCH ×3 (08:03→16:52)
--- NOTE | 2018-10-16 08:11 | Internal Med Progress Note ---
Hospitalist Progress Note - Encounter Date of Encounter: 10/16/18 Time of Encounter: 08:11 - Subjective Interval History: Pt this morning is much more awake today than in previous days. Her abd pain and N/V has improved w NG tube placement. Her ostomy is still functioning. Does still have abd pain but is manageable. Discussed with her that she had a set back, is currently on broad abx / MIVF / NG / Antony and that she likely has few options left, and that we will have a meeting with her, her son, palliative, GenSurg, medicine, to discuss options going forward including real risk of decompensation and while in the hospital. - Exam Vitals: Temp Pulse Resp BP Pulse Ox 97.8 F 99 14 100/66 95 10/16/18 06:47 10/16/18 06:47 10/16/18 06:47 10/16/18 06:47 10/16/18 06:47 Exam: General: NAD, good eye contact, chronically ill appearing and elderly, more co mfortable today Thoracic: Normal breath sounds b/l, no wheezing or crackles, breaths diminished Cardio: Normal S1 and S2, irregularly irregular rhythm, tachycardic Abdomen: mild persistent TTP but soft, ostomy bag in place with liquid brown stool Extremities: Warm, well perfused. DP pulses 2+ b/l. Minimal pedal edema Skin: Intact. No rashes, bruises, or ulcers Neuro: awake, fully oriented. Speech fluent. 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 Hospital course c/b post-op ileus, and subsequently fevers. Sepsis: HR 100s, T 102. UCx growing GPCs. CT shows high grade obstruction and pneumatosis includin intraperitoneal and portal venous gas concerning for bowel ischemia. SBO: improved s/p enterocolonic anastomosis on 10/06 by Christie Youssef. Ostomy functioning, no further N/V or distention. For last day is now not tolerating PO, previously was just poor PO. - GenSurg reconsulted, appreciate timely evaluation - abx broadened to cefepime / flagyl - NG tube to LIWS - pain control as needed - Fluids as below - Palliative following, appreciate assistance - Family meeting tomorrow when son arrives AUBREE: likely 2/2 pre-renal given poor PO intake, continue fluids Skin breakdown: on bottom, woundRN consult, Antony re-inserted Rectal cancer: complicated by SBO as above Acute blood loss on anemia of chronic disease: keep Hb >7, s/p 1u prbc on 10/10 with good recovery, monitor Severe protein calorie malnutrition: poor PO intake, wt loss, cancer. Nutrition following, started on ensures HFrEF 45%: net positive, no pedal edema but does have some body wall edema, needs MIVF at this time A-Fib: rate controlled on lopressor 25 bid and cardizem 300, AC on ASA HTN: BB and CCB as above HLD: statin DM2: w hyperglycemia, SSI s/p bpAVR: noted PPx: sqh FEN: softs, MIVF LR@50 Lines: Tunneled CVC, PIV, ostomy, NG, Antony Consults: GenSurjossy, Palliative Code: DNRCC-A / DNI Dispo: patient requires inpatient eval and management at this time. Prognosis very guarded Internal Medicine: Result - Labs CBC & Chem 7: 10/16/18 05:21 10/16/18 05:21 Labs: Short CBC 10/16/18 Range/Units 05:21 WBC 10.8 (4.3-11.1) K/mcL Hgb 7.7 L D (11.5-15.4) g/dL Hct 24.9 L (35.3-44.9) % Plt Count 260 (140-400) K/mcL BMP 10/16/18 05:21 Sodium 142 Potassium 3.7 Chloride 109 H Carbon Dioxide 22 L BUN 42 H Creatinine 1.34 H Glucose 118 H Calcium 7.6 L - ABG Interpretation ABG results: PT/INR, D-dimer PT 12.4 Seconds (9.4-12.1) H 06/07/19 06:01 - Impressions Impressions Abdomen/Pelvis CT 10/15/18 14:05 IMPRESSION: 1. High-grade small bowel obstruction, which appears to have progressed compared to prior study. Transition point is seen deep within the pelvis. 2. Extensive pneumatosis which is new compared to prior study. Additionally, there is intraperitoneal gas as well as new portal venous gas. Findings are concerning for bowel ischemia, possibly related to small-bowel distention/dilatation. 3. Diffuse distention of the colon with gas and fluid. 4. Moderate bilateral pleural effusions and bibasilar atelectasis, worsened from prior study. Diffuse body wall edema. 5. Enlarged retroperitoneal/periaortic lymph nodes consistent with metastatic lymphadenopathy. 6. Mild right hydroureteronephrosis, stable. Right double-J nephroureteral stent in satisfactory position. 7. Cholelithiasis. 8. Extensive aortoiliac atherosclerotic disease. Critical results were called by Dr. Braulio Villalta MD to Rafael Garcia on 10/15/2018 at 17:55. D/ / 10/15/2018 18:03:20 Braulio Villalta MD / samuel Interpreting Provider: Braulio Villalta MD Consult Discharge Plan - Plan Referrals: Maurizio Youssef MD [Partnered Physician] - 10/25/18 8:40 am Fernando Regan DO [Primary Care Provider] -
[2018-10-16] MEDS: Diltiazem CD (24hr) 180 MG CAPSULE PO SCH (08:17)
[2018-10-16] MEDS ORDERED: levoFLOXacin 750 MG TABLET PO SCH (09:00)
[2018-10-16] MEDS ORDERED: *HR* FentaNYL PATCH 12 MCG PATCH TD SCH (09:30)
--- NOTE | 2018-10-16 09:43 | Palliative Progress Note ---
Date of Encounter: 10/16/18 Time of Encounter: 09:40 - Assessment and plan (1) Abdominal pain Current Visit: No Status: Acute Assessment and plan: Fentanyl IV was added last pm. Will add Fentanyl patch 12mcg today for added pain management. She has been sensitive to sedating medications, so will start low dose and titrate accordingly. Qualifiers: Abdominal location: generalized Qualified Code(s): R10.84 - Generalized abdominal pain (2) Nausea Current Visit: Yes Status: Acute Assessment and plan: Relieved with NG decompression. Surgical note with venting PEG option noted. Patient's son will be back from [place] late pm Wednesday and can discuss with pt/son on . (3) Decreased oral intake Current Visit: Yes Status: Acute (4) Small bowel obstruction Current Visit: Yes Status: Acute (5) Goals of care, counseling/discussion Current Visit: Yes Status: Acute Assessment and plan: Spoke with son Bharathi - he was on way here and vehicle broke down in [place], so he had to haul and go back home. Cannot find rental on weekend, so he plans to get rental first thing in am, and will arrive 9-10 pm tomorrow night. He has been updated on pt condition. Patient very tearful and desiring her son here. Updated her on his situation. Palliative team will meet with him to discuss plan. He has been in touch with admission coordinator from [facility]. Will await discussion with son, see if they desire venting PEG, and after that decide if she requires inpt hospice a few days, or transition to Ec[facility]. (6) Palliative care encounter Current Visit: Yes Status: Acute (7) Rectal cancer Current Visit: Yes Status: Chronic - Time Spent With Patient Total time spent is greater than 50% in coordination of care (as documented) at patient's floor/unit and/or counseling patient: - Subjective Interval history: Patient awake and alert. Events from yesterday noted - patient CT demonstrated further obstruction and necrosis. Dr. Youssef's note reviewed and appreciated. She is feeling better with NG decompression, no nausea at present. Does c/o abd pain and tenderness. She could not remember what she was told regarding her situation, and I discussed with her. Provided emotional support. - Constitutional Vitals: Abnormal lab results WBC 11.8 K/mcL (4.3-11.1) H 10/11/18 06:51 RBC 2.84 M/mcL (3.82-4.97) L 10/16/18 05:21 Hgb 7.7 g/dL (11.5-15.4) L D 10/16/18 05:21 Hct 24.9 % (35.3-44.9) L 10/16/18 05:21 MCH 27.1 pg (28.0-33.3) L 10/16/18 05:21 MCHC 30.9 g/dL (31.6-35.5) L 10/16/18 05:21 RDW 18.3 % (11.5-14.5) H 10/16/18 05:21 MPV 9.3 fL (9.4-12.4) L 10/10/18 13:04 9.5 K/mcL (1.6-8.9) H 10/11/18 06:51 PT 12.4 Seconds (9.4-12.1) H 09/30/18 06:01 APTT 38.7 Seconds (26.0-36.0) H 09/30/18 06:01 VBG pH 7.46 pH Units (7.32-7.42) H 10/07/18 08:44 VBG pCO2 23 mmHg (41-51) L 10/07/18 08:44 VBG pO2 209 mmHg (25-50) H 10/07/18 08:44 VBG HCO3 16 mEq/L (21-27) L 10/07/18 08:44 Sodium 135 mEq/L (136-145) L 10/06/18 05:11 Potassium 3.1 mEq/L (3.5-5.1) L 10/11/18 06:51 Chloride 109 mEq/L (98-107) H 10/16/18 05:21 Carbon Dioxide 22 mEq/L (23-29) L 10/16/18 05:21 BUN 42 mg/dL (8-23) H 10/16/18 05:21 1.34 mg/dL (0.60-1.20) H 10/16/18 05:21 Est GFR ( Amer) 46 (> 60) L 10/16/18 05:21 Est GFR (Non-Af Amer) 38 (> 60) L 10/16/18 05:21 31 (6-26) H 10/16/18 05:21 Glucose 118 mg/dL (70-105) H 10/16/18 05:21 POC Glucose 119 mg/dL (70-99) H 10/15/18 20:31 306 (280-300) H 10/16/18 05:21 Calcium 7.6 mg/dL (8.6-10.3) L 10/16/18 05:21 Magnesium 1.2 mg/dL (1.6-2.6) L 10/12/18 05:15 AST 10 Units/L (13-39) L 10/12/18 05:15 106 Units/L (34-104) H 09/29/18 16:12 5.0 g/dL (6.4-8.9) L 10/12/18 05:15 2.2 g/dL (3.5-5.7) L 10/12/18 05:15 3.7 g/dL (2.4-3.5) H 09/30/18 06:01 0.8 (1.1-2.2) L 10/12/18 05:15 6.2 mg/dL (17.0-34.0) L 10/05/18 05:51 Turbid (Clear) A 10/14/18 12:23 30 mg/dL (Neg-Trace) H 10/14/18 12:23 Trace mg/dL (Negative) H 10/14/18 12:23 Large (Negative) H 10/14/18 12:23 Small (Negative) H 10/14/18 12:23 Ur Leukocyte Esterase Large (Negative) H 10/14/18 12:23 30-50 per hpf (0-3) H 10/14/18 12:23 TNTC per hpf (0-3) H 10/14/18 12:23 Ur Squamous Epith Cells Moderate per lpf (None-Few) H 10/14/18 12:23 Amorphous Sediment Moderate (Few) H 09/29/18 18:05 Many per hpf (None-Few) H 10/14/18 12:23 Ur Culture Indicated? YES (NO) A 10/14/18 12:23 Crossmatch See Detail 10/10/18 14:45 General appearance: Present: no acute distress - Respiratory Respiratory exam: Present: CTAB - Cardiovascular Cardiovascular exam: Present: irregular rhythm, systolic murmur - GI/Abdominal GI/Abdominal exam: Present: diminished bowel sounds, distended Additional comments: Ostomy with small amount liquid stool - Extremities Exam Extremities exam: Present: normal capillary refill Additional comments: Generalized edema to upper extremities - Neurological Exam Neurological exam: Present: alert, oriented X3, strengths equal and symetr throughout - Skin Skin exam: Present: dry, pallor, warm Palliative Quality Palliative Quality: Screen for Code Status: Yes, Screen for Goals of Care: Yes, Screen for Pain: Yes, If Pain Regimen Started, Initiate Bowel Regimen: NA, Screen for Nausea/Vomitting: Yes Code Status: 09/29/18 19:34 Resuscitation Status: Active [RES] Routine Comment: Resuscitation Status: Full Code 10/04/18 16:59 Resuscitation Status: Active [RES] Routine Comment: Resuscitation Status: [id number] - Labs CBC & Chem 7: 10/16/18 05:21 10/16/18 05:21 Labs: Laboratory Results - last 24 hr 10/14/18 10/15/18 10/15/18 15:57 07:32 11:54 WBC RBC Hgb Hct MCV MCH MCHC RDW Plt Count MPV Sodium Potassium Chloride Carbon Dioxide BUN Creatinine Est GFR ( Amer) Est GFR (Non-Af Amer) BUN/Creatinine Ratio Glucose POC Glucose 155 H 201 H 202 H Calculated Osmolality Calcium Magnesium 10/15/18 10/15/18 10/16/18 15:58 20:31 05:21 WBC 10.8 RBC 2.84 L Hgb 7.7 L D Hct 24.9 L MCV 87.7 MCH 27.1 L MCHC 30.9 L RDW 18.3 H Plt Count 260 MPV 10.4 Sodium Potassium Chloride Carbon Dioxide BUN Creatinine Est GFR ( Amer) Est GFR (Non-Af Amer) BUN/Creatinine Ratio Glucose POC Glucose 101 H 119 H Calculated Osmolality Calcium Magnesium 10/16/18 05:21 WBC RBC Hgb Hct MCV MCH MCHC RDW Plt Count MPV Sodium 142 Potassium 3.7 Chloride 109 H Carbon Dioxide 22 L BUN 42 H Creatinine 1.34 H Est GFR ( Amer) 46 L Est GFR (Non-Af Amer) 38 L BUN/Creatinine Ratio 31 H Glucose 118 H POC Glucose Calculated Osmolality 306 H Calcium 7.6 L Magnesium 1.6 - Impressions Impressions Abdomen/Pelvis CT 10/15/18 14:05 IMPRESSION: 1. High-grade small bowel obstruction, which appears to have progressed compared to prior study. Transition point is seen deep within the pelvis. 2. Extensive pneumatosis which is new compared to prior study. Additionally, there is intraperitoneal gas as well as new portal venous gas. Findings are concerning for bowel ischemia, possibly related to small-bowel distention/dilatation. 3. Diffuse distention of the colon with gas and fluid. 4. Moderate bilateral pleural effusions and bibasilar atelectasis, worsened from prior study. Diffuse body wall edema. 5. Enlarged retroperitoneal/periaortic lymph nodes consistent with metastatic lymphadenopathy. 6. Mild right hydroureteronephrosis, stable. Right double-J nephroureteral stent in satisfactory position. 7. Cholelithiasis. 8. Extensive aortoiliac atherosclerotic disease. Critical results were called by Dr. Braulio Villalta MD to Rafael Castillo Jose on 10/15/2018 at 17:55. D/ / 10/15/2018 18:03:20 Braulio Villalta MD / bcarter Interpreting Provider: Braulio Villalta MD - ABG Interpretation ABG results: PT/INR, D-dimer PT 12.4 Seconds (9.4-12.1) H 09/30/18 06:01 Palliative Scale - Palliative Performance Scale How ambulatory is this patient?: Mainly sit / lie What is patient's level of activity and evidence of disease?: Unable to do most activity, Extensive disease How much self-care assistance does patient require?: Considerable assistance required How much oral intake does the patient have?: Minimal to sips What is this patient's level of consciousness?: Full Palliative Performance Score: 40 % Consult Discharge Plan - Plan Referrals: Maurizio Youssef MD [Partnered Physician] - 10/25/18 8:40 am Fernando Regan DO [Primary Care Provider] -
--- NOTE | 2018-10-16 15:14 | Event Note ---
Date of Encounter: 10/16/18 Time of Encounter: 18:15 Notified by Radiology that pt's CT shows pneumatosis and portal venous gas in context of recurrent SBO. Discussed case with Christie Youssef, who agreed to re-evaluate the patient although very likely there are no further surgical options for this patient and this might be a terminal event for her. Called pt's son, Yung, who understood the news and said he would come visit tomorrow. He knows his mother was agreeable to hospice, and he stated that should she deteriorate overnight to please focus on making her comfortable.
[2018-10-16] MEDS: Cefepime HCl 2,000 MG in Water for inj. (sterile) 20 ML IVP SCH (20:13)
[2018-10-17] MEDS: Metoclopramide 10 MG/2 ML VIAL IVP SCH ×5 (00:07→23:31)
[2018-10-17] MEDS: Insulin LISPRO 300 UNITS/3 ML VIAL SQ SCH ×4 (00:10→18:25)
[2018-10-17] MEDS: Ringers Solution, Lactated 1,000 ML IVC SCH (02:34)
[2018-10-17] MEDS: MetroNIDAZOLE 500 MG/100 ML 500 MG/100 ML BAG IVPB SCH ×3 (04:44→19:46)
[2018-10-17] MEDS: *HR* Heparin 5,000 UNIT/ML VIAL SQ SCH ×3 (04:45→23:31)
[2018-10-17 05:38] LABS: Hematocrit 25.9 % (35.3-44.9); Hemoglobin 8.1 g/dL (11.5-15.4); Mean Corpuscular HGB Conc 31.3 g/dL (31.6-35.5); Mean Corpuscular Volume 89.6 fL (83.0-100.0); Mean Platelet Volume 9.8 fL (9.4-12.4); Platelet Count 252 K/mcL (140-400); Red Blood Count 2.89 M/mcL (3.82-4.97); Red Cell Distribution Width 18.6 % (11.5-14.5); White Blood Count 7.6 K/mcL (4.3-11.1)
[2018-10-17 05:58] LABS: BUN/Creatinine Ratio 36 (6-26); Blood Urea Nitrogen 35 mg/dL (8-23); Calcium 7.7 mg/dL (8.6-10.3); Carbon Dioxide 20 mEq/L (23-29); Chloride 111 mEq/L (98-107); Glucose 110 mg/dL (70-105); Magnesium 1.7 mg/dL (1.6-2.6); Osmolality,Calculated 311 (280-300); Potassium 3.4 mEq/L (3.5-5.1); Sodium 146 mEq/L (136-145); eGFR For African Americans > 60 (> 60); eGFR For Non-African Americans 56 (> 60)
--- NOTE | 2018-10-17 08:07 | Internal Med Progress Note ---
Hospitalist Progress Note - Encounter Date of Encounter: 10/17/18 Time of Encounter: 08:07 - Subjective Interval History: Pt happy to see her son who is present today. She continues to complain of abd pain. No further N/V w NG in place. Family/team meeting at 2p today. - Exam Vitals: Temp Pulse Resp BP Pulse Ox 96.6 F L 107 14 105/65 97 10/17/18 07:48 10/17/18 07:48 10/17/18 07:48 10/17/18 07:48 10/17/18 07:48 Exam: General: NAD, good eye contact, chronically ill appearing and elderly, somewhat comfortable today, NG and mao in place Thoracic: Normal breath sounds b/l, no wheezing or crackles, breaths diminished Cardio: Normal S1 and S2, irregularly irregular rhythm, tachycardic Abdomen: mild persistent TTP but soft, ostomy bag in place with liquid brown stool Extremities: Warm, well perfused. DP pulses 2+ b/l. Minimal pedal edema Skin: Intact. No rashes, bruises, or ulcers Neuro: awake, fully oriented. Speech fluent. 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 Hospital course c/b post-op ileus, and subsequently fevers leading to repeat CT showing ongoing SBO, with little surgical option left. Family meeting today to discuss further course. SBO: initially improved s/p enterocolonic anastomosis on 10/[address] Youssef, and ostomy functioning, however has again experienced N/V/distention requiring NG replacement, and CT shows bypassed small bowel incarcerated by rectal cancer. - Family meeting today 2p w Palliative and GenSurg - continue cefepime / flagyl - NG tube to LIWS - increase pain control as needed - Fluids Sepsis: HR 100s, T 102. UCx growing GPCs. CT shows high grade obstruction and pneumatosis includin intraperitoneal and portal venous gas concerning for bowel ischemia. AUBREE: improved w MIVF Skin breakdown: on bottom, woundRN consult, Mao in place 10/15 Rectal cancer: complicated by SBO as above Acute blood loss on anemia of chronic disease: keep Hb >7, s/p 1u prbc on 10/10 with good recovery but slowly downtrending, monitor Severe protein calorie malnutrition: poor PO intake, wt loss, cancer. Currently no PO. HFrEF 45%: net positive, no pedal edema but does have some body wall edema, needs MIVF at this time A-Fib: rate controlled on lopressor 25 bid and cardizem 300, AC on ASA HTN: BB and CCB as above HLD: statin DM2: w hyperglycemia, SSI s/p bpAVR: noted PPx: sqh FEN: NPO w NG to LIWS, MIVF LR@50 Lines: Tunneled CVC, PIV, ostomy, NG, Mao Consults: GenSurg, Palliative Code: DNRCC-A / DNI Dispo: patient requires inpatient eval and management at this time. Prognosis [facility] Internal Medicine: Result - Labs CBC & Chem 7: 10/17/18 05:26 10/17/18 05:26 Labs: Short CBC 10/17/18 Range/Units 05:26 WBC 7.6 (4.3-11.1) K/mcL Hgb 8.1 L (11.5-15.4) g/dL Hct 25.9 L (35.3-44.9) % Plt Count 252 (140-400) K/mcL BMP 10/17/18 05:26 Sodium 146 H Potassium 3.4 L Chloride 111 H Carbon Dioxide 20 L BUN 35 H Creatinine 0.96 Glucose 110 H Calcium 7.7 L - ABG Interpretation ABG results: PT/INR, D-dimer PT 12.4 Seconds (9.4-12.1) H 09/30/18 06:01 - Impressions Impressions Abdomen/Pelvis CT 10/15/18 14:05 IMPRESSION: 1. High-grade small bowel obstruction, which appears to have progressed compared to prior study. Transition point is seen deep within the pelvis. 2. Extensive pneumatosis which is new compared to prior study. Additionally, there is intraperitoneal gas as well as new portal venous gas. Findings are concerning for bowel ischemia, possibly related to small-bowel distention/dilatation. 3. Diffuse distention of the colon with gas and fluid. 4. Moderate bilateral pleural effusions and bibasilar atelectasis, worsened from prior study. Diffuse body wall edema. 5. Enlarged retroperitoneal/periaortic lymph nodes consistent with metastatic lymphadenopathy. 6. Mild right hydroureteronephrosis, stable. Right double-J nephroureteral stent in satisfactory position. 7. Cholelithiasis. 8. Extensive aortoiliac atherosclerotic disease. Critical results were called by Dr. Braulio Villalta MD to Rafael Garcia on 10/15/2018 at 17:55. D/ / 10/15/2018 18:03:20 Braulio Villalta MD / samuel Interpreting Provider: Braulio Villalta MD X-Ray 10/16/18 11:19 IMPRESSION: NG tube tip in the gastric antrum and side hole in the body of the stomach D/ / Bharathi Shaikh MD / Bharathi Shaikh MD Interpreting Provider: Bharathi Shaikh MD Consult Discharge Plan - Plan Referrals: Maurizio Youssef MD [Partnered Physician] - 10/25/18 8:40 am Fernando Regan DO [Primary Care Provider] -
[2018-10-17] MEDS: Diltiazem CD (24hr) 180 MG CAPSULE PO SCH (09:40)
[2018-10-17] MEDS: OXYCODONE Oral CONC 10 MG/0.5 ML ORAL.SYG SL PRN (09:40)
--- NOTE | 2018-10-17 13:20 | Electrocardiograph Report ---
[address] [place], [place] [address] Test Date: 2018-10-17 Pat Name: Patricia Detty Department: 115 Room: 3A Gender: F [employer] Medical Assistant: : [id number] Requested By: Scar Ling Order Number: [id number] Reading MD: Danielle Foster Measurements Intervals [place] Rate: 132 P: NM: 0 QRS: 10 QRSD: 88 T: 80 QT: 313 QTc: 391 Interpretive Statements ATRIAL FIBRILLATION WITH RAPID VENTRICULAR RESPONSE ANTEROSEPTAL MYOCARDIAL INFARCTION, OF INDETERMINATE AGE Electronically Signed On 10-17-2018 13:18:55 EDT by Danielle Foster
--- NOTE | 2018-10-17 13:23 | Palliative Progress Note ---
Date of Encounter: 10/17/18 Time of Encounter: 09:30 - Assessment and plan (1) Abdominal pain Current Visit: No Status: Acute Assessment and plan: Patient more comfortable today. Fentanyl patch 12mcg in place Oxycodone SL prn, received 3 doses in 24hrs Qualifiers: Abdominal location: generalized Qualified Code(s): R10.84 - Generalized abdominal pain (2) SBO (small bowel obstruction) Current Visit: Yes Status: Acute Assessment and plan: Repeat CT scan yesterday sowed intestinal pneumatosis. NGT in place. Surgery re- evaluation: no new intervention, possible venting PEG. Plan to be discussed wit pt's son. (3) Nausea Current Visit: Yes Status: Acute Assessment and plan: NGT in place to gravity, small amount of greenish material. Patient is on reglan scheduled and phenergan prn. Per patient nausea is better. She is having small sips of water. (4) Goals of care, counseling/discussion Current Visit: Yes Status: Acute Assessment and plan: Met with patient and son Bharathi at the bedside. Bharathi has been in touch with [facility] and they are still agreeable for receive patient skilled. However, patient may not be able to participate much in PT. Medicaid and hospice admissio n were discussed and are being started with SNF. Surgery and palliative to meet with patient and family at 1400 today for further discussion. 15:30: Family meeting with the patient, her son Bharathi, acute care surgery service, palliative care, and hospitalist to discuss further goals of care. Surg evelin offered venting PEG for symptom relief, and patient was agreeable, as she wants the tube off her nose, and wants to drink ensures. Plan: - PEG today - if patient stable, may discharge tomorrow to [facility] where she has a bed holding for skilled, with the goal to transition promptly to hospice care once financially able. Palliative care will continue to follow. (5) Palliative care encounter Current Visit: Yes Status: Acute (6) Depression Current Visit: Yes Status: Acute Assessment and plan: Today patient was awake today, sitting on chair. Plan: Methylphenidate was d/c by primary hospitalist, as pt was vomiting and not tolerating POs. Patient was awake this morning, and very happy that her son was here. - Time Spent With Patient Total time spent is greater than 50% in coordination of care (as documented) at patient's floor/unit and/or counseling patient: - Subjective Interval history: Patient feeling very weak today, son Bharathi at the bedside. Nausea have improved and pain is better controlled. Gas and some stool output from colostomy. - Constitutional Vitals: Abnormal lab results WBC 11.8 K/mcL (4.3-11.1) H 10/11/18 06:51 RBC 2.89 M/mcL (3.82-4.97) L 10/17/18 05:26 Hgb 8.1 g/dL (11.5-15.4) L 10/17/18 05:26 Hct 25.9 % (35.3-44.9) L 10/17/18 05:26 MCH 27.1 pg (28.0-33.3) L 10/16/18 05:21 MCHC 31.3 g/dL (31.6-35.5) L 10/17/18 05:26 RDW 18.6 % (11.5-14.5) H 10/17/18 05:26 MPV 9.3 fL (9.4-12.4) L 10/10/18 13:04 9.5 K/mcL (1.6-8.9) H 10/11/18 06:51 PT 12.4 Seconds (9.4-12.1) H 09/30/18 06:01 APTT 38.7 Seconds (26.0-36.0) H 09/30/18 06:01 VBG pH 7.46 pH Units (7.32-7.42) H 10/07/18 08:44 VBG pCO2 23 mmHg (41-51) L 10/07/18 08:44 VBG pO2 209 mmHg (25-50) H 10/07/18 08:44 VBG HCO3 16 mEq/L (21-27) L 10/07/18 08:44 Sodium 146 mEq/L (136-145) H 10/17/18 05:26 Potassium 3.4 mEq/L (3.5-5.1) L 10/17/18 05:26 Chloride 111 mEq/L (98-107) H 10/17/18 05:26 Carbon Dioxide 20 mEq/L (23-29) L 10/17/18 05:26 BUN 35 mg/dL (8-23) H 10/17/18 05:26 1.34 mg/dL (0.60-1.20) H 10/16/18 05:21 Est GFR ( Amer) 46 (> 60) L 10/16/18 05:21 Est GFR (Non-Af Amer) 56 (> 60) L 10/17/18 05:26 36 (6-26) H 10/17/18 05:26 Glucose 110 mg/dL (70-105) H 10/17/18 05:26 POC Glucose 104 mg/dL (70-99) H 10/17/18 05:50 311 (280-300) H 10/17/18 05:26 Calcium 7.7 mg/dL (8.6-10.3) L 10/17/18 05:26 Magnesium 1.2 mg/dL (1.6-2.6) L 10/12/18 05:15 AST 10 Units/L (13-39) L 10/12/18 05:15 106 Units/L (34-104) H 09/29/18 16:12 5.0 g/dL (6.4-8.9) L 10/12/18 05:15 2.2 g/dL (3.5-5.7) L 10/12/18 05:15 3.7 g/dL (2.4-3.5) H 09/30/18 06:01 0.8 (1.1-2.2) L 10/12/18 05:15 6.2 mg/dL (17.0-34.0) L 10/05/18 05:51 Turbid (Clear) A 10/14/18 12:23 30 mg/dL (Neg-Trace) H 10/14/18 12:23 Trace mg/dL (Negative) H 10/14/18 12:23 Large (Negative) H 10/14/18 12:23 Small (Negative) H 10/14/18 12:23 Ur Leukocyte Esterase Large (Negative) H 10/14/18 12:23 30-50 per hpf (0-3) H 10/14/18 12:23 TNTC per hpf (0-3) H 10/14/18 12:23 Ur Squamous Epith Cells Moderate per lpf (None-Few) H 10/14/18 12:23 Amorphous Sediment Moderate (Few) H 09/29/18 18:05 Many per hpf (None-Few) H 10/14/18 12:23 Ur Culture Indicated? YES (NO) A 10/14/18 12:23 Crossmatch See Detail 10/10/18 14:45 Exam: General appearance: Present: no acute distress, sick looking - Respiratory Respiratory exam: Present: CTAB - Cardiovascular Cardiovascular exam: Present: irregular rhythm, systolic murmur - GI/Abdominal GI/Abdominal exam: Present: diminished bowel sounds, distended Additional comments: Ostomy with small amount of formed stool - Extremities Exam Extremities exam: Present: normal capillary refill Additional comments: Generalized edema to upper extremities, pedal pitting edema. - Neurological Exam Neurological exam: Present: alert, oriented X3, strengths equal and symetric throughout - Skin Skin exam: Present: dry, pallor, warm Palliative Quality Palliative Quality: Screen for Code Status: Yes, Screen for Goals of Care: Yes, Screen for Pain: Yes, If Pain Regimen Started, Initiate Bowel Regimen: NA, Screen for Nausea/Vomitting: Yes Code Status: 09/29/18 19:34 Resuscitation Status: Active [RES] Routine Comment: Resuscitation Status: Full Code 10/04/18 16:59 Resuscitation Status: Active [RES] Routine Comment: Resuscitation Status: [id number] - Labs CBC & Chem 7: 10/17/18 05:26 10/17/18 05:26 Labs: Laboratory Results - last 24 hr 10/16/18 10/16/18 10/17/18 05:04 16:45 05:26 WBC 7.6 RBC 2.89 L Hgb 8.1 L Hct 25.9 L MCV 89.6 MCH 28.0 MCHC 31.3 L RDW 18.6 H Plt Count 252 MPV 9.8 Sodium Potassium Chloride Carbon Dioxide BUN Creatinine Est GFR ( Amer) Est GFR (Non-Af Amer) BUN/Creatinine Ratio Glucose POC Glucose 110 H 107 H Calculated Osmolality Calcium Magnesium 10/17/18 10/17/18 05:26 05:50 WBC RBC Hgb Hct MCV MCH MCHC RDW Plt Count MPV Sodium 146 H Potassium 3.4 L Chloride 111 H Carbon Dioxide 20 L BUN 35 H Creatinine 0.96 Est GFR ( Amer) > 60 Est GFR (Non-Af Amer) 56 L BUN/Creatinine Ratio 36 H Glucose 110 H POC Glucose 104 H Calculated Osmolality 311 H Calcium 7.7 L Magnesium 1.7 - Impressions Impressions KUB X-Ray 10/16/18 11:19 IMPRESSION: NG tube tip in the gastric antrum and side hole in the body of the stomach D/ / Bharathi Shaikh MD / Bharathi Shaikh MD Interpreting Provider: Bharathi Shaikh MD - ABG Interpretation ABG results: PT/INR, D-dimer PT 12.4 Seconds (9.4-12.1) H 09/30/18 06:01 Palliative Scale - Palliative Performance Scale How ambulatory is this patient?: Mainly sit / lie What is patient's level of activity and evidence of disease?: Unable to do most activity, Extensive disease How much self-care assistance does patient require?: Considerable assistance required How much oral intake does the patient have?: Minimal to sips What is this patient's level of consciousness?: Full Palliative Performance Score: 40 % Consult Discharge Plan - Plan Referrals: Maurizio Youssef MD [Partnered Physician] - 10/25/18 8:40 am Fernando Regan DO [Primary Care Provider] -
--- NOTE | 2018-10-17 16:03 | Acute Care Surgery Event Note ---
<NicholasBarbie - Last Filed: 10/17/18 15:58> Date of Encounter: 10/17/18 Time of Encounter: 15:58 Family meeting occurred with the patient, her son Bharathi, acute care surgery service, palliative care, and hospitalist to discuss further goals of care for the patient. She has continued to have symptoms of nausea, vomiting and bowel obstruction requiring NG tube. She continues to have output into colostomy bag. She does have extensive pneumatosis of the bowel, with diffuse distention of colon and high-grade small bowel obstruction with transition point seen deep within the pelvis. The decision was made to pursue palliative and comfort care. The patient is to have PEG tube placed today to allow venting in order to alleviate her symptoms. Will plan on hospitalist discharging her tomorrow to SNF to continue palliative care. All questions and concerns of patient and son were addressed and they are in agreement to proceed with PEG tube placement. <Nely JeromeDidi - Last Filed: 10/17/18 16:12> Date of Encounter: 10/17/18 I examined this patient and my medical decision-making was reviewed with the Resident Physician. I agree with the documented findings, disposition and treatment plan as described except to the extent set forth below. Pt is seen in consultation with Hospitalist, Hand Salter and General Surgeon. Continued discussion regarding the plan for Palliative care included the insertion of a PEG tube. Due to the persisting obstructive symptoms, continued NGT with LIS is required and the pt reports extreme discomfort. The procedure, risks and benefit of endoscopically placed gastric tube is discussed with the patient and her son. She understands and wishes to proceed with PEG vasu. Her procedure is scheduled.
--- NOTE | 2018-10-17 17:10 | Anesthesia Evaluation PreOp ---
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 Lap 10/06/2018, hysterectomy, aortic valve replacement. kidney stents) : No Alcohol Use: none Drug use: none Medications and Allergies Docusate [Colace] 100 mg PO DAILY #30 capsule 09/25/18 [Rx] Diltiazem CD (24hr) [Cardizem CD] 300 mg PO DAILY cap.er.24h 09/27/18 [Rx] Metoprolol [Lopressor] 25 mg PO BID tablet 09/27/18 [Rx] Ondansetron ODT [Zofran ODT] 4 mg SL Q8HR PRN #1 tab.rapdis 09/27/18 [Rx] Acetaminophen [Tylenol] 650 mg PO Q6HR PRN 09/30/18 [History] Oxybutynin Chloride [Ditropan Xl] 5 mg PO Q8H PRN 09/30/18 [History] Allergy/AdvReac Type Severity Reaction Status Date / Time Penicillins [PCN] Allergy Intermediate Hives Verified 09/30/18 09:04 Amoxicillin Allergy Hives Verified 09/30/18 09:04 - Meds/Allergy Pre-op Review Medications Reviewed: Yes Allergies Reviewed: Yes Beta Blockers on Current Med List: No Anesthesia Results - Labs 10/17/18 05:26 10/17/18 05:26 - Imaging EKG: report reviewed (ATRIAL FIBRILLATION WITH RAPID VENTRICULAR RESPONSE ANTEROSEPTAL MYOCARDIAL INFARCTION, OF INDETERMINATE AGE Electronically Signed On 10-17-2018 13:18:55 EDT by Danielle Foster) Anesthesia Exam Vital Signs/O2 Sat, Most Current Temp Pulse Resp BP Pulse Ox 97.3 F L 99 14 136/55 94 10/17/18 15:00 10/17/18 15:00 10/17/18 15:00 10/17/18 15:00 10/17/18 15:00 NPO (# of Hours): > 8 hrs Pain Scale: 0 Pain Scale Used: Numeric (1 - 10) - HEENT Pupil (Motor): Pupils equal, EOMI Mallampati: II Teeth: Edentulous Oral Opening: Greater than 3 - 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
[2018-10-17] MEDS ORDERED: Lidocaine -MPF 2% 2 ML VIAL ONE (17:30)
[2018-10-17] MEDS ORDERED: *HR* Propofol 200 MG/20 ML VIAL IVP ONE (17:30)
[2018-10-17] MEDS: Cefepime HCl 2,000 MG in Water for inj. (sterile) 20 ML IVP SCH (19:45)
--- NOTE | 2018-10-17 19:58 | Acute Care Surgery Event Note ---
Date of Encounter: 10/17/18 Time of Encounter: 17:30 Pt underwent PEG without complications. PEG placed to gravity. OK to DC to SNF when ordered by primary service.
[2018-10-17] MEDS: *HR* FentaNYL (PF) 100 MCG/2 ML VIAL IVP PRN ×2 (20:11→23:30)
[2018-10-17] MEDS: Acetaminophen IV 1,000 MG/100 ML INFUS..BTL IVPB PRN (21:54)
[2018-10-18] MEDS: Insulin LISPRO 300 UNITS/3 ML VIAL SQ SCH ×2 (02:37→06:21)
[2018-10-18] MEDS: *HR* Heparin 5,000 UNIT/ML VIAL SQ SCH (05:19)
[2018-10-18] MEDS: MetroNIDAZOLE 500 MG/100 ML 500 MG/100 ML BAG IVPB SCH (05:19)
[2018-10-18] MEDS: Metoclopramide 10 MG/2 ML VIAL IVP SCH (05:20)
[2018-10-18] MEDS: Ringers Solution, Lactated 1,000 ML IVC SCH (05:21)
[2018-10-18] MEDS: Diltiazem CD (24hr) 180 MG CAPSULE PO SCH (09:16)
--- NOTE | 2018-10-18 09:44 | Acute Care Surgery Event Note ---
Date of Encounter: 10/18/18 Time of Encounter: 09:42 Patient had PEG tube placed last night and tolerated procedure well. PEG placed to gravity rule out for venting. Patient examined this morning, PEG is in place, appropriate tension. Patient is well from surgical standpoint to discharge to SNF today. Her vicenta from midline incision to be removed today as well. Patient to follow-up with surgery service as needed. Please call if you have any questions.
[2018-10-18] MEDS: OXYCODONE Oral CONC 10 MG/0.5 ML ORAL.SYG SL PRN (10:30)
--- NOTE | 2018-10-18 11:20 | Discharge Summary ---
Date of Encounter: 10/18/18 Time of Encounter: 11:15 Hospital course: Dear Doctors, I recently had the opportunity to care for this patient during their recent hospital stay at [facility]. Patricia Flanagan is an 83 F w hx stage IV rectal cancer s/p colostomy '15 c/b recurrent SBOs, also HFrEF 45%, A-Fib, HTN, HLD, DM2, bpAVR . She presented at time of admission on 09/29/2018 with abd pain and vomiting, found on CT to have dilated loops of small bowel with compressed colon and ostomy, suggestive of complete SBO at site where bowel loops pass near rectal mass. The patient was managed conservatively for a week without improvement in symptoms, and thus [facility] offered palliative entero-colonic bypass which patient underwent on 10/06. Hospital course c/b post-op ileus and subsequently recurrent obstruction, for which a palliative PEG was placed on 10/17 for venting to alleviate symptoms as obstruction recurs. Ultimately, patient's prognosis is grim, with very limited life expectancy at this point and no further surgical options. The patient's desire is for hospice, but her insurance does not cover this service. Therefore, she will discharge to SNF, where with patient's and son's permission they will continue work to get her qualified for Medicaid and then into hospice care. She is able to PO as tolerated, and has been prescribed oxycodone and fentanyl patch to assist with pain. 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 Please contact me with any questions or concerns regarding their hospital stay. Sincerely, Rafael Garcia MD - Discharge Medications Prescriptions: New FentaNYL PATCH [Duragesic] 12 mcg TD Q72H 9 Days #3 patch.td72 OXYCODONE Oral CONC [Oxycodone Oral Conc] 10 mg SL Q4HR PRN 3 Days #15 oral.syg PRN Reason: Severe Pain Metoclopramide [Reglan] 10 mg PO Q6HR #120 tablet Continued Docusate [Colace] 100 mg PO DAILY #30 capsule Diltiazem CD (24hr) [Cardizem CD] 300 mg PO DAILY cap.er.24h Metoprolol [Lopressor] 25 mg PO BID tablet Ondansetron ODT [Zofran ODT] 4 mg SL Q8HR PRN #1 tab.rapdis PRN Reason: Nausea And Vomiting Acetaminophen [Tylenol] 650 mg PO Q6HR PRN PRN Reason: Pain Discontinued Cyanocobalamin (Vitamin B-12) [Vitamin B-12] 1,000 mcg PO DAILY Aspirin Enteric Coated [Aspirin EC] 81 mg PO DAILY #30 tablet.dr Ferrous Sulfate 325 mg PO DAILY #30 tablet HYDROcodone/Acet 5/325 mg [[place] 5-325 mg] 1 tab PO BID Multivitamin [One Daily Essential] 1 tab PO DAILY Omeprazole [PriLOSEC] 40 mg PO DAILY Oxybutynin Chloride [Ditropan Xl] 5 mg PO Q8H PRN PRN Reason: BLADDER SPASMS Home Medications: Docusate [Colace] 100 mg PO DAILY #30 capsule 09/25/18 [Rx] Diltiazem CD (24hr) [Cardizem CD] 300 mg PO DAILY cap.er.24h 09/27/18 [Rx] Metoprolol [Lopressor] 25 mg PO BID tablet 09/27/18 [Rx] Ondansetron ODT [Zofran ODT] 4 mg SL Q8HR PRN #1 tab.rapdis 09/27/18 [Rx] Acetaminophen [Tylenol] 650 mg PO Q6HR PRN 09/30/18 [History] FentaNYL PATCH [Duragesic] 12 mcg TD Q72H 9 Days #3 patch.td72 10/18/18 [Rx] Metoclopramide [Reglan] 10 mg PO Q6HR #120 tablet 10/18/18 [Rx] OXYCODONE Oral CONC [Oxycodone Oral Conc] 10 mg SL Q4HR PRN 3 Days #15 oral.syg 10/18/18 [Rx] Allergies/Adverse Reactions: Allergy/AdvReac Type Severity Reaction Status Date / Time Penicillins [PCN] Allergy Intermediate Hives Verified 09/30/18 09:04 Amoxicillin Allergy Hives Verified 09/30/18 09:04 Date of admission: 09/30/18 18:59 Primary care physician: Lars Regan DO - Constitutional Vitals: Temp Pulse Resp BP Pulse Ox 97.4 F L 54 14 131/66 96 10/18/18 10:53 10/18/18 10:53 10/18/18 10:53 10/18/18 10:53 10/18/18 10:53 Exam: General: NAD, good eye contact, chronically ill appearing and elderly, relatively comfortable today Thoracic: Normal breath sounds b/l, no wheezing or crackles, breaths diminished Cardio: Normal S1 and S2, irregularly irregular rhythm, tachycardic Abdomen: mild persistent TTP but soft, ostomy bag in place with liquid brown stool, PEG in place without surrounding erythema Extremities: Warm, well perfused. DP pulses 2+ b/l. Minimal pedal edema Skin: Intact. No rashes, bruises, or ulcers Neuro: awake, fully oriented. Speech fluent. - Patient Status Disposition: Transfer SNF Condition: Serious Functional capacity at discharge: wheelchair bound Overall status at discharge: patient is not back to baseline - Discharge Instructions Follow Up With: Maurizio Youssef MD [Partnered Physician] - 10/25/18 8:40 am Fernando Regan DO [Primary Care Provider] - (ECF) - Diet and Activity Activity: resume usual activities as tolerated Diet: advance to your usual diet (advance from clears to full liquid and even pureed foods as tolerated)
--- NOTE | 2018-10-18 11:26 | Palliative Progress Note ---
Date of Encounter: 10/18/18 Time of Encounter: 10:00 - Assessment and plan (1) Abdominal pain Current Visit: No Status: Acute Assessment and plan: Pain well controlled. Fentanyl patch 12mcg in place Oxycodone 10 mg SL prn, received 1 doses in 24hrs Qualifiers: Abdominal location: generalized Qualified Code(s): R10.84 - Generalized abdominal pain (2) SBO (small bowel obstruction) Current Visit: Yes Status: Acute Assessment and plan: Repeat CT scan yesterday sowed intestinal pneumatosis. s/p venting PEG, feeling better. (3) Nausea Current Visit: Yes Status: Acute Assessment and plan: Metoclopromide schedule, feeling well today. (4) Goals of care, counseling/discussion Current Visit: Yes Status: Acute Assessment and plan: s/p venting PEG, Discussed with pt, she desires the the PEG to never be used for feeding at anytime. Plan: to be discharged today per primary hospitalist. (5) Palliative care encounter Current Visit: Yes Status: Acute - Time Spent With Patient Total time spent is greater than 50% in coordination of care (as documented) at patient's floor/unit and/or counseling patient: less than 15 minutes - Subjective Interval history: Patient was AAOx3 this morning, feeling better since the NGT was removed. Asking for some ensure to drink. She has no nausea this morning, and pain is well controlled. She is looking forward to being discharged to [facility] [place]. - Constitutional Vitals: Abnormal lab results WBC 11.8 K/mcL (4.3-11.1) H 10/11/18 06:51 RBC 2.89 M/mcL (3.82-4.97) L 10/17/18 05:26 Hgb 8.1 g/dL (11.5-15.4) L 10/17/18 05:26 Hct 25.9 % (35.3-44.9) L 10/17/18 05:26 MCH 27.1 pg (28.0-33.3) L 10/16/18 05:21 MCHC 31.3 g/dL (31.6-35.5) L 10/17/18 05:26 RDW 18.6 % (11.5-14.5) H 10/17/18 05:26 MPV 9.3 fL (9.4-12.4) L 10/10/18 13:04 9.5 K/mcL (1.6-8.9) H 10/11/18 06:51 PT 12.4 Seconds (9.4-12.1) H 09/30/18 06:01 APTT 38.7 Seconds (26.0-36.0) H 09/30/18 06:01 VBG pH 7.46 pH Units (7.32-7.42) H 10/07/18 08:44 VBG pCO2 23 mmHg (41-51) L 10/07/18 08:44 VBG pO2 209 mmHg (25-50) H 10/07/18 08:44 VBG HCO3 16 mEq/L (21-27) L 10/07/18 08:44 Sodium 146 mEq/L (136-145) H 10/17/18 05:26 Potassium 3.4 mEq/L (3.5-5.1) L 10/17/18 05:26 Chloride 111 mEq/L (98-107) H 10/17/18 05:26 Carbon Dioxide 20 mEq/L (23-29) L 10/17/18 05:26 BUN 35 mg/dL (8-23) H 10/17/18 05:26 1.34 mg/dL (0.60-1.20) H 10/16/18 05:21 Est GFR ( Amer) 46 (> 60) L 10/16/18 05:21 Est GFR (Non-Af Amer) 56 (> 60) L 10/17/18 05:26 36 (6-26) H 10/17/18 05:26 Glucose 110 mg/dL (70-105) H 10/17/18 05:26 POC Glucose 121 mg/dL (70-99) H 10/17/18 12:13 311 (280-300) H 10/17/18 05:26 Calcium 7.7 mg/dL (8.6-10.3) L 10/17/18 05:26 Magnesium 1.2 mg/dL (1.6-2.6) L 10/12/18 05:15 AST 10 Units/L (13-39) L 10/12/18 05:15 106 Units/L (34-104) H 09/29/18 16:12 5.0 g/dL (6.4-8.9) L 10/12/18 05:15 2.2 g/dL (3.5-5.7) L 10/12/18 05:15 3.7 g/dL (2.4-3.5) H 09/30/18 06:01 0.8 (1.1-2.2) L 10/12/18 05:15 6.2 mg/dL (17.0-34.0) L 10/05/18 05:51 Turbid (Clear) A 10/14/18 12:23 30 mg/dL (Neg-Trace) H 10/14/18 12:23 Trace mg/dL (Negative) H 10/14/18 12:23 Large (Negative) H 10/14/18 12:23 Small (Negative) H 10/14/18 12:23 Ur Leukocyte Esterase Large (Negative) H 10/14/18 12:23 30-50 per hpf (0-3) H 10/14/18 12:23 TNTC per hpf (0-3) H 10/14/18 12:23 Ur Squamous Epith Cells Moderate per lpf (None-Few) H 10/14/18 12:23 Amorphous Sediment Moderate (Few) H 09/29/18 18:05 Many per hpf (None-Few) H 10/14/18 12:23 Ur Culture Indicated? YES (NO) A 10/14/18 12:23 Crossmatch See Detail 10/10/18 14:45 Exam: General appearance: Present: no acute distress, sick looking - Respiratory Respiratory exam: Present: CTAB - Cardiovascular Cardiovascular exam: Present: irregular rhythm, systolic murmur - GI/Abdominal GI/Abdominal exam: Present: diminished bowel sounds, distended Additional comments: Ostomy with small amount of formed stool; PEG tube in place, to gravity; Midline surgical scar with vicenta, appears to be healing well. - Extremities Exam Extremities exam: Present: normal capillary refill Additional comments: Generalized edema to upper extremities, pedal pitting edema. - Neurological Exam Neurological exam: Present: alert, oriented X3, strengths equal and symetric throughout - Skin Skin exam: Present: dry, pallor, warm Palliative Quality Palliative Quality: Screen for Code Status: Yes, Screen for Goals of Care: Yes, Screen for Pain: Yes, If Pain Regimen Started, Initiate Bowel Regimen: NA, Screen for Nausea/Vomitting: Yes Code Status: 09/29/18 19:34 Resuscitation Status: Active [RES] Routine Comment: Resuscitation Status: Full Code 10/04/18 16:59 Resuscitation Status: Active [RES] Routine Comment: Resuscitation Status: [id number] - Labs CBC & Chem 7: 10/17/18 05:26 10/17/18 05:26 Labs: Laboratory Results - last 24 hr 10/17/18 10/17/18 10/18/18 00:01 12:13 00:11 POC Glucose 110 H 121 H 97 - ABG Interpretation ABG results: PT/INR, D-dimer PT 12.4 Seconds (9.4-12.1) H 09/30/18 06:01 Palliative Scale - Palliative Performance Scale How ambulatory is this patient?: Mainly sit / lie What is patient's level of activity and evidence of disease?: Unable to do most activity, Extensive disease How much self-care assistance does patient require?: Considerable assistance required How much oral intake does the patient have?: Minimal to sips What is this patient's level of consciousness?: Full Palliative Performance Score: 40 % Consult Discharge Plan - Plan Referrals: Maurizio Youssef MD [Partnered Physician] - 10/25/18 8:40 am Fernando Regan DO [Primary Care Provider] - (ECF) Prescriptions: FentaNYL PATCH [Duragesic] 12 mcg TD Q72H 9 Days #3 patch.td72 OXYCODONE Oral CONC [Oxycodone Oral Conc] 10 mg SL Q4HR PRN 3 Days #15 oral.syg PRN Reason: Severe Pain Metoclopramide [Reglan] 10 mg PO Q6HR #120 tablet
--- NOTE | 2018-10-18 11:46 | Physician Discharge Referral ---
ExtendedCare Referral Info Transfer To: SNF Provider in Charge after Transfer: PCP Institutional Level of Care: Skilled - Diagnosis (1) Rectal cancer Priority: Primary Status: Chronic (2) SBO (small bowel obstruction) Priority: Secondary Status: Acute - Transfer Medications Prescriptions: FentaNYL PATCH [Duragesic] 12 mcg TD Q72H 9 Days #3 patch.td72 OXYCODONE Oral CONC [Oxycodone Oral Conc] 10 mg SL Q4HR PRN 3 Days #15 oral.syg PRN Reason: Severe Pain Metoclopramide [Reglan] 10 mg PO Q6HR #120 tablet Home Medications: Docusate [Colace] 100 mg PO DAILY #30 capsule 09/25/18 [Rx] Diltiazem CD (24hr) [Cardizem CD] 300 mg PO DAILY cap.er.24h 09/27/18 [Rx] Metoprolol [Lopressor] 25 mg PO BID tablet 09/27/18 [Rx] Ondansetron ODT [Zofran ODT] 4 mg SL Q8HR PRN #1 tab.rapdis 09/27/18 [Rx] Acetaminophen [Tylenol] 650 mg PO Q6HR PRN 09/30/18 [History] FentaNYL PATCH [Duragesic] 12 mcg TD Q72H 9 Days #3 patch.td72 10/18/18 [Rx] Metoclopramide [Reglan] 10 mg PO Q6HR #120 tablet 10/18/18 [Rx] OXYCODONE Oral CONC [Oxycodone Oral Conc] 10 mg SL Q4HR PRN 3 Days #15 oral.syg 10/18/18 [Rx] Allergies/Adverse Reactions: Allergy/AdvReac Type Severity Reaction Status Date / Time Penicillins [PCN] Allergy Intermediate Hives Verified 09/30/18 09:04 Amoxicillin Allergy Hives Verified 09/30/18 09:04 - Respiratory Orders Smoking Cessation: Smoking cessation has been advised. For more information, call the [facility] Tobacco Quit Line at 9-933-DSSX-NOW. - Ancillary Orders May use pressure relief devices daily prn - Advance Directives Code Status: DNR-Comfort Care - Mobility Orders Chair - Rehabiliation Orders Rehab Orders: Evaluation for Physical Therapy, Evaluation for Occupational Therapy - Treatments Skin tear care topically daily PRN per policy - Diet Orders Pureed (clears, advance as tolerated to full liquid and then pureed) CERTIFICATION: I certify that the transfer of the above named patient to an Extended Care Facility is necessary for the continuing treatment of the diagnosis listed. The above information is true and accurate reflection of patient's current condition. Confidential - Redisclosure prohibited without a patient's written consent.
[2018-10-18 15:03] VITALS: BP 150/82
== END 2018-10-18 15:21 | DRG 329 ==
LOC: 3ANU 14:52 → EMEROOARM 14:52 → SUATTDRO 19:27 → 3ANU 19:57 → SUATTDRO 09-30 18:59
PROVIDERS: ADMIT Internal Medicine Nephrology; ATTEND Internal Medicine